=== PATIENT | female | born 1960 | race Caucasian/White ===

== ENCOUNTER 2019-05-03 11:46 | Emergency (ER) | payer OTHER ==
--- OUTSIDE RECORDS SUMMARY | 2019-05-03 11:48 | XMS REPORT ---
:1960 [facility] Address [address] [place] [address] Dr. Maguire [address] [place] [id number] Care Team Providers Name Role Phone Unavailable Unavailable Unavailable Problems This patient has no known problems. Allergies, Adverse Reactions, Alerts This patient has no known allergies or adverse reactions. Medications This patient has no known medications.
--- NOTE | 2019-05-03 12:07 | ER ---
Nurse's Notes [facility] Name: Ruth Drake Age: 58 yrs Sex: Female : 1960 Arrival Date: 05/03/2019 Time: 11:51 Bed 12 Private MD: Diagnosis: Encounter for issue of repeat prescription Presentation: 05/03 11:50 Presenting complaint: Patient states: im getting low on my ProAir and i have an hj appointment with my doctor on Wednesday, since yesterday, i used it but its past zero already;. Transition of care: patient was not received from another setting of care. Onset of symptoms was May 03, 2019. Risk Assessment: Do you want to hurt yourself or someone else? Patient reports no desire to harm self or others. Initial Sepsis Screen: Does the patient meet any 2 criteria? No. Patient's initial sepsis screen is negative. Does the patient have a suspected source of infection? No. Patient's initial sepsis screen is negative. Care prior to arrival: None. 11:50 Method Of Arrival: Ambulatory 11:50 Acuity: PADMINI 5 hj Triage Assessment: 12:00 General: Appears in no apparent distress. comfortable, Behavior is calm, cooperative, hj appropriate for age. Pain: Denies pain. Historical: - Allergies: 11:52 Codeine; hj 11:52 Bactrim; hj - PMHx: 11:52 COPD; Hypertension; Diabetes - NIDDM; hj - PSHx: 11:52 None; hj - Immunization history:: Adult Immunizations not up to date. - Social history:: Smoking status: Patient uses tobacco products, Patient/guardian denies using alcohol. - Ebola Screening: : Patient negative for fever greater than or equal to 101.5 degrees Fahrenheit, and additional compatible Ebola Virus Disease symptoms Patient denies exposure to infectious person Patient denies travel to an Ebola-affected area in the 21 days before illness onset. Screenin:00 Abuse screen: Denies threats or abuse. Denies injuries from another. Nutritional hj screening: No deficits noted. Tuberculosis screening: No symptoms or risk factors identified. Fall Risk None identified. Assessment: 12:11 General: Appears in no apparent distress. comfortable, Behavior is calm, cooperative. ss Pain: Denies pain. Neuro: Oriented to person, place, time, situation. Cardiovascular: Capillary refill < 3 seconds is brisk in bilateral fingers. Respiratory: Airway is patent Respiratory effort is even, unlabored, Respiratory pattern is regular, symmetrical. EENT: Nares are clear Oral mucosa is moist. Derm: Skin is intact, is healthy with good turgor, Skin is dry. Musculoskeletal: Circulation, motion, and sensation intact. Range of motion: intact in all extremities. Vital Signs: 11:53 BP 138 / 75; Pulse 115; Resp 20; Temp 98.1(TE); Pulse Ox 94% on R/A; Weight 74.84 kg; hj Height 5 ft. 1 in. (154.94 cm); Pain 0/10; 11:53 Body Mass Index 31.18 (74.84 kg, 154.94 cm) ED Course: 11:51 Patient arrived in ED. mr 11:52 Triage completed. hj 11:52 Arm band placed on right wrist. 11:58 Galile[facility] Carlson [facility]-C [facility]. kb 11:58 Oz Lopez MD is Attending Physician. kb 12:00 Jarvis Ge, RN is Primary Nurse. hj 12:00 Patient has correct armband on for positive identification. Bed in low position. Call light in reach. Side rails up X 1. 12:13 No provider procedures requiring assistance completed. Patient did not have IV access ss during this emergency room visit. Administered Medications: No medications were administered Outcome: 12:06 Discharge ordered by MD. kb 12:13 Discharged to home ambulatory. ss 12:13 Condition: good 12:13 Discharge instructions given to patient, Instructed on discharge instructions, follow up and referral plans. medication usage, Demonstrated understanding of instructions, follow-up care, medications, Prescriptions given X 1. 12:14 Patient left the ED. ss Signatures: Galilea Carlson FNP-C FNP-Ckb Stephany Molina Lela Bird, RN RN Jarvis Ge, DARIUS MCCOY
--- NOTE | 2019-05-03 12:08 | EDPHYS ---
Physician Documentation [facility] Name: Ruth Drake Age: 58 yrs Sex: Female : 1960 Arrival Date: 05/03/2019 Time: 11:51 Bed 12 Private MD: ED Physician Oz Lopez HPI: 05/03 12:04 This 58 yrs old Female presents to ER via Ambulatory with complaints of kb Medication Refill. 12:04 The patient presents to the emergency department requesting refill(s) for: albuterol. kb The patient chronically suffers from COPD. The patient has not experienced similar symptoms in the past. The patient has not recently seen a physician. Pt reports she ran out of her albuterol inhaler and can't get in to see her Dr until Wednesday. Has an appt with Dr Rodriguez on Wednesday. Pt smokes cigarettes and just smoked before entering. . Historical: - Allergies: 11:52 Codeine; hj 11:52 Bactrim; hj - PMHx: 11:52 COPD; Hypertension; Diabetes - NIDDM; hj - PSHx: 11:52 None; hj - Immunization history:: Adult Immunizations not up to date. - Social history:: Smoking status: Patient uses tobacco products, Patient/guardian denies using alcohol. - Ebola Screening: : Patient negative for fever greater than or equal to 101.5 degrees Fahrenheit, and additional compatible Ebola Virus Disease symptoms Patient denies exposure to infectious person Patient denies travel to an Ebola-affected area in the 21 days before illness onset. ROS: 12:04 Constitutional: Negative for fever, chills, and weight loss, Cardiovascular: Negative kb for chest pain, palpitations, and edema, Respiratory: Negative for shortness of breath, cough, wheezing, and pleuritic chest pain, Abdomen/GI: Negative for abdominal pain, nausea, vomiting, diarrhea, and constipation, Back: Negative for injury and pain, MS/Extremity: Negative for injury and deformity, Skin: Negative for injury, rash, and discoloration, Neuro: Negative for headache, weakness, numbness, tingling, and seizure. Exam: 12:04 Constitutional: This is a well developed, well nourished patient who is awake, alert, kb and in no acute distress. Head/Face: Normocephalic, atraumatic. ENT: Nares patent. No nasal discharge, no septal abnormalities noted. Tympanic membranes are normal and external auditory canals are clear. Oropharynx with no redness, swelling, or masses, exudates, or evidence of obstruction, uvula midline. Mucous membranes moist. Neck: Trachea midline, no thyromegaly or masses palpated, and no cervical lymphadenopathy. Supple, full range of motion without nuchal rigidity, or vertebral point tenderness. No Meningismus. Chest/axilla: Normal chest wall appearance and motion. Nontender with no deformity. No lesions are appreciated. Cardiovascular: Regular rate and rhythm with a normal S1 and S2. No gallops, murmurs, or rubs. Normal PMI, no JVD. No pulse deficits. Respiratory: Lungs have equal breath sounds bilaterally, clear to auscultation and percussion. No rales, rhonchi or wheezes noted. No increased work of breathing, no retractions or nasal flaring. Abdomen/GI: Soft, non-tender, with normal bowel sounds. No distension or tympany. No guarding or rebound. No evidence of tenderness throughout. Skin: Warm, dry with normal turgor. Normal color with no rashes, no lesions, and no evidence of cellulitis. MS/ Extremity: Pulses equal, no cyanosis. Neurovascular intact. Full, normal range of motion. Neuro: Awake and alert, GCS 15, oriented to person, place, time, and situation. Cranial nerves II-XII grossly intact. Motor strength 5/5 in all extremities. Sensory grossly intact. Cerebellar exam normal. Normal gait. Vital Signs: 11:53 BP 138 / 75; Pulse 115; Resp 20; Temp 98.1(TE); Pulse Ox 94% on R/A; Weight 74.84 kg; hj Height 5 ft. 1 in. (154.94 cm); Pain 0/10; 11:53 Body Mass Index 31.18 (74.84 kg, 154.94 cm) MDM: 11:59 Patient medically screened. kb 12:03 Data reviewed: vital signs, nurses notes. Data interpreted: Pulse oximetry: on room air kb is 94 %. Interpretation: normal. Counseling: I had a detailed discussion with the patient and/or guardian regarding: the historical points, exam findings, and any diagnostic results supporting the discharge/admit diagnosis, the need for outpatient follow up, a family practitioner, to return to the emergency department if symptoms worsen or persist or if there are any questions or concerns that arise at home. 12:07 Counseling: I had a detailed discussion with the patient and/or guardian regarding: kb smoking cessation. Administered Medications: No medications were administered Disposition: 18:54 Co-signature as Attending Physician, Oz Lopez MD Available for consultation at ps1 all times. . Disposition: 05/03/19 12:06 Discharged to Home. Impression: Encounter for issue of repeat prescription. - Condition is Stable. - Discharge Instructions: Medicine Refill at the Emergency Department. - Prescriptions for Albuterol Sulfate 90 mcg/actuation - inhale 1-2 puff by INHALATION route every 4-6 hours; 1 Inhaler. - Medication Reconciliation Form, Thank You Letter, Antibiotic Education, Prescription Opioid Use form. - Follow up: Emergency Department; When: As needed; Reason: Worsening of condition. Follow up: Private Physician; When: 2 - 3 days; Reason: Recheck today's complaints, Continuance of care, Re-evaluation by your physician. Signatures: Galilea Carlson, BONDERIZER OPERATOR-C BONDERIZER OPERATOR-Lela Ford RN RN Jarvis Eng RN RN Oz Lopez MD MD ps1 Corrections: (The following items were deleted from the chart) 12:14 12:06 05/03/2019 12:06 Discharged to Home. Impression: Encounter for issue of repeat ss prescription. Condition is Stable. Forms are Medication Reconciliation Form, Thank You Letter, Antibiotic Education, Prescription Opioid Use. Follow up: Emergency Department; When: As needed; Reason: Worsening of condition. Follow up: Private Physician; When: 2 - 3 days; Reason: Recheck today's complaints, Continuance of care, Re-evaluation by your physician. kb
== END 2019-05-03 12:14 | disposition home or self-care (01) ==
LOC: ER 11:46
DX: Z76.0 Encounter for issue of repeat prescription (principal); I10 Essential (primary) hypertension; Z72.0 Tobacco use; Z88.1 Allergy status to other antibiotic agents; Z88.5 Allergy status to narcotic agent
CPT/HCPCS: 99282

== ENCOUNTER 2019-09-19 09:09 | Emergency (ER) | payer OTHER ==
--- NOTE | 2019-09-19 09:40 | ER ---
Nurse's Notes [facility] Name: Ruth Drake Age: 59 yrs Sex: Female : 1960 Arrival Date: 09/19/2019 Time: 09:12 Bed 16 Private MD: Diagnosis: Encounter for issue of repeat prescription Presentation: 09/19 09:21 Presenting complaint: Patient states: Needs a refill for her ProAir inhaler. Patient ss reports she ran out yesterday. Transition of care: patient was not received from another setting of care. Onset of symptoms is unknown. Risk Assessment: Do you want to hurt yourself or someone else? Patient reports no desire to harm self or others. Initial Sepsis Screen: Does the patient meet any 2 criteria? HR > 90 bpm. Does the patient have a suspected source of infection? No. Patient's initial sepsis screen is negative. Care prior to arrival: None. 09:21 Method Of Arrival: Ambulatory ss 09:21 Acuity: PADMINI 3 ss Historical: - Allergies: 09:20 Bactrim; ss 09:20 Codeine; ss - Home Meds: 09:20 ProAir [Active]; symbicort [Active]; Glipizide Oral [Active]; Lisinopril Oral [Active]; ss - PMHx: 09:20 COPD; Diabetes - NIDDM; Hypertension; ss - PSHx: 09:20 None; ss - Immunization history:: Adult Immunizations up to date. - Social history:: Smoking status: Patient uses tobacco products, smokes one-half pack cigarettes per day. - Ebola Screening: : Patient denies exposure to infectious person Patient denies travel to an Ebola-affected area in the 21 days before illness onset. Screenin:23 Abuse screen: Denies threats or abuse. Denies injuries from another. Nutritional sv screening: No deficits noted. Tuberculosis screening: No symptoms or risk factors identified. Fall Risk None identified. Assessment: 09:22 Reassessment: When told that her pulse was elevated, patient states that she believes ss it is from smoking a cigarette prior to coming in to ED and walking. 09:30 General: Appears in no apparent distress. comfortable, Behavior is calm, cooperative, sv appropriate for age. Pain: Denies pain. Neuro: Level of Consciousness is awake, alert, obeys commands, Oriented to person, place, time, situation, Gait is steady. Respiratory: Airway is patent Respiratory effort is even, unlabored, Respiratory pattern is regular, symmetrical. Derm: Skin is normal. Vital Signs: 09:20 BP 142 / 83; Pulse 118; Resp 19; Temp 99.0(TE); Pulse Ox 88% on R/A; Weight 74.84 kg; ss Height 5 ft. 1 in. (154.94 cm); Pain 0/10; 09:20 Body Mass Index 31.18 (74.84 kg, 154.94 cm) ss 09:20 Patient reports that her baseline O2 on RA is 88% ss ED Course: 09:12 Patient arrived in ED. as 09:19 Valdez Donahue NP is PHCP. pm1 09:19 Moshe Alex MD is Attending Physician. pm1 09:20 Arm band placed on right wrist. ss 09:22 Triage completed. ss 09:23 Yessica Merida RN is Primary Nurse. sv 09:23 Patient has correct armband on for positive identification. Bed in low position. Door sv closed. Head of bed elevated. 09:24 Awaiting ED provider evaluation. sv 09:36 Nurse Practitioner and/or Physician Pipeline Maintenance Supervisor to see patient. sv 09:44 No provider procedures requiring assistance completed. Patient did not have IV access sv during this emergency room visit. Administered Medications: No medications were administered Outcome: 09:40 Discharge ordered by . pm1 09:45 Discharged to home ambulatory. sv 09:45 Condition: stable 09:45 Discharge instructions given to patient, Instructed on discharge instructions, follow up and referral plans. medication usage, Demonstrated understanding of instructions, follow-up care, medications, Prescriptions given X 1. 09:45 Patient left the ED. sv Signatures: Yessica Merida, RN RN Alaina Wan Shelby, RN RN Valdez Donahue NP SHIFT LEADER pm1
--- NOTE | 2019-09-19 09:41 | EDPHYS ---
Physician Documentation [facility] Name: Ruth Drake Age: 59 yrs Sex: Female : 1960 Arrival Date: 09/19/2019 Time: 09:12 Bed 16 Private MD: ED Physician Moshe Alex HPI: 09/19 09:38 This 59 yrs old Female presents to ER via Ambulatory with complaints of pm1 Medication Refill. 09:38 The patient presents to the emergency department requesting refill(s) for: Albuterol. pm1 The patient chronically suffers from COPD. The patient has not recently seen a physician. Patient requesting prescription for albuterol. She currently smokes 1/2 pack per day. Just smoked prior to arrival and took a breathing treatment at home. Historical: - Allergies: 09:20 Bactrim; ss 09:20 Codeine; ss - Home Meds: 09:20 ProAir [Active]; symbicort [Active]; Glipizide Oral [Active]; Lisinopril Oral [Active]; ss - PMHx: 09:20 COPD; Diabetes - NIDDM; Hypertension; ss - PSHx: 09:20 None; ss - Immunization history:: Adult Immunizations up to date. - Social history:: Smoking status: Patient uses tobacco products, smokes one-half pack cigarettes per day. - Ebola Screening: : Patient denies exposure to infectious person Patient denies travel to an Ebola-affected area in the 21 days before illness onset. ROS: 09:38 Constitutional: Negative for fever, chills, and weight loss, Eyes: Negative for injury, pm1 pain, redness, and discharge, ENT: Negative for injury, pain, and discharge, Neck: Negative for injury, pain, and swelling, Cardiovascular: Negative for chest pain, palpitations, and edema, Respiratory: Negative for shortness of breath, cough, wheezing, and pleuritic chest pain, Abdomen/GI: Negative for abdominal pain, nausea, vomiting, diarrhea, and constipation, Back: Negative for injury and pain, : Negative for injury, bleeding, discharge, and swelling, MS/Extremity: Negative for injury and deformity, Skin: Negative for injury, rash, and discoloration, Neuro: Negative for headache, weakness, numbness, tingling, and seizure. Exam: 09:38 Constitutional: This is a well developed, well nourished patient who is awake, alert, pm1 and in no acute distress. Head/Face: Normocephalic, atraumatic. Eyes: Pupils equal round and reactive to light, extra-ocular motions intact. Lids and lashes normal. Conjunctiva and sclera are non-icteric and not injected. Cornea within normal limits. Periorbital areas with no swelling, redness, or edema. ENT: Nares patent. No nasal discharge, no septal abnormalities noted. Tympanic membranes are normal and external auditory canals are clear. Oropharynx with no redness, swelling, or masses, exudates, or evidence of obstruction, uvula midline. Mucous membranes moist. Neck: Trachea midline, no thyromegaly or masses palpated, and no cervical lymphadenopathy. Supple, full range of motion without nuchal rigidity, or vertebral point tenderness. No Meningismus. Chest/axilla: Normal chest wall appearance and motion. Nontender with no deformity. No lesions are appreciated. Cardiovascular: Regular rate and rhythm with a normal S1 and S2. No gallops, murmurs, or rubs. Normal PMI, no JVD. No pulse deficits. Respiratory: Lungs have equal breath sounds bilaterally, clear to auscultation and percussion. No rales, rhonchi or wheezes noted. No increased work of breathing, no retractions or nasal flaring. Back: No spinal tenderness. No costovertebral tenderness. Full range of motion. Skin: Warm, dry with normal turgor. Normal color with no rashes, no lesions, and no evidence of cellulitis. MS/ Extremity: Pulses equal, no cyanosis. Neurovascular intact. Full, normal range of motion. 09:38 Neuro: Orientation: is normal, Motor: is normal, moves all fours, Gait: is steady, at a normal pace, without difficulty. Vital Signs: 09:20 BP 142 / 83; Pulse 118; Resp 19; Temp 99.0(TE); Pulse Ox 88% on R/A; Weight 74.84 kg; ss Height 5 ft. 1 in. (154.94 cm); Pain 0/10; 09:20 Body Mass Index 31.18 (74.84 kg, 154.94 cm) 09:20 Patient reports that her baseline O2 on RA is 88% ss MDM: 09:30 Patient medically screened. pm1 09:30 Data reviewed: vital signs. pm1 09:38 Counseling: I had a detailed discussion with the patient and/or guardian regarding: the pm1 historical points, exam findings, and any diagnostic results supporting the discharge/admit diagnosis, the need for outpatient follow up, a instrument tech, to return to the emergency department if symptoms worsen or persist or if there are any questions or concerns that arise at home. 09:38 Refusal of service: The patient/guardian displays adequate decision making capability pm1 and despite a detailed discussion of alternatives, benefits, risks, and consequences refuses: Breathing treatment and labs, ekg, chest xray for evaluation of abnormal vital signs. Patient reports that her oxygen saturation is at her baseline for her COPD and she does not feel short of breath. She smoked a cigarette prior to walking into the ER. Offered the patient a breathing treatment but she refused because she took one before leaving the house. She just wants the medication refill. Administered Medications: No medications were administered Disposition: 15:48 Co-signature as Attending Physician, Moshe Alex MD I agree with the assessment and wendy plan of care. Disposition: 09/19/19 09:40 Discharged to Home. Impression: Encounter for issue of repeat prescription. - Condition is Stable. - Discharge Instructions: Medicine Refill at the Emergency Department. - Prescriptions for Albuterol Sulfate 90 mcg/actuation - inhale 1-2 puff by INHALATION route every 4-6 hours; 1 Inhaler. - Medication Reconciliation Form, Thank You Letter, Antibiotic Education, Prescription Opioid Use form. - Follow up: Emergency Department; When: As needed; Reason: Worsening of condition. Follow up: Private Physician; When: 2 - 3 days; Reason: Recheck today's complaints, Continuance of care, Re-evaluation by your physician. - Problem is new. - Symptoms have improved. Signatures: Yessica Merida RN RN sv Anderson, Corey, MD MD cha Smirch, Shelby, RN RN ss Marinas, Patrick, [employer]ITO MOLASS[employer] FEED MIXER pm1 Corrections: (The following items were deleted from the chart) 09:45 09:40 09/19/2019 09:40 Discharged to Home. Impression: Encounter for issue of repeat sv prescription. Condition is Stable. Forms are Medication Reconciliation Form, Thank You Letter, Antibiotic Education, Prescription Opioid Use. Follow up: Emergency Department; When: As needed; Reason: Worsening of condition. Follow up: Private Physician; When: 2 - 3 days; Reason: Recheck today's complaints, Continuance of care, Re-evaluation by your physician. Problem is new. Symptoms have improved. pm1
[2019-09-19 09:56] VITALS: BP 142/83; TEMP 99; O2SAT 88
== END 2019-09-19 09:45 | disposition home or self-care (01) ==
LOC: ER 09:09
DX: Z76.0 Encounter for issue of repeat prescription (principal); Z88.6 Allergy status to analgesic agent; Z88.1 Allergy status to other antibiotic agents; J44.9 Chronic obstructive pulmonary disease, unspecified; I10 Essential (primary) hypertension; E11.9 Type 2 diabetes mellitus without complications; F17.210 Nicotine dependence, cigarettes, uncomplicated
CPT/HCPCS: 99282

== ENCOUNTER 2020-08-09 08:53 | Emergency (ER) | payer OTHER ==
--- NOTE | 2020-08-09 11:41 | EDPHYS ---
Physician Documentation [facility] Name: Ruth Drake Age: 60 yrs Sex: Female : 1960 Arrival Date: 08/09/2020 Time: 08:55 Bed External Waiting Private MD: ED Physician Asif Saucedo HPI: 08/09 19:22 This 60 yrs old Female presents to ER via Wheelchair with complaints of low kdr o2. 19:22 The patient was evaluated at her PCP office on a routine office and noted to have a low kdr oxygenation. She was sent to the ED. On arrival here, she did not have any evidence of acute illness and her saturations were normal. Onset: The symptoms/episode began/occurred suddenly, just prior to arrival. Severity of symptoms: At their worst the symptoms were She never had any s/s of acute illness. The patient has not experienced similar symptoms in the past. The patient has been recently seen by a physician: the patient's primary care provider. Historical: - Allergies: 09:02 Bactrim; sv 09:02 Codeine; sv - PMHx: 09:02 COPD; Diabetes - NIDDM; Hypertension; sv - PSHx: 09:02 None; sv - Immunization history:: Adult Immunizations up to date. - Social history:: Smoking status: Patient reports the use of cigarette tobacco products, smokes one pack cigarettes per day. ROS: 19:22 Constitutional: Negative for fever, chills, and weight loss, Eyes: Negative for injury, kdr pain, redness, and discharge, ENT: Negative for injury, pain, and discharge, Neck: Negative for injury, pain, and swelling, Cardiovascular: Negative for chest pain, palpitations, and edema, Respiratory: Negative for shortness of breath, cough, wheezing, and pleuritic chest pain, Abdomen/GI: Negative for abdominal pain, nausea, vomiting, diarrhea, and constipation, Back: Negative for injury and pain, : Negative for injury, bleeding, discharge, and swelling, MS/Extremity: Negative for injury and deformity, Skin: Negative for injury, rash, and discoloration, Neuro: Negative for headache, weakness, numbness, tingling, and seizure activity. Psych: Negative for depression, anxiety, suicide ideation, homicidal ideation, and hallucinations, Allergy/Immunology: Negative for hives, rash, and allergies, Endocrine: Negative for neck swelling, polydipsia, polyuria, polyphagia, and marked weight changes, Hematologic/Lymphatic: Negative for swollen nodes, abnormal bleeding, and unusual bruising. Exam: 19:22 Constitutional: This is a well developed, well nourished patient who is awake, alert, kdr and in no acute distress. Head/Face: Normocephalic, atraumatic. Eyes: Pupils equal round and reactive to light, extra-ocular motions intact. Lids and lashes normal. Conjunctiva and sclera are non-icteric and not injected. Cornea within normal limits. Periorbital areas with no swelling, redness, or edema. Neck: Trachea midline, no thyromegaly or masses palpated, and no cervical lymphadenopathy. Supple, full range of motion without nuchal rigidity, or vertebral point tenderness. No Meningismus. Chest/axilla: Normal chest wall appearance and motion. Nontender with no deformity. No lesions are appreciated. Cardiovascular: Regular rate and rhythm with a normal S1 and S2. No gallops, murmurs, or rubs. Normal PMI, no JVD. No pulse deficits. Respiratory: Lungs have equal breath sounds bilaterally, clear to auscultation and percussion. No rales, rhonchi or wheezes noted. No increased work of breathing, no retractions or nasal flaring. Abdomen/GI: Soft, non-tender, with normal bowel sounds. No distension or tympany. No guarding or rebound. No evidence of tenderness throughout. Back: No spinal tenderness. No costovertebral tenderness. Full range of motion. Skin: Warm, dry with normal turgor. Normal color with no rashes, no lesions, and no evidence of cellulitis. MS/ Extremity: Pulses equal, no cyanosis. Neurovascular intact. Full, normal range of motion. Neuro: Awake and alert, GCS 15, oriented to person, place, time, and situation. Cranial nerves II-XII grossly intact. Motor strength 5/5 in all extremities. Sensory grossly intact. Cerebellar exam normal. Normal gait. Psych: Awake, alert, with orientation to person, place and time. Behavior, mood, and affect are within normal limits. Vital Signs: 09:00 BP 117 / 75; Resp 20; Temp 98.7; Pulse Ox 92% on R/A; Weight 75.75 kg; Height 5 ft. 1 sv in. (154.94 cm); 09:44 Resp 20; Pulse Ox 87% on R/A; ca1 10:00 BP 105 / 73; Pulse 100; Resp 19 S; Pulse Ox 95% on 2 lpm NC; ca1 09:00 Body Mass Index 31.55 (75.75 kg, 154.94 cm) sv MDM: 11:41 Patient medically screened. kdr 19:22 Data reviewed: vital signs, nurses notes, EMS record, lab test result(s), radiologic kdr studies. Counseling: I had a detailed discussion with the patient and/or guardian regarding: the historical points, exam findings, and any diagnostic results supporting the discharge/admit diagnosis, the need for outpatient follow up. Administered Medications: No medications were administered Disposition: 08/09/20 11:41 Discharged to Home. Impression: Hypoxia - resolved. - Condition is Stable. - Blank Diagnosis Outline, Medication Reconciliation Form, Thank You Letter form. - Follow up: Private Physician; When: As needed; Reason: If symptoms return, Further diagnostic work-up, Recheck today's complaints, Continuance of care, Re-evaluation by your physician. - Problem is new. - Symptoms are resolved. Signatures: Dispatcher [employer] EDVT Yessica Merida RN RN Asif Saucedo MD MD [facility] Lupe Moran, DARIUS MCCOY iw Audra, Lalita RN RN ca1 Corrections: (The following items were deleted from the chart) 10:18 10:11 EKG - Nurse/Tech ordered. ca1 ca1 10:44 10:11 Cardiac monitoring ordered. kdr ca1 10:44 10:11 IV Saline Lock ordered. kdr ca1 10:44 10:11 Labs collected and sent ordered. kdr ca1 10:44 10:11 Oxygen Per Protocol ordered. kdr ca1 10:44 10:11 O2 Sat Monitoring ordered. kdr ca1 11:06 10:12 Chest Single View+RAD.RAD.BRZ ordered. [facility] 12:29 11:41 08/09/2020 11:41 Discharged to Home. Impression: Hypoxia - resolved. Condition is iw Stable. Forms are Medication Reconciliation Form, Thank You Letter, Antibiotic Education, Prescription Opioid Use. Follow up: Private Physician; When: As needed; Reason: If symptoms return, Further diagnostic work-up, Recheck today's complaints, Continuance of care, Re-evaluation by your physician. Problem is new. Symptoms are resolved. kdr
--- NOTE | 2020-08-09 11:41 | ER ---
Nurse's Notes [facility] Name: Ruth Drake Age: 60 yrs Sex: Female : 1960 Arrival Date: 08/09/2020 Time: 08:55 Bed External Waiting Private MD: Diagnosis: Hypoxia - resolved Presentation: 08/09 09:00 Chief complaint: Patient states: went to have a checkup at her PCP and they sent her sv here because her O2 sat was 78-80% on RA. Pt is trying to get her home O2 set up at home but is having trouble with the company. Hx COPD. Coronavirus screen: Client denies travel out of the [place] in the last 14 days. At this time, the client does not indicate any symptoms associated with coronavirus-19. Ebola Screen: No symptoms or risks identified at this time. Risk Assessment: Do you want to hurt yourself or someone else? Patient reports no desire to harm self or others. Onset of symptoms was August 09, 2020. 09:00 Method Of Arrival: Wheelchair sv 09:00 Acuity: PADMINI 3 sv 09:45 Initial Sepsis Screen: Does the patient meet any 2 criteria? No. Patient's initial ca1 sepsis screen is negative. Does the patient have a suspected source of infection? No. Patient's initial sepsis screen is negative. Historical: - Allergies: 09:02 Bactrim; sv 09:02 Codeine; sv - PMHx: 09:02 COPD; Diabetes - NIDDM; Hypertension; sv - PSHx: 09:02 None; sv - Immunization history:: Adult Immunizations up to date. - Social history:: Smoking status: Patient reports the use of cigarette tobacco products, smokes one pack cigarettes per day. Screenin:44 Abuse screen: Denies threats or abuse. Denies injuries from another. Nutritional ca1 screening: No deficits noted. Tuberculosis screening: No symptoms or risk factors identified. Fall Risk IV access (20 points). Ambulatory Aid- Crutches/Cane/Walker (15 pts). Total Merino Fall Scale indicates Low Risk Score (25-44 pts). Fall prevention measures have been instituted. Side Rails Up X 2 As available Patient and Family Educated on Fall Prevention Program and strategies. Assessment: :44 General: Appears in no apparent distress. comfortable, Behavior is calm, cooperative, ca1 appropriate for age. Pain: Denies pain. Neuro: Level of Consciousness is awake, alert, obeys commands, Oriented to person, place, time, situation. Cardiovascular: Heart tones S1 S2 present Capillary refill < 3 seconds Patient's skin is warm and dry. Rhythm is sinus tachycardia. Respiratory: Reports shortness of breath on exertion since 3 days cough that is since 3 days Airway is patent Trachea midline Respiratory effort is even, unlabored, Respiratory pattern is regular, symmetrical, Breath sounds are clear bilaterally. GI: Abdomen is round non-distended, Bowel sounds present X 4 quads. Abd is soft and non tender X 4 quads. : No signs and/or symptoms were reported regarding the genitourinary system. EENT: Reports nasal congestion since 3 days. Derm: Skin is intact, is healthy with good turgor, Skin is pink, warm \\T\\ dry. Musculoskeletal: Circulation, motion, and sensation intact. Capillary refill < 3 seconds. 10:25 Reassessment: VO by Dr. Saucedo to cancel all labs, EKG, X-ray. States, "pt has says ca1 her HR normally at 105-108, has COPD and has just had 02 delivered at home". 10:30 Reassessment: RN instructed by Wu Saucedo to walk pt around nurse's station and see ca1 pt's O2 saturation. Pt was out of bed and room when checked by RN. Pt eloped. 10:58 Reassessment: Talked Janessa, sister. States. "she walked out of the ER cause she has ca1 another doctor's appointment for her eye. She wasn't short of breath and is fine. I am with her right now in her other doctor". Vital Signs: 09:00 BP 117 / 75; Resp 20; Temp 98.7; Pulse Ox 92% on R/A; Weight 75.75 kg; Height 5 ft. 1 sv in. (154.94 cm); 09:44 Resp 20; Pulse Ox 87% on R/A; ca1 10:00 BP 105 / 73; Pulse 100; Resp 19 S; Pulse Ox 95% on 2 lpm NC; ca1 09:00 Body Mass Index 31.55 (75.75 kg, 154.94 cm) sv ED Course: 08:55 Patient arrived in ED. as 09:02 Triage completed. sv 09:02 Arm band placed on. sv 09:13 Asif Saucedo MD is Attending Physician. kdr 09:44 Patient has correct armband on for positive identification. Placed in gown. Bed in low ca1 position. Call light in reach. Side rails up X2. cardiac monitor on. Pulse ox on. NIBP on. Warm blanket given. 09:46 Oxygen administration via nasal cannula \\T\\ 2L/min Response to oxygen therapy: symptoms ca1 improved. 09:52 Lalita Zhu, RN is Primary Nurse. ca1 12:28 No provider procedures requiring assistance completed. Patient did not have IV access iw during this emergency room visit. Administered Medications: No medications were administered Outcome: 11:41 Discharge ordered by . kdr 11:45 Discharged to home iw 11:45 Condition: good 11:45 Discharge instructions given to patient, Instructed on discharge instructions, follow up and referral plans. Demonstrated understanding of instructions, follow-up care. 12:29 Patient left the ED. iw Signatures: Yessica Merida RN RN Asif Saucedo MD MD kdr Alaina Merritt as Lupe Moran RN RN iw Lalita Zhu RN RN ca1 Corrections: (The following items were deleted from the chart) 09:19 09:00 Acuity: PADMINI 4 sv sv
[2020-08-09 18:04] VITALS: TEMP 98.7
[2020-08-09 18:06] VITALS: BP 105/73; O2SAT 95
== END 2020-08-09 12:29 | disposition home or self-care (01) ==
LOC: ER 08:53
DX: R09.02 Hypoxemia (principal); I10 Essential (primary) hypertension; F17.210 Nicotine dependence, cigarettes, uncomplicated; Z88.1 Allergy status to other antibiotic agents; Z88.5 Allergy status to narcotic agent
CPT/HCPCS: 99284

== ENCOUNTER 2021-08-25 11:12 | Inpatient (IN) | payer OTHER ==
[2021-08-25 12:09] LABS: Urine Blood 2+ (Negative); Urine Glucose Negative (Negative); Urine Protein 2+ (Negative); Urine Specific Gravity 1.025 (1.005-1.030); Urine pH 5.5 (5.0-7.0)
[2021-08-25 12:24] LABS: Absolute Lymphocytes (CBC) 1.2 K/uL (0.7-4.9); Basophils % 0.7 % (0-1.3); Hematocrit 50.5 % (36.0-45.0); MPV 8.5 fL (7.6-11.3); RBC Red Blood Cell Count 5.68 M/uL (3.86-4.86)
[2021-08-25 12:28] LABS: Protime INR 1.32
[2021-08-25 12:39] LABS: UR PROTEIN 86.9 mg/dL (<11.9)
[2021-08-25 12:57] LABS: Albumin 3.6 g/dL (3.4-5.0); Bilirubin Direct 0.4 mg/dL (0-0.2); Bilirubin Total 0.8 mg/dL (0.2-1.0); Magnesium 2.4 mg/dL (1.8-2.4); Potassium 3.9 mmol/L (3.5-5.1); Troponin (Emerg Dept Use Only) 0.02 ng/mL (0.0-0.045)
--- NOTE | 2021-08-25 12:58 | RAD REPORT ---
EXAM DESCRIPTION: RAD - Chest Single View - 08/25/2021 12:47 pm CLINICAL HISTORY: DYSPNEA COMPARISON: No comparisons FINDINGS: Lines: None. Lungs: Diffuse prominence of the pulmonary interstitium. Pleural: Left pleural effusion Cardiac: Cardiomegaly. Atherosclerosis Bones: No acute fractures. Other: IMPRESSION: Vascular congestion versus mild edema. Small left pleural effusion.
--- NOTE | 2021-08-25 13:38 | RAD REPORT ---
EXAM DESCRIPTION: CTStone Protocol - 08/25/2021 1:29 pm CLINICAL HISTORY: . ABD PAIN COMPARISON: <Comparisons> TECHNIQUE: Biphasic CT imaging of the abdomen and pelvis was performed with 100 ml non-ionic IV cont rast. All CT scans are performed using dose optimization technique as appropriate and may include automated exposure control or mA/KV adjustment according to patient size. FINDINGS: Lower chest: Small moderate left pleural effusion. Small right effusion. Presumably underl neptali atelectasis. Liver: Cirrhotic liver morphology. No focal masses identified. Biliary: Cholelithiasis. Stomach: No significant focal abnormality. Duodenum: No significant focal abnormality. Pancreas: No significant abnormality. Spleen: No significant abnormality. Adrenal: No suspicious lesions. Kidney/ureter: No hydronephrosis. No renal calculi. Retroperitoneum: No retroperitoneal adenopathy. Vascular: No aneurysm. Bowel: No significant focal abnormality. Normal appendix. Peritoneum: Small volume ascites. Body wall edema. Bladder: Grossly unremarkable. Reproductive: No adnexal masses. Bones: No acute fracture. Disc height loss at L4-5 and L5-S1 Other: n/a IMPRESSION: No acute intra-abdominal or pelvic finding. Anasarca including bilateral pleural effusio ns, small volume of ascites, and body wall edema. Cholelithiasis without CT evidence acute cholecysti tis. Normal appendix.
[2021-08-25] MEDS ORDERED: FUROSEMIDE 100 MG/10 ML VIAL IV ONE (13:39)
--- NOTE | 2021-08-25 13:42 | ER ---
Nurse's Notes [facility] Name: Ruth Drake Age: 61 yrs Sex: Female : 1960 Arrival Date: 08/25/2021 Time: 11:16 Bed 12 Private MD: Diagnosis: Anasarca;Acute on chronic combined systolic (congestive) and diastolic (congestive) heart failure Presentation: 08/25 11:26 Chief complaint: Intermittent right sided back pain that radiates to right flank and hb RLQ x 1 month. Also c/o bilateral lower leg swelling and congestion x 2 weeks. Coronavirus screen: Client presents with at least one sign or symptom that may indicate coronavirus-19. Standard/surgical mask placed on the client. Provider contacted for isolation considerations. Ebola Screen: No symptoms or risks identified at this time. Risk Assessment: Do you want to hurt yourself or someone else? Patient reports no desire to harm self or others. Onset of symptoms was July 2021. 11:26 Method Of Arrival: Wheelchair hb 11:26 Acuity: PADMINI 2 hb 13:19 Initial Sepsis Screen: Does the patient meet any 2 criteria? HR > 90 bpm. Does the es2 patient have a suspected source of infection? No. Patient's initial sepsis screen is negative. Triage Assessment: 13:22 Respiratory: Breath sounds with wheezes. es2 Historical: - Allergies: 11:29 Bactrim; hb 11:29 Codeine; hb - Home Meds: 13:20 Glipizide Oral [Active]; lisinopril Oral [Active]; proair [Active]; symbicort [Active]; es2 glimepiride 2 mg Oral tab 1 tab once daily [Active]; lisinopril-hydrochlorothiazide 20-12.5 mg oral tab 1 tab once daily [Active]; - PMHx: 11:29 COPD; Diabetes - NIDDM; Hypertension; hb - Immunization history:: Client reports having NOT received the Covid vaccine. - Social history:: Smoking status: Patient reports the use of cigarette tobacco products, smokes one-half pack cigarettes per day. Screenin:38 Abuse screen: Denies threats or abuse. Denies injuries from another. Nutritional es2 screening: No deficits noted. Tuberculosis screening: No symptoms or risk factors identified. Fall Risk Mental Status- Oriented to own ability (0 pts). Assessment: 11:39 Reassessment: Patient and/or family updated on plan of care and expected duration. Pain es2 level reassessed. Patient is alert, oriented x 3, equal unlabored respirations, skin warm/dry/pink. Pt states that when urinating, it is not a full, steady stream. Denies painful urination. Reports she also has a productive cough. Smokes 1 pack of cigarettes over 3 days. General: Appears ill, Behavior is cooperative, appropriate for age. Pain: Denies pain. Neuro: Level of Consciousness is awake, alert, obeys commands, Oriented to person, place, time, situation, Appropriate for age Speech is normal. Cardiovascular: Capillary refill < 3 seconds Patient's skin is warm and dry. Respiratory: Airway is patent Respiratory effort is even, unlabored, Respiratory pattern is regular, symmetrical. GI: No signs and/or symptoms were reported involving the gastrointestinal system. : Reports not urinating at a full stream. EENT: No signs and/or symptoms were reported regarding the EENT system. Derm: No signs and/or symptoms reported regarding the dermatologic system. Musculoskeletal: No signs and/or symptoms reported regarding the musculoskeletal system. Vital Signs: 11:26 BP 107 / 79; Pulse 109; Resp 24; Temp 98; Pulse Ox 78% on R/A; Pain 5/10; hb 12:00 BP 108 / 79; Pulse 124; Pulse Ox 93% on 2 lpm NC; es2 12:30 BP 125 / 81; Pulse 117; Pulse Ox 92% on 2 lpm NC; es2 13:00 BP 117 / 83; Pulse 110; Resp 26; Pulse Ox 90% on 2 lpm NC; es2 13:30 BP 123 / 85; Pulse 110; Pulse Ox 93% on 2 lpm NC; es2 14:10 BP 124 / 75; Pulse 109; Resp 24; Pulse Ox 92% on 2 lpm NC; es2 14:30 BP 111 / 82; Pulse 110; Resp 24; Pulse Ox 90% on 2 lpm NC; es2 15:00 BP 116 / 76; Pulse 112; Pulse Ox 91% on 2 lpm NC; es2 15:30 BP 111 / 82; Pulse 110; Resp 26; Pulse Ox 90% on 2 lpm NC; es2 16:00 BP 117 / 79; Pulse 111; Resp 26; Pulse Ox 90% on 2 lpm NC; es2 16:30 BP 116 / 87; Pulse 120; Resp 24; Pulse Ox 90% on 2 lpm NC; es2 ED Course: 11:16 Patient arrived in ED. mr 11:28 Triage completed. hb 11:29 Arm band placed on. hb 11:30 Carmen Mas, RN is Primary Nurse. es2 11:36 Norman Olea PA is PHCP. jr8 11:36 German Santiago MD is Attending Physician. jr8 11:38 No provider procedures requiring assistance completed. es2 11:41 Patient has correct armband on for positive identification. Bed in low position. Call es2 light in reach. 12:17 Basic Metabolic Panel Sent. es2 12:17 Urine Sodium Random Sent. es2 12:17 Urine Creatinine Sent. es2 12:17 Urine For Protein, Random Sent. es2 12:17 Basic Metabolic Panel Sent. es2 12:17 CBC with Diff Sent. es2 12:17 LFT's Sent. es2 12:17 NT PRO-BNP Sent. es2 12:17 Troponin (emerg Dept Use Only) Sent. es2 12:17 PT-INR Sent. es2 12:17 Magnesium Sent. es2 12:46 XRAY Chest (1 view) In Process Unspecified. EDMS 12:56 Basic Metabolic Panel Sent. es2 12:56 LFT's Sent. es2 12:56 Magnesium Sent. es2 12:56 NT PRO-BNP Sent. es2 12:56 Troponin (emerg Dept Use Only) Sent. es2 13:19 Inserted saline lock: 20 gauge in right forearm, using aseptic technique. es2 13:[address] In Process Unspecified. EDMS 13:41 Brandan Chowdhury MD is Hospitalizing Provider. jr8 18:01 COVID-19 : Document "Date of Symptom Onset" if Symptomatic. Sent. es2 Administered Medications: 13:19 Drug: Lasix (furosemide) 60 mg Route: IVP; Site: right forearm; es2 13:44 Follow up: Response: No adverse reaction es2 Outcome: 13:41 Decision to Hospitalize by Provider. jr8 20:13 Patient left the ED. wr Signatures: Dispatcher [employer] EDNE JesseStephany Josh, PA PA jr8 Amalia Haile, RN RN Sharon Mcdaniel Elizabeth RN RN es2
--- NOTE | 2021-08-25 13:43 | EDPHYS ---
Physician Documentation [facility] Name: Ruth Drake Age: 61 yrs Sex: Female : 1960 Arrival Date: 08/25/2021 Time: 11:16 Bed 12 Private MD: ED Physician German Santiago HPI: 08/25 13:03 This 61 yrs old Female presents to ER via Wheelchair with complaints of jr8 Urinary Problem, Congestion. 13:04 Is a 61-year-old female patient who presented to the emergency room for increased jr8 dyspnea at rest and with exertion. Patient stated that she had been treated for a urinary tract infection about a month ago. Stated that she still gets some frequency and dribbling. Now having increased swelling to the lower extremities and abdominal region with increased shortness of breath.. Historical: - Allergies: 11:29 Bactrim; hb 11:29 Codeine; hb - Home Meds: 13:20 Glipizide Oral [Active]; lisinopril Oral [Active]; proair [Active]; symbicort [Active]; es2 glimepiride 2 mg Oral tab 1 tab once daily [Active]; lisinopril-hydrochlorothiazide 20-12.5 mg oral tab 1 tab once daily [Active]; - PMHx: 11:29 COPD; Diabetes - NIDDM; Hypertension; hb - Immunization history:: Client reports having NOT received the Covid vaccine. - Social history:: Smoking status: Patient reports the use of cigarette tobacco products, smokes one-half pack cigarettes per day. ROS: 13:04 Eyes: Negative for injury, pain, redness, and discharge, ENT: Negative for injury, jr8 pain, and discharge, Neck: Negative for injury, pain, and swelling, Cardiovascular: Negative for chest pain, palpitations, and edema, Back: Negative for injury and pain, MS/Extremity: Negative for injury and deformity, Skin: Negative for injury, rash, and discoloration, Neuro: Negative for headache, weakness, numbness, tingling, and seizure. 13:04 Respiratory: Positive for dyspnea on exertion, shortness of breath. 13:04 Abdomen/GI: Positive for abdominal distension. 13:04 : Positive for urinary frequency, small amounts. Exam: 13:04 Eyes: Pupils equal round and reactive to light, extra-ocular motions intact. Lids and jr8 lashes normal. Conjunctiva and sclera are non-icteric and not injected. Cornea within normal limits. Periorbital areas with no swelling, redness, or edema. ENT: Nares patent. No nasal discharge, no septal abnormalities noted. Tympanic membranes are normal and external auditory canals are clear. Oropharynx with no redness, swelling, or masses, exudates, or evidence of obstruction, uvula midline. Mucous membranes moist. Neck: Trachea midline, no thyromegaly or masses palpated, and no cervical lymphadenopathy. Supple, full range of motion without nuchal rigidity, or vertebral point tenderness. No Meningismus. Skin: Warm, dry with normal turgor. Normal color with no rashes, no lesions, and no evidence of cellulitis. MS/ Extremity: Pulses equal, no cyanosis. Neurovascular intact. Full, normal range of motion. Neuro: Awake and alert, GCS 15, oriented to person, place, time, and situation. Cranial nerves II-XII grossly intact. Motor strength 5/5 in all extremities. Sensory grossly intact. Cerebellar exam normal. Normal gait. 13:04 Cardiovascular: Rate: tachycardic, Rhythm: regular, Pulses: Pulses are 2+ in right radial artery and left radial artery. Heart sounds: normal, normal S1and S2, no S3 or S4, no murmur, no rub, no gallop, Edema: 3+ edema to level of waist, pubic area, left upper thigh, left lower thigh, left knee, left midcalf, left ankle, left foot, left toes, right upper thigh, right lower thigh, right knee, right midcalf, right ankle, right foot and right toes. 13:04 Respiratory: the patient does not display signs of respiratory distress, Respirations: tachypnea, that is mild, Breath sounds: wheezing: expiratory that is mild, is heard diffusely. Vital Signs: 11:26 BP 107 / 79; Pulse 109; Resp 24; Temp 98; Pulse Ox 78% on R/A; Pain 5/10; hb 12:00 BP 108 / 79; Pulse 124; Pulse Ox 93% on 2 lpm NC; es2 12:30 BP 125 / 81; Pulse 117; Pulse Ox 92% on 2 lpm NC; es2 13:00 BP 117 / 83; Pulse 110; Resp 26; Pulse Ox 90% on 2 lpm NC; es2 13:30 BP 123 / 85; Pulse 110; Pulse Ox 93% on 2 lpm NC; es2 14:10 BP 124 / 75; Pulse 109; Resp 24; Pulse Ox 92% on 2 lpm NC; es2 14:30 BP 111 / 82; Pulse 110; Resp 24; Pulse Ox 90% on 2 lpm NC; es2 15:00 BP 116 / 76; Pulse 112; Pulse Ox 91% on 2 lpm NC; es2 15:30 BP 111 / 82; Pulse 110; Resp 26; Pulse Ox 90% on 2 lpm NC; es2 16:00 BP 117 / 79; Pulse 111; Resp 26; Pulse Ox 90% on 2 lpm NC; es2 16:30 BP 116 / 87; Pulse 120; Resp 24; Pulse Ox 90% on 2 lpm NC; es2 MDM: 11:37 Patient medically screened. [facility] 13:04 Data reviewed: vital signs, nurses notes, lab test result(s), EKG, radiologic studies, [facility] CT scan, plain films. Data interpreted: Pulse oximetry: on room air is 78 %. Interpretation: hypoxia. Counseling: I had a detailed discussion with the patient and/or guardian regarding: the historical points, exam findings, and any diagnostic results supporting the discharge/admit diagnosis, lab results, radiology results, the need for further work-up and treatment in the hospital. 08/25 11:52 Order name: Basic Metabolic Panel [facility] 08/25 11:52 Order name: CBC with Diff; Complete Time: 12:48 [facility] 08/25 11:52 Order name: LFT's; Complete Time: 13:08/25 11:52 Order name: Magnesium; Complete Time: 13: 8 08/25 11:52 Order name: NT PRO-BNP; Complete Time: 13: 8 08/25 11:52 Order name: PT-INR; Complete Time: 12:48 8 08/25 11:52 Order name: Troponin (emerg Dept Use Only); Complete Time: 13: [facility] 08/25 11:52 Order name: Urine For Protein, Random; Complete Time: 12:48 8 08/25 11:52 Order name: Urine Creatinine; Complete Time: 12:48 [facility] 08/25 11:52 Order name: Urine Sodium Random; Complete Time: 12:48 [facility] 08/25 11:53 Order name: Basic Metabolic Panel; Complete Time: 13:01 [facility] 08/25 12:09 Order name: Urine Dipstick-Ancillary; Complete Time: 12:48 [facility] 08/25 17:43 Order name: COVID-19 : Document "Date of Symptom Onset" if Symptomatic. 08/25 18:08 Order name: CORONAVIRUS [facility] 08/25 11:52 Order name: XRAY Chest (1 view); Complete Time: 13:01 [facility] 08/25 11:52 Order name: EKG; Complete Time: 11:53 [facility] 08/25 11:52 Order name: EKG - Nurse/Tech; Complete Time: 13:58 [facility] 08/25 11:52 Order name: IV Saline Lock; Complete Time: 12:17 [facility] 08/25 11:52 Order name: Labs collected and sent; Complete Time: 12:17 [facility] 08/25 11:52 Order name: O2 Per Protocol; Complete Time: 12:17 [facility] 08/25 11:52 Order name: O2 Sat Monitoring; Complete Time: 12:17 [facility] 08/25 11:52 Order name: Urine Dipstick-Ancillary (obtain specimen); Complete Time: 12:17 [facility] 08/25 13:03 Order name: Stone Protocol CT; Complete Time: 13:40 [facility] 08/25 18:24 Order name: Troponin I; Complete Time: 18:38 [facility] 08/25 18:32 Order name: T4 Free; Complete Time: 18:38 [facility] 08/25 18:32 Order name: Thyroid Stimulating Hormone; Complete Time: 18:38 [facility] 08/25 19:08 Order name: SARS-COV-2 RT PCR; Complete Time: 19:24 EDMS Administered Medications: 13:19 Drug: Lasix (furosemide) 60 mg Route: IVP; Site: right forearm; es2 13:44 Follow up: Response: No adverse reaction es2 Disposition: 08/26 07:00 Co-signature as Attending Physician, German Santiago MD I agree with the assessment and rn plan of care. Attestation: The patient's history, exam findings, diagnostics, and a summary of any interventions or procedures was reviewed in detail with Norman HOSKINS. 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
[2021-08-25] MEDS ORDERED: LABETALOL 20 MG/4ML SYRINGE IV PRN (16:27)
[2021-08-25] MEDS ORDERED: HYDROCODONE/APAP 5/325 MG TAB PO PRN ×2 (16:39→18:17)
[2021-08-25] MEDS ORDERED: ACETAMINOPHEN 500 MG TAB PO PRN (16:42)
[2021-08-25] MEDS ORDERED: ONDANSETRON 4 MG/2 ML VIAL IV PRN (16:42)
--- NOTE | 2021-08-25 16:55 | P.HP ---
Certification for Inpatient Patient admitted to: Inpatient With expected LOS: >2 Midnights Patient will require the following post-hospital care: None Practitioner: I am a practitioner with admitting privileges, knowledge of patient current condition, hospital course, and medical plan of care. Services: Services provided to patient in accordance with Admission requirements found in Title 42 Section 412.3 of the Code of Federal Regulations <ClemkeanuGuerodale Lyles - Last Filed: 08/25/21 19:47> Patient History Date of Service: 08/25/21 Reason for admission: SOB History of Present Illness: Patient is a 61-year-old female with a past medical history significant for DM 2, hypertension, obesity who presents with complaint of shortness of breath that has been ongoing for the past 1 week. Patient also reports bilateral lower extremity edema. Patient reports associated signs and symptoms of abdominal distention and urinary frequency. Patient reported that she was treated with antibiotics 1 month ago for UTI. Patient denies any other signs or symptoms. Symptoms are aggravated by exertion and relieved by nothing. Patient decided to present to the hospital due to worsening symptoms. - Past Medical/Surgical History -: HTN -: Obesity -: DM 2 Past Surgical History: Reviewed- Non-Contributory - Family History Family History: Reviewed- Non-Contributory - Social History Smoking Status: Current every day smoker Counseled patient to stop smoking for: less than 10 minutes Smoking therapy provided: Yes Patient receptive to therapy: Yes Alcohol use: Yes CD- Drugs: No Caffeine use: Yes Place of Residence: Home <Yessenia Duckworth - Last Filed: 08/25/21 19:47> Date of Service: 08/25/21 <Brandan Chowdhury - Last Filed: 09/08/21 03:50> Allergies codeine Adverse Reaction (Verified 08/25/21 17:17) Nausea/Vomiting sulfamethoxazole [From Bactrim] Adverse Reaction (Verified 08/25/21 17:17) Shortness of breath trimethoprim [From Bactrim] Adverse Reaction (Verified 08/25/21 17:17) Shortness of breath Review of Systems General: As per HPI Eyes: Unremarkable ENT: Unremarkable Respiratory: Shortness of Breath, SOB with Excertion Cardiovascular: Unremarkable Gastrointestinal: Distention Genitourinary: Frequency, Incontinence Musculoskeletal: Unremarkable Integumentary: Unremarkable Neurological: Unremarkable <Yessenia Duckworth - Last Filed: 08/25/21 19:47> Physical Examination - Physical Exam General: Alert, In no apparent distress, Oriented x3 HEENT: Atraumatic, PERRLA, Mucous membr. moist/pink, EOMI, Sclerae nonicteric Neck: Supple, 2+ carotid pulse no bruit, No LAD, Without JVD or thyroid abnormality Respiratory: Diminished Cardiovascular: Regular rate/rhythm, Normal S1 S2, Edema Gastrointestinal: Normal bowel sounds, No tenderness, Distended Musculoskeletal: No tenderness Integumentary: No rashes, No breakdown Neurological: Normal gait, Normal speech, Normal tone, Normal affect Lymphatics: No axilla or inguinal lymphadenopathy External genitalia: Deferred Rectal: Deferred - Studies Laboratory Data (last 24 hrs) 08/25/21 12:15: PT 15.2 H, INR 1.32 08/25/21 12:15: WBC 10.20, Hgb 16.0 H, Hct 50.5 H, Plt Count 212 08/25/21 12:15: Sodium 139, Potassium 3.9, BUN 26 H, Creatinine 1.31 H, Glucose 115 H, Magnesium 2.4, Total Bilirubin 0.8, AST 23, ALT 38, Alkaline Phosphatase 117 <Yessenia Duckworth - Last Filed: 08/25/21 19:47> Assessment and Plan - Plan --Suspected systolic or diastolic CHF. BNP markedly elevated. CT abdomen indicates anasarca, bilateral pleural effusion and small volume ascites. Echocardiogram pending to assess LV\valvular functions and wall motion. Patient placed on diuresis with Lasix. Daily weight and strict I/O. --Pleural effusion. Barrel Tester And Drainer consulted. Continue diuresis with Lasix. We will further recommendation from security patrol officer. --DM2. BS monitoring with sliding scale insulin. --Hypertension. Stable. Continue home medications. --Obesity. Likely secondary to excess calories intake. Patient counseled on diet and exercise therapy. --UTI POA. Patient placed on antibiotics. --Nicotine dependence. Patient placed on nicotine patch and counseled on tobacco cessation. --DVT prophylaxis with Lovenox subQ. I have had discussion about advanced directives with the patient during this hospital admission. Addressed code status and goals of care. Spent more than 30 minutes. Case discussed withpatient and nurse. The following document was completed using voice recognition software. This can produce awning maker and installer errors that can at times significantly distort words and phrases. Please interpret any aspect of the note that is nonsensical in light of this fact. Discharge Plan: Home Plan to discharge in: 48 Hours - Advance Directives Does patient have a Living Will: No Does patient have a Durable POA for Healthcare: No - Code Status/Comfort Care Code Status Assessed: Yes Code Status: Full Code Physician Review: Patient Assessed, Agree with Above Assessment and Plan Critical Care: No <Yessenia Duckworth - Last Filed: 08/25/21 19:47> - Problems (Diagnosis) (1) CHF (congestive heart failure) Status: Acute (2) HTN (hypertension) Status: Acute (3) DM2 (diabetes mellitus, type 2) Status: Acute <Brandan Chowdhury - Last Filed: 09/08/21 03:50> Date of Service: 08/25/21 Subjective Agree with HPI as above Review of Systems 10-point ROS is otherwise unremarkable Physical Examination - Vital Signs Reviewed - Physical Exam General: Alert, In no apparent distress, Oriented x3; obesity Respiratory: Basilar crackles Cardiovascular: Regular rate/rhythm, Normal S1 S2, No murmurs Gastrointestinal: Normal bowel sounds, Soft and benign, Non-distended, No tenderness Musculoskeletal: No clubbing, Positive edema , No tenderness Neurological: Sensation intact, Cranial nerves 3-12 intact Assessment & Plan - Problems (Diagnosis) (1) CHF (congestive heart failure) Status: Acute (2) HTN (hypertension) Status: Acute (3) DM2 (diabetes mellitus, type 2) Status: Acute - Plan Plan: - Echocardiogram - We will start patient on an NAIMA inhibitor or an ARB - We will start patient on a Beta hermann - Cardiology consultation - Aggressive diuresis - Strict I's and O's - Repeat CXR - Daily weights - Education regarding diet and treatment of congestive heart failure <Brandan Chowdhury - Last Filed: 09/08/21 03:50>
[2021-08-25] MEDS: FUROSEMIDE 40 MG/4 ML VIAL IV SCH (17:00)
[2021-08-25] MEDS ORDERED: FUROSEMIDE 40 MG/4 ML VIAL ONE (17:33)
[2021-08-25] MEDS: ENOXAPARIN 40 MG/0.4 ML SQ SCH (17:38)
[2021-08-25] MEDS ORDERED: ENOXAPARIN 40 MG/0.4 ML SQ ONE (18:02)
[2021-08-25] MEDS ORDERED: D50W 25 GM/50 ML SYRINGE IV PRN (18:21)
[2021-08-25] MEDS ORDERED: GLUCAGON 1 MG/VIAL IM PRN (18:21)
[2021-08-25 18:31] LABS: Thyroid Stimulating Hormone 2.53 uIU/mL (0.360-3.740)
[2021-08-25] MEDS: ALBUTEROL 2.5 MG/3 ML NEB SOL NEB SCH (19:20)
[2021-08-25] MEDS: IPRATROPIUM BROM 0.5MG/2.5ML NEB SCH (19:20)
[2021-08-25] MEDS ORDERED: ALBUTEROL 2.5 MG/3 ML NEB SOL ONE (19:58)
[2021-08-25] MEDS ORDERED: IPRATROPIUM BROM 0.5MG/2.5ML ONE (19:58)
[2021-08-26 01:07] LABS: Urine Appearance CLEAR (Clear); Urine Bilirubin NEGATIVE (Negative); Urine Blood NEGATIVE (Negative); Urine Color YELLOW (Yellow); Urine Glucose NEGATIVE (Negative); Urine Microscopic Reflex NO UMIC; Urine Protein NEGATIVE (Negative); Urine Specific Gravity <=1.005 (1.005-1.030); Urine Urobilinogen 0.2 mg/dL (0.2-1.0)
[2021-08-26] MEDS: ALBUTEROL 2.5 MG/3 ML NEB SOL NEB SCH ×4 (01:10→20:55)
[2021-08-26] MEDS: IPRATROPIUM BROM 0.5MG/2.5ML NEB SCH ×4 (01:10→20:55)
[2021-08-26 04:37] LABS: Absolute Lymphocytes (CBC) 1.6 K/uL (0.7-4.9); Basophils % 0.8 % (0-1.3); Hematocrit 46.9 % (36.0-45.0); Lymphocytes % 16.3 % (15.3-44.8); MPV 8.3 fL (7.6-11.3)
[2021-08-26 05:00] LABS: Potassium 3.4 mmol/L (3.5-5.1); Troponin I 0.04 ng/mL (0.0-0.045)
[2021-08-26] MEDS ORDERED: POTASSIUM CL SA 10 MEQ TAB PO ONE ×2 (05:04→19:22)
[2021-08-26] MEDS ORDERED: INFLUENZA VACCINE (for 6+ mo) 0.5 ML DOSE IMVAC ONE (08:00)
[2021-08-26] MEDS ORDERED: CEFTRIAXONE 1 GM/NS 50 ML 1 GM/50 ML BAG IV SCH (09:00)
[2021-08-26] MEDS: NICOTINE 21 MG/PAT TD SCH (09:00)
[2021-08-26] MEDS: FUROSEMIDE 40 MG/4 ML VIAL IV SCH (09:05)
[2021-08-26] MEDS: ENOXAPARIN 40 MG/0.4 ML SQ SCH (09:05)
[2021-08-26] MEDS: ASPIRIN 81 MG CHEWABLE TABLET PO SCH (09:05)
--- NOTE | 2021-08-26 13:00 | P.CNS ---
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 Complainteith inhalers a t home Allergies codeine Adverse Reaction (Verified 08/25/21 17:17) Nausea/Vomiting sulfamethoxazole [From Bactrim] Adverse Reaction (Verified 08/25/21 17:17) Shortness of breath trimethoprim [From Bactrim] Adverse Reaction (Verified 08/25/21 17:17) Shortness of breath Home Medications: Albuterol Sulfate [Proair Hfa] 2 puff IH PRN PRN 08/25/21 Budesonide/Formoterol Fumarate [Symbicort 160-4.5 Mcg Inhaler] 2 puff IH Q12HR 08/25/21 Glimepiride 2 mg PO DAILY 08/25/21 Lisinopril/Hydrochlorothiazide [Lisinopril-Hctz 20-25 mg Tab] 20 mg PO DAILY 08/25/21 - Past Medical/Surgical History -: HTN -: Obesity -: DM 2 - Social History Smoking Status: Current every day smoker Alcohol use: Yes CD- Drugs: No Caffeine use: Yes Place of Residence: Home Review of Systems 10-point ROS is otherwise unremarkable General: Weakness Respiratory: Shortness of Breath Cardiovascular: Edema Physical Examination Temp Pulse Resp BP Pulse Ox 97 F 102 H 20 104/57 L 93 08/26/21 11:40 08/26/21 11:40 08/26/21 11:40 08/26/21 11:40 08/26/21 11:40 General: Alert, In no apparent distress, Oriented x3 Respiratory: Normal air movement, Expiratory wheezes Cardiovascular: No edema, Regular rate/rhythm, Normal S1 S2 Gastrointestinal: Normal bowel sounds, Soft and benign Laboratory Data (last 24 hrs) 08/25/21 12:15: Sodium 139, Potassium 3.9, BUN 26 H, Creatinine 1.31 H, Glucose 115 H, Magnesium 2.4, Total Bilirubin 0.8, AST 23, ALT 38, Alkaline Phosphatase 117 - Problems (1) COPD exacerbation Current Visit: Yes Status: Acute Plan: age 61 AW COPD exacerbation active smoker abnormal Renal function/CXRy cardi omeg/O2 satisfactory/ Add pred reduce dose of lasix/ BNP elevated/ Echo pending
[2021-08-26] MEDS: predniSONE 20 MG TAB PO SCH ×2 (14:12→20:04)
[2021-08-26 14:20] LABS: Arterial Blood Carboxyhemoglob 1.8 % (0-1.5); Blood Gas Oxyhemoglobin 91.5 % (94-97)
--- NOTE | 2021-08-26 16:27 | RAD REPORT ---
EXAM DESCRIPTION: RAD - Chest Pa And Lat (2 Views) - 08/26/2021 4:03 pm CLINICAL HISTORY: CHF? COMPARISON: August 25 TECHNIQUE: Frontal and lateral views of the chest were obtained. FINDINGS: The lungs are fibrotic as a baseline. Interstitial markings overall are prominent which co uld be fibrosis, edema or a combination. Left pleural effusion is again identified. Central vasculatu re is prominent. Heart size upper normal. No pneumothorax. No acute bony finding noted. No aortic abnormality. IMPRESSION: Mild CHF/volume overload findings are present with small left pleural effusion. Findings are similar to the August 25 study.
[2021-08-26 17:51] VITALS: BMI 33.7
--- NOTE | 2021-08-26 18:11 | EKG ---
Test Date: 2021-08-25 Test Time: 12:25:53 Radio Officer: Marcela STEPHEN MEASUREMENT RESULTS: Intervals: Rate: 117 NV: 152 QRSD: 64 QT: 442 QTc: 616 [place]: P: 69 NV: 152 QRS: 92 T: 47 INTERPRETIVE STATEMENTS: Sinus tachycardia with premature supraventricular complexes Rightward axis Borderline ECG No previous ECG available for comparison Electronically Signed On 08-26-21 18:06:08 CDT by Deshaun Dill
[2021-08-26] MEDS: INSULIN -REGULAR HUMAN 50 UNIT/0.5 ML ML SQ SCH (20:05)
[2021-08-27] MEDS: ALBUTEROL 2.5 MG/3 ML NEB SOL NEB SCH ×2 (01:29→08:00)
[2021-08-27] MEDS: IPRATROPIUM BROM 0.5MG/2.5ML NEB SCH ×2 (01:29→08:00)
[2021-08-27 04:09] LABS: Potassium 4.3 mmol/L (3.5-5.1)
[2021-08-27 05:34] VITALS: O2SAT 92
[2021-08-27] MEDS: NICOTINE 21 MG/PAT TD SCH (08:00)
[2021-08-27] MEDS: ASPIRIN 81 MG CHEWABLE TABLET PO SCH (08:01)
[2021-08-27] MEDS: predniSONE 20 MG TAB PO SCH (08:01)
[2021-08-27] MEDS: ENOXAPARIN 40 MG/0.4 ML SQ SCH (08:01)
[2021-08-27 08:08] VITALS: BP 110/69
[2021-08-27] MEDS: INSULIN -REGULAR HUMAN 50 UNIT/0.5 ML ML SQ SCH (08:16)
--- NOTE | 2021-08-27 08:18 | ECHO ---
HEIGHT: 5 ft 1 in WEIGHT: 177 lb 6.4 oz DATE OF STUDY: 08/26/[address]: Yessenia Duckworth 2-DIMENSIONAL: YES M.MODE: YES DOPPLER: YES COLOR FLOW: YES TDS: YES PORTABLE: NO DEFINITY: NO BUBBLE STUDY: NO DIAGNOSIS: SHORTNESS OF BREATH, RULE OUT CONGESTIVE HEART FAILURE CARDIAC HISTORY: CATHERIZATION: SURGERY: PROSTHETIC VALVE: PACEMAKER: MEASUREMENTS (cm) DIASTOLIC (NORMALS) SYSTOLIC (NORMALS) IVSd 0.7 (0.6-1.2) LA Diam (1.9-4.0) LVEF 68% LVIDd 2.9 (3.5-5.7) LVIDs 1.8 (2.0-3.5) %FS 37% LVPWd 0.8 (0.6-1.2) Ao Diam 2.3 (2.0-3.7) 2 DIMENSIONAL ASSESSMENT: RIGHT ATRIUM: NORMAL LEFT ATRIUM: NORMAL RIGHT VENTRICLE: NORMAL LEFT VENTRICLE: NORMAL TRICUSPID VALVE: NORMAL MITRAL VALVE: NORMAL PULMONIC VALVE: NORMAL AORTIC VALVE: NORMAL PERICARDIAL EFFUSION: NONE AORTIC ROOT: NORMAL LEFT VENTRICULAR WALL MOTION: NORMAL LEFT VENTRICULAR SIZE AND FUNCTION. DOPPLER/COLOR FLOW: MILD TRICUSPID REGURGITATION. RIGHT VENTRICUALR SYSTOLIC PRESSURE 67 mmHg. COMMENTS: TECHNICALLY DIFFUCULT STUDY. GROSSLY NORMAL LEFT VENTRICULAR SIZE AND FUNCTION. SEVERE PULMONARY HYPERTENSION. RIGHT VENTRICUALR SYSTOLIC PRESSURE 67 mmHg. TECHNOLOGIST: Ajay FRANCIS
[2021-08-27 08:30] VITALS: TEMP 98.3
[2021-08-27] MEDS ORDERED: FUROSEMIDE 40 MG/4 ML VIAL IV SCH (09:00)
--- NOTE | 2021-09-08 03:48 | P.PN ---
Subjective Date of Service: 08/26/21 Respiratory status is improving. Patient's shortness of breath is much better. Review of Systems 10-point ROS is otherwise unremarkable Physical Examination - Vital Signs Temperature: 98.3 F Blood Pressure: 110/69 Pulse: 109 Respirations: 20 Pulse Ox (%): 97 - Physical Exam General: Alert, In no apparent distress, Oriented x3 Respiratory: Clear to auscultation bilaterally, Normal air movement Cardiovascular: Regular rate/rhythm, Normal S1 S2, No murmurs Gastrointestinal: Normal bowel sounds, Soft and benign, Non-distended, No tenderness Musculoskeletal: No clubbing, No swelling, No tenderness Neurological: Sensation intact, Cranial nerves 3-12 intact - Studies Medications List Reviewed: Yes Assessment & Plan - Problems (Diagnosis) (1) CHF (congestive heart failure) Status: Acute (2) HTN (hypertension) Status: Acute (3) DM2 (diabetes mellitus, type 2) Status: Acute - Plan Plan: - Echocardiogram - We will start patient on an NAIMA inhibitor or an ARB - We will start patient on a Beta hermann - Cardiology consultation - Aggressive diuresis - Strict I's and O's - Repeat CXR - Daily weights - Education regarding diet and treatment of congestive heart failure Discharge Plan: Home Plan to discharge in: Greater than 2 days - Advance Directives Does patient have a Living Will: No Does patient have a Durable POA for Healthcare: No - Code Status/Comfort Care Code Status: Full Code Physician Review: Patient Assessed, Agree with Above Assessment and Plan Critical Care: No Time Spent Managing PTS Care (In Minutes): 35
--- NOTE | 2021-09-08 03:53 | P.DS ---
Discharge Date: 08/27/21 Disposition: ROUTINE DISCHARGE Reason for Admission: SOB - Problems (1) CHF (congestive heart failure) Status: Acute (2) HTN (hypertension) Status: Acute (3) DM2 (diabetes mellitus, type 2) Status: Acute Brief History of Present Illness: Patient is a 61-year-old female who came into the hospital with shortness of breath. Patient was found to have congestive heart failure. Chest x-ray showed pulmonary edema. Patient will be admitted for further evaluation. Hospital Course: Patient was diuresed with IV Lasix. Patient's chest x-ray showed improvement of the pulmonary edema. Patient has severe pulmonary hypertension on Echocardiogram. Otherwise, LV function was normal. Patient was seen by pulmonary and will follow up as an outpatient with cardiology and pulmonary. At this time, patient is stable for discharge home. Vital Signs/Physical Exam: Temp Pulse Resp BP Pulse Ox 98.3 F 109 H 20 110/69 97 09/08/21 03:48 09/08/21 03:48 09/08/21 03:48 09/08/21 03:48 09/08/21 03:48 General: Alert, In no apparent distress, Oriented x3 Laboratory Data at Discharge: WBC 9.90 K/uL (4.3-10.9) 08/26/21 04:15 Hgb 15.1 g/dL (12.0-15.0) H 08/26/21 04:15 Hct 46.9 % (36.0-45.0) H 08/26/21 04:15 Plt Count 172 K/uL (152-406) 08/26/21 04:15 PT 15.2 SECONDS (9.5-12.5) H 08/25/21 12:15 INR 1.32 08/25/21 12:15 Sodium 139 mmol/L (136-145) 08/27/21 03:02 Potassium 4.3 mmol/L (3.5-5.1) 08/27/21 03:02 BUN 29 mg/dL (7-18) H 08/27/21 03:02 Creatinine 1.30 mg/dL (0.55-1.3) 08/27/21 03:02 Glucose 173 mg/dL (74-106) H 08/27/21 03:02 Magnesium 2.4 mg/dL (1.8-2.4) 08/25/21 12:15 Total Bilirubin 0.8 mg/dL (0.2-1.0) 08/25/21 12:15 AST 23 U/L (15-37) 08/25/21 12:15 ALT 38 U/L (12-78) 08/25/21 12:15 Alkaline Phosphatase 117 U/L (45-117) 08/25/21 12:15 Troponin I 0.04 ng/mL (0.0-0.045) 08/26/21 04:15 Home Medications: Albuterol Sulfate [Proair Hfa] 2 puff IH PRN PRN 08/25/21 Budesonide/Formoterol Fumarate [Symbicort 160-4.5 Mcg Inhaler] 2 puff IH Q12HR 08/25/21 Glimepiride 2 mg PO DAILY 08/25/21 Lisinopril/Hydrochlorothiazide [Lisinopril-Hctz 20-25 mg Tab] 20 mg PO DAILY 08/25/21 Albuterol Neb [Proventil 0.083% Neb Soln] 2.5 mg NEB [id number] #60 amp 08/27/21 New Medications: Albuterol Neb [Proventil 0.083% Neb Soln] 2.5 mg NEB [id number] #60 amp Physician Discharge Instructions: -OK TO DC IV AND DC HOME -FOLLOW-UP WITH PCP IN 1-2 WEEKS -FOLLOW-UP WITH CARDIOLOGY IN 1-2 WEEKS -PLEASE MAKE SURE ALL DIAGNOSTIC STUDIES ARE AVAILABLE AND HAVE BEEN REVIEWED WITH PATIENT PRIOR TO DISCHARGE -RETURN TO THE ER IF symptoms worsen -CALL DR. GERARD AT [phone] IF ANY QUESTIONS REGARDING HOSPITAL STAY -PLEASE CALL THE FLOOR AT [phone] IF ANY MEDICATION OR NURSING QUESTIONS Followup: Sterling Joseph MD [ACTIVE - CAN ADMIT] - (Call to schedule appointment) Isac Grullon MD [Primary Care Provider] - (call to schedule follow up appointment) Time spent managing pt's care (in minutes): 35
== END 2021-08-27 11:50 | disposition home or self-care (01) | DRG 291 ==
LOC: ER 11:12 → ERHOLD 16:37 → 4TH 19:57
PROVIDERS: ADMIT Hospitalist; ATTEND Hospitalist
DX: I11.0 Hypertensive heart disease with heart failure (principal); I50.31 Acute diastolic (congestive) heart failure; J44.1 Chronic obstructive pulmonary disease with (acute) exacerbation; N39.0 Urinary tract infection, site not specified; I27.20 Pulmonary hypertension, unspecified; E11.9 Type 2 diabetes mellitus without complications; E66.9 Obesity, unspecified; Z68.33 Body mass index [BMI] 33.0-33.9, adult; F17.210 Nicotine dependence, cigarettes, uncomplicated; Z88.2 Allergy status to sulfonamides; Z20.822 Contact with and (suspected) exposure to COVID-19
CPT/HCPCS: 36415; 71045; 71046; 74176; 76377; 80048; 80076; 81003; 82570; 82805; 82947; 83735; 83880; 84132; 84156; 84300; 84439; 84443; 84484; 85025; 85610; 93005; 93306; 94640; 96374; 99284; J0696; J1650; J1940; J7512; U0003

== ENCOUNTER 2021-10-03 11:08 | Inpatient (IN) | payer OTHER ==
[2021-10-03] MEDS ORDERED: LEVALBUTEROL 1.25 MG/3 ML NEB ONE (11:27)
[2021-10-03] MEDS ORDERED: FUROSEMIDE 20 MG/ 2ML VIAL ONE (11:27)
[2021-10-03] MEDS ORDERED: FUROSEMIDE 40 MG/4 ML VIAL ONE (11:27)
[2021-10-03 12:01] LABS: Absolute Lymphocytes (CBC) 0.7 K/uL (0.7-4.9); Basophils % 0.4 % (0-1.3); Hematocrit 48.8 % (36.0-45.0); Lymphocytes % 6.3 % (15.3-44.8); MPV 8.5 fL (7.6-11.3); Protime INR 1.4
[2021-10-03 12:03] LABS: Bilirubin Direct 0.8 mg/dL (0-0.2); Bilirubin Total 1.2 mg/dL (0.2-1.0); Magnesium 2.5 mg/dL (1.8-2.4); Potassium 3.8 mmol/L (3.5-5.1); Troponin (Emerg Dept Use Only) 0.03 ng/mL (0.0-0.045)
--- NOTE | 2021-10-03 12:29 | ER ---
Nurse's Notes [facility] Name: Ruth Drake Age: 61 yrs Sex: Female : 1960 Arrival Date: 10/03/2021 Time: 11:10 Bed 4 Private MD: Isac Grullon E Diagnosis: COPD exacerbation, peripheral edema, CHF Presentation: 10/03 11:12 Chief complaint: EMS states: pt from home. starting having trouble breathing last tw2 night. when we arrived she was on home o2 at 4L and 83% with HR 120's-130's. she also has 3 + pitting edema to b/l LE. she reports that they put her on furosemide 2 weeks ago but the swelling has still increased. abdomen distended. Coronavirus screen: At this time, the client does not indicate any symptoms associated with coronavirus-19. Ebola Screen: Patient denies travel to an Ebola-affected area in the 21 days before illness onset. Initial Sepsis Screen: Does the patient meet any 2 criteria? RR > 20 per min. HR > 90 bpm. Does the patient have a suspected source of infection? No. Patient's initial sepsis screen is negative. Risk Assessment: Do you want to hurt yourself or someone else? Patient reports no desire to harm self or others. Note RT at bedside with Bipap at this time. Onset of symptoms was October 03, 2021. 11:12 Method Of Arrival: EMS: [facility] tw2 11:12 Acuity: PADMINI 2 tw2 Triage Assessment: 11:17 General: Appears uncomfortable, Behavior is cooperative, appropriate for age, anxious. tw2 Pain: Denies pain. Respiratory: Reports shortness of breath at rest on exertion Onset: The symptoms/episode began/occurred yesterday, the patient has moderate shortness of breath. Historical: - Allergies: 11:16 Bactrim; tw2 11:16 Codeine; tw2 11:16 sulfamethoxazole; tw2 - Home Meds: 11:16 symbicort [Active]; lisinopril-hydrochlorothiazide 20-12.5 mg Oral tab 1 tab once daily tw2 [Active]; proair [Active]; lisinopril Oral [Active]; Glipizide Oral [Active]; glimepiride 2 mg Oral tab 1 tab once daily [Active]; Furosemide Oral [Active]; - PMHx: 11:16 COPD; Diabetes - NIDDM; Hypertension; tw2 - Immunization history:: Adult Immunizations. - Social history:: Smoking status: Patient reports the use of cigarette tobacco products, "3 cigarettes a day". Screenin:17 Abuse screen: Denies threats or abuse. Nutritional screening: No deficits noted. tw2 Tuberculosis screening: No symptoms or risk factors identified. Fall Risk None identified. Assessment: 11:15 Reassessment: RT at bedside, placed pt on BiPap at rate of 14 and 60% oxygen. jl7 11:17 General: Appears in no apparent distress. uncomfortable, Behavior is cooperative, tw2 appropriate for age, anxious. Neuro: Level of Consciousness is awake, alert, obeys commands, Oriented to person, place, time, situation. Cardiovascular: Rhythm is atrial fibrillation. Cardiovascular: Edema 3+ pitting edema noted from abdomen to b/l LE. Respiratory: Airway is patent Respiratory effort is even, labored, Respiratory pattern is tachypnea Breath sounds with rhonchi bilaterally. GI: Abdomen is round distended, Bowel sounds present X 4 quads. Musculoskeletal: Range of motion: intact in all extremities. Vital Signs: 11:12 BP 117 / 95; Pulse 120; Resp 30; Temp 99.0(TE); Pulse Ox 84% on R/A; tw2 11:31 Resp 32; Pulse Ox 95% on 60% BiPAP; jl7 12:05 BP 122 / 84; Pulse 126; Resp 32; Pulse Ox 94% on 40% BiPAP; tw2 14:34 BP 124 / 77; Pulse 122; Resp 30; Pulse Ox 95% ; jl7 15:35 BP 120 / 66; Pulse 115; Resp 17; Pulse Ox 95% on BiPAP; tw2 16:31 BP 119 / 84; Pulse 102; Resp 17; Pulse Ox 95% on BiPAP; tw2 11:12 pt placed on NRB at 15L at this time while RT is setting up bipap. tw2 12:05 per Brittany, RT 12/6 rate 14 \\T\\ 40% FIO2 tw2 ED Course: 11:10 Patient arrived in ED. am2 11:10 Isac Grullon MD is Private Physician. am2 11:11 Castellanos cath inserted, using sterile technique, 16 Fr., by grinding machine operator, balloon inflated, to tw2 gravity drainage, urine specimen collected. returned cloudy urine. Patient tolerated well. 11:16 Triage completed. tw2 11:17 Arm band placed on. tw2 11:18 Bed in low position. Call light in reach. Side rails up X2. patient monitor on. Pulse tw2 ox on. NIBP on. 11:20 Asif Saucedo MD is Attending Physician. kdr 11:22 EKG done, by ED staff, reviewed by Asif Saucedo MD. jl7 11:25 Initial lab(s) drawn, by ED staff, sent to lab. Maintain EMS IV. Dressing intact. Good jl7 blood return noted. Site clean \\T\\ dry. Gauge \\T\\ site: 20 Right AC. 11:47 Tran Wolfe RN is Primary Nurse. tw2 11:54 Lab(s) recollected, by me, sent to lab. jl7 12:[address] DO is Hospitalizing Provider. kdr 12:31 XRAY Chest (1 view) In Process Unspecified. EDMS 16:23 No provider procedures requiring assistance completed. Patient admitted, IV remains in tw2 place. Administered Medications: 11:30 Drug: Xopenex (levalbuterol) (3) 1.25 mg {Note: by RT. Brittany} Route: Inhalation; tw2 12:11 Drug: Lasix (furosemide) 60 mg Route: IVP; Site: left antecubital; tw2 16:35 Follow up: Response: No adverse reaction tw2 13:02 Drug: SOLU-Medrol (methylPrednisoLONE) 125 mg Route: IVP; Site: left antecubital; tw2 16:35 Follow up: Response: No adverse reaction tw2 Output: 14:09 Urine: 900ml (Castellanos); Total: 900ml. tw2 16:31 Urine: 600ml (Castellanos); Total: 1500ml. tw2 Outcome: 12:29 Decision to Hospitalize by Provider. kdr 16:23 Admitted to Med/surg accompanied by tech, via stretcher, room 204, with oxygen, with tw2 chart, Report called to DARIUS Ruffin 16:23 Condition: stable 16:23 Instructed on the need for admit. 16:35 Patient left the ED. tw2 Signatures: Dispatcher [employer] EDMS Asif Saucedo, MD MD kdr Tran Wolfe RN RN tw2 Kyle Cedeno RN RN jl7 Sarah Tovar am2 Corrections: (The following items were deleted from the chart) 12:20 11:45 Castellanos cath inserted, using sterile technique, 16 Fr., by grinding machine operator, balloon tw2 inflated, to gravity drainage, urine specimen collected. returned cloudy urine. Patient tolerated well. jl7
--- NOTE | 2021-10-03 12:29 | EDPHYS ---
Physician Documentation [facility] Name: Ruth Drake Age: 61 yrs Sex: Female : 1960 Arrival Date: 10/03/2021 Time: 11:10 Bed 4 Private MD: Isac Grullon E ED Physician Asif Saucedo HPI: 10/03 16:15 This 61 yrs old Female presents to ER via EMS with complaints of Breathing kdr Difficulty. 16:18 Patient presents to the emergency department via EMS. EMS was called because the kdr patient was short of breath. She began to get short of breath last evening and it has persisted into today. When EMS arrived the patient was on 4 L of oxygen and her saturation was 83%. Her heart rate was in the 120s to 130s. She was noted to have 3+ pitting edema to both lower extremities. Patient was started on Lasix 2 weeks ago but has continued to have increased swelling in her lower extremities and now it is swollen up into her abdomen as well.. Historical: - Allergies: 11:16 Bactrim; tw2 11:16 Codeine; tw2 11:16 sulfamethoxazole; tw2 - Home Meds: 11:16 symbicort [Active]; lisinopril-hydrochlorothiazide 20-12.5 mg Oral tab 1 tab once daily tw2 [Active]; proair [Active]; lisinopril Oral [Active]; Glipizide Oral [Active]; glimepiride 2 mg Oral tab 1 tab once daily [Active]; Furosemide Oral [Active]; - PMHx: 11:16 COPD; Diabetes - NIDDM; Hypertension; tw2 - Immunization history:: Adult Immunizations. - Social history:: Smoking status: Patient reports the use of cigarette tobacco products, "3 cigarettes a day". ROS: 16:18 Constitutional: Negative for fever, chills, and weight loss, Eyes: Negative for injury, kdr pain, redness, and discharge, Neck: Negative for injury, pain, and swelling, Cardiovascular: Negative for chest pain, palpitations, and edema, Respiratory: Negative for shortness of breath, cough, wheezing, and pleuritic chest pain, Back: Negative for injury and pain, : Negative for injury, bleeding, discharge, and swelling, MS/Extremity: Negative for injury and deformity, Skin: Negative for injury, rash, and discoloration, Neuro: Negative for headache, weakness, numbness, tingling, and seizure activity. Psych: Negative for depression, anxiety, suicide ideation, homicidal ideation, and hallucinations, Allergy/Immunology: Negative for hives, rash, and allergies, Endocrine: Negative for neck swelling, polydipsia, polyuria, polyphagia, and marked weight changes, Hematologic/Lymphatic: Negative for swollen nodes, abnormal bleeding, and unusual bruising. 16:18 Cardiovascular: Positive for edema. Exam: 14:28 ECG was reviewed by the Attending Physician. kdr 16:18 Constitutional: This is a well developed, well nourished obese patient who is awake, kdr alert, and in moderate distress. Head/Face: Normocephalic, atraumatic. Eyes: Pupils equal round and reactive to light, extra-ocular motions intact. Lids and lashes normal. Conjunctiva and sclera are non-icteric and not injected. Cornea within normal limits. Periorbital areas with no swelling, redness, or edema. Neck: Trachea midline, no thyromegaly or masses palpated, and no cervical lymphadenopathy. Supple, full range of motion without nuchal rigidity, or vertebral point tenderness. No Meningismus. Chest/axilla: Normal chest wall appearance and motion. Nontender with no deformity. No lesions are appreciated. Back: No spinal tenderness. No costovertebral tenderness. Full range of motion. Skin: Warm, dry with normal turgor. Normal color with no rashes, no lesions, and no evidence of cellulitis. MS/ Extremity: Pulses equal, no cyanosis. Neurovascular intact. Full, normal range of motion. Neuro: Awake and alert, GCS 15, oriented to person, place, time, and situation. Cranial nerves II-XII grossly intact. Motor strength 5/5 in all extremities. Sensory grossly intact. Cerebellar exam normal. Normal gait. Psych: Awake, alert, with orientation to person, place and time. Behavior, mood, and affect are within normal limits. 16:18 Cardiovascular: Rate: tachycardic, Rhythm: regular, Edema: 3+ edema to level of waist, left upper thigh, left lower thigh, left knee, left midcalf, left ankle, left foot, right upper thigh, right lower thigh, right midcalf, right foot and right toes. Vital Signs: 11:12 BP 117 / 95; Pulse 120; Resp 30; Temp 99.0(TE); Pulse Ox 84% on R/A; tw2 11:31 Resp 32; Pulse Ox 95% on 60% BiPAP; jl7 12:05 BP 122 / 84; Pulse 126; Resp 32; Pulse Ox 94% on 40% BiPAP; tw2 14:34 BP 124 / 77; Pulse 122; Resp 30; Pulse Ox 95% ; jl7 15:35 BP 120 / 66; Pulse 115; Resp 17; Pulse Ox 95% on BiPAP; tw2 16:31 BP 119 / 84; Pulse 102; Resp 17; Pulse Ox 95% on BiPAP; tw2 11:12 pt placed on NRB at 15L at this time while RT is setting up bipap. tw2 12:05 per Brittany, RT 12/6 rate 14 \\T\\ 40% FIO2 tw2 MDM: 12:29 Patient medically screened. kdr 16:18 Data reviewed: vital signs, nurses notes, lab test result(s), radiologic studies. kdr Counseling: I had a detailed discussion with the patient and/or guardian regarding: the historical points, exam findings, and any diagnostic results supporting the discharge/admit diagnosis, lab results, radiology results, the need for further work-up and treatment in the hospital. 10/03 11:20 Order name: Basic Metabolic Panel; Complete Time: 12:22 kdr 10/03 11:20 Order name: CBC with Diff kdr 10/03 11:20 Order name: LFT's; Complete Time: 12:22 kdr 10/03 11:20 Order name: Magnesium; Complete Time: 12:22 kdr 10/03 11:20 Order name: NT PRO-BNP; Complete Time: 12:22 kdr 10/03 11:20 Order name: PT-INR; Complete Time: 12:22 kdr 10/03 11:20 Order name: Troponin (emerg Dept Use Only); Complete Time: 12:22 kdr 10/03 11:20 Order name: XRAY Chest (1 view) kdr 10/03 11:23 Order name: ABG kdr 10/03 12:53 Order name: CBC Smear Scan EDMS 10/03 13:01 Order name: COVID-19 SARS RT PCR (Document "Date of Onset" if Symptomatic) eb 10/03 11:20 Order name: EKG; Complete Time: 11: kdr 10/03 11:20 Order name: Cardiac monitoring; Complete Time: : kdr 10/03 11:20 Order name: EKG - Nurse/Tech; Complete Time: : kdr 10/03 11:20 Order name: IV Saline Lock; Complete Time: 11: kdr 10/03 11:20 Order name: Labs collected and sent; Complete Time: : kdr 10/03 11:20 Order name: O2 Per Protocol; Complete Time: : kdr 10/03 11:20 Order name: O2 Sat Monitoring; Complete Time: : kdr 10/03 11:46 Order name: Labs - recollect needed: recollect lavender and blue tops hemolyzed; eb Complete Time: 10/03 11:48 Order name: Castellanos; Complete Time: :52 tw2 EC:28 Rate is 131 beats/min. Rhythm is regular, Sinus tachycardia with PACs. QRS [place] is kdr Normal. RI interval is normal. QRS interval is normal. Clinical impression: Sinus arrythmia and Sinus tachycardia. Administered Medications: 11:30 Drug: Xopenex (levalbuterol) (3) 1.25 mg {Note: by RT. Brittany} Route: Inhalation; tw2 12:11 Drug: Lasix (furosemide) 60 mg Route: IVP; Site: left antecubital; tw2 16:35 Follow up: Response: No adverse reaction tw2 13:02 Drug: SOLU-Medrol (methylPrednisoLONE) 125 mg Route: IVP; Site: left antecubital; tw2 16:35 Follow up: Response: No adverse reaction tw2 Disposition Summary: 10/03/21 12:29 Hospitalization Ordered Hospitalization Status: Inpatient Admission kdr Provider: Werner Street Location: Telemetry/MedSurg (Inpatient) kdr Condition: Fair kdr Problem: an acute exacerbation kdr Symptoms: have improved kdr Bed/Room Type: Standard kdr Room Assignment: 204(10/03/21 14:54) eb Diagnosis - COPD exacerbation, peripheral edema, CHF kdr Forms: - Medication Reconciliation Form kdr - SBAR form kdr Signatures: Dispatcher [employer] EDMS Asif Saucedo MD MD kdr Tran Wolfe RN RN tw2 Carmen Forbes Corrections: (The following items were deleted from the chart) 14:54 12:29 [facility] eb
--- NOTE | 2021-10-03 12:40 | RAD REPORT ---
EXAM DESCRIPTION: RAD - Chest Single View - 10/03/2021 12:31 pm CLINICAL HISTORY: SOB COMPARISON: <Comparisons> FINDINGS: Lines: None. Lungs: Diffuse prominence of the pulmonary interstitium. Pleural: Small bilateral effusions appear Cardiac: Cardiomegaly. Bones: No acute fractures. Other: IMPRESSION: Increased interstitial edema with small bilateral effusions.
[2021-10-03 12:53] LABS: Blood Morphology Comment NOT SEEN (NOT SEEN); Platelet Estimate ADEQ; White Blood Cell Scan OK (OK)
[2021-10-03] MEDS ORDERED: METHYLPREDNISOLONE 125 MG INJ ONE (12:55)
--- NOTE | 2021-10-03 13:41 | P.HP ---
Certification for Inpatient Patient admitted to: Inpatient With expected LOS: >2 Midnights Patient will require the following post-hospital care: Other (Home health with physical therapy) Practitioner: I am a practitioner with admitting privileges, knowledge of patient current condition, hospital course, and medical plan of care. Services: Services provided to patient in accordance with Admission requirements found in Title 42 Section 412.3 of the Code of Federal Regulations Patient History Date of Service: 10/03/21 Primary Care Provider: Dr. Grullon; Pulmonary-Dr. Joseph; Cardiology-Dr. Cheung([facility]) Reason for admission: Shortness of breath History of Present Illness: 61-year-old female with history of COPD, diastolic CHF, diabetes mellitus type 2, hypertension, and tobacco abuse. Patient uses home oxygen. Patient presented with increasing shortness of breath and edema to the lower extremities. This has worsened over the past several days. She denies any fever, chills. No significant chest pain. Denies any nausea, vomiting. Shortness of breath worsened to the point where she came to the ER for further evaluation. In the ER patient was evaluated. Patient required BiPAP upon evaluation. BNP elevated at greater than 34,000. Troponin 0 0.03. White count 10.8, hemoglobin 15. Sodium 136, potassium 3.8. BUN of 10, creatinine 1.06 with GFR 52. Glucose 123. Chest x-ray showed bilateral pleural effusions with pulmonary edema. Patient given IV Lasix and Solu-Medrol in the emergency room. Patient was admitted for further evaluation and treatment. Allergies codeine Adverse Reaction (Verified 08/25/21 17:17) Nausea/Vomiting sulfamethoxazole [From Bactrim] Adverse Reaction (Verified 08/25/21 17:17) Shortness of breath trimethoprim [From Bactrim] Adverse Reaction (Verified 08/25/21 17:17) Shortness of breath Home medications list reviewed: Yes Home Medications: Albuterol Sulfate [Proair Hfa] 2 puff IH PRN PRN 08/25/21 Budesonide/Formoterol Fumarate [Symbicort 160-4.5 Mcg Inhaler] 2 puff IH Q12HR 08/25/21 Glimepiride 2 mg PO DAILY 08/25/21 Lisinopril/Hydrochlorothiazide [Lisinopril-Hctz 20-25 mg Tab] 20 mg PO DAILY 08/25/21 Albuterol Neb [Proventil 0.083% Neb Soln] 2.5 mg NEB [id number] #60 amp 08/27/21 - Past Medical/Surgical History Diabetic: Yes -: Diabetes mellitus type 2 [id number] -: Hypertension -: Chronic diastolic CHF -: Tobacco abuse -: Obesity Past Surgical History: Reviewed- Non-Contributory Psychosocial/ Personal History: Patient lives with son - Family History Family History: Reviewed- Non-Contributory - Social History Smoking Status: Light Tobacco smoker (1-9 cigarettes/day) Counseled patient to stop smoking for: less than 10 minutes Smoking therapy provided: Yes Patient receptive to therapy: Yes Alcohol use: Yes CD- Drugs: No Caffeine use: Yes Place of Residence: Home Review of Systems General: Weakness, Malaise, As per HPI Eyes: Unremarkable ENT: Unremarkable Respiratory: Shortness of Breath, SOB with Excertion, Wheezing, As per HPI Cardiovascular: Edema, As per HPI Gastrointestinal: Unremarkable Genitourinary: Unremarkable Musculoskeletal: Pedal edema, As per HPI Integumentary: Unremarkable Neurological: Unremarkable Lymphatics: Unremarkable Physical Examination - Studies Laboratory Data (last 24 hrs) 10/03/21 11:49: PT 16.2 H, INR 1.40 10/03/21 11:49: WBC 10.80 D, Hgb 15.4 H, Hct 48.8 H, Plt Count 188 D 10/03/21 11:30: Sodium 136, Potassium 3.8, BUN 20 H, Creatinine 1.06, Glucose 123 H, Magnesium 2.5 H, Total Bilirubin 1.2 H, AST 19, ALT 29, Alkaline Phosphatase 138 H Assessment and Plan - Plan COVID: Pending Chest x-ray: COMPARISON: <Comparisons> FINDINGS: Lines: None. Lungs: Diffuse prominence of the pulmonary interstitium. Pleural: Small bilateral effusions appear Cardiac: Cardiomegaly. Bones: No acute fractures. IMPRESSION: Increased interstitial edema with small bilateral effusions. ECHO 08/2021: MEASUREMENTS (cm) DIASTOLIC (NORMALS) SYSTOLIC (NORMALS) IVSd 0.7 (0.6-1.2) LA Diam (1.9-4.0) LVEF 68% LVIDd 2.9 (3.5-5.7) LVIDs 1.8 (2.0-3.5) %FS 37% LVPWd 0.8 (0.6-1.2) Ao Diam 2.3 (2.0-3.7) 2 DIMENSIONAL ASSESSMENT: RIGHT ATRIUM: NORMAL LEFT ATRIUM: NORMAL RIGHT VENTRICLE: NORMAL LEFT VENTRICLE: NORMAL TRICUSPID VALVE: NORMAL MITRAL VALVE: NORMAL PULMONIC VALVE: NORMAL AORTIC VALVE: NORMAL PERICARDIAL EFFUSION: NONE AORTIC ROOT: NORMAL LEFT VENTRICULAR WALL MOTION: NORMAL LEFT VENTRICULAR SIZE AND FUNCTION. DOPPLER/COLOR FLOW: MILD TRICUSPID REGURGITATION. RIGHT VENTRICUALR SYSTOLIC PRESSURE 67 mmHg. COMMENTS: TECHNICALLY DIFFUCULT STUDY. GROSSLY NORMAL LEFT VENTRICULAR SIZE AND FUNCTION. SEVERE PULMONARY HYPERTENSION. RIGHT VENTRICUALR SYSTOLIC PRESSURE 67 mmHg. Physical Exam: GENERAL: Patient does not appear in distress. Patient currently on BiPAP. Pat ient alert and oriented VITAL SIGNS: Reviewed HEENT: Head is normocephalic and atraumatic. Extraocular muscles are intact. Pupils are equal, round, and reactive to light and accommodation. Nares appeared normal. Mouth is well hydrated and without lesions. Mucous membranes are moist. NECK: Supple. No carotid bruits. No lymphadenopathy or thyromegaly. LUNGS: Crackles noted to the bases. Wheezing noted throughout. Currently on BiPAP HEART: Regular rate and rhythm, no appreciable gallops, rubs, murmurs or extra heart sounds ABDOMEN: Soft, nontender, and nondistended. Positive bowel sounds. No he patosplenomegaly was noted. EXTREMITIES: 2+ pitting edema to the lower extremities bilateral NEUROLOGIC: The patient is oriented to person, place and time. Strength and sensation are grossly intact. Face is symmetric. SKIN: Significant edema to the lower extremities. Impression: Dyspnea secondary to acute respiratory failure with hypoxia related to acute on chronic diastolic CHF complicated with COPD exacerbation on chronic oxygen Diabetes mellitus type 2 Hypertension Tobacco abuse Plan: Dyspnea secondary to acute respiratory failure with hypoxia related to acute on chronic diastolic CHF complicated with COPD exacerbation on chronic oxygen: Patient will be admitted for further evaluation and treatment. Monitor cardiac enzymes and telemetry. Will continue with IV Lasix 40 mg IV 3 times a day. Will teach on 1500 cc/day fluid restriction and low-salt diet. Monitor strict input and output and daily weight. Lisinopril hydrochlorothiazide has been discontinued and replaced by Lasix. Will continue with COPD medication including Solu-Medrol, Brovana, Xopenex. Will wean off oxygen to maintain sats above 90%. Respiratory consulted to help with this. Pulmonology consulted to further evaluate and address. Patient is seen by pulmonology as an outpatient. Anticipate continued improvement over the next 72 hours. Diabetes mellitus type 2: Will check A1c. Continue Accu-Cheks and sliding scale. Hypertension: Discontinue lisinopril hydrochlorothiazide. This will be replaced with metoprolol. Will monitor and adjust appropriately. Tobacco abuse: We will provide nicotine patch. Cessation education provided. Code Status: This was discussed in detail with the patient. Patient is DO NOT RESUSCITATE. DVT prophylaxis: Lovenox Advanced Care Planning-30 minutes: Anticipate home health and physical therapy at discharge with continued home oxygen. Discharge Plan: Home Plan to discharge in: 72 Hours - Advance Directives Does patient have a Living Will: No Does patient have a Durable POA for Healthcare: No - Code Status/Comfort Care Code Status Assessed: Yes (Patient is DNR) Time Spent Managing Pts Care (In Minutes): 55
[2021-10-03 15:44] LABS: Arterial Blood Carboxyhemoglob 3.1 % (0-1.5); Blood Gas Oxyhemoglobin 93.8 % (94-97); Blood O2 Saturation 97.8 % (92-98.5)
[2021-10-03] MEDS ORDERED: ONDANSETRON 4 MG/2 ML VIAL IV PRN (17:22)
[2021-10-03] MEDS: INSULIN -REGULAR HUMAN 50 UNIT/0.5 ML ML SQ SCH ×2 (17:22→20:35)
[2021-10-03] MEDS ORDERED: PNEUMOCOCCAL VACCINE 0.5 ML IMVAC ONE (18:00)
[2021-10-03] MEDS ORDERED: INFLUENZA VACCINE (for 6+ mo) 0.5 ML DOSE IMVAC ONE (18:00)
[2021-10-03 18:08] LABS: CKMB Creatine Kinase MB 1.5 ng/mL (1.0-3.6); Troponin I 0.02 ng/mL (0.0-0.045)
[2021-10-03] MEDS: METHYLPREDNISOLONE 40 MG INJ IV SCH (18:26)
[2021-10-03] MEDS: FUROSEMIDE 40 MG/4 ML VIAL IV SCH (18:26)
[2021-10-03] MEDS: METOPROLOL TAR 25 MG TAB PO SCH (18:27)
[2021-10-03] MEDS: ENOXAPARIN 40 MG/0.4 ML SQ SCH (18:27)
[2021-10-03] MEDS: NICOTINE 21 MG/PAT TD SCH (18:35)
--- NOTE | 2021-10-03 20:35 | EKG ---
Test Date: 2021-10-03 Test Time: 11:13:08 Beer Cooler: SAMY MEASUREMENT RESULTS: Intervals: Rate: 131 UT: 120 QRSD: 60 QT: 312 QTc: 460 Alexander: P: 72 UT: 120 QRS: 93 T: 58 INTERPRETIVE STATEMENTS: Sinus tachycardia Rightward axis Borderline ECG Compared to ECG 08/25/2021 12:25:53 Atrial premature complex(es) no longer present Electronically Signed On 10-03-21 20:34:56 ASSISTANT PROFESSOR OF THEATER by Deshaun Dill
[2021-10-03] MEDS: ARFORMOTEROL TARTRATE 15 MCG/2 ML VIAL.NEB NEB SCH (21:26)
[2021-10-03] MEDS: IPRATROPIUM BROM 0.5MG/2.5ML NEB PRN (21:26)
[2021-10-03 23:53] LABS: CKMB Creatine Kinase MB 1.8 ng/mL (1.0-3.6)
[2021-10-04] MEDS: METHYLPREDNISOLONE 40 MG INJ IV SCH ×3 (00:30→17:35)
[2021-10-04] MEDS: FUROSEMIDE 40 MG/4 ML VIAL IV SCH ×3 (00:41→16:52)
--- NOTE | 2021-10-04 05:47 | P.PN ---
Subjective Date of Service: 10/04/21 Primary Care Provider: Dr. Grullon; Pulmonary-Dr. Joseph; Cardiology-Dr. Cheung([facility]) Chief Complaint: Shortness of breath Subjective: Other (Overall stable. Currently on BiPAP.) Physical Examination - Vital Signs Temperature: 97.8 F Blood Pressure: 106/71 Pulse: 82 Respirations: 19 Pulse Ox (%): 95 - Studies Laboratory Data (last 24 hrs) 10/03/21 11:49: PT 16.2 H, INR 1.40 10/03/21 11:49: WBC 10.80 D, Hgb 15.4 H, Hct 48.8 H, Plt Count 188 D 10/03/21 11:30: Sodium 136, Potassium 3.8, BUN 20 H, Creatinine 1.06, Glucose 123 H, Magnesium 2.5 H, Total Bilirubin 1.2 H, AST 19, ALT 29, Alkaline Phosphatase 138 H Assessment & Plan Discharge Plan: Home Plan to discharge in: 48 Hours Physician Review Additional Text: COVID: negative Chest x-ray: COMPARISON: <Comparisons> FINDINGS: Lines: None. Lungs: Diffuse prominence of the pulmonary interstitium. Pleural: Small bilateral effusions appear Cardiac: Cardiomegaly. Bones: No acute fractures. IMPRESSION: Increased interstitial edema with small bilateral effusions. ECHO 08/2021: MEASUREMENTS (cm) DIASTOLIC (NORMALS) SYSTOLIC (NORMALS) IVSd 0.7 (0.6-1.2) LA Diam (1.9-4.0) LVEF 68% LVIDd 2.9 (3.5-5.7) LVIDs 1.8 (2.0-3.5) %FS 37% LVPWd 0.8 (0.6-1.2) Ao Diam 2.3 (2.0-3.7) 2 DIMENSIONAL ASSESSMENT: RIGHT ATRIUM: NORMAL LEFT ATRIUM: NORMAL RIGHT VENTRICLE: NORMAL LEFT VENTRICLE: NORMAL TRICUSPID VALVE: NORMAL MITRAL VALVE: NORMAL PULMONIC VALVE: NORMAL AORTIC VALVE: NORMAL PERICARDIAL EFFUSION: NONE AORTIC ROOT: NORMAL LEFT VENTRICULAR WALL MOTION: NORMAL LEFT VENTRICULAR SIZE AND FUNCTION. DOPPLER/COLOR FLOW: MILD TRICUSPID REGURGITATION. RIGHT VENTRICUALR SYSTOLIC PRESSURE 67 mmHg. COMMENTS: TECHNICALLY DIFFUCULT STUDY. GROSSLY NORMAL LEFT VENTRICULAR SIZE AND FUNCTION. SEVERE PULMONARY HYPERTENSION. RIGHT VENTRICUALR SYSTOLIC PRESSURE 67 mmHg. Physical Exam: GENERAL: No distress noted. Patient on BiPAP. Patient reports improvement VITAL SIGNS: Reviewed HEENT: Head is normocephalic and atraumatic. Extraocular muscles are intact. Pupils are equal, round, and reactive to light and accommodation. Nares appeared normal. Mouth is well hydrated and without lesions. Mucous membranes are moist. NECK: Supple. No carotid bruits. No lymphadenopathy or thyromegaly. LUNGS: Crackles noted to the bases. Wheezing noted throughout. Currently on BiPAP HEART: Regular rate and rhythm, no appreciable gallops, rubs, murmurs or extra heart sounds ABDOMEN: Soft, nontender, and nondistended. Positive bowel sounds. No hepatosplenomegaly was noted. EXTREMITIES: Pain and edema to the lower extremities improved l NEUROLOGIC: The patient is oriented to person, place and time. Strength and sensation are grossly intact. Face is symmetric. SKIN: Significant edema to the lower extremities. Impression: Dyspnea secondary to acute respiratory failure with hypoxia related to acute on chronic diastolic CHF complicated with COPD exacerbation on chronic oxygen Diabetes mellitus type 2 Chronic renal disease stage III Hypertension Tobacco abuse Plan: Dyspnea secondary to acute respiratory failure with hypoxia related to acute on chronic diastolic CHF complicated with COPD exacerbation on chronic oxygen: Patient remains on BiPAP. Will have respiratory wean off oxygen to maintain sats above 90%. Anticipate patient will be able to wean down to nasal cannula today. Continue treatment for CHF including fluid restriction, Lasix. Will decrease Lasix today due to renal function. Cardiology consulted. Await recommendations. Continue COPD treatment. Pulmonology consulted. Await recommendations. Patient remains on IV Solu-Medrol, Brovana and Xopenex. Will monitor closely. Anticipate improvement over the next 48 hours. Chronic renal disease stage III: Suspect underlying chronic renal disease. Patient on Lasix. Will decrease Lasix today. We will monitor this closely. Diabetes mellitus type 2: Will check A1c. Continue Accu-Cheks and sliding scale. Hypertension: Lisinopril hydrochlorothiazide has been discontinued and replaced of metoprolol. Will decrease metoprolol. Will monitor and adjust appropriately. Tobacco abuse: Will provide nicotine patch. Cessation education provided. Code Status: This was discussed in detail with the patient. Patient is DO NOT RESUSCITATE. DVT prophylaxis: Lovenox Advanced Care Planning-30 minutes: Anticipate home health and physical therapy at discharge with continued home oxygen. Time Spent Managing Pts Care (In Minutes): 55
[2021-10-04] MEDS: METOPROLOL TAR 25 MG TAB PO SCH ×2 (06:00→17:35)
[2021-10-04 06:06] LABS: Absolute Lymphocytes (CBC) 0.3 K/uL (0.7-4.9); Basophils % 0.4 % (0-1.3); Hematocrit 47.4 % (36.0-45.0); Lymphocytes % 5.5 % (15.3-44.8); MPV 8.7 fL (7.6-11.3); RBC Red Blood Cell Count 5.21 M/uL (3.86-4.86)
[2021-10-04 06:32] LABS: Magnesium 2.6 mg/dL (1.8-2.4); Thyroid Stimulating Hormone 1.18 uIU/mL (0.360-3.740)
[2021-10-04] MEDS: INSULIN -REGULAR HUMAN 50 UNIT/0.5 ML ML SQ SCH ×4 (07:30→20:02)
[2021-10-04] MEDS: IPRATROPIUM BROM 0.5MG/2.5ML NEB PRN (07:56)
[2021-10-04] MEDS: ARFORMOTEROL TARTRATE 15 MCG/2 ML VIAL.NEB NEB SCH ×2 (07:56→19:40)
[2021-10-04] MEDS: FOLIC ACID 1 MG TABLET PO SCH (08:40)
[2021-10-04] MEDS: ASPIRIN EC 81 MG TAB PO SCH (08:40)
[2021-10-04] MEDS: THIAMINE HCL 100 MG TABLET PO SCH (08:40)
[2021-10-04] MEDS: ENOXAPARIN 40 MG/0.4 ML SQ SCH (08:41)
[2021-10-04] MEDS: NICOTINE 21 MG/PAT TD SCH (08:41)
--- NOTE | 2021-10-04 08:46 | RAD REPORT ---
EXAM DESCRIPTION: RAD - Chest Single View - 10/04/2021 6:19 am CLINICAL HISTORY: Follow up CHF/COPD COMPARISON: October 03 TECHNIQUE: AP portable chest image was obtained 10/04/2021 6:19 am . FINDINGS: Interstitial and alveolar opacities match the prior examination. Findings are slightly wor se in the left base. No new mass or consolidation. Heart and vasculature are normal. No measurable pl eural effusion and no pneumothorax. No acute bony abnormality seen. No acute aortic findings suspecte d. IMPRESSION: Interstitial and alveolar opacification stable from October 03 imaging. Small bilateral pleural effusions stable from prior imaging.
--- OUTSIDE RECORDS SUMMARY | 2021-10-04 22:36 | XMS REPORT | Continuity of Care Document ---
:1960 Author Organization [facility] t Address [address] [place] [address] [address] [place] [address] Care Team Providers Name Role Phone Rafal Grullon Primary Care Physician Karrie KHAN, K.H. Attending Clinician KARRIE K.H. Attending Clinician Unavailable Payers Payer Name Policy Type Policy Number Effective Date Expiration Date S ource Problems Condition Condition Condition Status Onset Resolution Last Treating Co mments Source Name Details Category Date Date Treatment Clinician Date No known No known Disease Unive rs active active ity of problems problems [facility] Allergies, Adverse Reactions, Alerts Allergy Allergy Status Severity Reaction(s) Onset Inactive Treating Comm ents Source Name Type Date Date Clinician CODEINE DRUG Active N/V 2018-0 [facility] INGREDI 2-26 ity of 00:00: [place] 00 Medical Branch Codeine Propensi Active Nausea 2018-0 Univers ty to and/or 2-26 ity of adverse Vomiting 00:00: [place] reaction 00 Medical s Branch Social History Social Habit Start Date Stop Date Quantity Comments Source Exposure to Not sure [facility] SARS-CoV-2 Medical Branch (event) Tobacco use and 2019-01-17 2019-01-17 Current user [facility] [place] exposure 00:00:00 00:00:00 Medical Branch Sex [birth year] [facility] [place] 00:00:00 00:00:00 Medical Branch Smoking Status Start Date Stop Date Source Current every day smoker 2019-01-17 00:00:00 Uni versity of [facility] Medications Ordered Filled Start Stop Current Ordering Indication Dosage Frequency Signature Comments Components Source Medication Medication Date Date Medication? Clinician (SIG) Name Name predniSONE 2020-11 Yes 10mg Take 10 mg U nivers 10 mg 1-08 by mouth ity of tablet 15:53: daily. [address] predniSONE 2020-11 Yes 10mg Take 10 mg U nivers 10 mg 1-08 by mouth ity of tablet 15:53: daily. [address] Branch KCL 10 mEq 2020-11 Yes 10meq Take 10 Uni vers tablet 1-08 mEq by ity of 15:53: mouth [place] 37 daily. Medical Branch furosemide 2020-11 Yes 20mg Take 20 mg U nivers 20 mg 1-08 by mouth ity of tablet 15:53: daily. [address] Branch KCL 10 mEq 2020-11 Yes 10meq Take 10 Uni vers tablet 1-08 mEq by ity of 15:53: mouth [place] 37 daily. Medical Branch furosemide 2020-11 Yes 20mg Take 20 mg U nivers 20 mg 1-08 by mouth ity of tablet 15:53: daily. [address] Branch glimepiride 2020-11 Yes 2mg Take 2 mg U nivers 2 mg tablet 1-08 by mouth ity of 15:38: daily with [place] 16 breakfast. Medical Branch albuterol 2020-11 Yes 2.5mg Inhale 2.5 U nivers 2.5 mg /3 1-08 mg every 4 ity of mL (0.083 15:38: (four) [place] %) 16 hours as Medical nebulizer needed for Bran ch solution Wheezing or Shortness of Breath. albuterol 2020-11 Yes 2{puff} Inhale 2 U nivers (PROAIR 1-08 Puffs ity of HFA) 90 15:38: every 6 [place] mcg/actuati 16 (six) Medical on inhaler hours as Branc h needed for Wheezing or Shortness of Breath. budesonide- 2020-11 Yes 2{puff} Inhale 2 Univers formoterol 1-08 Puffs 2 ity of (SYMBICORT) 15:38: (two) [place] 160-4.5 16 times Medical mcg/actuati daily. Branch on inhaler glimepiride 2020-11 Yes 2mg Take 2 mg U nivers 2 mg tablet 1-08 by mouth ity of 15:38: daily with [place] 16 breakfast. Medical Branch albuterol 2020-11 Yes 2.5mg Inhale 2.5 U nivers 2.5 mg /3 1-08 mg every 4 ity of mL (0.083 15:38: (four) [place] %) 16 hours as Medical nebulizer needed for Bran ch solution Wheezing or Shortness of Breath. albuterol 2020-11 Yes 2{puff} Inhale 2 U nivers (PROAIR 1-08 Puffs ity of HFA) 90 15:38: every 6 [place] mcg/actuati 16 (six) Medical on inhaler hours as Branc h needed for Wheezing or Shortness of Breath. budesonide- 2020-11 Yes 2{puff} Inhale 2 Univers formoterol 1-08 Puffs 2 ity of (SYMBICORT) 15:38: (two) [place] 160-4.5 16 times Medical mcg/actuati daily. Branch on inhaler lisinopriL- 2020-11- No 1{tbl} Take 1 U nivers hydrochloro 1-08 09-29 tablet by it y of thiazide 00:00: 00:00 mouth [place] 20-12.5 mg 00 :00 daily. Medical per tablet Branch diltiazem 2020- No [id number] 120mg Take 1 Univers (CARDIZEM 14 09-29 capsule by ity of CD) 120 mg 00:00: 00:00 mouth [place] 24 hr 00 :00 daily. Medical capsule Branch atorvastati 2018-11- No [id number] 40mg Take 1 Univers n 40 mg 01-02 tablet by ity of tablet 00:00: 00:00 mouth [place] 00 :00 daily. Medical Branch aspirin 81 2020- No [id number] 81mg Take 1 Univers mg EC 24 09-29 tablet by ity of tablet 00:00: 00:00 mouth [place] 00 :00 daily. Medical Branch lisinopril- 2020- No .5{tbl} Take 0.5 Univers hydrochloro -09-29 tablets by i ty of thiazide 00:00: 00:00 mouth [place] 20-12.5 mg 00 :00 daily. Medical per tablet Branch Vital Signs Vital Name Observation Time Observation Value Comments Source Systolic blood 2021-09-29 126 mm[Hg] University of pressure 21:50:00 [facility] Diastolic blood 2021-09-29 80 mm[Hg] University o f pressure 21:50:00 [facility] Heart rate 2021-09-29 108 /min University 21:50:00 [facility] Respiratory rate 2021-09-29 23 /min University 21:50:00 [facility] Body height 2021-09-29 154.9 cm University 21:50:00 [facility] Body weight 2021-09-29 77.565 kg University of 21:50:00 [facility] BMI 2021-09-29 32.31 kg/m2 University 21:50:00 [facility] Oxygen saturation 2021-09-29 86 /min 3-4L [place] 90% [facility] Arterial blood 21:50:00 after 5-10min [place] Med ical by Pulse oximetry Branch Procedures This patient has no known procedures. Encounters Start End Encounter Admission Attending Care Care Encounter Source Date/Time Date/Time Type Type Clinicians Facility Department ID 2021-10-03 2021-10-03 [id number] Univers 00:00:00 00:00:00 [id number] Merlene christiansen PROFESSIO [id number] [place] dicny NAL 059 [facility] 2021-09-29 2021-09-29 Outpatient R KARRIE [facility] [id number] Univers 15:30:00 16:11:54 SENDIL itbk [facility] 2021-09-29 2021-09-29 [facility] [id number] Univers 15:21:22 16:11:54 [facility] [place] [id number] [id number] Merlene s PROFESSIO [id number] [place] dicny NAL 059 Branch [facility] Results This patient has no known results.
[2021-10-05] MEDS: FUROSEMIDE 40 MG/4 ML VIAL IV SCH ×2 (00:41→09:00)
[2021-10-05] MEDS: METHYLPREDNISOLONE 40 MG INJ IV SCH ×2 (00:42→10:19)
[2021-10-05 04:42] LABS: Absolute Lymphocytes (CBC) 0.4 K/uL (0.7-4.9); Basophils % 0.2 % (0-1.3); Hematocrit 46.4 % (36.0-45.0); Lymphocytes % 5.4 % (15.3-44.8); MPV 8.5 fL (7.6-11.3); RBC Red Blood Cell Count 5.12 M/uL (3.86-4.86)
[2021-10-05] MEDS: METOPROLOL TAR 25 MG TAB PO SCH ×2 (05:08→17:23)
[2021-10-05 05:30] LABS: Magnesium 2.4 mg/dL (1.8-2.4); Potassium 3.2 mmol/L (3.5-5.1)
--- NOTE | 2021-10-05 05:47 | P.PN ---
Subjective Date of Service: 10/05/21 Primary Care Provider: Dr. Grullon; Pulmonary-Dr. Joseph; Cardiology-Dr. Cheung([facility]) Chief Complaint: Shortness of breath Subjective: Improving, Other (Currently on 5 L per nasal cannula. 1200 cc urine output noted over the last 24 hours) Physical Examination - Vital Signs Temperature: 98.0 F Blood Pressure: 104/51 Pulse: 78 Respirations: 18 Pulse Ox (%): 92 Assessment & Plan Discharge Plan: Home Plan to discharge in: 48 Hours Physician Review Additional Text: COVID: negative Chest x-ray: COMPARISON: <Comparisons> FINDINGS: Lines: None. Lungs: Diffuse prominence of the pulmonary interstitium. Pleural: Small bilateral effusions appear Cardiac: Cardiomegaly. Bones: No acute fractures. IMPRESSION: Increased interstitial edema with small bilateral effusions. ECHO 08/2021: MEASUREMENTS (cm) DIASTOLIC (NORMALS) SYSTOLIC (NORMALS) IVSd 0.7 (0.6-1.2) LA Diam (1.9-4.0) LVEF 68% LVIDd 2.9 (3.5-5.7) LVIDs 1.8 (2.0-3.5) %FS 37% LVPWd 0.8 (0.6-1.2) Ao Diam 2.3 (2.0-3.7) 2 DIMENSIONAL ASSESSMENT: RIGHT ATRIUM: NORMAL LEFT ATRIUM: NORMAL RIGHT VENTRICLE: NORMAL LEFT VENTRICLE: NORMAL TRICUSPID VALVE: NORMAL MITRAL VALVE: NORMAL PULMONIC VALVE: NORMAL AORTIC VALVE: NORMAL PERICARDIAL EFFUSION: NONE AORTIC ROOT: NORMAL LEFT VENTRICULAR WALL MOTION: NORMAL LEFT VENTRICULAR SIZE AND FUNCTION. DOPPLER/COLOR FLOW: MILD TRICUSPID REGURGITATION. RIGHT VENTRICUALR SYSTOLIC PRESSURE 67 mmHg. COMMENTS: TECHNICALLY DIFFUCULT STUDY. GROSSLY NORMAL LEFT VENTRICULAR SIZE AND FUNCTION. SEVERE PULMONARY HYPERTENSION. RIGHT VENTRICUALR SYSTOLIC PRESSURE 67 mmHg. Follow up CXR 10/04/2021: COMPARISON: October 03 TECHNIQUE: AP portable chest image was obtained 10/04/2021 6:19 am . FINDINGS: Interstitial and alveolar opacities match the prior examination. Findings are slightly worse in the left base. No new mass or consolidation. Heart and vasculature are normal. No measurable pleural effusion and no pneumothorax. No acute bony abnormality seen. No acute aortic findings suspected. IMPRESSION: Interstitial and alveolar opacification stable from October 03 imaging. Small bilateral pleural effusions stable from prior imaging. Physical Exam: GENERAL: No distress noted. Breathing improved. Currently on 5 L per nasal cannula VITAL SIGNS: Reviewed HEENT: Neck supple LUNGS: Better air movement bilateral. Still decreased to the bases. Currently on 5 L HEART: Regular rate and rhythm, no appreciable gallops, rubs, murmurs or extra heart sounds ABDOMEN: Soft, nontender, and nondistended. Positive bowel sounds. No hepatosplenomegaly was noted. EXTREMITIES: Edema to the lower extremities improved. Still about 1-2+. SKIN: Edema improved. Good range of motion to the upper and lower extremities. Impression: Dyspnea secondary to acute respiratory failure with hypoxia related to acute on chronic diastolic CHF complicated with COPD exacerbation on chronic oxygen with bilateral pleural effusion Diabetes mellitus type 2 Chronic renal disease stage III Hypertension Tobacco abuse Plan: Dyspnea secondary to acute respiratory failure with hypoxia related to acute on chronic diastolic CHF complicated with COPD exacerbation on chronic oxygenwith bilateral pleural effusion: Continued improvement noted. Patient remains on 5 L per nasal cannula. Continue to wean off oxygen to maintain sats above 90%. Will decrease Lasix 40 mg to IV twice daily. Continue to monitor input and output and daily weight. Continue with CHF education. Continue COPD medicationBrovana/albuterol/Atrovent and education. Patient can likely be transitioned to oral steroid tomorrow. Physical therapy to assess ambulation. Anticipate continued improvement. Likely discharge in the next 24 to 48 hours. Patient desires to have home health and physical therapy at discharge. Will consult marriage and family social worker to help with this. Patient will require home oxygen at discharge. Recheck chest x-ray tomorrow. I will turn the service over to the hospitalist team tomorrow. I will go over the plan of care with him. Chronic renal disease stage III: Will decrease IV Lasix as above. Continue to monitor renal function. Diabetes mellitus type 2: Will check A1c. Continue Accu-Cheks and sliding scale. Hypertension: Lisinopril hydrochlorothiazide has been discontinued and replaced with metoprolol. Metoprolol has been decreased. Parameters in place. Continue to adjust medication. Tobacco abuse: Will provide nicotine patch. Cessation education provided. Code Status: This was discussed in detail with the patient. Patient is DO NOT RESUSCITATE. DVT prophylaxis: Lovenox Advanced Care Planning-30 minutes: Patient will require home health and physical therapy at discharge. Patient will continue with home oxygen. Time Spent Managing Pts Care (In Minutes): 55
[2021-10-05] MEDS: INSULIN -REGULAR HUMAN 50 UNIT/0.5 ML ML SQ SCH ×4 (07:30→21:05)
[2021-10-05] MEDS: ARFORMOTEROL TARTRATE 15 MCG/2 ML VIAL.NEB NEB SCH ×2 (07:45→20:00)
[2021-10-05] MEDS: IPRATROPIUM BROM 0.5MG/2.5ML NEB PRN ×2 (07:45→14:28)
[2021-10-05] MEDS ORDERED: KCL 20 MEQ/100 mL IVPB 20 MEQ/100 ML BAG IV SCH (09:00)
[2021-10-05] MEDS: NICOTINE 21 MG/PAT TD SCH (09:00)
[2021-10-05] MEDS: GLUCERNA SHAKE 237 ML CAN PO SCH ×2 (09:00→21:00)
[2021-10-05] MEDS ORDERED: POTASSIUM CL SA 10 MEQ TAB PO ONE ×2 (09:37→15:49)
[2021-10-05] MEDS: FOLIC ACID 1 MG TABLET PO SCH (10:18)
[2021-10-05] MEDS: ENOXAPARIN 40 MG/0.4 ML SQ SCH (10:18)
[2021-10-05] MEDS: ASPIRIN EC 81 MG TAB PO SCH (10:18)
[2021-10-05] MEDS: THIAMINE HCL 100 MG TABLET PO SCH (10:19)
--- NOTE | 2021-10-05 11:00 | P.CNS ---
Date of Consult: 10/05/21 Primary Care Provider: Dr. Grullon; Pulmonary-Dr. Joseph; Cardiology-Dr. Cheung([facility]) Chief Complaint: Shortness of breath History of Present Illness: Patient is 61 years of age metabolic syndrome COPD home oxygen admitted with worsening lower extremity edema animal shortness of breath this edema and progressed is feeling better on IV Lasix compliant with therapy at home Denies any fever or chills Allergies codeine Adverse Reaction (Verified 08/25/21 17:17) Nausea/Vomiting sulfamethoxazole [From Bactrim] Adverse Reaction (Verified 08/25/21 17:17) Shortness of breath trimethoprim [From Bactrim] Adverse Reaction (Verified 08/25/21 17:17) Shortness of breath Home Medications: Albuterol Sulfate [Proair Hfa] 2 puff IH PRN PRN 08/25/21 Budesonide/Formoterol Fumarate [Symbicort 160-4.5 Mcg Inhaler] 2 puff IH Q12HR 08/25/21 Glimepiride 2 mg PO DAILY 08/25/21 Lisinopril/Hydrochlorothiazide [Lisinopril-Hctz 20-25 mg Tab] 20 mg PO DAILY 08/25/21 - Past Medical/Surgical History Diabetic: Yes -: Diabetes mellitus type 2 [id number] -: Hypertension -: Chronic diastolic CHF -: Tobacco abuse -: Obesity Psychosocial/ Personal History: Patient lives with son - Social History Smoking Status: Current every day smoker Alcohol use: No CD- Drugs: No Caffeine use: No Place of Residence: Home Review of Systems General: Weakness Respiratory: Shortness of Breath Cardiovascular: Edema Physical Examination Temp Pulse Resp BP Pulse Ox 98.0 F 78 18 104/51 L 92 10/05/21 09:11 10/05/21 09:11 10/05/21 09:11 10/05/21 09:11 10/05/21 09:11 General: Alert, In no apparent distress, Oriented x3 Respiratory: Friction rub, Expiratory wheezes Cardiovascular: Regular rate/rhythm, Normal S1 S2 Gastrointestinal: Normal bowel sounds, Soft and benign - Problems (1) CHF (congestive heart failure) Current Visit: No Status: Acute Plan: Patient is 61 years of age admitted with lower extremity edema patient has metabolic syndrome most likely she has a combination of diastolic dysfunction and COPD his hypoxemia hypercarbia on home oxygen compliant with the therapy chest x-ray abnormal he does have a left lower lobe infiltrate although white count is normal BNP over 34,000 exchange floor manager to p.o. prednisone labs reviewed exchange floor manager to p.o. Lasix 40 mg daily evaluate for discharge repeat PA lateral chest x-ray Qualifiers: Heart failure chronicity: unspecified
[2021-10-05] MEDS: LEVALBUTEROL 0.63 MG/3 ML NEB NEB PRN (14:28)
--- NOTE | 2021-10-05 14:29 | RAD REPORT ---
EXAM DESCRIPTION: RAD - Chest Single View - 10/05/2021 2:06 pm CLINICAL HISTORY: Rule out pneumonia heart failure COMPARISON: Chest Single View dated 10/04/2021; Chest Single View dated 10/03/2021; Chest Pa And Lat (2 Views) dated 08/26/2021; Chest Single View dated 08/25/2021 FINDINGS: Lines: None. Lungs: Hazy bilateral airspace disease . Pleural: Bilateral pleural effusions which are mild to moderate in size and layering. Cardiac: Cardiomegaly. Bones: No acute fractures. Other: IMPRESSION: Findings most consistent with pulmonary edema/ heart failure.
[2021-10-05] MEDS: LACTULOSE 20 GM/30 ML UCUP PO PRN (14:48)
[2021-10-05] MEDS ORDERED: FUROSEMIDE 40 MG/4 ML VIAL IV SCH (21:00)
[2021-10-05] MEDS: predniSONE 20 MG TAB PO SCH (21:06)
[2021-10-06 05:31] LABS: Absolute Lymphocytes (CBC) 0.3 K/uL (0.7-4.9); Basophils % 0.4 % (0-1.3); Hematocrit 42.9 % (36.0-45.0); Lymphocytes % 3.5 % (15.3-44.8); MPV 8.2 fL (7.6-11.3); RBC Red Blood Cell Count 4.76 M/uL (3.86-4.86)
[2021-10-06] MEDS: METOPROLOL TAR 25 MG TAB PO SCH ×2 (05:48→17:24)
[2021-10-06 05:51] LABS: Magnesium 2.5 mg/dL (1.8-2.4); Potassium 4.1 mmol/L (3.5-5.1)
[2021-10-06 07:00] LABS: White Blood Cell Scan OK (OK)
[2021-10-06 07:01] LABS: Blood Morphology Comment NOT SEEN (NOT SEEN); Platelet Estimate ADEQ
[2021-10-06] MEDS: INSULIN -REGULAR HUMAN 50 UNIT/0.5 ML ML SQ SCH ×4 (07:30→20:37)
[2021-10-06] MEDS: ARFORMOTEROL TARTRATE 15 MCG/2 ML VIAL.NEB NEB SCH ×2 (07:47→20:00)
[2021-10-06] MEDS: IPRATROPIUM BROM 0.5MG/2.5ML NEB PRN (07:47)
[2021-10-06] MEDS: DOCUSATE NA 100 MG CAP PO SCH (08:03)
[2021-10-06] MEDS: ASPIRIN EC 81 MG TAB PO SCH (08:03)
[2021-10-06] MEDS: FOLIC ACID 1 MG TABLET PO SCH (08:03)
[2021-10-06] MEDS: THIAMINE HCL 100 MG TABLET PO SCH (08:03)
[2021-10-06] MEDS: FUROSEMIDE 40 MG TABLET PO SCH (08:03)
[2021-10-06] MEDS: predniSONE 20 MG TAB PO SCH ×2 (08:03→20:37)
[2021-10-06] MEDS: ENOXAPARIN 40 MG/0.4 ML SQ SCH (08:04)
[2021-10-06] MEDS: NICOTINE 21 MG/PAT TD SCH (08:04)
[2021-10-06] MEDS: GLUCERNA SHAKE 237 ML CAN PO SCH ×2 (08:06→20:37)
[2021-10-06] MEDS ORDERED: FLUCONAZOLE 200mg IVPB 200 MG/100 ML BAG IV SCH (16:00)
[2021-10-06] MEDS: NYSTATIN 500,000 UNIT/5 ML UDC PO SCH ×2 (16:15→20:37)
[2021-10-07] MEDS: METOPROLOL TAR 25 MG TAB PO SCH ×2 (05:35→18:00)
[2021-10-07] MEDS: INSULIN -REGULAR HUMAN 50 UNIT/0.5 ML ML SQ SCH ×4 (07:30→20:12)
[2021-10-07] MEDS: LEVALBUTEROL 0.63 MG/3 ML NEB NEB PRN (07:52)
[2021-10-07] MEDS: ARFORMOTEROL TARTRATE 15 MCG/2 ML VIAL.NEB NEB SCH ×2 (07:52→20:00)
[2021-10-07] MEDS: IPRATROPIUM BROM 0.5MG/2.5ML NEB PRN (07:52)
[2021-10-07] MEDS: DOCUSATE NA 100 MG CAP PO SCH (08:05)
[2021-10-07] MEDS: ASPIRIN EC 81 MG TAB PO SCH (08:05)
[2021-10-07] MEDS: predniSONE 20 MG TAB PO SCH ×2 (08:05→20:12)
[2021-10-07] MEDS: ENOXAPARIN 40 MG/0.4 ML SQ SCH (08:06)
[2021-10-07] MEDS: FOLIC ACID 1 MG TABLET PO SCH (08:06)
[2021-10-07] MEDS: THIAMINE HCL 100 MG TABLET PO SCH (08:07)
[2021-10-07] MEDS: NICOTINE 21 MG/PAT TD SCH (08:07)
[2021-10-07] MEDS: NYSTATIN 500,000 UNIT/5 ML UDC PO SCH ×4 (08:13→20:13)
[2021-10-07] MEDS: GLUCERNA SHAKE 237 ML CAN PO SCH ×2 (08:14→20:12)
[2021-10-07] MEDS: FUROSEMIDE 40 MG TABLET PO SCH (08:29)
--- NOTE | 2021-10-07 12:25 | P.PN ---
Subjective Date of Service: 10/07/21 Primary Care Provider: Dr. Grullon; Pulmonary-Dr. Joseph; Cardiology-Dr. Cheung([facility]) Chief Complaint: Respiratory failure Patient is not improving still require 7 to 8 L of nasal cannula oxygen although subjectively feeling better Review of Systems General: Weakness Respiratory: Cough, Shortness of Breath Physical Examination - Vital Signs Temperature: 97.8 F Blood Pressure: 137/78 Pulse: 100 Respirations: 20 Pulse Ox (%): 91 - Physical Exam General: Alert, Oriented x3 Respiratory: Expiratory wheezes Cardiovascular: No edema, Normal S1 S2 Assessment & Plan - Problems (Diagnosis) (1) CHF (congestive heart failure) Current Visit: No Status: Acute Plan: No change in patient's condition still continues to remain very hypoxic chest x- ray on 1113 consistent with congestive heart failure she appears to have severe pulmonary hypertension normal left ventricular function by an echo done on August [address] pulmonary angiogram add spironolactone Qualifiers: Heart failure chronicity: unspecified
[2021-10-07] MEDS: SPIRONOLACTONE 25 MG TABLET PO SCH (13:04)
--- NOTE | 2021-10-07 14:14 | RAD REPORT ---
EXAM DESCRIPTION: CT - Chest For Pe Angio - 10/07/2021 1:45 pm CLINICAL HISTORY: Rule out pulmonary embolism COMPARISON: No comparisons FINDINGS: Chest Wall: No suspicious thyroid nodules or pathologic lymphadenopathy. Lungs: There is underlying atelectasis. This is as a result of the pleural effusions. Pleura: Small to moderate right and small left pleural effusions. Mediastinum/rowena: No pathologic lymphadenopathy. Pulmonary arteries/Aorta: No filling defect identified. No aortic aneurysm. Heart: No significant pericardial effusion. Mild cardiomegaly. Coronary artery calcifications. Reflux of contrast into the hepatic veins. Upper abdomen: Ascites. Cholelithiasis. Bones: No acute abnormality. Anasarca. All CT scans are performed using dose optimization technique as appropriate and may include automated exposure control or mA/KV adjustment according to patient size. IMPRESSION: Negative for pulmonary embolism. Pulmonary edema with small to moderate right and small left pleural effusions with underlying atelectasis.
[2021-10-08] MEDS: METOPROLOL TAR 25 MG TAB PO SCH ×3 (05:21→17:37)
--- NOTE | 2021-10-08 07:04 | RAD REPORT ---
EXAM DESCRIPTION: RAD - Chest Single View - 10/08/2021 4:24 am CLINICAL HISTORY: Congestive heart failure COMPARISON: Chest Single View dated 10/05/2021; Chest Single View dated 10/04/2021; Chest Single Vie w dated 10/03/2021; Chest Pa And Lat (2 Views) dated 08/26/2021 FINDINGS: Lines: None. Lungs: Mild diffuse hazy opacities. Pleural: Bilateral pleural effusions. Cardiac: Cardiomegaly. Bones: No acute fractures. Other: IMPRESSION: Edema/congestive heart failure with bilateral effusions without significant change topher red with 10/05/2021.
[2021-10-08] MEDS: INSULIN -REGULAR HUMAN 50 UNIT/0.5 ML ML SQ SCH ×4 (07:30→20:55)
[2021-10-08] MEDS: IPRATROPIUM BROM 0.5MG/2.5ML NEB PRN (08:00)
[2021-10-08] MEDS: ARFORMOTEROL TARTRATE 15 MCG/2 ML VIAL.NEB NEB SCH ×2 (08:00→20:00)
[2021-10-08] MEDS: LEVALBUTEROL 0.63 MG/3 ML NEB NEB PRN (08:00)
[2021-10-08] MEDS: NICOTINE 21 MG/PAT TD SCH (09:00)
[2021-10-08] MEDS: GLUCERNA SHAKE 237 ML CAN PO SCH ×2 (09:00→20:55)
[2021-10-08] MEDS: ASPIRIN EC 81 MG TAB PO SCH (09:09)
[2021-10-08] MEDS: FUROSEMIDE 40 MG TABLET PO SCH (09:09)
[2021-10-08] MEDS: SPIRONOLACTONE 25 MG TABLET PO SCH (09:12)
[2021-10-08] MEDS: DOCUSATE NA 100 MG CAP PO SCH (09:12)
[2021-10-08] MEDS: predniSONE 20 MG TAB PO SCH ×2 (09:12→20:56)
[2021-10-08] MEDS: FOLIC ACID 1 MG TABLET PO SCH (09:12)
[2021-10-08] MEDS: THIAMINE HCL 100 MG TABLET PO SCH (09:12)
[2021-10-08] MEDS: LACTULOSE 20 GM/30 ML UCUP PO PRN (09:17)
[2021-10-08] MEDS: ENOXAPARIN 40 MG/0.4 ML SQ SCH (09:27)
[2021-10-08] MEDS: NYSTATIN 500,000 UNIT/5 ML UDC PO SCH ×4 (09:27→20:55)
--- NOTE | 2021-10-08 10:14 | P.PN ---
Subjective Date of Service: 10/06/21 Patient clinically doing poorly. Tachypneic and on 6 L of oxygen keeping her sats at 89-90%. Pulmonary Consulted. Review of Systems 10-point ROS is otherwise unremarkable Physical Examination - Vital Signs Temperature: 98.9 F Blood Pressure: 117/69 Pulse: 89 Respirations: 20 Pulse Ox (%): 98 - Physical Exam General: Alert, In no apparent distress, Oriented x3 Respiratory: Diminished, Expiratory wheezes Cardiovascular: Regular rate/rhythm, Normal S1 S2, No murmurs Gastrointestinal: Normal bowel sounds, Soft and benign, Non-distended, No tenderness Musculoskeletal: No clubbing, No swelling, No tenderness Neurological: Sensation intact, Cranial nerves 3-12 intact - Studies Medications List Reviewed: Yes Assessment & Plan - Problems (Diagnosis) (1) Congestive heart failure, diastolic, left, w/preserved LV function, NYHA class 4 Current Visit: Yes Status: Acute (2) COPD exacerbation Current Visit: No Status: Acute (3) DM2 (diabetes mellitus, type 2) Current Visit: No Status: Acute (4) HTN (hypertension) Current Visit: No Status: Acute (5) Severe pulmonary hypertension Current Visit: Yes Status: Acute - Plan Plan: 1. Continue with albuterol and Atrovent nebs 2. Continue with IV steroids 3. Gentle diuresing 4. Pulmonary consultation 5. Wean down FiO2 6. Repeat chest x-ray in the morning 7. Monitor caloric intake 8. GI and DVT prophylaxis Discharge Plan: Home Plan to discharge in: Greater than 2 days - Advance Directives Does patient have a Living Will: No Does patient have a Durable POA for Healthcare: No - Code Status/Comfort Care Code Status Assessed: Yes Code Status: Full Code Critical Care: No Time Spent Managing PTS Care (In Minutes): 35
--- NOTE | 2021-10-08 10:17 | P.PN ---
Date of Service: 10/07/21 Subjective Patient states she feels somewhat better. She still is very tachypneic to some laying in bed. Not really eating much. Oxygen requirements have decreased Review of Systems 10-point ROS is otherwise unremarkable Physical Examination - Vital Signs Reviewed - Physical Exam General: Alert, In no apparent distress, Oriented x3; still very tachypneic Respiratory: Diminished, Expiratory wheezes Cardiovascular: Regular rate/rhythm, Normal S1 S2, No murmurs Gastrointestinal: Normal bowel sounds, Soft and benign, Non-distended, No tenderness Musculoskeletal: No clubbing, No swelling, No tenderness Neurological: Sensation intact, Cranial nerves 3-12 intact - Studies Medications List Reviewed: Yes Assessment & Plan - Problems (Diagnosis) (1) Congestive heart failure, diastolic, left, w/preserved LV function, NYHA class 4 Current Visit: Yes Status: Acute (2) COPD exacerbation Current Visit: No Status: Acute (3) DM2 (diabetes mellitus, type 2) Current Visit: No Status: Acute (4) HTN (hypertension) Current Visit: No Status: Acute (5) Severe pulmonary hypertension Current Visit: Yes Status: Acute - Plan Continue plan of care as mentioned below: 1. Continue with albuterol and Atrovent nebs 2. Continue with IV steroids 3. Gentle diuresing 4. Pulmonary consultation 5. Wean down FiO2 6. Repeat chest x-ray in the morning 7. Monitor caloric intake 8. GI and DVT prophylaxis Discharge Plan: Home Plan to discharge in: Greater than 2 days - Advance Directives Does patient have a Living Will: No Does patient have a Durable POA for Healthcare: No - Code Status/Comfort Care Code Status Assessed: Yes Code Status: Full Code Critical Care: No Time Spent Managing PTS Care (In Minutes): 35
--- NOTE | 2021-10-08 10:17 | P.PN ---
Date of Service: 10/08/21 Subjective Patient is clinically doing well. Respiratory status is improving today. Continue with current plan of care. Possible discharge over the next 24-48 hr Review of Systems 10-point ROS is otherwise unremarkable Physical Examination - Vital Signs Reviewed - Physical Exam General: Alert, In no apparent distress, Oriented x3; still very tachypneic Respiratory: Diminished, Expiratory wheezes Cardiovascular: Regular rate/rhythm, Normal S1 S2, No murmurs Gastrointestinal: Normal bowel sounds, Soft and benign, Non-distended, No tenderness Musculoskeletal: No clubbing, No swelling, No tenderness Neurological: Sensation intact, Cranial nerves 3-12 intact - Studies Medications List Reviewed: Yes Assessment & Plan - Problems (Diagnosis) (1) Congestive heart failure, diastolic, left, w/preserved LV function, NYHA class 4 Current Visit: Yes Status: Acute (2) COPD exacerbation Current Visit: No Status: Acute (3) DM2 (diabetes mellitus, type 2) Current Visit: No Status: Acute (4) HTN (hypertension) Current Visit: No Status: Acute (5) Severe pulmonary hypertension Current Visit: Yes Status: Acute - Plan Continue plan of care as mentioned below: 1. Continue with albuterol and Atrovent nebs; added long-acting beta agonist 2. Continue with IV steroids; may start titrating tomorrow 3. Patient with pulmonary edema and pleural effusion and so will do IV diuretics 4. Pulmonary consultation appreciated 5. Wean down FiO2 6. Repeat chest x-ray in the morning 7. Monitor caloric intake 8. GI and DVT prophylaxis
[2021-10-08 11:12] LABS: Absolute Lymphocytes (CBC) 0.5 K/uL (0.7-4.9); Basophils % 0.1 % (0-1.3); Hematocrit 46.1 % (36.0-45.0); Lymphocytes % 4.4 % (15.3-44.8); RBC Red Blood Cell Count 5.14 M/uL (3.86-4.86)
[2021-10-08 11:34] LABS: Magnesium 2.7 mg/dL (1.8-2.4); Potassium 3.6 mmol/L (3.5-5.1)
[2021-10-08] MEDS: FUROSEMIDE 20 MG/ 2ML VIAL IV SCH (17:32)
[2021-10-09] MEDS: FUROSEMIDE 20 MG/ 2ML VIAL IV SCH ×3 (00:31→17:21)
[2021-10-09] MEDS: METOPROLOL TAR 25 MG TAB PO SCH ×2 (05:08→17:22)
[2021-10-09] MEDS: INSULIN -REGULAR HUMAN 50 UNIT/0.5 ML ML SQ SCH ×4 (07:30→19:54)
[2021-10-09] MEDS: IPRATROPIUM BROM 0.5MG/2.5ML NEB PRN ×2 (08:00→14:16)
[2021-10-09] MEDS: LEVALBUTEROL 0.63 MG/3 ML NEB NEB PRN ×2 (08:00→14:16)
[2021-10-09] MEDS: ARFORMOTEROL TARTRATE 15 MCG/2 ML VIAL.NEB NEB SCH ×2 (08:00→19:55)
[2021-10-09] MEDS: NICOTINE 21 MG/PAT TD SCH (09:00)
[2021-10-09] MEDS: ENOXAPARIN 40 MG/0.4 ML SQ SCH (09:11)
[2021-10-09] MEDS: FOLIC ACID 1 MG TABLET PO SCH (09:11)
[2021-10-09] MEDS: DOCUSATE NA 100 MG CAP PO SCH (09:11)
[2021-10-09] MEDS: SPIRONOLACTONE 25 MG TABLET PO SCH (09:11)
[2021-10-09] MEDS: predniSONE 20 MG TAB PO SCH ×2 (09:11→19:54)
[2021-10-09] MEDS: ASPIRIN EC 81 MG TAB PO SCH (09:11)
[2021-10-09] MEDS: THIAMINE HCL 100 MG TABLET PO SCH (09:11)
[2021-10-09] MEDS: NYSTATIN 500,000 UNIT/5 ML UDC PO SCH ×4 (09:13→19:54)
[2021-10-09] MEDS: GLUCERNA SHAKE 237 ML CAN PO SCH ×2 (09:13→19:55)
[2021-10-09] MEDS: GLIMEPIRIDE 2 MG TABLET PO SCH (09:14)
--- NOTE | 2021-10-09 09:41 | P.PN ---
Date of Service: 10/09/21 Subjective Patient respiratory status is not really improved much. Continue with steroids. Patient was severe pulmonary hypertension. Review of Systems 10-point ROS is otherwise unremarkable Physical Examination - Vital Signs Reviewed - Physical Exam General: Alert, In no apparent distress, Oriented x3; still very tachypneic Respiratory: Diminished, Expiratory wheezes Cardiovascular: Regular rate/rhythm, Normal S1 S2, No murmurs Gastrointestinal: Normal bowel sounds, Soft and benign, Non-distended, No tende rness Musculoskeletal: No clubbing, No swelling, No tenderness Neurological: Sensation intact, Cranial nerves 3-12 intact - Studies Medications List Reviewed: Yes Assessment & Plan - Problems (Diagnosis) (1) Congestive heart failure, diastolic, left, w/preserved LV function, NYHA class 4 Current Visit: Yes Status: Acute (2) COPD exacerbation Current Visit: No Status: Acute (3) DM2 (diabetes mellitus, type 2) Current Visit: No Status: Acute (4) HTN (hypertension) Current Visit: No Status: Acute (5) Severe pulmonary hypertension Current Visit: Yes Status: Acute - Plan Continue plan of care as mentioned below: 1. Continue with albuterol and Atrovent nebs; added long-acting beta agonist 2. Continue with IV steroids; may start titrating tomorrow 3. Patient with pulmonary edema and pleural effusion and so will do IV diuretics 4. Pulmonary consultation appreciated 5. Wean down FiO2 6. Repeat chest x-ray in the morning 7. Monitor caloric intake 8. GI and DVT prophylaxis
[2021-10-10] MEDS: FUROSEMIDE 20 MG/ 2ML VIAL IV SCH ×2 (00:07→08:42)
[2021-10-10] MEDS: METOPROLOL TAR 25 MG TAB PO SCH ×2 (05:08→16:57)
[2021-10-10] MEDS: IPRATROPIUM BROM 0.5MG/2.5ML NEB PRN ×2 (08:08→13:52)
[2021-10-10] MEDS: ARFORMOTEROL TARTRATE 15 MCG/2 ML VIAL.NEB NEB SCH ×2 (08:08→19:35)
[2021-10-10] MEDS: INSULIN -REGULAR HUMAN 50 UNIT/0.5 ML ML SQ SCH ×4 (08:41→20:47)
[2021-10-10] MEDS: NYSTATIN 500,000 UNIT/5 ML UDC PO SCH ×4 (08:41→20:34)
[2021-10-10] MEDS: FOLIC ACID 1 MG TABLET PO SCH (08:42)
[2021-10-10] MEDS: GLIMEPIRIDE 2 MG TABLET PO SCH (08:42)
[2021-10-10] MEDS: DOCUSATE NA 100 MG CAP PO SCH (08:42)
[2021-10-10] MEDS: predniSONE 20 MG TAB PO SCH ×2 (08:42→20:34)
[2021-10-10] MEDS: ASPIRIN EC 81 MG TAB PO SCH (08:42)
[2021-10-10] MEDS: SPIRONOLACTONE 25 MG TABLET PO SCH (08:42)
[2021-10-10] MEDS: NICOTINE 21 MG/PAT TD SCH (08:44)
[2021-10-10] MEDS: GLUCERNA SHAKE 237 ML CAN PO SCH ×2 (08:45→20:34)
[2021-10-10] MEDS: ENOXAPARIN 40 MG/0.4 ML SQ SCH (08:48)
[2021-10-10] MEDS: THIAMINE HCL 100 MG TABLET PO SCH (08:48)
[2021-10-10] MEDS ORDERED: METOPROLOL TARTRATE 5 MG/5 ML INJ IV STA (10:04)
[2021-10-10] MEDS ORDERED: DIGOXIN 0.25 MG/ML AMP IV ONE (11:00)
--- NOTE | 2021-10-10 11:43 | P.PN ---
Subjective Date of Service: 10/10/21 Primary Care Provider: Dr. Grullon; Pulmonary-Dr. Joseph; Cardiology-Dr. Cheung([facility]) Chief Complaint: Respiratory failure Patient is improving feeling better oxygen requirements declining currently 95% on 8 L Review of Systems General: Weakness Respiratory: Shortness of Breath Physical Examination - Vital Signs Temperature: 97.7 F Blood Pressure: 133/76 Pulse: 97 Respirations: 20 Pulse Ox (%): 94 - Physical Exam General: Alert, In no apparent distress, Oriented x3 Respiratory: Diminished Cardiovascular: No edema, Regular rate/rhythm - Studies Medications List Reviewed: Yes Assessment & Plan - Problems (Diagnosis) (1) CHF (congestive heart failure) Current Visit: No Status: Acute Plan: Patient is doing much better titrate sat to 90% repeat ABGs no evidence of pulmonary embolism patient's bicarbonate is patient's bicarbonate is steadily increasing repeat labs add Diamox hopefully discharge tomorrow Qualifiers: Heart failure chronicity: unspecified Physician Review Additional Text: COVID: negative Chest x-ray: COMPARISON: <Comparisons> FINDINGS: Lines: None. Lungs: Diffuse prominence of the pulmonary interstitium. Pleural: Small bilateral effusions appear Cardiac: Cardiomegaly. Bones: No acute fractures. IMPRESSION: Increased interstitial edema with small bilateral effusions. ECHO 08/2021: MEASUREMENTS (cm) DIASTOLIC (NORMALS) SYSTOLIC (NORMALS) IVSd 0.7 (0.6-1.2) LA Diam (1.9-4.0) LVEF 68% LVIDd 2.9 (3.5-5.7) LVIDs 1.8 (2.0-3.5) %FS 37% LVPWd 0.8 (0.6-1.2) Ao Diam 2.3 (2.0-3.7) 2 DIMENSIONAL ASSESSMENT: RIGHT ATRIUM: NORMAL LEFT ATRIUM: NORMAL RIGHT VENTRICLE: NORMAL LEFT VENTRICLE: NORMAL TRICUSPID VALVE: NORMAL MITRAL VALVE: NORMAL PULMONIC VALVE: NORMAL AORTIC VALVE: NORMAL PERICARDIAL EFFUSION: NONE AORTIC ROOT: NORMAL LEFT VENTRICULAR WALL MOTION: NORMAL LEFT VENTRICULAR SIZE AND FUNCTION. DOPPLER/COLOR FLOW: MILD TRICUSPID REGURGITATION. RIGHT VENTRICUALR SYSTOLIC PRESSURE 67 mmHg. COMMENTS: TECHNICALLY DIFFUCULT STUDY. GROSSLY NORMAL LEFT VENTRICULAR SIZE AND FUNCTION. SEVERE PULMONARY HYPERTENSION. RIGHT VENTRICUALR SYSTOLIC PRESSURE 67 mmHg. Follow up CXR 10/04/2021: COMPARISON: October 03 TECHNIQUE: AP portable chest image was obtained 10/04/2021 6:19 am . FINDINGS: Interstitial and alveolar opacities match the prior examination. Findings are slightly worse in the left base. No new mass or consolidation. Heart and vasculature are normal. No measurable pleural effusion and no pneumothorax. No acute bony abnormality seen. No acute aortic findings suspected. IMPRESSION: Interstitial and alveolar opacification stable from October 03 imaging. Small bilateral pleural effusions stable from prior imaging. Physical Exam: GENERAL: No distress noted. Breathing improved. Currently on 5 L per nasal cannula VITAL SIGNS: Reviewed HEENT: Neck supple LUNGS: Better air movement bilateral. Still decreased to the bases. Currently on 5 L HEART: Regular rate and rhythm, no appreciable gallops, rubs, murmurs or extra heart sounds ABDOMEN: Soft, nontender, and nondistended. Positive bowel sounds. No hepatosplenomegaly was noted. EXTREMITIES: Edema to the lower extremities improved. Still about 1-2+. SKIN: Edema improved. Good range of motion to the upper and lower extremities. Impression: Dyspnea secondary to acute respiratory failure with hypoxia related to acute on chronic diastolic CHF complicated with COPD exacerbation on chronic oxygen with bilateral pleural effusion Diabetes mellitus type 2 Chronic renal disease stage III Hypertension Tobacco abuse Plan: Dyspnea secondary to acute respiratory failure with hypoxia related to acute on chronic diastolic CHF complicated with COPD exacerbation on chronic oxygenwith bilateral pleural effusion: Continued improvement noted. Patient remains on 5 L per nasal cannula. Continue to wean off oxygen to maintain sats above 90%. Will decrease Lasix 40 mg to IV twice daily. Continue to monitor input and output and daily weight. Continue with CHF education. Continue COPD medicationBrovana/albuterol/Atrovent and education. Patient can likely be transitioned to oral steroid tomorrow. Physical therapy to assess ambulation. Anticipate continued improvement. Likely discharge in the next 24 to 48 hours. Patient desires to have home health and physical therapy at discharge. Will consult social services designee to help with this. Patient will require home oxygen at discharge. Recheck chest x-ray tomorrow. I will turn the service over to the hospitalist team tomorrow. I will go over the plan of care with him. Chronic renal disease stage III: Will decrease IV Lasix as above. Continue to monitor renal function. Diabetes mellitus type 2: Will check A1c. Continue Accu-Cheks and sliding scale. Hypertension: Lisinopril hydrochlorothiazide has been discontinued and replaced with metoprolol. Metoprolol has been decreased. Parameters in place. Continue to adjust medication. Tobacco abuse: Will provide nicotine patch. Cessation education provided. Code Status: This was discussed in detail with the patient. Patient is DO NOT RESUSCITATE. DVT prophylaxis: Lovenox Advanced Care Planning-30 minutes: Patient will require home health and physical therapy at discharge. Patient will continue with home oxygen.
[2021-10-10] MEDS: acetaZOLAMIDE 250 MG TAB PO SCH ×2 (12:19→20:34)
[2021-10-10 12:48] LABS: BUN Blood Urea Nitrogen 27 mg/dL (7-18); Glucose Level 280 mg/dL (74-106); Potassium 3.1 mmol/L (3.5-5.1); Sodium Level 137 mmol/L (136-145)
[2021-10-10 12:56] LABS: Bicarbonate > 45 mmol/L (21-32)
[2021-10-10 13:48] LABS: Blood O2 Saturation 90.8 % (92-98.5)
[2021-10-10 13:49] LABS: Arterial Blood Carboxyhemoglob 1.9 % (0-1.5); Blood Gas Oxyhemoglobin 90.2 % (94-97)
[2021-10-10] MEDS: LEVALBUTEROL 0.63 MG/3 ML NEB NEB PRN (13:52)
[2021-10-10] MEDS: BENZONATATE 100 MG CAP PO PRN (20:34)
[2021-10-11] MEDS: PROMETHAZINE-DM 5 ML OSYR PO PRN ×2 (04:32→20:21)
[2021-10-11] MEDS: METOPROLOL TAR 25 MG TAB PO SCH ×2 (04:32→18:00)
[2021-10-11 04:37] VITALS: BMI 35.3
[2021-10-11 07:14] LABS: Absolute Lymphocytes (CBC) 0.5 K/uL (0.7-4.9); Basophils % 0.2 % (0-1.3); Hematocrit 45.5 % (36.0-45.0); Lymphocytes % 4.1 % (15.3-44.8); MPV 8.4 fL (7.6-11.3); RBC Red Blood Cell Count 5.01 M/uL (3.86-4.86)
[2021-10-11 07:29] LABS: Magnesium 2.9 mg/dL (1.8-2.4); Potassium 3.4 mmol/L (3.5-5.1)
[2021-10-11] MEDS: INSULIN -REGULAR HUMAN 50 UNIT/0.5 ML ML SQ SCH ×4 (07:30→21:00)
[2021-10-11] MEDS: ARFORMOTEROL TARTRATE 15 MCG/2 ML VIAL.NEB NEB SCH ×2 (08:04→20:00)
[2021-10-11] MEDS: IPRATROPIUM BROM 0.5MG/2.5ML NEB PRN (08:04)
[2021-10-11 08:32] LABS: Platelet Estimate DECR; White Blood Cell Scan OK (OK)
[2021-10-11 08:33] LABS: Blood Morphology Comment NOT SEEN (NOT SEEN)
[2021-10-11] MEDS: NICOTINE 21 MG/PAT TD SCH (09:00)
[2021-10-11] MEDS: DOCUSATE NA 100 MG CAP PO SCH (09:21)
[2021-10-11] MEDS: THIAMINE HCL 100 MG TABLET PO SCH (09:21)
[2021-10-11] MEDS: ASPIRIN EC 81 MG TAB PO SCH (09:21)
[2021-10-11] MEDS: NYSTATIN 500,000 UNIT/5 ML UDC PO SCH ×4 (09:21→20:21)
[2021-10-11] MEDS: acetaZOLAMIDE 250 MG TAB PO SCH ×2 (09:22→20:21)
[2021-10-11] MEDS: SPIRONOLACTONE 25 MG TABLET PO SCH (09:22)
[2021-10-11] MEDS: FOLIC ACID 1 MG TABLET PO SCH (09:22)
[2021-10-11] MEDS: predniSONE 20 MG TAB PO SCH ×2 (09:22→20:21)
[2021-10-11] MEDS: FUROSEMIDE 20 MG TABLET PO SCH (09:22)
[2021-10-11] MEDS: ENOXAPARIN 40 MG/0.4 ML SQ SCH (09:23)
[2021-10-11] MEDS: GLIMEPIRIDE 2 MG TABLET PO SCH (09:25)
[2021-10-11] MEDS: GLUCERNA SHAKE 237 ML CAN PO SCH ×2 (09:26→20:29)
[2021-10-11] MEDS ORDERED: POTASSIUM CL SA 10 MEQ TAB PO ONE (10:00)
[2021-10-11] MEDS: ACETAMINOPHEN 500 MG TAB PO PRN ×2 (12:13→20:22)
[2021-10-11] MEDS: LEVALBUTEROL 0.63 MG/3 ML NEB NEB PRN (14:12)
--- NOTE | 2021-10-11 20:30 | P.PN ---
Date of Service: 10/10/21 Subjective Trying to wean down patient's oxygen level. Patient clinically improving. However still remains tachypneic. Review of Systems 10-point ROS is otherwise unremarkable Physical Examination - Vital Signs Reviewed - Physical Exam General: Alert, In no apparent distress, Oriented x3; tachypnea is improved Respiratory: Diminished, Expiratory wheezes Cardiovascular: Regular rate/rhythm, Normal S1 S2, No murmurs Gastrointestinal: Normal bowel sounds, Soft and benign, Non-distended, No tenderness Musculoskeletal: No clubbing, No swelling, No tenderness Neurological: Sensation intact, Cranial nerves 3-12 intact - Studies Medications List Reviewed: Yes Assessment & Plan - Problems (Diagnosis) (1) Congestive heart failure, diastolic, left, w/preserved LV function, NYHA class 4 Current Visit: Yes Status: Acute (2) COPD exacerbation Current Visit: No Status: Acute (3) DM2 (diabetes mellitus, type 2) Current Visit: No Status: Acute (4) HTN (hypertension) Current Visit: No Status: Acute (5) Severe pulmonary hypertension Current Visit: Yes Status: Acute - Plan Continue plan of care as mentioned below: 1. Continue with albuterol and Atrovent nebs; added long-acting beta agonist 2. Change to oral steroids 3. Change to oral diuretics 4. Pulmonary consultation appreciated 5. Wean down FiO2 6. Repeat chest x-ray in the morning 7. Monitor caloric intake 8. Long-term prognosis poor 9. GI and DVT prophylaxis
--- NOTE | 2021-10-11 20:36 | P.PN ---
Date of Service: 10/11/21 Subjective Spoke with Pulmonary this morning. Plan for discharge today. Discontinue Castellanos catheter. Try to get patient to ambulate. She appears to have very little strength in her legs. She tried to get out of bed and to the bedside commode and almost fell down. We had to assist her back into the bed. Hold discharge for today. Review of Systems 10-point ROS is otherwise unremarkable Physical Examination - Vital Signs Reviewed - Physical Exam General: Alert, In no apparent distress, Oriented x3; tachypnea on ambulation Respiratory: End-expiratory wheezing Cardiovascular: Regular rate/rhythm, Normal S1 S2, No murmurs Gastrointestinal: Normal bowel sounds, Soft and benign, Non-distended, No tenderness Musculoskeletal: No clubbing, No swelling, No tenderness Neurological: Sensation intact, Cranial nerves 3-12 intact - Studies Medications List Reviewed: Yes Assessment & Plan - Problems (Diagnosis) (1) Congestive heart failure, diastolic, left, w/preserved LV function, NYHA class 4 Current Visit: Yes Status: Acute (2) COPD exacerbation Current Visit: No Status: Acute (3) DM2 (diabetes mellitus, type 2) Current Visit: No Status: Acute (4) HTN (hypertension) Current Visit: No Status: Acute (5) Severe pulmonary hypertension Current Visit: Yes Status: Acute - Plan Continue plan of care as mentioned below: 1. Continue with neb treatments as well as long-acting beta agonist 2. Continue steroids and diuretics 3. Physical therapy consultation 4. Plan of discharge per Pulmonary recommendation 1 strength is improved 5. Continue on 4 L oxygen 6. Increase diet as tolerated 7. Long-term prognosis poor 8. GI and DVT prophylaxis
[2021-10-12] MEDS: METOPROLOL TAR 25 MG TAB PO SCH ×2 (05:20→17:17)
[2021-10-12 07:11] LABS: Albumin 2.6 g/dL (3.4-5.0); Bilirubin Total 1.3 mg/dL (0.2-1.0); Magnesium 2.6 mg/dL (1.8-2.4); Protein, Total 7.3 g/dL (6.4-8.2)
[2021-10-12] MEDS: INSULIN -REGULAR HUMAN 50 UNIT/0.5 ML ML SQ SCH ×4 (07:30→21:00)
[2021-10-12] MEDS: GLIMEPIRIDE 2 MG TABLET PO SCH (08:00)
[2021-10-12] MEDS: IPRATROPIUM BROM 0.5MG/2.5ML NEB PRN (08:18)
[2021-10-12] MEDS: ARFORMOTEROL TARTRATE 15 MCG/2 ML VIAL.NEB NEB SCH ×2 (08:18→19:35)
[2021-10-12] MEDS: GLUCERNA SHAKE 237 ML CAN PO SCH ×2 (09:00→21:00)
[2021-10-12] MEDS: NICOTINE 21 MG/PAT TD SCH (09:00)
[2021-10-12] MEDS: FOLIC ACID 1 MG TABLET PO SCH (09:49)
[2021-10-12] MEDS: SPIRONOLACTONE 25 MG TABLET PO SCH (09:50)
[2021-10-12] MEDS: BENZONATATE 100 MG CAP PO PRN (09:50)
[2021-10-12] MEDS: acetaZOLAMIDE 250 MG TAB PO SCH ×2 (09:50→21:37)
[2021-10-12] MEDS: FUROSEMIDE 20 MG TABLET PO SCH (09:51)
[2021-10-12] MEDS: ASPIRIN EC 81 MG TAB PO SCH (09:51)
[2021-10-12] MEDS: THIAMINE HCL 100 MG TABLET PO SCH (09:51)
[2021-10-12] MEDS: ENOXAPARIN 40 MG/0.4 ML SQ SCH (09:52)
[2021-10-12] MEDS: DOCUSATE NA 100 MG CAP PO SCH (09:52)
[2021-10-12] MEDS: NYSTATIN 500,000 UNIT/5 ML UDC PO SCH ×4 (10:04→21:37)
[2021-10-12 10:25] LABS: Absolute Lymphocytes (CBC) 0.6 K/uL (0.7-4.9); Basophils % 0.3 % (0-1.3); Hematocrit 48.1 % (36.0-45.0); Lymphocytes % 5.1 % (15.3-44.8); MPV 8.8 fL (7.6-11.3); RBC Red Blood Cell Count 5.26 M/uL (3.86-4.86)
[2021-10-12 13:06] LABS: Blood Morphology Comment NOT SEEN (NOT SEEN); Platelet Estimate ADEQ; White Blood Cell Scan OK (OK)
[2021-10-12] MEDS: LEVALBUTEROL 0.63 MG/3 ML NEB NEB PRN (14:05)
--- NOTE | 2021-10-12 20:57 | P.PN ---
Date of Service: 10/12/21 Subjective Patient is still really weak. May benefit [facility]. Will get physical therapy evaluation as well. 10/11 Spoke with Pulmonary this morning. Plan for discharge today. Discontinue Castellanos catheter. Try to get patient to ambulate. She appears to have very little str ength in her legs. She tried to get out of bed and to the bedside commode and almost fell down. We had to assist her back into the bed. Hold discharge for today. Review of Systems 10-point ROS is otherwise unremarkable Physical Examination - Vital Signs Reviewed - Physical Exam General: Alert, In no apparent distress, Oriented x3; tachypnea on ambulation Respiratory: End-expiratory wheezing Cardiovascular: Regular rate/rhythm, Normal S1 S2, No murmurs Gastrointestinal: Normal bowel sounds, Soft and benign, Non-distended, No tenderness Musculoskeletal: No clubbing, No swelling, No tenderness Neurological: Sensation intact, Cranial nerves 3-12 intact - Studies Medications List Reviewed: Yes Assessment & Plan - Problems (Diagnosis) (1) Congestive heart failure, diastolic, left, w/preserved LV function, NYHA class 4 Current Visit: Yes Status: Acute (2) COPD exacerbation Current Visit: No Status: Acute (3) DM2 (diabetes mellitus, type 2) Current Visit: No Status: Acute (4) HTN (hypertension) Current Visit: No Status: Acute (5) Severe pulmonary hypertension Current Visit: Yes Status: Acute - Plan Continue plan of care as mentioned below: 1. Continue with neb treatments as well as long-acting beta agonist 2. Continue steroids and diuretics 3. Physical therapy consultation 4. Plan of discharge per Pulmonary recommendation when strength is improved 5. Continue on 4 L oxygen 6. Increase diet as tolerated 7. Long-term prognosis poor 8. GI and DVT prophylaxis
[2021-10-13] MEDS: LEVALBUTEROL 0.63 MG/3 ML NEB NEB PRN ×4 (03:50→19:57)
[2021-10-13] MEDS: IPRATROPIUM BROM 0.5MG/2.5ML NEB PRN ×4 (03:50→19:57)
[2021-10-13] MEDS: METOPROLOL TAR 25 MG TAB PO SCH ×2 (05:40→17:48)
--- NOTE | 2021-10-13 05:56 | P.PN ---
Subjective Date of Service: 10/13/21 Primary Care Provider: Dr. Grullon; Pulmonary-Dr. Joseph; Cardiology-Dr. Cheung([facility]) Chief Complaint: Respiratory failure Subjective: Other (Still on 5 L per nasal cannula. Still with some fatigue.) Physical Examination - Vital Signs Temperature: 97.6 F Blood Pressure: 105/56 Pulse: 106 Respirations: 18 Pulse Ox (%): 93 - Studies Medications List Reviewed: Yes Assessment & Plan Discharge Plan: Other (Home with Home health vs SNF) Plan to discharge in: 48 Hours Physician Review Additional Text: COVID: negative Chest x-ray: COMPARISON: <Comparisons> FINDINGS: Lines: None. Lungs: Diffuse prominence of the pulmonary interstitium. Pleural: Small bilateral effusions appear Cardiac: Cardiomegaly. Bones: No acute fractures. IMPRESSION: Increased interstitial edema with small bilateral effusions. ECHO 08/2021: MEASUREMENTS (cm) DIASTOLIC (NORMALS) SYSTOLIC (NORMALS) IVSd 0.7 (0.6-1.2) LA Diam (1.9-4.0) LVEF 68% LVIDd 2.9 (3.5-5.7) LVIDs 1.8 (2.0-3.5) %FS 37% LVPWd 0.8 (0.6-1.2) Ao Diam 2.3 (2.0-3.7) 2 DIMENSIONAL ASSESSMENT: RIGHT ATRIUM: NORMAL LEFT ATRIUM: NORMAL RIGHT VENTRICLE: NORMAL LEFT VENTRICLE: NORMAL TRICUSPID VALVE: NORMAL MITRAL VALVE: NORMAL PULMONIC VALVE: NORMAL AORTIC VALVE: NORMAL PERICARDIAL EFFUSION: NONE AORTIC ROOT: NORMAL LEFT VENTRICULAR WALL MOTION: NORMAL LEFT VENTRICULAR SIZE AND FUNCTION. DOPPLER/COLOR FLOW: MILD TRICUSPID REGURGITATION. RIGHT VENTRICUALR SYSTOLIC PRESSURE 67 mmHg. COMMENTS: TECHNICALLY DIFFUCULT STUDY. GROSSLY NORMAL LEFT VENTRICULAR SIZE AND FUNCTION. SEVERE PULMONARY HYPERTENSION. RIGHT VENTRICUALR SYSTOLIC PRESSURE [address] Scan: COMPARISON: No comparisons FINDINGS: Chest Wall: No suspicious thyroid nodules or pathologic lymphadenopathy. Lungs: There is underlying atelectasis. This is as a result of the pleural effusions. Pleura: Small to moderate right and small left pleural effusions. Mediastinum/rowena: No pathologic lymphadenopathy. Pulmonary arteries/Aorta: No filling defect identified. No aortic aneurysm. Heart: No significant pericardial effusion. Mild cardiomegaly. Coronary artery calcifications. Reflux of contrast into the hepatic veins. Upper abdomen: Ascites. Cholelithiasis. Bones: No acute abnormality. Anasarca. All CT scans are performed using dose optimization technique as appropriate and may include automated exposure control or mA/KV adjustment according to patient size. IMPRESSION: Negative for pulmonary embolism. Pulmonary edema with small to moderate right and small left pleural effusions with underlying atelectasis. Follow up CXR today: pending Physical Exam: GENERAL: No distress noted. Breathing improved. Currently on 5 L per nasal cannula VITAL SIGNS: Reviewed HEENT: Neck supple LUNGS: Increased crackles to the bases. Currently on 5 L HEART: Regular rate and rhythm, no appreciable gallops, rubs, murmurs or extra heart sounds ABDOMEN: Soft, nontender, and nondistended. Positive bowel sounds. No hepatosplenomegaly was noted. EXTREMITIES: Edema to the lower extremities improved. Still about 1-2+. SKIN: Edema improved. Good range of motion to the upper and lower extremities. Impression: Dyspnea secondary to acute respiratory failure with hypoxia related to acute on chronic diastolic CHF complicated with COPD exacerbation on chronic oxygen with bilateral pleural effusion Diabetes mellitus type 2 Chronic renal disease stage III Hypertension Tobacco abuse Plan: Dyspnea secondary to acute respiratory failure with hypoxia related to acute on chronic diastolic CHF complicated with COPD exacerbation on chronic oxygen with bilateral pleural effusion: Currently on oral Lasix, Aldactone and Diamox. Will change oral Lasix to IV Lasix 40 mg today. Recheck chest x-ray. Continue to decrease oxygen to maintain sats above 90%. Will discuss with pulmonology. Physical therapy to further evaluate and assess. Continue COPD medicationBrov jania, albuterol and Atrovent. Encourage incentive spirometer. Patient desires to go home with home health but patient may require skilled placement. Will have social work addressed with patient about the possible need for skilled placement. Chronic renal disease stage III: Changed oral Lasix to IV. Patient remains on Diamox and Aldactone. Continue to monitor renal function. Diabetes mellitus type 2: A1c 7.0. Encourage oral intake. Continue Accu-Cheks and sliding scale. Glimepiride discontinued due to poor oral intake. Hypertension: Lisinopril hydrochlorothiazide has been discontinued and replaced with metoprolol. Continue with metoprolol arameters in place. Continue to adjust medication. Tobacco abuse: Will provide nicotine patch. Cessation education provided. Code Status: This was discussed in detail with the patient. Patient is DO NOT RESUSCITATE. DVT prophylaxis: Lovenox Advanced Care Planning-30 minutes: Social work to readdress the possibility of home health and physical therapy if improvement noted otherwise will recommend skilled placement. Time Spent Managing Pts Care (In Minutes): 55
[2021-10-13 06:11] LABS: Absolute Lymphocytes (CBC) 0.7 K/uL (0.7-4.9); Basophils % 0.4 % (0-1.3); Hematocrit 48.3 % (36.0-45.0); Lymphocytes % 5.5 % (15.3-44.8); MPV 8.6 fL (7.6-11.3)
[2021-10-13 06:28] LABS: Magnesium 2.8 mg/dL (1.8-2.4); Phosphorus 3.3 mg/dL (2.5-4.9); Potassium 3.3 mmol/L (3.5-5.1)
[2021-10-13] MEDS: INSULIN -REGULAR HUMAN 50 UNIT/0.5 ML ML SQ SCH ×4 (07:30→20:41)
[2021-10-13] MEDS: GLIMEPIRIDE 2 MG TABLET PO SCH (08:00)
[2021-10-13] MEDS: ASPIRIN EC 81 MG TAB PO SCH (08:40)
[2021-10-13] MEDS: FOLIC ACID 1 MG TABLET PO SCH (08:40)
[2021-10-13] MEDS: THIAMINE HCL 100 MG TABLET PO SCH (08:40)
[2021-10-13] MEDS: SPIRONOLACTONE 25 MG TABLET PO SCH (08:40)
[2021-10-13] MEDS: DOCUSATE NA 100 MG CAP PO SCH (08:40)
[2021-10-13] MEDS: NYSTATIN 500,000 UNIT/5 ML UDC PO SCH ×4 (08:41→20:41)
[2021-10-13] MEDS: ENOXAPARIN 40 MG/0.4 ML SQ SCH (08:41)
[2021-10-13] MEDS: acetaZOLAMIDE 250 MG TAB PO SCH ×2 (08:41→20:41)
[2021-10-13] MEDS: NICOTINE 21 MG/PAT TD SCH (08:42)
[2021-10-13] MEDS: GLUCERNA SHAKE 237 ML CAN PO SCH ×2 (08:47→20:41)
[2021-10-13] MEDS: ARFORMOTEROL TARTRATE 15 MCG/2 ML VIAL.NEB NEB SCH ×2 (08:55→19:57)
[2021-10-13] MEDS ORDERED: FUROSEMIDE 40 MG/4 ML VIAL IV SCH (09:00)
[2021-10-13] MEDS ORDERED: POTASSIUM CL SA 10 MEQ TAB PO ONE (09:00)
--- NOTE | 2021-10-13 14:54 | RAD REPORT ---
EXAM DESCRIPTION: Lynda Single View10/13/2021 2:28 pm CLINICAL HISTORY: Shortness of breath COMPARISON: October 08 FINDINGS: Mild bilateral pulmonary opacities. Small to moderate bilateral pleural effusions. The right pleural effusion appears mildly diminished i n size Heart remains enlarged No significant change in the appearance of the chest since prior exam IMPRESSION: These findings probably indicate CHF
--- NOTE | 2021-10-14 05:47 | P.PN ---
Subjective Date of Service: 10/14/21 Primary Care Provider: Dr. Grullon; Pulmonary-Dr. Joseph; Cardiology-Dr. Cheung([facility]) Chief Complaint: Respiratory failure Subjective: Improving (Patient doing well. Currently on 5 L per nasal cannula.) Physical Examination - Vital Signs Temperature: 97.2 F Blood Pressure: 110/55 Pulse: 90 Respirations: 16 Pulse Ox (%): 91 - Studies Medications List Reviewed: Yes Assessment & Plan Discharge Plan: Home Plan to discharge in: 24 Hours - Code Status/Comfort Care Code Status: Full Code Physician Review Additional Text: COVID: negative Chest x-ray: COMPARISON: <Comparisons> FINDINGS: Lines: None. Lungs: Diffuse prominence of the pulmonary interstitium. Pleural: Small bilateral effusions appear Cardiac: Cardiomegaly. Bones: No acute fractures. IMPRESSION: Increased interstitial edema with small bilateral effusions. ECHO 08/2021: MEASUREMENTS (cm) DIASTOLIC (NORMALS) SYSTOLIC (NORMALS) IVSd 0.7 (0.6-1.2) LA Diam (1.9-4.0) LVEF 68% LVIDd 2.9 (3.5-5.7) LVIDs 1.8 (2.0-3.5) %FS 37% LVPWd 0.8 (0.6-1.2) Ao Diam 2.3 (2.0-3.7) 2 DIMENSIONAL ASSESSMENT: RIGHT ATRIUM: NORMAL LEFT ATRIUM: NORMAL RIGHT VENTRICLE: NORMAL LEFT VENTRICLE: NORMAL TRICUSPID VALVE: NORMAL MITRAL VALVE: NORMAL PULMONIC VALVE: NORMAL AORTIC VALVE: NORMAL PERICARDIAL EFFUSION: NONE AORTIC ROOT: NORMAL LEFT VENTRICULAR WALL MOTION: NORMAL LEFT VENTRICULAR SIZE AND FUNCTION. DOPPLER/COLOR FLOW: MILD TRICUSPID REGURGITATION. RIGHT VENTRICUALR SYSTOLIC PRESSURE 67 mmHg. COMMENTS: TECHNICALLY DIFFUCULT STUDY. GROSSLY NORMAL LEFT VENTRICULAR SIZE AND FUNCTION. SEVERE PULMONARY HYPERTENSION. RIGHT VENTRICUALR SYSTOLIC PRESSURE [address] Scan: COMPARISON: No comparisons FINDINGS: Chest Wall: No suspicious thyroid nodules or pathologic lymphadenopathy. Lungs: There is underlying atelectasis. This is as a result of the pleural effusions. Pleura: Small to moderate right and small left pleural effusions. Mediastinum/rowena: No pathologic lymphadenopathy. Pulmonary arteries/Aorta: No filling defect identified. No aortic aneurysm. Heart: No significant pericardial effusion. Mild cardiomegaly. Coronary artery calcifications. Reflux of contrast into the hepatic veins. Upper abdomen: Ascites. Cholelithiasis. Bones: No acute abnormality. Anasarca. All CT scans are performed using dose optimization technique as appropriate and may include automated exposure control or mA/KV adjustment according to patient size. IMPRESSION: Negative for pulmonary embolism. Pulmonary edema with small to moderate right and small left pleural effusions with underlying atelectasis. Follow up CXR today 10/13/2021: COMPARISON: October 08 FINDINGS: Mild bilateral pulmonary opacities. Small to moderate bilateral pleural effusions. The right pleural effusion appea rs mildly diminished in size Heart remains enlarged No significant change in the appearance of the chest since prior exam IMPRESSION: These findings probably indicate CHF Physical Exam: GENERAL: No distress noted. Breathing improved. Currently on 5 L per nasal cannula VITAL SIGNS: Reviewed HEENT: Neck supple LUNGS: Increased crackles to the bases. Currently on 5 L HEART: Regular rate and rhythm, no appreciable gallops, rubs, murmurs or extra heart sounds ABDOMEN: Soft, nontender, and nondistended. Positive bowel sounds. No hepatosplenomegaly was noted. EXTREMITIES: Edema to the lower extremities improved. Less than 1+ noted SKIN: Edema improved. Good range of motion to the upper and lower extremities. Impression: Dyspnea secondary to acute respiratory failure with hypoxia related to acute on chronic diastolic CHF complicated with COPD exacerbation on chronic oxygen with bilateral pleural effusion Diabetes mellitus type 2 Chronic renal disease stage III Hypertension Tobacco abuse Plan: Dyspnea secondary to acute respiratory failure with hypoxia related to acute on chronic diastolic CHF complicated with COPD exacerbation on chronic oxygen with bilateral pleural effusion: Edema to the lower extremities improved. Will transition IV Lasix 40 mg to oral daily. Continue Aldactone and Diamox. Continue to wean off oxygen to maintain sats above 90%. Currently on 5 L per nasal cannula. Will discuss with respiratory to wean down oxygen. Patient desires to go home at discharge. If we can get her below 4 L we can consider discharge as early as today if not tomorrow. Case discussed in detail with pulmonology. Patient will need to continue with COPD medication at discharge. Likely home in the next 24 hours. Chronic renal disease stage III: Overall stable. Continue Diamox and Aldactone. Will change Lasix to oral 40 mg daily. Continue to monitor renal function. Diabetes mellitus type 2: A1c 7.0. Encourage oral intake. Continue Accu-Cheks and sliding scale. Glimepiride discontinued due to poor oral intake. Hypertension: Lisinopril hydrochlorothiazide has been discontinued and replaced with metoprolol. Continue with metoprolol, parameters in place. Continue to adjust medication. Tobacco abuse: Will provide nicotine patch. Cessation education provided. Code Status: This was readdressed. Patient is full code DVT prophylaxis: Lovenox Advanced Care Planning-30 minutes: Social work reports patient does not have any skilled days available. Patient desires to go home at discharge. Time Spent Managing Pts Care (In Minutes): 55
[2021-10-14] MEDS: METOPROLOL TAR 25 MG TAB PO SCH (05:56)
[2021-10-14 06:04] LABS: Hematocrit 47.3 % (36.0-45.0); RBC Red Blood Cell Count 5.22 M/uL (3.86-4.86)
[2021-10-14 06:05] LABS: Absolute Lymphocytes (CBC) 0.7 K/uL (0.7-4.9); Basophils % 0.3 % (0-1.3); Lymphocytes % 7.8 % (15.3-44.8)
[2021-10-14 06:12] LABS: Magnesium 2.5 mg/dL (1.8-2.4); Potassium 3.6 mmol/L (3.5-5.1)
[2021-10-14] MEDS: INSULIN -REGULAR HUMAN 50 UNIT/0.5 ML ML SQ SCH ×2 (07:30→11:44)
[2021-10-14] MEDS: ARFORMOTEROL TARTRATE 15 MCG/2 ML VIAL.NEB NEB SCH (07:55)
[2021-10-14] MEDS: IPRATROPIUM BROM 0.5MG/2.5ML NEB PRN (07:55)
[2021-10-14] MEDS: ASPIRIN EC 81 MG TAB PO SCH (08:24)
[2021-10-14] MEDS: ENOXAPARIN 40 MG/0.4 ML SQ SCH (08:25)
[2021-10-14] MEDS: THIAMINE HCL 100 MG TABLET PO SCH (08:25)
[2021-10-14] MEDS: FOLIC ACID 1 MG TABLET PO SCH (08:25)
[2021-10-14] MEDS: NICOTINE 21 MG/PAT TD SCH (08:25)
[2021-10-14] MEDS: SPIRONOLACTONE 25 MG TABLET PO SCH (08:26)
[2021-10-14] MEDS: DOCUSATE NA 100 MG CAP PO SCH (08:26)
[2021-10-14] MEDS: GLUCERNA SHAKE 237 ML CAN PO SCH (08:26)
[2021-10-14] MEDS: acetaZOLAMIDE 250 MG TAB PO SCH (08:26)
[2021-10-14] MEDS: NYSTATIN 500,000 UNIT/5 ML UDC PO SCH ×2 (08:27→12:01)
[2021-10-14] MEDS ORDERED: FUROSEMIDE 40 MG TABLET PO SCH (09:00)
[2021-10-14] MEDS ORDERED: POTASSIUM CL SA 10 MEQ TAB PO ONE (09:00)
--- NOTE | 2021-10-14 11:53 | P.DS ---
Admission Date: 10/03/21 Discharge Date: 10/14/21 Primary Care Provider: Dr. Grullon; Pulmonary-Dr. Joseph; Cardiology-Dr. Cheung([facility]) Disposition: DC HOME/HOME HEALTH CARE Discharge Condition: GOOD Reason for Admission: Respiratory failure Consultations: Pulmonary-Dr. Joseph Procedures: COVID: negative Chest x-ray: COMPARISON: <Comparisons> FINDINGS: Lines: None. Lungs: Diffuse prominence of the pulmonary interstitium. Pleural: Small bilateral effusions appear Cardiac: Cardiomegaly. Bones: No acute fractures. IMPRESSION: Increased interstitial edema with small bilateral effusions. ECHO 08/2021: MEASUREMENTS (cm) DIASTOLIC (NORMALS) SYSTOLIC (NORMALS) IVSd 0.7 (0.6-1.2) LA Diam (1.9-4.0) LVEF 68% LVIDd 2.9 (3.5-5.7) LVIDs 1.8 (2.0-3.5) %FS 37% LVPWd 0.8 (0.6-1.2) Ao Diam 2.3 (2.0-3.7) 2 DIMENSIONAL ASSESSMENT: RIGHT ATRIUM: NORMAL LEFT ATRIUM: NORMAL RIGHT VENTRICLE: NORMAL LEFT VENTRICLE: NORMAL TRICUSPID VALVE: NORMAL MITRAL VALVE: NORMAL PULMONIC VALVE: NORMAL AORTIC VALVE: NORMAL PERICARDIAL EFFUSION: NONE AORTIC ROOT: NORMAL LEFT VENTRICULAR WALL MOTION: NORMAL LEFT VENTRICULAR SIZE AND FUNCTION. DOPPLER/COLOR FLOW: MILD TRICUSPID REGURGITATION. RIGHT VENTRICUALR SYSTOLIC PRESSURE 67 mmHg. COMMENTS: TECHNICALLY DIFFUCULT STUDY. GROSSLY NORMAL LEFT VENTRICULAR SIZE AND FUNCTION. SEVERE PULMONARY HYPERTENSION. RIGHT VENTRICUALR SYSTOLIC PRESSURE [address] Scan: COMPARISON: No comparisons FINDINGS: Chest Wall: No suspicious thyroid nodules or pathologic lymphadenopathy. Lungs: There is underlying atelectasis. This is as a result of the pleural effusions. Pleura: Small to moderate right and small left pleural effusions. Mediastinum/rowena: No pathologic lymphadenopathy. Pulmonary arteries/Aorta: No filling defect identified. No aortic aneurysm. Heart: No significant pericardial effusion. Mild cardiomegaly. Coronary artery calcifications. Reflux of contrast into the hepatic veins. Upper abdomen: Ascites. Cholelithiasis. Bones: No acute abnormality. Anasarca. All CT scans are performed using dose optimization technique as appropriate and may include automated exposure control or mA/KV adjustment according to patient size. IMPRESSION: Negative for pulmonary embolism. Pulmonary edema with small to moderate right and small left pleural effusions with underlying atelectasis. Follow up CXR today 10/13/2021: COMPARISON: October 08 FINDINGS: Mild bilateral pulmonary opacities. Small to moderate bilateral pleural effusions. The right pleural effusion appears mildly diminished in size Heart remains enlarged No significant change in the appearance of the chest since prior exam IMPRESSION: These findings probably indicate CHF Medical Problem List: Dyspnea secondary to acute respiratory failure with hypoxia related to acute on chronic diastolic CHF/severe pulmonary hypertension complicated with COPD exacerbation on chronic oxygen with bilateral pleural effusion Diabetes mellitus type 2 Chronic renal disease stage III Hypertension Tobacco abuse Brief History of Present Illness: 61-year-old female with history of COPD, diastolic CHF, diabetes mellitus type 2, hypertension, and tobacco abuse. Patient uses home oxygen. Patient presented with increasing shortness of breath and edema to the lower extremities. This has worsened over the past several days. She denies any fever, chills. No significant chest pain. Denies any nausea, vomiting. Shortness of breath worsened to the point where she came to the ER for further evaluation. In the ER patient was evaluated. Patient required BiPAP upon evaluation. BNP elevated at greater than 34,000. Troponin 0 0.03. White count 10.8, hemoglobin 15. Sodium 136, potassium 3.8. BUN of 10, creatinine 1.06 with GFR 52. Glucose 123. Chest x-ray showed bilateral pleural effusions with pulmonary edema. Patient given IV Lasix and Solu-Medrol in the emergency room. Patient was admitted for further evaluation and treatment. Hospital Course: Patient presented with dyspnea secondary to acute respiratory failure with hypoxia related to acute on chronic diastolic CHF/severe pulmonary hypertension with normal ejection fraction complicated with COPD exacerbation on chronic oxygen. Patient also found to have bilateral pleural effusion. Patient was hospitalized and received IV diuretic therapy with COPD treatment. Medications had to be adjusted. At discharge patient doing well. Patient appears to be at her baseline. Patient maintaining sats above 90% on 4 L per nasal cannula. For CHF, patient will continue with the 1500 cc/day fluid restriction and low-salt diet. She is to monitor her weight daily. If her weight increases by more than 5 pounds, further adjustment in medication may be required. This can be done with the help of her PCP. At discharge the patient will continue with Lasix 40 mg daily, Aldactone 25 mg daily, and 250 mg 1 pill twice daily. Recommend to recheck labBMP in 1 week to monitor her progress. Further adjustment in her medication may be required. This can be done with the help of her PCP or pulmonology. Recommend follow-up with her PCP within 1 week to follow-up his hospitalization. For her COPD the patient will continue with oxygen to maintain sats above 90%. Patient remained stable on 4 L per nasal cannula. At discharge patient will continue with her medicationSymbicort 2 puffs twice daily and albuterol 2 puffs 3 times a day as needed for shortness of breath. Recommend follow-up with pulmonology to further monitor her progress and adjust medication. Patient with chronic renal disease stage III. Overall stable. Patient will continue with above diuretic therapy. Recommend to recheck labBMP within 1 week to monitor her progress. Patient with diabetes mellitus type 2. Hemoglobin A1c 7.0. Glimepiride was discontinued due to poor intake and low blood sugar. Blood sugar stable at this time with current diet. At discharge she will continue with a diabetic diet. Recommend to maintain blood sugar less than 140 fasting and less than 200 after meals. If blood sugars remain above 200 then glimepiride 2 mg daily may need to be restarted. Recommend to recheck hemoglobin A1c every 3 months to monitor progress. Recommend follow-up with PCP in 1 week to further monitor her care. Patient on diabetes and hypoglycemia will be provided. Patient with hypertension. Medications have been adjusted. Patient with no longer take lisinopril hydrochlorothiazide. Patient was switched to metoprolol. Blood pressure stable on current medication. At discharge patient will continue with metoprolol 25 mg 1 pill twice daily. Recommend to maintain blood pressure less than 130/80. If blood pressures remain above 140/90 adjustments in her medication may be required. She is to hold her blood pressure medication metoprolol if blood pressure systolic less than 110 or heart rate less than 50. This can be done with the help of her PCP. Education on hypertension provided. Patient with tobacco abuse. Tobacco cessation education provided. Patient will be provided nicotine patch to help with cessation. At discharge patient will also continue with aspirin 81 mg daily, folic acid 1 mg daily, and thiamine 100 mg daily. Vital Signs/Physical Exam: Temp Pulse Resp BP Pulse Ox 97.0 F 86 24 H 102/58 L 93 10/14/21 08:00 10/14/21 08:26 10/14/21 08:00 10/14/21 08:26 10/14/21 08:00 General: Alert, In no apparent distress, Oriented x3, Cooperative HEENT: Atraumatic Neck: Supple Respiratory: Clear to auscultation bilaterally, Normal air movement, Other (Currently on 4 L per nasal cannula) Cardiovascular: Normal pulses, Regular rate/rhythm Gastrointestinal: Normal bowel sounds, No tenderness, No masses, No rebound, No guarding Musculoskeletal: No erythema, No tenderness, No warmth Integumentary: No tenderness/swelling, No erythema, No warmth, No cyanosis Neurological: Normal speech, Normal strength at 5/5 x4 extr, Normal tone, Normal affect Laboratory Data at Discharge: WBC 9.00 K/uL (4.3-10.9) D 10/14/21 05:33 Hgb 14.6 g/dL (12.0-15.0) 10/14/21 05:33 Hct 47.3 % (36.0-45.0) H 10/14/21 05:33 Plt Count 165 K/uL (152-406) 10/14/21 05:33 PT 16.2 SECONDS (9.5-12.5) H 10/03/21 11:49 INR 1.40 10/03/21 11:49 Sodium 138 mmol/L (136-145) 10/14/21 05:33 Potassium 3.6 mmol/L (3.5-5.1) 10/14/21 05:33 BUN 24 mg/dL (7-18) H 10/14/21 05:33 Creatinine 0.81 mg/dL (0.55-1.3) 10/14/21 05:33 Glucose 76 mg/dL (74-106) 10/14/21 05:33 Phosphorus 3.3 mg/dL (2.5-4.9) 10/13/21 05:44 Magnesium 2.5 mg/dL (1.8-2.4) H 10/14/21 05:33 Total Bilirubin 1.3 mg/dL (0.2-1.0) H 10/12/21 06:08 AST 31 U/L (15-37) 10/12/21 06:08 ALT 58 U/L (12-78) 10/12/21 06:08 Alkaline Phosphatase 137 U/L (45-117) H 10/12/21 06:08 Troponin I 0.02 ng/mL (0.0-0.045) 10/03/21 17:41 Triglycerides 89 mg/dL (<150) 10/04/21 05:30 Cholesterol 121 mg/dL (<200) 10/04/21 05:30 HDL Cholesterol 46 mg/dL (40-60) 10/04/21 05:30 Cholesterol/HDL Ratio 2.63 10/04/21 05:30 Home Medications: Albuterol Sulfate [Proair Hfa] 2 puff IH TID PRN #1 10/14/21 Aspirin [Aspirin EC 81 MG] 81 mg PO DAILY #90 tablet. 10/14/21 Budesonide/Formoterol Fumarate [Symbicort 160-4.5 Mcg Inhaler] 2 puff IH BID #1 10/14/21 Folic Acid 1 mg PO DAILY #90 tablet 10/14/21 Furosemide [Lasix*] 40 mg PO DAILY #30 tab 10/14/21 Metoprolol Tartrate [Lopressor*] 25 mg PO BID 6AM 6PM #60 tab 10/14/21 Nicotine [Nicoderm*] 21 mg TD DAILY #30 patch.td24 10/14/21 Spironolactone [Aldactone*] 25 mg PO DAILY #30 tab 10/14/21 Thiamine HCl 100 mg PO DAILY #90 tablet 10/14/21 acetaZOLAMIDE [Diamox*] 250 mg PO BID #60 tab 10/14/21 New Medications: Spironolactone [Aldactone*] 25 mg PO DAILY #30 tab Aspirin [Aspirin EC 81 MG] 81 mg PO DAILY #90 tablet. acetaZOLAMIDE [Diamox*] 250 mg PO BID #60 tab Folic Acid 1 mg PO DAILY #90 tablet Furosemide [Lasix*] 40 mg PO DAILY #30 tab Metoprolol Tartrate [Lopressor*] 25 mg PO BID 6AM 6PM #60 tab Nicotine [Nicoderm*] 21 mg TD DAILY #30 patch.td24 Albuterol Sulfate [Proair Hfa] 2 puff IH TID PRN #1 PRN Reason: Shortness Of Breath Budesonide/Formoterol Fumarate [Symbicort 160-4.5 Mcg Inhaler] 2 puff IH BID #1 Thiamine HCl 100 mg PO DAILY #90 tablet Physician Discharge Instructions: Patient presented with dyspnea secondary to acute respiratory failure with hypoxia related to acute on chronic diastolic CHF/severe pulmonary hypertension with normal ejection fraction complicated with COPD exacerbation on chronic oxygen. Patient also found to have bilateral pleural effusion. Patient was hospitalized and received IV diuretic therapy with COPD treatment. Medications had to be adjusted. At discharge patient doing well. Patient appears to be at her baseline. Patient maintaining sats above 90% on 4 L per nasal cannula. For CHF, patient will continue with the 1500 cc/day fluid restriction and low-salt diet. She is to monitor her weight daily. If her weight increases by more than 5 pounds, further adjustment in medication may be required. This can be done with the help of her PCP. At discharge the patient will continue with Lasix 40 mg daily, Aldactone 25 mg daily, and 250 mg 1 pill twice daily. Recommend to recheck labBMP in 1 week to monitor her progress. Further adjustment in her medication may be required. This can be done with the help of her PCP or pulmonology. Recommend follow-up with her PCP within 1 week to follow-up his hospitalization. For her COPD the patient will continue with oxygen to maintain sats above 90%. Patient remained stable on 4 L per nasal cannula. At discharge patient will continue with her medicationSymbicort 2 puffs twice daily and albuterol 2 puffs 3 times a day as needed for shortness of breath. Recommend follow-up with pulmonology to further monitor her progress and adjust medication. Patient with chronic renal disease stage III. Overall stable. Patient will continue with above diuretic therapy. Recommend to recheck labBMP within 1 week to monitor her progress. Patient with diabetes mellitus type 2. Hemoglobin A1c 7.0. Glimepiride was discontinued due to poor intake and low blood sugar. Blood sugar stable at this time with current diet. At discharge she will continue with a diabetic diet. Recommend to maintain blood sugar less than 140 fasting and less than 200 after meals. If blood sugars remain above 200 then glimepiride 2 mg daily may need to be restarted. Recommend to recheck hemoglobin A1c every 3 months to monitor progress. Recommend follow-up with PCP in 1 week to further monitor her care. Patient on diabetes and hypoglycemia will be provided. Patient with hypertension. Medications have been adjusted. Patient with no longer take lisinopril hydrochlorothiazide. Patient was switched to metoprolol. Blood pressure stable on current medication. At discharge patient will continue with metoprolol 25 mg 1 pill twice daily. Recommend to maintain blood pressure less than 130/80. If blood pressures remain above 140/90 adjustments in her medication may be required. She is to hold her blood pressure medication metoprolol if blood pressure systolic less than 110 or heart rate less than 50. This can be done with the help of her PCP. Education on hypertension provided. Patient with tobacco abuse. Tobacco cessation education provided. Patient will be provided nicotine patch to help with cessation. At discharge patient will also continue with aspirin 81 mg daily, folic acid 1 mg daily, and thiamine 100 mg daily. Diet: ADA Activity: Fall precautions Followup: Isac Grullon MD [Primary Care Provider] - Time spent managing pt's care (in minutes): 55
[2021-10-14 12:18] VITALS: BP 114/55; TEMP 97.8
[2021-10-14 15:09] VITALS: O2SAT 93
--- NOTE | 2021-10-15 08:20 | EKG ---
Test Date: 2021-10-10 Test Time: 10:49:00 Group President: SVETLANA MEASUREMENT RESULTS: Intervals: Rate: 104 [place]: QRSD: 78 QT: 334 QTc: 439 Icard: P: 79 [place]: QRS: 88 T: 4 INTERPRETIVE STATEMENTS: Atrial flutter with variable AV block Nonspecific ST and T wave abnormality Abnormal ECG Compared to ECG 10/03/2021 11:13:08 ST (T wave) deviation now present Sinus tachycardia no longer present Right-axis deviation no longer present Electronically Signed On 10-15-21 08:05:13 CIRCULATION SUPERVISOR by Deshaun Dill
== END 2021-10-14 15:19 | disposition home health service (06) | DRG 291 ==
LOC: ER 11:08 → ERHOLD 12:57 → 2ND 15:34
PROVIDERS: ADMIT Family Medicine; ATTEND Family Medicine
PROC: 5A09357 Assistance with Respiratory Ventilation, Less than 24 Consecutive Hours, Continuous Positive Airway Pressure (ICD-10-PCS; principal; 2021-10-03)
DX: I13.0 Hypertensive heart and chronic kidney disease with heart failure and stage 1 through stage 4 chronic kidney disease, or unspecified chronic kidney disease (principal); I50.33 Acute on chronic diastolic (congestive) heart failure; J96.01 Acute respiratory failure with hypoxia; J44.1 Chronic obstructive pulmonary disease with (acute) exacerbation; J98.11 Atelectasis; I11.0 Hypertensive heart disease with heart failure; E11.9 Type 2 diabetes mellitus without complications; E11.22 Type 2 diabetes mellitus with diabetic chronic kidney disease; N18.30 Chronic kidney disease, stage 3 unspecified; I27.20 Pulmonary hypertension, unspecified; F17.210 Nicotine dependence, cigarettes, uncomplicated; Z99.81 Dependence on supplemental oxygen; Z20.822 Contact with and (suspected) exposure to COVID-19
CPT/HCPCS: 36415; 51702; 71045; 71275; 80048; 80053; 80061; 80076; 82550; 82553; 82805; 82947; 83605; 83735; 83880; 84100; 84132; 84439; 84443; 84484; 85025; 85610; 93005; 94010; 94640; 94660; 94760; 96374; 96375; 97110; 97161; 97165; 97530; 99285; J1160; J1450; J1650; J1940; J2920; J2930; J7512; J7605; Q9967; U0003

== ENCOUNTER 2021-10-20 07:34 | Emergency (ER) | payer OTHER ==
--- OUTSIDE RECORDS SUMMARY | 2021-10-20 07:37 | XMS REPORT | Continuity of Care Document ---
:1960 Author Organization [facility] t Address [address] [place] [address] [address] [place] [address] Care Team Providers Name Role Phone CALDERÓN Primary Care Physician Unavailable Jonatan KHAN, K.H. Attending Clinician Payers Payer Name Policy Type Policy Number Effective Date Expiration Date S ource Problems Condition Condition Condition Status Onset Resolution Last Treating Co mments Source Name Details Category Date Date Treatment Clinician Date No known No known Disease Unive rs active active ity of problems problems [facility] Allergies, Adverse Reactions, Alerts Allergy Allergy Status Severity Reaction(s) Onset Inactive Treating Comm ents Source Name Type Date Date Clinician CODEINE DRUG Active N/V 2018-0 [facility] INGREDI 2-26 ity of 00:00: [place] 00 [facility] Codeine Propensi Active Nausea 2018-0 [facility] ty to and/or 01-17 ity of adverse Vomiting 00:00: [place] reaction 00 Medical s Branch Social History Social Habit Start Date Stop Date Quantity Comments Source Exposure to Not sure [facility] SARS-CoV-2 [facility] (event) Tobacco use and 2019-01-17 2019-01-17 Current user [facility] [place] exposure 00:00:00 00:00:00 [facility] Branch [facility] At [birth year] [facility] [place] [facility] Smoking Status Start Date Stop Date Source Current every day smoker 2019-01-17 00:00:00 Uni versity [facility] Medications Ordered Filled Start Stop Current Ordering Indication Dosage Frequency Signature Comments Components Source Medication Medication Date Date Medication? Clinician (SIG) Name Name predniSONE 2020-11 Yes 10mg Take 10 mg U nivers 10 mg 1-08 by mouth ity of tablet 15:53: daily. [place] [id number] Medical Branch predniSONE 2020-11 Yes 10mg Take 10 mg U nivers 10 mg 1-08 by mouth ity of tablet 15:53: daily. [place] [id number] Medical Branch KCL 10 mEq 2020-11 Yes 10meq Take 10 Uni vers tablet 1-08 mEq by ity of 15:53: mouth [place] 37 daily. Medical Branch furosemide 2020-11 Yes 20mg Take 20 mg U nivers 20 mg 1-08 by mouth ity of tablet 15:53: daily. [place] [id number] Medical Branch KCL 10 mEq 2020-11 Yes 10meq Take 10 Uni vers tablet 1-08 mEq by ity of 15:53: mouth [place] 37 daily. Medical Branch furosemide 2020-11 Yes 20mg Take 20 mg U nivers 20 mg 1-08 by mouth ity of tablet 15:53: daily. [place] [address] Medical Branch glimepiride 2020-11 Yes 2mg Take 2 [...] times Medical mcg/actuati daily. Branch on inhaler Procedures This patient has no known procedures. Encounters Start End Encounter Admission Attending Care Care Encounter Source Date/Time Date/Time Type Type Clinicians Facility Department ID 2021-10-10 2021-10-10 Telephone [facility] [id number] [facility] 00:00:00 00:00:00 [place] [id number] [id number] [id number] Ri dical NAL 059 [facility] 2021-10-03 2021-10-[id number] [facility] 00:00:00 00:00:00 [place] [id number] [id number] [id number] Ri dical NAL 059 [facility] 2006-07-07 2006-07-07 Outpatient [facility] [id number] Univers 00:00:00 00:00:00 [id number] ity [facility] 2006-06-30 2006-06-30 Outpatient [facility] [id number] Univers 00:00:00 00:00:00 [id number] ity [facility] 2006-06-15 2006-06-15 Outpatient [facility] [id number] Univers 00:00:00 10:38:53 9 [facility] Results This patient has no known results.
[2021-10-20 07:57] LABS: Absolute Lymphocytes (CBC) 0.7 K/uL (0.7-4.9); Basophils % 0.6 % (0-1.3); Hematocrit 50.5 % (36.0-45.0); Lymphocytes % 5.1 % (15.3-44.8); MPV 8.8 fL (7.6-11.3); RBC Red Blood Cell Count 5.45 M/uL (3.86-4.86)
[2021-10-20 09:19] LABS: Urine Blood 3+ (Negative); Urine Glucose Negative (Negative); Urine Protein 2+ (Negative); Urine Specific Gravity >=1.030 (1.005-1.030)
[2021-10-20 09:22] LABS: Protime INR 1.72
[2021-10-20] MEDS ORDERED: PANTOPRAZOLE 40 MG INJ ONE (09:22)
[2021-10-20] MEDS ORDERED: IPRATROPIUM BROM 0.5MG/2.5ML ONE (09:22)
[2021-10-20] MEDS ORDERED: NA CHLORIDE 0.9% 1,000 ML ONE (09:22)
[2021-10-20] MEDS ORDERED: FUROSEMIDE 40 MG/4 ML VIAL ONE (09:22)
[2021-10-20] MEDS ORDERED: ALBUTEROL 2.5 MG/3 ML NEB SOL ONE (09:22)
[2021-10-20] MEDS ORDERED: PIPERACIL/TAZO 3.375 GM VIAL IV ONE (09:22)
[2021-10-20] MEDS ORDERED: NA CHLORIDE 0.9% 250 ML ONE (09:23)
[2021-10-20 09:27] LABS: Anisocytosis 1+; Blood Morphology Comment NOTED (NOT SEEN); Macrocytosis 1+; Platelet Estimate ADEQ
[2021-10-20] MEDS ORDERED: PANTOPRAZOLE INJ 80 MG in NA CHLORIDE 0.9% 250 ML IV ONE (09:30)
--- NOTE | 2021-10-20 09:35 | RAD REPORT ---
EXAM DESCRIPTION: CT - Head C Spine Cap Wo Con - 10/20/2021 8:51 am CLINICAL HISTORY: Pain;Swelling, found down, unresponsive COMPARISON: Chest For Pe Angio dated 10/07/2021 TECHNIQUE: Axial [address] head images were obtained. Axial [address] cervical spine images were obtain ed with sagittal and coronal reconstruction images reviewed. Axial 5 mm images of the chest, abdomen and pelvis were obtained. All CT scans are performed using dose optimization technique as appropriate and may include automated exposure control or mA/KV adjustment according to patient size. FINDINGS: No intracranial hemorrhage present. There is no shift of midline structures. Ventricles ar e still within normal range. There is no significant degree of cortical edema or sulcal effacement se en. There is some loss of the machuca matter- white matter differentiation over what is typically seen. Basilar cisterns are still visible. Mastoid air cells and paranasal sinuses are clear. No skull fract ure. NG tube and ET tube are in place. Cervical bodies are normal in height and alignment. No fracture or acute bone finding.No disk space n arrowing.No prevertebral soft tissue thickening or paraspinal mass.Central canal detail is inherently limited on CT imaging.Uncovertebral joint hypertrophy and facet hypertrophy cause significant right foraminal stenosis at C3-4 Endotracheal tube is in place. Tip is at the mid aortic arch level approximately 3 cm above the braulio a. NG tube tip is in the antrum of the decompressed stomach. Small to moderate right pleural effusion is present layering along the posterior aspect of the chest. There is partial atelectasis of the rig ht lower lobe. No acute lung parenchymal process on the right. Moderate pleural effusion is present o n the left. There is fluid along the fissure. There is near complete atelectasis of the left lower lo be. Left lower lobe bronchus is occluded from mass or inflammatory debris. Bronchus into the lingula appears partially occluded as well. There is partial lingula atelectasis. No mediastinal hematoma and the aorta and pulmonary arteries are unremarkable. No chest wall mass. Contusion or edema changes ar e present along the mid and lower lateral left chest. No displaced rib fractures are present and no n ondisplaced rib fractures confirmed. Nodular liver capsule is present with no focal liver parenchymal lesion evident. No acute traumatic i njury to the normal sized spleen. No pancreatic abnormality. At least 1 gallstone is present. No acut e gallbladder process seen. No biliary tree dilatation. Left kidney is smaller than the right with no hydronephrosis of either kidney. No acute mass lesions seen. Urinary bladder is contracted around a Castellanos catheter. No acute bowel process identifiable. No free air, free fluid or abnormal stranding. No hernia, mass or bulky lymphadenopathy. Arterial tree calcifications are present. Disc and bone degenerative changes are present. No acute bone finding confirmed. IMPRESSION: No intracranial hemorrhage present. No significant edema or midline shift seen. There ar e subtle changes of minimal or early anoxic brain injury and correlation is needed with exam findings . Cervical spine degenerative changes are present as detailed. No acute finding. Bilateral pleural fluid present left greater than right. There is near complete atelectasis of the le ft lower lobe and partial atelectasis in the lingula of the left upper lobe with complete a partial o pacification of the corresponding bronchi. This could be from mass, aspiration or inflammatory debris . No acute traumatic finding in the abdomen or pelvis.
[2021-10-20 09:50] LABS: Barbiturates NEGATIVE (NEGATIVE); Benzodiazepines NEGATIVE (NEGATIVE); Cocaine NEGATIVE (NEGATIVE); METHAMPHETAM NEGATIVE (NEGATIVE); Methadone NEGATIVE (NEGATIVE); Opiates NEGATIVE (NEGATIVE); Phencyclidine NEGATIVE (NEGATIVE); THC Cannibis NEGATIVE (NEGATIVE)
--- NOTE | 2021-10-20 10:28 | RAD REPORT ---
EXAM DESCRIPTION: RAD - Chest Single View - 10/20/2021 8:18 am CLINICAL HISTORY: intuation COMPARISON: October 13 TECHNIQUE: AP portable chest image was obtained 10/20/2021 8:18 am in supine positioning. FINDINGS: Bilateral pleural effusions are present layering along the right-side chest and more focal or loculated in the left base. No dense consolidation or mass in the right lung field or upper left lung field. Left lower lung field mass lesion cannot be evaluated due to the superimposed heart and l eft base pleural fluid. Endotracheal tube tip is mid aortic arch level 3 cm above the vinicius. NG tube tip extends below the d iaphragm, off the field of view. Heart size and vasculature within range of normal for portable supine examination. No pneumothorax. No acute bony abnormality seen. No acute aortic findings suspected. IMPRESSION: Bilateral pleural effusions are present possibly loculated in the left base. Mass or inf iltrate of the left base cannot be accurately assessed in this setting. Endotracheal tube and NG tube in good position.
[2021-10-20] MEDS ORDERED: FOLIC ACID 5 MG/ML VIAL ONE (10:41)
--- NOTE | 2021-10-20 10:43 | ER ---
Nurse's Notes [facility] Name: Ruth Drake Age: 61 yrs Sex: Female : 1960 Arrival Date: 10/20/2021 Time: 07:35 Bed 4 Private MD: Diagnosis: Slowness and poor responsiveness;Pneumonia in diseases classified elsewhere;Unspecified bacterial pneumonia-ASPIRATION;Pleural effusion, not elsewhere classified-BILATERAL;Atelectasis;Anoxic brain damage, not elsewhere classified;COPD/ Chronic obstructive pulmonary disease with (acute) exacerbation;Other obesity;UTI/ Urinary tract infection, site not specified;Acute respiratory failure with hypercapnia-INTUBATED;Type 2 diabetes mellitus with hypoglycemia without coma Presentation: 10/20 07:36 Chief complaint: EMS states: Last known well was last night. Pt was found in bed by family member, unresponsive. Upon EMS arrival patient was cyanotic with agonal respirations. BGL 105, 107/63 HR 102, Respirations assisted VIA BVM. Ebola Screen: Patient denies exposure to infectious person. Patient denies travel to an Ebola-affected area in the 21 days before illness onset. 07:36 Method Of Arrival: EMS: [facility] 07:36 Acuity: PADMINI 1 07:36 Initial Sepsis Screen: Does the patient have a suspected source of infection? No. ss Patient's initial sepsis screen is negative. Onset of symptoms is unknown. 10:01 Coronavirus screen: At this time, the client does not indicate any symptoms associated ap3 with coronavirus-19. Initial Sepsis Screen: Does the patient meet any 2 criteria? Mean Arterial Pressure (MAP) < 65. Altered Mental Status. Yes Does the patient have a suspected source of infection? No. Patient's initial sepsis screen is negative. Risk Assessment: Do you want to hurt yourself or someone else? Patient reports no desire to harm self or others. Historical: - Allergies: 07:36 Bactrim; 07:36 Codeine; 07:36 sulfamethoxazole; - Home Meds: 12:58 Furosemide Oral [Active]; glimepiride 2 mg Oral tab 1 tab once daily [Active]; ap3 Glipizide Oral [Active]; lisinopril Oral [Active]; lisinopril-hydrochlorothiazide 20-12.5 mg Oral tab 1 tab once daily [Active]; proair [Active]; symbicort [Active]; - PMHx: 07:36 COPD; Diabetes - NIDDM; Hypertension; ss - Immunization history:: Adult Immunizations unknown. - Social history:: Smoking status: unknown. Screenin:00 Abuse screen: Denies threats or abuse. Nutritional screening: No deficits noted. ap3 Tuberculosis screening: No symptoms or risk factors identified. Fall Risk No fall in past 12 months (0 pts). Secondary diagnosis (15 points) impaired mobility, IV access (20 points). Ambulatory Aid- None/Bed Rest/Nurse Assist (0 pts). Total Merino Fall Scale indicates Low Risk Score (25-44 pts). Fall prevention measures have been instituted. Side Rails Up X 2 Placed close to Nursing Station Frequent Obs/Assesments occuring. Assessment: 07:48 General: Appears distressed, Behavior is unresponsive. Pain: Unable to use pain scale. ap3 Patient is unresponsive. Neuro: Level of Consciousness is unresponsive, Oriented to unable to assess due to patient being unresponsive at this time. Cardiovascular: Rhythm is sinus rhythm with unifocal PVCs. Respiratory: Respiratory effort is shallow, patient being bagged by RT preparing for intubation Respiratory pattern is agonal Breath sounds are diminished bilaterally. the patient has severe shortness of breath. GI: Abdomen is round. Derm: Bruising that is dark purple, green, yellow, on generalized bruising on extremities and abdomen. 08:45 Respiratory: Airway is patent via oral intubation. ap3 10:00 Reassessment: family at the bedside, and provided with an update on patient status. ap3 10:50 Reassessment: patient becoming more alert, eyes open, and patient is grabbing at ET ap3 tube. Provider notified, new orders received. 13:00 Reassessment: Patient and/or family updated on plan of care and expected duration. Pain ap3 level reassessed. 13:35 Reassessment: Patient becoming restless, and attempting to grab ET tube. provider ap3 notified, new orders received. 14:11 Reassessment: EMS at the bedside. ap3 Vital Signs: 07:36 Pulse 102; Resp 20 A; Pulse Ox 94% on 15% BVM; ss 07:48 BP 75 / 56; Pulse 102; Resp 20; Pulse Ox 98% on 15 lpm ETT ambu; ss 08:00 BP 85 / 55; Pulse 102; Resp 18; Temp 98.8(TE); Pulse Ox 95% on ETT vent; ap3 08:30 BP 92 / 55; Pulse 97; Resp 18; Pulse Ox 91% on ETT vent; ap3 09:00 BP 99 / 76; Pulse 96; Resp 18; Pulse Ox 94% on ETT vent; ap3 10:00 BP 101 / 72; Pulse 100; Resp 18; Pulse Ox 96% on ETT vent; ap3 10:30 BP 101 / 65; Pulse 90; Resp 18; Pulse Ox 97% on ETT vent; ap3 11:57 BP 104 / 58; Pulse 98; Resp 18; Pulse Ox 96% on ETT vent; ap3 12:30 BP 102 / 65; Pulse 106; Resp 18; Pulse Ox 94% on ETT vent; ap3 12:55 BP 104 / 61; Pulse 97; Resp 18; Pulse Ox 95% on ETT vent; ap3 13:49 BP 92 / 59; Pulse 97; Resp 18; Pulse Ox 94% on ETT vent; ap3 ED Course: 07:35 Patient arrived in ED. ss 07:42 Inserted saline lock: 22 gauge in left antecubital area, using aseptic technique. Blood ss collected. 07:45 Assisted provider with intubation using 7.0 mm ETT ET tube secured at 22cm at the gums. ss Intubated by North Christiansen MD Placement verified by CO2 detector w/ + color change, auscultating bilateral breath sounds, Patient tolerated Sedated. 07:47 North Christiansen MD is Attending Physician. [facility] 07:47 Inserted saline lock: 22 gauge in right wrist, using aseptic technique. ,using aseptic ss technique. Insertion by DARIUS Smith Blood collected. 07:48 Triage completed. ss 07:48 Arm band placed on left wrist. ss 07:50 NGT: inserted 16 Fr. via left nare. verified placement of air over stomach, verified ap3 return of gastric contents, to intermittent suction. Returned gastric contents. Amount of gastric contents removed by suction 250ml. Patient tolerated well. 08:16 Attending Physician role handed off by North Christiansen MD [facility] 08:16 Moshe Alex MD is Attending Physician. [facility] 08:18 XRAY Chest (1 view) In Process Unspecified. EDMS 08:23 Prokisch, Sarah, RN is Primary Nurse. ap3 08:30 Castellanos cath inserted, using sterile technique, 18 Fr., by me, balloon inflated, to ap3 gravity drainage, urine specimen collected. returned bloody urine. Patient tolerated well. 08:51 CT Traumagram (Head C Spine CAP wo con) In Process Unspecified. EDMS 10:02 Patient has correct armband on for positive identification. air sampling and monitoring on. Pulse ap3 ox on. NIBP on. Door closed. Noise minimized. Warm blanket given. 10:28 Assisted provider with central line placement. Set up central line tray. Triple lumen ap3 line placed in right femoral. Line placed by Moshe Alex MD Placement verified by blood return, Dressed with Tape, Tegaderm, Blood was collected. Patient tolerated well. Before procedure, did Practitioner(s) obtain informed consent? Yes. Patient \\T\\ family education about procedure, CLABSI prevention and S/S of infection? Yes. Time-out/Briefing performed prior to start of procedure? Yes. Was handwashing/sanitizing done immediately prior to procedure? Yes. Was patient positioned to in a way to prevent air embolism? Yes. Was procedure site sterilized? Yes, with chlorhexidine. Was the site allowed to dry? Yes. Was local anesthetic and/or sedation utilized? No. During the procedure, did the Practitioner(s) maintain a sterile field? Yes. Were unused ports clamped during insertion? Yes. Was blood aspirated from each lumen? Yes. After the procedure, did the Practitioner(s) clean the site and apply a sterile dressing? Yes. 11:46 SARS-COV-2 RT PCR (Document "Date of Onset" if Symptomatic) Sent. ap3 12:54 Report given to DARIUS Holland at [facility]. ap3 14:19 Patient transferred, IV remains in place. ap3 Administered Medications: 07:43 Drug: Etomidate 20 mg Route: IVP; Site: left antecubital; ss 12:33 Follow up: Response: No adverse reaction ap3 07:44 Drug: Rocuronium 50 mg Route: IVP; Site: left antecubital; ss 12:33 Follow up: Response: No adverse reaction ap3 09:48 Drug: Lasix (furosemide) 40 mg Route: IVP; Site: right wrist; ap3 10:44 Follow up: Response: No adverse reaction ap3 09:48 Drug: ProTONIX (pantoprazole) 80 mg Route: IVP; Site: right wrist; ap3 10:44 Follow up: Response: No adverse reaction ap3 09:48 Drug: ProTONIX (pantoprazole) 8 mg/hr Route: IV; Rate: 25 ml/hr; Site: right wrist; ap3 14:12 Follow up: IV Status: Infusion continued upon transfer ap3 09:48 Drug: Zosyn (piperacillin-tazobactam) 3.375 grams Route: IVPB; Infused Over: 60 mins; ap3 Site: right wrist; 14:13 Follow up: IV Status: Completed infusion ap3 10:26 Drug: NS 0.9% 1000 ml Route: IV; Rate: 1 bolus; Site: left antecubital; ap3 11:46 Follow up: IV Status: Completed infusion; IV Intake: 1000ml ap3 10:44 Drug: Albuterol - atroVENT (ipratropium) (3:1) (2.5 mg - 0.5 mg) 3 ml Route: Nebulizer; ap3 12:33 Follow up: Response: No adverse reaction ap3 10:44 Drug: foLIC Acid 1 mg Route: IVPB; Site: right femoral; vg1 12:32 Follow up: IV Status: Completed infusion ap3 11:02 Drug: Versed (midazolam) 2 mg Route: IVP; Site: right femoral; ap3 11:46 Follow up: Response: No adverse reaction ap3 11:03 Drug: fentaNYL (PF) 50 mcg {Note: RASS: 1.} Route: IVP; Site: right femoral; ap3 11:47 Follow up: Response: No adverse reaction ap3 11:45 Drug: D50W 50 ml Route: IVP; Site: right wrist; ap3 14:12 Follow up: Response: No adverse reaction ap3 11:46 Drug: D5W 1000 ml Route: IV; Rate: 100 ml/hr; Site: right wrist; ap3 14:12 Follow up: IV Status: Infusion continued upon transfer ap3 13:43 Drug: fentaNYL (PF) 50 mcg {Note: RASS: 1.} Route: IVP; Site: right wrist; ap3 14:12 Follow up: Response: No adverse reaction ap3 13:43 Drug: Versed (midazolam) 2 mg Route: IVP; Site: right wrist; ap3 14:12 Follow up: Response: No adverse reaction ap3 Intake: 11:46 IV: 1000ml; Total: 1000ml. ap3 Outcome: 10:43 ER care complete, transfer ordered by MD. nguyen 14:18 Transferred by ground EMS to [facility]. ap3 14:18 Condition: stable 14:18 Discharge instructions given to family, EMS, Instructed on the need for transfer. 14:30 Patient left the ED. ap3 Signatures: Dispatcher [employer] EDMS Moshe Alex MD MD cha Smirch, Shelby RN RN Sarah Wilkinson RN RN ap3 Valencia Evans RN RN 1 North Christiansen MD MD [email or web address] Corrections: (The following items were deleted from the chart) 07:47 07:42 Assisted provider with intubation using 7.0 mm ETT ET tube secured at 22cm at the gums. Intubated by North Christiansen MD Placement verified by CO2 detector w/ + color change, auscultating bilateral breath sounds, Patient tolerated Sedated ss 12:01 11:50 Reassessment: patient becoming more alert, eyes open, and patient is grabbing at ap3 ET tube. Provider notified, new orders received. ap3
--- NOTE | 2021-10-20 10:44 | EDPHYS ---
Physician Documentation [facility] Name: Ruth Drake Age: 61 yrs Sex: Female : 1960 Arrival Date: 10/20/2021 Time: 07:35 Bed 4 Private MD: ED Physician Moshe Alex HPI: 10/20 08:00 This 61 yrs old Female presents to ER via EMS with complaints of Unresponsive. mh7 08:00 The patient presents with decreased responsiveness. Onset: The symptoms/episode mh7 began/occurred today, at an unknown time. Possible causes: unknown. Associated signs and symptoms: The patient has no apparent associated signs or symptoms. Current symptoms: In the emergency department the patient's symptoms are unchanged from the initial presentation, despite EMS interventions. Patient's baseline: Unknown. Historical: - Allergies: 07:36 Bactrim; ss 07:36 Codeine; ss 07:36 sulfamethoxazole; ss - Home Meds: 12:58 Furosemide Oral [Active]; glimepiride 2 mg Oral tab 1 tab once daily [Active]; ap3 Glipizide Oral [Active]; lisinopril Oral [Active]; lisinopril-hydrochlorothiazide 20-12.5 mg Oral tab 1 tab once daily [Active]; proair [Active]; symbicort [Active]; - PMHx: 07:36 COPD; Diabetes - NIDDM; Hypertension; ss - Immunization history:: Adult Immunizations unknown. - Social history:: Smoking status: unknown. ROS: 08:00 Unable to obtain ROS due to obtunded state. mh7 Exam: 08:00 Head/Face: Normocephalic, atraumatic. Neck: Trachea midline, no thyromegaly or masses mh7 palpated, and no cervical lymphadenopathy. Supple, full range of motion without nuchal rigidity, or vertebral point tenderness. No Meningismus. Chest/axilla: Normal chest wall appearance and motion. Nontender with no deformity. No lesions are appreciated. 08:00 Abdomen/GI: Soft, non-tender, with normal bowel sounds. No distension or tympany. No guarding or rebound. No evidence of tenderness throughout. Back: No spinal tenderness. No costovertebral tenderness. Full range of motion. 08:00 Constitutional: The patient appears in obvious distress, severely distressed, Unresponsive 08:00 Cardiovascular: Rate: tachycardic, Rhythm: regular, Pulses: no pulse deficits are appreciated, Heart sounds: normal, normal S1and S2, Edema: is not appreciated, JVD: is not appreciated. 08:00 Respiratory: severe repiratory distress is noted, Respirations: shallow respirations, that is severe, Breath sounds: rales, that are moderate, are heard diffusely, rhonchi, that are moderate, are heard diffusely, Respiratory rate: 8 08:00 Skin: Multiple areas of ecchymosis bilateral upper extremities. 08:00 Neuro: Orientation: unable to test, Unresponsive, Mentation: unable to test, Unresponsive, Memory: unable to test, Unresponsive, Cranial nerves: unable to test, Unresponsive, Cerebellar function: unable to test, Unresponsive, Motor: unable to test, Unresponsive, Sensation: unable to test, Unresponsive, Gait: not tested. seizure activity, is not displayed by the patient, Abnormal movements: there are no abnormal movements. 11:42 ECG was reviewed by the Attending Physician. wendy Vital Signs: 07:36 Pulse 102; Resp 20 A; Pulse Ox 94% on 15% BVM; ss 07:48 BP 75 / 56; Pulse 102; Resp 20; Pulse Ox 98% on 15 lpm ETT ambu; ss 08:00 BP 85 / 55; Pulse 102; Resp 18; Temp 98.8(TE); Pulse Ox 95% on ETT vent; ap3 08:30 BP 92 / 55; Pulse 97; Resp 18; Pulse Ox 91% on ETT vent; ap3 09:00 BP 99 / 76; Pulse 96; Resp 18; Pulse Ox 94% on ETT vent; ap3 10:00 BP 101 / 72; Pulse 100; Resp 18; Pulse Ox 96% on ETT vent; ap3 10:30 BP 101 / 65; Pulse 90; Resp 18; Pulse Ox 97% on ETT vent; ap3 11:57 BP 104 / 58; Pulse 98; Resp 18; Pulse Ox 96% on ETT vent; ap3 12:30 BP 102 / 65; Pulse 106; Resp 18; Pulse Ox 94% on ETT vent; ap3 12:55 BP 104 / 61; Pulse 97; Resp 18; Pulse Ox 95% on ETT vent; ap3 13:49 BP 92 / 59; Pulse 97; Resp 18; Pulse Ox 94% on ETT vent; ap3 Procedures: 08:08 Intubation: Ventilated with 100% NRB prior to procedure. O2 saturation prior to 7 procedure was 90 %. Intubated orally using # 3 [place] blade with 7.5 mm ETT. was successful on first attempt. Ventilated with Ambu bag. ventilator. Cricoid pressure applied during procedure. Tube secured with ETT ron at right side of mouth measured 23 cm at lip. measured 22 cm at gum. Placement verified by CO2 detector with (+) color change, auscultating bilateral breath sounds, O2 saturation after procedure was 100 %. Patient tolerated well. 10:47 Central Line: the site was prepped with Betadine, in sterile fashion, a triple lumen wendy catheter was inserted, in the right femoral vein, in 2 attempts. placement was verified, by blood return, the site was dressed with using sterile technique, the patient tolerated the procedure, well. MDM: 08:15 Transition of care: After a detail discussion of the patient's case, care is [facility] transferred to Moshe Alex MD. 08:16 Patient medically screened. wendy 10:45 Differential Diagnosis: CVA, hypoglycemia, intracranial bleed, overdose, pneumonia, wendy seizure, sepsis, TIA, UTI, volume depletion. Data reviewed: vital signs, nurses notes, EMS record, lab test result(s), EKG, radiologic studies, CT scan, plain films. Data interpreted: manager field service: rate is 90 beats/min, rhythm is regular, Pulse oximetry: on room air is 97 %. Test interpretation: by ED physician or midlevel provider: ECG, plain radiologic studies. Counseling: I had a detailed discussion with the patient and/or guardian regarding: the historical points, exam findings, and any diagnostic results supporting the discharge/admit diagnosis, lab results, radiology results, the need to transfer to another facility, for higher level of care, [facility] does not immediately have the required specialist. 10/20 07:43 Order name: Basic Metabolic Panel 10/20 07:43 Order name: CBC with Diff; Complete Time: 09:31 10/20 07:43 Order name: LFT's 10/20 07:43 Order name: Magnesium 10/20 07:43 Order name: NT PRO-BNP 10/20 07:43 Order name: PT-INR; Complete Time: 09:31 10/20 07:43 Order name: Troponin (emerg Dept Use Only) 10/20 07:48 Order name: Blood Culture Adult (2) [facility] 10/20 07:49 Order name: Arterial Blood Gas; Complete Time: 11:33 [facility] 10/20 07:49 Order name: UDS [facility] 10/20 07:49 Order name: ETOH Level [facility] 10/20 07:50 Order name: Urine Drug Screen; Complete Time: 10:22 [facility] 10/20 07:50 Order name: Alcohol Serum/Plasma; Complete Time: 10:22 [facility] 10/20 07:50 Order name: Acetaminophen; Complete Time: 11:23 [facility] 10/20 07:43 Order name: XRAY Chest (1 view); Complete Time: 10:43 10/20 07:50 Order name: Salicylate; Complete Time: 10:43 [facility] 10/20 07:50 Order name: AMMONIA; Complete Time: 10:22 [facility] 10/20 08:34 Order name: Lactate [facility] 10/20 08:34 Order name: Type And Screen [facility] 10/20 08:34 Order name: SARS-COV-2 RT PCR (Document "Date of Onset" if Symptomatic) [facility] 10/20 08:34 Order name: Lactate; Complete Time: 10:43 [facility] 10/20 08:34 Order name: Type and Screen; Complete Time: 11:23 [facility] 10/20 08:34 Order name: SARS-COV-2 RT PCR; Complete Time: 11:48 [facility] 10/20 09:19 Order name: Urine Dipstick-Ancillary; Complete Time: 09:31 [facility] 10/20 09:27 Order name: Manual Differential; Complete Time: 09:31 [facility] 10/20 09:59 Order name: CK ap3 10/20 09:59 Order name: Ckmb ap3 10/20 10:48 Order name: ABG [facility] 10/20 11:43 Order name: Glucose, Ancillary Testing; Complete Time: 11:48 [facility] 10/20 13:39 Order name: ABO/RH no charge [facility] 10/20 07:43 Order name: EKG; Complete Time: 07:44 10/20 07:43 Order name: Cardiac monitoring; Complete Time: 07:44 10/20 07:43 Order name: EKG - Nurse/Tech; Complete Time: 11:46 10/20 07:43 Order name: IV Saline Lock; Complete Time: 07:44 10/20 07:43 Order name: Labs collected and sent; Complete Time: 10:27 10/20 07:43 Order name: O2 Per Protocol; Complete Time: 07:44 10/20 07:43 Order name: O2 Sat Monitoring; Complete Time: 07:44 10/20 07:49 Order name: Urine Dipstick-Ancillary (obtain specimen); Complete Time: 09:49 mh7 10/20 08:34 Order name: CT Traumagram (Head C Spine CAP wo con); Complete Time: 10:22 [facility] 10/20 08:35 Order name: Central Line Kit; Complete Time: 10: [facility] 10/20 08:38 Order name: Labs - recollect needed: recollect green top; Complete Time: 10:26 10/20 10:16 Order name: Labs - recollect needed: recollect and reband, send on a large purple top.; bd Complete Time: 10:10/20 11:00 Order name: Blood Glucose Level; Complete Time: 11:46 [facility] EC:42 Rate is 99 beats/min. Rhythm is regular. QRS [place] is Normal. [place] interval is normal. QRS wendy interval is normal. QT interval is normal. No Q waves. T waves are Normal. No ST changes noted. Clinical impression: NSR w/ Non-specific ST/T Changes and No evidence of ischemia. Interpreted by me. Reviewed by me. Administered Medications: 07:43 Drug: Etomidate 20 mg Route: IVP; Site: left antecubital; ss 12:33 Follow up: Response: No adverse reaction ap3 07:44 Drug: Rocuronium 50 mg Route: IVP; Site: left antecubital; ss 12:33 Follow up: Response: No adverse reaction ap3 09:48 Drug: Lasix (furosemide) 40 mg Route: IVP; Site: right wrist; ap3 10:44 Follow up: Response: No adverse reaction ap3 09:48 Drug: ProTONIX (pantoprazole) 80 mg Route: IVP; Site: right wrist; ap3 10:44 Follow up: Response: No adverse reaction ap3 09:48 Drug: ProTONIX (pantoprazole) 8 mg/hr Route: IV; Rate: 25 ml/hr; Site: right wrist; ap3 14:12 Follow up: IV Status: Infusion continued upon transfer ap3 09:48 Drug: Zosyn (piperacillin-tazobactam) 3.375 grams Route: IVPB; Infused Over: 60 mins; ap3 Site: right wrist; 14:13 Follow up: IV Status: Completed infusion ap3 10:26 Drug: NS 0.9% 1000 ml Route: IV; Rate: 1 bolus; Site: left antecubital; ap3 11:46 Follow up: IV Status: Completed infusion; IV Intake: 1000ml ap3 10:44 Drug: Albuterol - atroVENT (ipratropium) (3:1) (2.5 mg - 0.5 mg) 3 ml Route: Nebulizer; ap3 12:33 Follow up: Response: No adverse reaction ap3 10:44 Drug: foLIC Acid 1 mg Route: IVPB; Site: right femoral; vg1 12:32 Follow up: IV Status: Completed infusion ap3 11:02 Drug: Versed (midazolam) 2 mg Route: IVP; Site: right femoral; ap3 11:46 Follow up: Response: No adverse reaction ap3 11:03 Drug: fentaNYL (PF) 50 mcg {Note: RASS: 1.} Route: IVP; Site: right femoral; ap3 11:47 Follow up: Response: No adverse reaction ap3 11:45 Drug: D50W 50 ml Route: IVP; Site: right wrist; ap3 14:12 Follow up: Response: No adverse reaction ap3 11:46 Drug: D5W 1000 ml Route: IV; Rate: 100 ml/hr; Site: right wrist; ap3 14:12 Follow up: IV Status: Infusion continued upon transfer ap3 13:43 Drug: fentaNYL (PF) 50 mcg {Note: RASS: 1.} Route: IVP; Site: right wrist; ap3 14:12 Follow up: Response: No adverse reaction ap3 13:43 Drug: Versed (midazolam) 2 mg Route: IVP; Site: right wrist; ap3 14:12 Follow up: Response: No adverse reaction ap3 Disposition Summary: 10/20/21 10:43 Transfer Ordered Transfer Location: [facility] wendy Reason: Higher level of care wendy Condition: Fair wendy Problem: new wendy Symptoms: have improved wendy Accepting Physician: to ICU(10/20/21 14:30) ap3 Diagnosis - Slowness and poor responsiveness wendy - Pneumonia in diseases classified elsewhere wendy - Unspecified bacterial pneumonia - ASPIRATION wendy - Pleural effusion, not elsewhere classified - BILATERAL wendy - Atelectasis wendy - Anoxic brain damage, not elsewhere classified wendy - COPD/ Chronic obstructive pulmonary disease with (acute) exacerbation wendy - Other obesity wendy - UTI/ Urinary tract infection, site not specified wendy - Acute respiratory failure with hypercapnia - INTUBATED wendy - Type 2 diabetes mellitus with hypoglycemia without coma wendy Forms: - Medication Reconciliation Form wendy - SBAR form wendy Signatures: Dispatcher [employer] EDMS Juany Hernandez Corey, MD MD cha Smirch, Shelby RN RN ss Sarah Ngo RN RN ap3 Valencia Evans RN RN vg1 [place] MD MD mh7 Corrections: (The following items were deleted from the chart) 08:42 07:51 Head Brain Wo [id number].RAD.BRZ ordered. EDMS EDMS 10:47 10:43 to ICU wendy wendy 10:47 10:47 to ICU wendy wendy 10:49 10:47 to ICU wendy wendy 11:35 10:47 Type 2 diabetes mellitus with hyperglycemia wendy wendy 11:35 10:49 to ICU wendy wendy 14:30 11:35 to ICU wendy ap3
[2021-10-20] MEDS ORDERED: MIDAZOLAM HCL 2 MG/2 ML INJ ONE ×2 (10:55→13:34)
[2021-10-20] MEDS ORDERED: FENTANYL CITR 100 MCG/2 ML ONE ×2 (10:56→13:35)
[2021-10-20 11:26] LABS: Arterial Blood Carboxyhemoglob 1.8 % (0-1.5); Blood Gas Oxyhemoglobin 92.3 % (94-97)
[2021-10-20] MEDS ORDERED: D5W 1,000 ML IV ONE (11:33)
[2021-10-20] MEDS ORDERED: D50W 25 GM/50 ML SYRINGE IV ONE (11:33)
[2021-10-20 11:57] LABS: Potassium 4.1 mmol/L (3.5-5.1)
[2021-10-20 12:01] LABS: Albumin 2.6 g/dL (3.4-5.0); Bilirubin Direct 1.8 mg/dL (0-0.2); Bilirubin Total 2.6 mg/dL (0.2-1.0); Protein, Total 7.5 g/dL (6.4-8.2)
[2021-10-20 12:18] LABS: Magnesium 2.7 mg/dL (1.8-2.4); Troponin (Emerg Dept Use Only) 0.08 ng/mL (0.0-0.045)
[2021-10-20 12:34] LABS: CKMB Creatine Kinase MB 1.6 ng/mL (1.0-3.6)
[2021-10-20 13:12] LABS: Arterial Blood Carboxyhemoglob 1.8 % (0-1.5); Blood Gas Oxyhemoglobin 86.9 % (94-97); Blood O2 Saturation 89.4 % (92-98.5)
[2021-10-20 14:48] VITALS: TEMP 98.8
[2021-10-20 14:59] VITALS: BP 92/59; O2SAT 94
--- NOTE | 2021-10-21 07:08 | EKG ---
Test Date: 2021-10-20 Test Time: 11:28:58 Police Crime Scene Technician: RELL MEASUREMENT RESULTS: Intervals: Rate: 99 ME: 118 QRSD: 76 QT: 360 QTc: 462 Perrin: P: 81 ME: 118 QRS: 94 T: 26 INTERPRETIVE STATEMENTS: Sinus rhythm and premature ventricular complexes or fusion complexes Rightward axis Borderline ECG Compared to ECG 10/10/2021 10:49:00 Fusion complex(es) now present Ventricular premature complex(es) now present Right-axis deviation now present Atrial flutter no longer present ST (T wave) deviation no longer present Electronically Signed On 10-21-21 07:04:48 BLANKET CUTTER HAND by Deshaun Dill
== END 2021-10-20 14:30 | disposition short-term general hospital (02) ==
LOC: ER 07:34
PROC: 0BH17EZ Insertion of Endotracheal Airway into Trachea, Via Natural or Artificial Opening (ICD-10-PCS; principal; 2021-10-20)
PROC: 5A1935Z Respiratory Ventilation, Less than 24 Consecutive Hours (ICD-10-PCS; 2021-10-20)
DX: J96.02 Acute respiratory failure with hypercapnia (principal); G93.1 Anoxic brain damage, not elsewhere classified; J15.9 Unspecified bacterial pneumonia; J90 Pleural effusion, not elsewhere classified; J98.11 Atelectasis; J44.1 Chronic obstructive pulmonary disease with (acute) exacerbation; E66.9 Obesity, unspecified; N39.0 Urinary tract infection, site not specified; E11.649 Type 2 diabetes mellitus with hypoglycemia without coma; Z88.1 Allergy status to other antibiotic agents; Z88.6 Allergy status to analgesic agent; Z88.2 Allergy status to sulfonamides; I10 Essential (primary) hypertension; E11.9 Type 2 diabetes mellitus without complications; J44.9 Chronic obstructive pulmonary disease, unspecified; Z20.822 Contact with and (suspected) exposure to COVID-19
CPT/HCPCS: 93005; 87040 ×2; 85025; 80048; 36415; 80320; 82140; 86900; 83735; 86850; 82550; 87205 ×2; 80329 ×2; 85610; 86901; 82947; 80076; 83605; 87077 ×2; 87186 ×2; 81003; 84484; 82553; 83880; 80307; 70450; 71250; 72125; 71045; 94640; 82805 ×2; 31500; 51702; 99291; 99292; 94002; U0003; J1940; J2543; C9113 ×2; J2250 ×2; J3010 ×2; J7050 ×2; J7030

== ENCOUNTER 2022-07-29 14:19 | Emergency (ER) | payer OTHER ==
--- OUTSIDE RECORDS SUMMARY | 2022-07-29 14:26 | XMS REPORT | Continuity of Care Document ---
:1960 Author Organization [facility] t Address [address] [place] [address] [address]. Magu[address] [place] [address] Care Team Providers Name Role Phone GrullonIsac Rafal Primary Care Physician VILLA YOON.HJose Juan Attending Clinician Unavailable Karrie KHAN, Villa K.HJose Juan Attending Clinician Maral Oswald MA Attending Clinician Unavailable Doctor Unassigned, [place] Attending Clinician Unavailable 2, [facility] Attending Clinician Unavailable GISELLE MAY Attending Clinician Unavailable Elías Aleman MD Attending Clinician Patti Pruitt MD, Clotilde Rutherford Attending Clinician [phone] Aaron KHAN, Jory Duffy Attending Clinician [phone] Shyam Brownlee MD Attending Clinician Giselle May MD Attending Clinician [phone] Siddharth Biswas MD Attending Clinician ELÍAS ALEMAN Attending Clinician Unavailable Gemma Hanks Attending Clinician Unavailable VILLA YOON K.HJose Juan Admitting Clinician Unavailable ELÍAS ALEMAN Admitting Clinician Unavailable Payers Payer Name Policy Type Policy Number Effective Date Expiration Date Elysia kyle [facility] [id number] 2018 00:00:00 PLUS [employer] STAR [id number] 2017 00:00:00 PLAN Problems Condition Condition Condition Status Onset Resolution Last Treating Co mments Source Name Details Category Date Date Treatment Clinician Date Respirator Respirator Disease Active 2020-[address] y failure y failure -29 [facility] 00:00: Medical 00 Center No known No known Disease Unive rs active active ity of problems problems [facility] Allergies, Adverse Reactions, Alerts Allergy Allergy Status Severity Reaction(s) Onset Inactive Treating Comm ents Source Name Type Date Date Clinician SULFAMET Allergy Active 2020-[address] [facility] HOXAZOLE 1-29 [facility] -TRIMETH 00:00: Medical OPRIM 00 Center CODEINE Allergy Active 2020-[address] -29 [facility] 00:[facility]: Medical 00 Center SULFAMET Allergy Active 2020-[address] [facility] HOXAZOLE -29 [facility] 00:00: Medical 00 [place] Sulfamet Propensi Active 2020-[address] hoxazole ty to - [facility] adverse 00:00: Medical reaction 00 Center s Sulfamet Propensi Active 2020-[address] hoxazole ty to - [facility] -Trimeth adverse 00:00: Medical oprim reaction 00 Center s Codeine Propensi Active 2020-[address] ty to - [facility] adverse 00:00: Medical reaction 00 Center s Codeine Propensi Active Nausea 2019-0 Univers ty to and/or 2-26 ity of adverse Vomiting 00:00: [place] reaction 00 [facility] s Branch CODEINE DRUG Active N/V 2019-0 Univers INGREDI 2-26 ity of 00:00: [place] 00 Medical Branch Family History Family Member Diagnosis Comments Start Date Stop Date Source Natural mother Heart disease [facility] Social History Social Habit Start Date Stop Date Quantity Comments Source History of Smokes tobacco University of tobacco use daily [facility] Exposure to 2022-07-05 2022-07-15 Not sure University of SARS-CoV-2 00:00:00 08:06:00 [facility] (event) Branch Tobacco use and 2021-10-24 2021-10-[address] [facility] exposure 00:00:00 00:00:00 [facility] Sex Assigned At [address] [facility] 00:00:00 00:00:00 Medical Center Smoking Status Start Date Stop Date Source Current every day smoker 2021-10-24 00:00:00 [facility] Medications Ordered Filled Start Stop Current Ordering Indication Dosage Frequency Signature Comments Components Source Medication Medication Date Date Medication? Clinician (SIG) Name Name KATELIN Joe Yes TAKE 1 Univ ers 10 mEq CR 6-01 TABLET BY ity o f tablet 00:00: MOUTH [place] 00 EVERY DAY Medical WITH FOOD Branch FOR 30 DAYS KATELIN Joe Yes TAKE 1 Univ ers 10 mEq CR 6-01 TABLET BY ity o f tablet 00:00: MOUTH [place] 00 EVERY DAY Medical WITH FOOD Branch FOR 30 DAYS KATELIN Joe Yes TAKE 1 Univ ers 10 mEq CR 6-01 TABLET BY ity o f tablet 00:00: MOUTH [place] 00 EVERY DAY Medical WITH FOOD Branch FOR 30 DAYS KATELIN Joe Yes TAKE 1 Univ ers 10 mEq CR 6-01 TABLET BY ity o f tablet 00:00: MOUTH [place] 00 EVERY DAY Medical WITH FOOD Branch FOR 30 DAYS acetaZOLAMI 2021- No 250mg Take 250 Univers DE 250 mg 5-04 05-04 mg by ity of tablet 12:45: 00:00 mouth [place] 16 :00 daily. Medical Branch metoprolol 2021- No 25mg Take 25 mg Univers tartrate 5-04 05-04 by mouth 2 ity of (LOPRESSOR 12:45: 00:00 (two) [place] ORAL) 09 :00 times Medical daily. Branch acetaZOLAMI Yes [id number] 250mg Take 1 Univers DE 250 mg 5-04 tablet ity of tablet 00:00: through [place] 00 enteral Medical tube Branch daily. spironolact Yes [id number] 25mg Take 1 Univers one 25 mg 5-04 tablet by ity o f tablet 00:00: mouth [place] 00 daily. Medical Branch furosemide 2021- Yes [id number] 20mg Take 1 U nivers 20 mg 5-04 tablet by ity of tablet 00:00: mouth [place] 00 daily. Medical Branch metoprolol 2021- Yes [id number] 25mg Take 1 U nivers tartrate 25 5-04 tablet by ity of mg tablet 00:00: mouth 2 [place] 00 (two) Medical times Branch daily. acetaZOLAMI 2021-0 Yes [id number] 250mg Take 1 Univers DE 250 mg 5-04 tablet ity of tablet 00:00: through enteral Medical tube Branch daily. spironolact 2021-0 Yes [id number] 25mg Take 1 Univers one 25 mg 5-04 tablet by ity o f tablet 00:00: mouth 00 daily. Medical Branch furosemide 2021-0 Yes [id number] 20mg Take 1 U nivers 20 mg 5-04 tablet by ity of tablet 00:00: mouth 00 daily. Medical Branch metoprolol 2021-0 Yes [id number] 25mg Take 1 U nivers tartrate 25 5-04 tablet by ity of mg tablet 00:00: mouth (two) Medical times Branch daily. acetaZOLAMI 2021-0 Yes [id number] 250mg Take 1 Univers DE 250 mg 5-04 tablet ity of tablet 00:00: through enteral Medical tube Branch daily. spironolact 2021-0 Yes [id number] 25mg Take 1 Univers one 25 mg 5-04 tablet by ity o f tablet 00:00: mouth 00 daily. Medical Branch furosemide 2021-0 Yes [id number] 20mg Take 1 U nivers 20 mg 5-04 tablet by ity of tablet 00:00: mouth 00 daily. Medical Branch metoprolol 2021-0 Yes [id number] 25mg Take 1 U nivers tartrate 25 5-04 tablet by ity of mg tablet 00:00: mouth (two) Medical times Branch daily. acetaZOLAMI 2021-0 Yes [id number] 250mg Take 1 Univers DE 250 mg 5-04 tablet ity of tablet 00:00: through enteral Medical tube Branch daily. spironolact 2021-0 Yes [id number] 25mg Take 1 Univers one 25 mg 5-04 tablet by ity o f tablet 00:00: mouth 00 daily. Medical Branch furosemide 2021-0 Yes [id number] 20mg Take 1 U nivers 20 mg 5-04 tablet by ity of tablet 00:00: mouth 00 daily. Medical Branch metoprolol 2021-0 Yes [id number] 25mg Take 1 U nivers tartrate 25 5-04 tablet by ity of mg tablet 00:00: mouth (two) Medical times Branch daily. acetaZOLAMI 0 Yes [id number] 250mg Take 1 Univers DE 250 mg 5-04 tablet ity of tablet 00:00: through [place] 00 enteral Medical tube Branch daily. spironolact 0 Yes [id number] 25mg Take 1 Univers one 25 mg 5-04 tablet by ity o f tablet 00:00: mouth [place] 00 daily. Medical Branch furosemide 0 Yes [id number] 20mg Take 1 U nivers 20 mg 5-04 tablet by ity of tablet 00:00: mouth [place] 00 daily. Medical Branch metoprolol 0 Yes [id number] 25mg Take 1 U nivers tartrate 25 5-04 tablet by ity of mg tablet 00:00: mouth 2 00 (two) Medical times Branch daily. KCL 10 mEq 0 Yes 10meq Take 10 Uni vers tablet 5-02 mEq by ity of 13:23: mouth [place] 48 daily. Medical Branch KCL 10 mEq 0 Yes 10meq Take 10 Uni vers tablet 5-02 mEq by ity of 13:23: mouth [place] 48 daily. Medical Branch KCL 10 mEq 0 Yes 10meq Take 10 Uni vers tablet 5-02 mEq by ity of 13:23: mouth [place] 48 daily. Medical Branch KCL 10 mEq 0 Yes 10meq Take 10 Uni vers tablet 5-02 mEq by ity of 13:23: mouth [place] 48 daily. Medical Branch KCL 10 mEq 0 Yes 10meq Take 10 Uni vers tablet 5-02 mEq by ity of 13:23: mouth [place] 48 daily. Medical Branch KCL 10 mEq 0 Yes 10meq Take 10 Uni vers tablet 5-02 mEq by ity of 13:23: mouth [place] 48 daily. Medical Branch spironolact 2021- No [id number] 25mg Take 1 Univers one 25 mg 3-16 05-04 tablet by ity of tablet 00:00: 00:00 mouth [place] 00 :00 daily. Medical Branch thiamine 2021-0 Yes 100mg Take 1 Univer s 100 mg 3-03 tablet by ity of tablet 00:00: mouth [place] 00 daily. Medical Branch aspirin 81 2021-0 Yes 81mg Take 1 Unive rs mg EC 3-03 tablet by ity of tablet 00:00: mouth [place] 00 daily. Medical Branch foLIC acid 2022-0 Yes 1mg Take 1 Unive rs 1 mg tablet 3-03 tablet by ity of 00:00: mouth [place] 00 daily. Medical Branch thiamine 2022-0 Yes 100mg Take 1 Univer s 100 mg 3-03 tablet by ity of tablet 00:00: mouth [place] 00 daily. Medical Branch aspirin 81 2022-0 Yes 81mg Take 1 Unive rs mg EC 3-03 tablet by ity of tablet 00:00: mouth [place] 00 daily. Medical Branch foLIC acid 2022-0 Yes 1mg Take 1 Unive rs 1 mg tablet 3-03 tablet by ity of 00:00: mouth [place] 00 daily. Medical Branch thiamine 2022-0 Yes 100mg Take 1 Univer s 100 mg 3-03 tablet by ity of tablet 00:00: mouth [place] 00 daily. Medical Branch aspirin 81 2022-0 Yes 81mg Take 1 Unive rs mg EC 3-03 tablet by ity of tablet 00:00: mouth [place] 00 daily. Medical Branch foLIC acid 2022-0 Yes 1mg Take 1 Unive rs 1 mg tablet 3-03 tablet by ity of 00:00: mouth [place] 00 daily. Medical Branch thiamine 2022-0 Yes 100mg Take 1 Univer s 100 mg 3-03 tablet by ity of tablet 00:00: mouth [place] 00 daily. Medical Branch aspirin 81 2022-0 Yes 81mg Take 1 Unive rs mg EC 3-03 tablet by ity of tablet 00:00: mouth [place] 00 daily. Medical Branch foLIC acid 2022-0 Yes 1mg Take 1 Unive rs 1 mg tablet 3-03 tablet by ity of 00:00: mouth [place] 00 daily. Medical Branch thiamine 2022-0 Yes 100mg Take 1 Univer s 100 mg 3-03 tablet by ity of tablet 00:00: mouth [place] 00 daily. Medical Branch aspirin 81 2022-0 Yes 81mg Take 1 Unive rs mg EC 3-03 tablet by ity of tablet 00:00: mouth [place] 00 daily. Medical Branch foLIC acid 2022-0 Yes 1mg Take 1 Unive rs 1 mg tablet 3-03 tablet by ity of 00:00: mouth [place] 00 daily. Medical Branch thiamine 2022-0 Yes 100mg Take 1 Univer s 100 mg 3-03 tablet by ity of tablet 00:00: mouth [place] 00 daily. Medical Branch aspirin 81 2021-0 Yes 81mg Take 1 Unive rs mg EC 3-03 tablet by ity of tablet 00:00: mouth [place] 00 daily. Medical Branch foLIC acid 0 Yes 1mg Take 1 Unive rs 1 mg tablet 3-03 tablet by ity of 00:00: mouth [place] 00 daily. [facility] Branch furosemide 0 2- No [id number] 20mg Take 1 Univers 20 mg 1-18 05-04 tablet by ity of tablet 00:00: 00:00 mouth [place] 00 :00 daily. [facility] Branch predniSONE 0 Yes 10mg Take 10 mg U nivers 10 mg 1-10 by mouth ity of tablet 13:16: daily. [address] predniSONE 0 Yes 10mg Take 10 mg U nivers 10 mg 1-10 by mouth ity of tablet 13:16: daily. [address] predniSONE 0 Yes 10mg Take 10 mg U nivers 10 mg 1-10 by mouth ity of tablet 13:16: daily. [address] predniSONE 2021-0 Yes 10mg Take 10 mg U nivers 10 mg 1-10 by mouth ity of tablet 13:16: daily. [address] predniSONE 2021-0 Yes 10mg Take 10 mg U nivers 10 mg 1-10 by mouth ity of tablet 13:16: daily. [address] predniSONE 2021-0 Yes 10mg Take 10 mg U nivers 10 mg 1-10 by mouth ity of tablet 13:16: daily. [address] albuterol 2020-11 Yes 2{puff} Inhale [address] HFA 2-08 puffs by [facility] (VENTOLIN 17:32: mouth via Med ical HFA) 90 36 inhaler. Center mcg/actuati on inhaler budesonide- 2020-11 Yes 2{puff} Inhale [address] formoteroL 2-08 puffs by [facility] (SYMBICORT) 17:32: mouth via M edical 160-4.5 36 inhaler. Center mcg/actuati on inhaler furosemide 2020-11 Yes 20mg Take [address] (LASIX) 20 2-08 by mouth. Luke s MG tablet 17:32: Medical 36 Center glimepiride 2020-11 Yes 2mg Take [address] (AMARYL) 2 2-08 by mouth. Luke s MG tablet 17:32: Medical 36 [place] potassium 2020-11 Yes 10meq Take [address] chloride SA 2-08 mEq by [facility] (K-DUR,KLOR 17:32: mouth. Medi neal -CON-M) 10 36 [place] MEQ tablet predniSONE 2020-11 Yes 10mg Take [address] (DELTASONE) 2-08 by mouth. Staci es 10 MG 17:32: Medical tablet 36 [place] metoprolol 2020-11- No 12.5mg Q.5D Take 0.[address] tartrate 2-08 12-08 tablets [facility] (LOPRESSOR) 00:00: 23:59 (12.5 mg M edical 25 MG 00 :00 total) by Center tablet mouth 2 (two) times daily. thiamine 2020-[address] 100 MG 1-24 [facility] tablet 00:00: Medical 00 [place] acetaZOLAMI 2020-[address] DE (DIAMOX) 1-23 [facility] 250 MG 00:00: Medical tablet 00 [place] aspirin 81 2020-[address] MG EC 1-23 [facility] tablet 00:00: Medical 00 [place] folic acid 2020-[address] (FOLVITE) 1 1-23 [facility] MG tablet 00:00: Medical 00 [place] spironolact 2020-[address] one 1-23 [facility] (ALDACTONE) 00:00: Medica l 25 MG 00 [place] tablet metoprolol 2020-[address] tartrate 1-23 12-08 [facility] (LOPRESSOR) 00:00: 00:00 Medic al 25 MG 00 :00 Center tablet glimepiride 2020-11 Yes 2mg Take 2 mg [...] times Medical mcg/actuati daily. Branch on inhaler ipratropium 2020-[address] -albuteroL 0-16 [facility] (DUO-NEB) 00:00: Medical 0.5 mg-3 00 Center mg(2.5 mg base)/3 mL nebulizer solution lisinopril- Yes [facility] hydroCHLORO 9-16 [facility] thiazide 00:00: Medical (PRINZIDE,Z 00 Center ESTORETIC) 20-12.5 mg per tablet fosfomycin Yes [facility] (MONUROL) 3 8-24 [facility] gram Pack 00:00: Medical packet 00 Center Vital Signs Vital Name Observation Time Observation Value Comments Source WEIGHT 2021-10-29 07:00:00 64.51 kg WEIGHT 2021-10-28 05:00:00 65.54 kg HEIGHT 2021-10-25 17:59:00 167.6 cm WEIGHT 2021-10-25 17:59:00 66.1 kg WEIGHT 2021-10-25 05:00:00 66.1 kg WEIGHT 2021-10-24 06:00:00 66.2 kg WEIGHT 2021-10-23 05:45:00 66.4 kg WEIGHT 2021-10-22 05:15:00 68 kg WEIGHT 2021-10-21 04:00:00 69.9 kg HEIGHT 2021-10-20 16:00:00 167.6 cm WEIGHT 2021-10-20 16:00:00 71 kg WEIGHT 2021-10-29 07:00:00 64.51 kg WEIGHT 2021-10-28 05:00:00 65.54 kg HEIGHT 2021-10-25 17:59:00 167.6 cm WEIGHT 2021-10-25 17:59:00 66.1 kg WEIGHT 2021-10-25 05:00:00 66.1 kg WEIGHT 2021-10-24 06:00:00 66.2 kg WEIGHT 2021-10-23 05:45:00 66.4 kg WEIGHT 2021-10-22 05:15:00 68 kg WEIGHT 2021-10-21 04:00:00 69.9 kg HEIGHT 2021-10-20 16:00:00 167.6 cm WEIGHT 2021-10-20 16:00:00 71 kg WEIGHT 2021-10-29 07:00:00 64.51 kg WEIGHT 2021-10-28 05:00:00 65.54 kg HEIGHT 2021-10-25 17:59:00 167.6 cm WEIGHT 2021-10-25 17:59:00 66.1 kg WEIGHT 2021-10-25 05:00:00 66.1 kg WEIGHT 2021-10-24 06:00:00 66.2 kg WEIGHT 2021-10-23 05:45:00 66.4 kg WEIGHT 2021-10-22 05:15:00 68 kg WEIGHT 2021-10-21 04:00:00 69.9 kg HEIGHT 2021-10-20 16:00:00 167.6 cm WEIGHT 2021-10-20 16:00:00 71 kg Systolic blood 2021-10-29 15:50:00 105 mm[Hg] [facility] Diastolic blood 2021-10-29 15:50:00 63 mm[Hg] [facility] Heart rate 2021-10-29 15:50:00 87 /min [facility] Body temperature 2021-10-29 15:50:00 36.44 Francine [facility] Respiratory rate 2021-10-29 15:50:00 20 /min [facility] Oxygen saturation in 2021-10-29 15:50:00 93 /min [facility] Arterial blood by Medical Ce nter Pulse oximetry Body weight 2021-10-29 07:00:00 64.51 kg [facility] BMI 2021-10-29 07:00:00 22.97 kg/m2 [facility] Body height 2021-10-25 17:59:00 167.6 cm [facility] Procedures Procedure Date / Time Performing Clinician Source Performed INSURANCE CORRESPONDENCE 2022 05:01:00 Doctor Unassigned, No [facility] BASIC METABOLIC PANEL 2022-03-23 19:09:00 [place] Yoon [facility] (NA, K, CL, CO2, GLUCOSE, Medica l Branch BUN, CREATININE, CA) N-TERMINAL PRO-BNP 2022-03-23 19:09:00 [place] Yoon [facility] POCT-GLUCOSE METER 2021-10-29 11:19:00 [facility] PO[facility] 2021-10-29 07:39:00 [facility] HEPATIC FUNCTION PANEL 2021-10-29 05:41:00 [facility] W/PLT COUNT & AUTO 2021-10-29 05:41:00 White, Eri [facility] DIFFERENTIAL [place] CBC W/PLT COUNT & AUTO 2021-10-29 05:41:00 White Eri [facility] POCT-GLUCOSE METER 2021-10-28 22:38:00 [facility] POCT-GLUCOSE METER 2021-10-28 16:38:00 Yadira [facility] POCT-GLUCOSE METER 2021-10-28 13:13:00 [facility] POCT-GLUCOSE METER 2021-10-28 08:15:00 Whitneyamina [facility] HEPATIC FUNCTION PANEL 2021-10-28 05:16:00 Eri White [facility] CBC W/PLT COUNT & AUTO 2021-10-28 05:16:00 Christopher [facility] CALCIUM, IONIZED 2021-10-28 05:16:00 Hayat Edmond [facility] LIPID PANEL 2021-10-28 05:16:00 Kodak Pedroza [facility] CBC W/PLT COUNT & AUTO 2021-10-28 05:16:00 Eri White [facility] POCT-GLUCOSE METER 2021-10-27 22:54:00 Torrie [facility] POCT-GLUCOSE METER 2021-10-27 21:50:00 Torrie [facility] POCT-GLUCOSE METER 2021-10-27 18:42:00 Torrie [facility] R & L CATH / CORONARY 2021-10-27 16:55:00 Siddharth Biswas [facility] ANGIOS / PCI Center POCT-GLUCOSE METER 2021-10-27 12:56:00 Torrie [facility] POCT-GLUCOSE METER 2021-10-27 08:17:00 Torrie [facility] HEPATIC FUNCTION PANEL 2021-10-27 07:47:00 Eri White [facility] CBC W/PLT COUNT & AUTO 2021-10-27 07:47:00 Eri White [facility] CALCIUM, IONIZED 2021-10-27 07:47:00 Hayat Edmond, [facility] BASIC METABOLIC PANEL (7) 2021-10-27 07:47:00 Alejandro Knapp [facility] MAGNESIUM 2021-10-27 07:47:00 Alejandro Knapp [facility] CBC W/PLT COUNT & AUTO 2021-10-27 07:47:00 SerSky santos [facility] S [facility] DIFFERENTIAL [facility] POCT-GLUCOSE METER 2021-10-26 21:25:00 Torrie [facility] POCT-GLUCOSE METER 2021-10-26 17:57:00 [facility] POCT-GLUCOSE METER 2021-10-26 13:32:00 Torrie [facility] POCT-GLUCOSE METER 2021-10-26 08:28:00 Torrie [facility] POCT-GLUCOSE METER 2021-10-26 05:52:00 [facility] HEPATIC FUNCTION PANEL 2021-10-26 05:47:00 Eri White [facility] BASIC METABOLIC PANEL (7) 2021-10-26 05:47:00 David Zepeda [facility] MAGNESIUM 2021-10-26 05:47:00 David Zepeda [facility] PHOSPHORUS 2021-10-26 05:47:00 David Zepeda [facility] CBC W/PLT COUNT & AUTO 2021-10-26 04:50:00 Eri White [facility] DIFFERENTIAL Center CALCIUM, IONIZED 2021-10-26 04:50:00 Patti Pruitt [facility] CBC W/PLT COUNT & AUTO 2021-10-26 04:50:00 SerSky santos [facility] S t [facility] DIFFERENTIAL [facility] POCT-GLUCOSE METER 2021-10-26 00:54:00 Torrie [facility] POCT-GLUCOSE METER 2021-10-25 16:58:00 Shyam Brownlee [facility] POCT-GLUCOSE METER 2021-10-25 11:29:00 Torrie [facility] 2D ECHO W/ DOPPLER 2021-10-25 09:25:26 Eri Whitet [facility] (CW/PW/COLOR) [place] POCT-GLUCOSE METER 2021-10-25 06:54:00 Sunil [facility] POCT-GLUCOSE METER 2021-10-25 06:03:00 [facility] BLOOD GAS, VENOUS 2021-10-25 05:15:00 Butch Partida [facility] HEPATIC FUNCTION PANEL 2021-10-25 05:15:00 Eri White [facility] BASIC METABOLIC PANEL (7) 2021-10-25 05:15:00 [facility] I [facility] CALCIUM, IONIZED 2021-10-25 05:15:[address] [facility] CBC W/PLT COUNT & AUTO 2021-10-25 05:15:00 Eri White [facility] DIFFERENTIAL Center MAGNESIUM 2021-10-25 05:15:00 [facility] [place] PHOSPHORUS 2021-10-25 05:15:00 [facility] CBC W/PLT COUNT & AUTO 2021-10-25 05:15:00 SerSky santos [facility] S [facility] DIFFERENTIAL [facility] ECG 12-LEAD 2021-10-25 03:12:26 Unknown, Hl7 [facility] ECG 12-LEAD 2021-10-25 03:11:17 Unknown, Hl7 [facility] ECG 12-LEAD 2021-10-25 03:11:17 Unknown, Hl7 [facility] POCT-GLUCOSE METER 2021-10-24 23:37:00 Sunil [facility] ECG 12-LEAD 2021-10-24 22:09:38 Unknown, Hl7 Doctor [facility] ECG 12-LEAD 2021-10-24 22:09:05 Unknown, Hl7 [facility] ECG 12-LEAD 2021-10-24 22:09:05 Unknown, Hl7 [facility] ECG 12-LEAD 2021-10-24 21:45:37 Unknown, Hl7 Doctor [facility] ECG 12-LEAD 2021-10-24 21:44:59 Unknown, Hl7 [facility] ECG 12-LEAD 2021-10-24 21:44:14 Unknown, Hl7 [facility] ECG 12-LEAD 2021-10-24 21:43:43 [facility] 12[facility]AD 2021-10-24 21:43:43 Unknown, Hl7 [facility] BASIC METABOLIC PANEL (7) 2021-10-24 21:03:00 [facility] CALCIUM, IONIZED 2021-10-24 21:03:00 [facility] MAGNESIUM 2021-10-24 21:03:00 [facility]OS[facility] 2021-10-24 21:03:00 Bruno [facility] POCT-GLUCOSE METER 2021-10-24 17:57:00 Aaron francescajennifer [facility] VANCOMYCIN LEVEL, TROUGH 2021-10-24 11:31:00 Kriss Carrillo [facility] BASIC METABOLIC PANEL (7) 2021-10-24 11:31:00 [facility] CALCIUM, IONIZED 2021-10-24 11:31:00 [facility] 2021-10-24 11:31:00 Sertom [facility] PHOSPHORUS 2021-10-24 11:31:00 Sertom [facility] POCT-GLUCOSE METER 2021-10-24 11:28:00 Morralat Edmond [facility] POCT-GLUCOSE METER 2021-10-24 05:50:00 Hayat Edmond [facility] BASIC METABOLIC PANEL (7) 2021-10-24 04:15:00 Sertom [facility] MAGNESIUM 2021-10-24 04:15:00 Sertom [facility] PHOSPHORUS 2021-10-24 04:15:00 [facility] HEPATIC FUNCTION PANEL 2021-10-24 04:15:00 Eri White [facility] CALCIUM, IONIZED 2021-10-24 04:15:00 [facility]CI[facility], [facility]ON[facility]ED 2021-10-24 04:06:[address] [facility] BLOOD GAS, VENOUS 2021-10-24 04:06:00 Butch Partida [facility] B-TYPE NATRIURETIC FACTOR 2021-10-24 04:06:00 Bruno [facility] (BNP) [facility] CBC W/PLT COUNT & AUTO 2021-10-24 04:06:00 Eri White Faby [facility] DIFFERENTIAL [place] CBC W/PLT COUNT & AUTO 2021-10-24 04:06:00 Bruno [facility] XR CHEST 1 VIEW PORTABLE 2021-10-24 00:44:00 Ariana Ward [facility] / BEDSIDE Center POCT-GLUCOSE METER 2021-10-23 23:15:00 Hayat Edmond, [facility] POCT-GLUCOSE METER 2021-10-23 18:18:00 Hayat Edmond [facility] POCT-GLUCOSE METER 2021-10-23 11:57:00 Adhi, Elíasulises [facility] BASIC METABOLIC PANEL (7) 2021-10-23 11:48:00 [facility] CALCIUM, IONIZED 2021-10-23 11:48:[address] [facility] MAGNESIUM 2021-10-23 11:48:00 Sertom [facility] PHOSPHORUS 2021-10-23 11:48:00 [facility] 12-LEAD 2021-10-23 11:21:26 AthreyJory walsh [facility] ECG 12-LEAD 2021-10-23 11:21:26 Unknown, Hl7 [facility] ECG 12-LEAD 2021-10-23 11:20:58 Unknown, Hl7 Doctor [facility] POCT-GLUCOSE METER 2021-10-23 05:50:00 Adhi, Elíasulises [facility] [facility] BLOOD GAS, VENOUS 2021-10-23 03:41:00 Butch Partida [facility] HEPATIC FUNCTION PANEL 2021-10-23 03:41:00 Eri White [facility] B-TYPE NATRIURETIC FACTOR 2021-10-23 03:41:00 [facility] (BNP) [facility] BASIC METABOLIC PANEL (7) 2021-10-23 03:41:00 [facility] CALCIUM, IONIZED 2021-10-23 03:41:00 [facility] CBC W/PLT COUNT & AUTO 2021-10-23 03:41:00 Eri White [facility] DIFFERENTIAL Center MAGNESIUM 2021-10-23 03:41:00 Sertom [facility] PHOSPHORUS 2021-10-23 03:41:00 [facility] HEPATITIS PANEL, ACUTE 2021-10-23 03:41:00 Eri White [facility] CBC W/PLT COUNT & AUTO 2021-10-23 03:41:00 Sertom [facility] XR CHEST 1 VIEW PORTABLE 2021-10-23 02:50:00 Ariana Ward [facility] / BEDSIDE Center POCT-GLUCOSE METER 2021-10-22 23:32:00 Adhi, [facility] CALCIUM, IONIZED 2021-10-22 20:20:[address] [facility] MAGNESIUM 2021-10-22 20:20:00 [facility] 2021-10-22 20:20:00 [facility] BASIC METABOLIC PANEL (7) 2021-10-22 20:20:00 Bruno [facility] POCT-GLUCOSE METER 2021-10-22 17:49:00 Adhi, [facility] POCT-GLUCOSE METER 2021-10-22 13:18:00 Adhi, [facility] BASIC METABOLIC PANEL (7) 2021-10-22 12:50:00 Bruno [facility] CALCIUM, IONIZED 2021-10-22 12:50:[address] [facility] MAGNESIUM 2021-10-22 12:50:00 [facility] PHOS[facility]US 2021-10-22 12:50:00 [facility] 2D ECHO W/ DOPPLER 2021-10-22 11:22:23 Butch Partida [facility] (CW/PW/COLOR) [place] VANCOMYCIN LEVEL, TROUGH 2021-10-22 09:50:00 Kriss Carrillo [facility] POCT-GLUCOSE METER 2021-10-22 05:33:00 Adhi, Elías Erasmo [facility] XR CHEST 1 VIEW PORTABLE 2021-10-22 02:31:00 EdAriana [facility] / BEDSIDE Center CBC W/PLT COUNT & AUTO 2021-10-22 02:24:00 [facility] DIFFERENTIAL [facility] BLOOD GAS, VENOUS 2021-10-22 02:24:00 Butch Partida [facility] HEPATIC FUNCTION PANEL 2021-10-22 02:24:00 Eri White [facility] B-TYPE NATRIURETIC FACTOR 2021-10-22 02:24:00 [facility] (BNP) [facility] BASIC METABOLIC PANEL (7) 2021-10-22 02:24:00 [facility] CALCIUM, IONIZED 2021-10-22 02:24:00 [facility] W/PLT COUNT & AUTO 2021-10-22 02:24:00 Eri White [facility] DIFFERENTIAL Center MAGNESIUM 2021-10-22 02:24:00 [facility]OS[facility]US 2021-10-22 02:24:00 [facility] POCT-GLUCOSE METER 2021-10-22 00:02:00 Adhi, Elías [facility] BASIC METABOLIC PANEL (7) 2021-10-21 20:43[facility] 2021-10-21 20:43:00 [facility] MAGNESIUM 2021-10-21 20:43:00 [facility]US 2021-10-21 20:43:00 [facility] 12-LEAD 2021-10-21 20:08:27 Unknown, Hl7 Doctor [facility] ECG 12-LEAD 2021-10-21 20:08:27 Unknown, Hl7 Doctor [facility] POCT-GLUCOSE METER 2021-10-21 17:13:00 Adhharsh [facility] POCT-GLUCOSE METER 2021-10-21 13:34:00 Adhharsh, [facility] BASIC METABOLIC PANEL (7) 2021-10-21 12:27:00 Bruno [facility] CALCIUM, IONIZED 2021-10-21 12:27:[address] [facility] MAGNESIUM 2021-10-21 12:27:00 Bruno [facility] PHOSPHORUS 2021-10-21 12:27:00 Bruno [facility] POCT-GLUCOSE METER 2021-10-21 11:51:00 Ash [facility] XR ABDOMEN / KUB 1 VIEW 2021-10-21 10:30:00 [facility] SARS-COV2/RT-PCR ([facility] & 2021-10-21 09:01:00 [facility] REF LABS) [place] POCT-GLUCOSE METER 2021-10-21 05:13:00 Ash [facility] CBC W/PLT COUNT & AUTO 2021-10-21 04:24:00 Bruno [facility] DIFFERENTIAL [facility] BLOOD GAS, VENOUS 2021-10-21 04:24:00 Butch Partida [facility] CBC W/PLT COUNT & AUTO 2021-10-21 04:24:00 Bruno [facility] DIFFERENTIAL [facility] CALCIUM, IONIZED 2021-10-21 04:24:[address] [facility] HIGH SENSITIVITY TROPONIN 2021-10-21 04:24:00 Bruno [facility] I [facility] B-TYPE NATRIURETIC FACTOR 2021-10-21 04:24:00 Sky Carr [facility] (BNP) [facility] BASIC METABOLIC PANEL (7) 2021-10-21 04:23:00 Bruno [facility] HEPATIC FUNCTION PANEL 2021-10-21 04:23:00 Eri White [facility] MAGNESIUM 2021-10-21 04:23:00 Bruno Sky [facility] PHOSPHORUS 2021-10-21 04:23:00 Bruno [facility] XR CHEST 1 VIEW PORTABLE 2021-10-21 00:52:00 Ariana Ward [facility] / BEDSIDE Center POCT-GLUCOSE METER 2021-10-21 00:33:00 Adhi [facility] POCT-GLUCOSE METER 2021-10-20 23:48:00 Adhi [facility] HIGH SENSITIVITY TROPONIN 2021-10-20 23:23:00 Butch Partida [facility] ECG 12-LEAD 2021-10-20 20:40:33 Butch Partida [facility] ECG 12-LEAD 2021-10-20 20:40:33 Unknown, Hl7 Doctor [facility] CBC W/PLT COUNT & AUTO 2021-10-20 20:07:00 Sky Carr [facility] DIFFERENTIAL [facility] CBC W/PLT COUNT & AUTO 2021-10-20 20:07:00 Bruno [facility] DIFFERENTIAL [facility] BASIC METABOLIC PANEL (7) 2021-10-20 20:07:00 [facility] BLOOD GAS, VENOUS 2021-10-20 20:07:00 Bruno [facility] MAGNESIUM 2021-10-20 20:07:00 Bruno [facility] PHOSPHORUS 2021-10-20 20:07:00 [facility] US ABDOMEN LIMITED 2021-10-20 18:03:00 Gemma Hanks [facility] POCT-GLUCOSE METER 2021-10-20 17:19:00 VanesaiElías [facility] 2D ECHO MODE W/O DOPPLER 2021-10-20 17:08:30 Gemma Hanks [facility] MRSA SCREEN 2021-10-20 16:58:00 MagdalenaButch bourgeois [facility] SPUTUM CULTURE + GRAM 2021-10-20 16:42:00 Ed, [facility] BLOOD GAS, ARTERIAL 2021-10-20 16:40:00 Ed, [facility] BLOOD CULTURE 2021-10-20 16:38:00 Ed, [facility] URINE CULTURE 2021-10-20 16:37:00 Ed, [facility] PROTHROMBIN TIME/INR 2021-10-20 16:37:[address] [facility] BASIC METABOLIC PANEL (7) 2021-10-20 16:37:00 Ed, [facility] MAGNESIUM 2021-10-20 16:37:00 Ed, [facility] HEPATIC FUNCTION PANEL 2021-10-20 16:37:00 Ed [facility] B-TYPE NATRIURETIC FACTOR 2021-10-20 16:37:00 [facility] (BNP) [place] HIGH SENSITIVITY TROPONIN 2021-10-20 16:37:00 [facility] CREATINE KINASE (CK) 2021-10-20 16:37:[address] [facility] TSH/FREE T4 IF INDICATED 2021-10-20 16:37:00 Ed, [facility] VITAMIN B12 AND FOLATE 2021-10-20 16:37:00 Ed [facility] URINALYSIS W/ REFLEX 2021-10-20 16:37:00 dE [facility] URINE CULTURE Center HEMOGLOBIN A1C 2021-10-20 16:37:00 Ed, [facility] PHOSPHORUS 2021-10-20 16:37:00 SerenioSky [facility] XR CHEST 1 VIEW PORTABLE 2021-10-20 16:02:00 Ariana Ward [facility] Medical / BEDSIDE Center CARDIAC CATH REPORT - 2021-10-20 00:00:00 Provider, Kerry [facility] SCAN Scanning Center EKG-SCANNED 2021-10-20 00:00:00 Provider, Default [facility] Medical Scanning [place] VASCULAR DIAGRAM -SCAN 2021-10-20 00:00:00 Provider, Default [facility] Scanning [place] Plan of Care Planned Activity Planned Date Details Comments Source Future Scheduled 2024-10-28 Lipid panel (procedure) [facility] Test 00:00:00 [code = 62971941] Medical Ce nter Future Scheduled 2022-07-23 INFLUENZA VACCINE (#1) [facility]00 [code = INFLUENZA Medical Ce nter VACCINE (#1)] Future Scheduled 2021-11-[address] [facility] Test 00:00:00 (12+) [code = [facility] Center DEPRESSION SCREENING (12+)] Future Scheduled 2008 SHINGLES VACCINES ([address] [facility] 00:00:00 2) [code = SHINGLES [facility] Center VACCINES (1 of 2)] Future Scheduled 1979 Screening for malignant [facility] Test 00:00:00 neoplasm of cervix Medical C enter (procedure) [code = 437265122] Future Scheduled 1977 DTAP/TDAP/TD VACCINES [facility] 00:00:00 (1 - Tdap) [code = Medical C enter DTAP/TDAP/TD VACCINES (1 - Tdap)] Future Scheduled [address] [facility] Test 00:00:00 0-64 YRS (1 - PCV) Medical C enter [code = PNEUMOCOCCAL VACCINE 0-64 YRS (1 - PCV)] Future Scheduled 1958 COVID-19 VACCINE (#1) [facility] 00:00:00 [code = COVID-[address] VACCINE (#1)] Future Scheduled 1958 Screening for malignant [facility] Test 00:00:00 neoplasm of breast Medical C enter (procedure) [code = 113649321] Future Scheduled 1958 CT Colonography (combo) [facility] Test 00:00:00 [code = CT Colonography [facility] (combo)] Future Scheduled 1958 Screening for malignant [facility] 00:00:00 neoplasm of colon Medical Ce nter (procedure) [code = 595454437] Future Scheduled 1958 Screening for malignant [facility] Test 00:00:00 neoplasm of colon Medical Ce nter (procedure) [code = 036876556] Future Scheduled 1958 Screening for malignant [facility] Test 00:00:00 neoplasm of colon Medical Ce nter (procedure) [code = 199919303] Future Scheduled 1958 Screening for malignant [facility] Test 00:00:00 neoplasm of colon Medical Ce nter (procedure) [code = 643827435] Future Scheduled 1958 Sigmoidoscopy [code = [facility] S[facility]oscopy] Medical Cente r Encounters Start End Encounter Admission Attending Care Care Encounter Source Date/Time Date/Time Type Type Clinicians Facility Department ID 2022-08-24 2022-08-24 [id number] Univers 13:30:00 13:30:[id number] [facility] 2022-08-12 2022-08-12 [facility] [id number] Univers 10:30:00 10:30:[id number] [facility] 2022-08-12 2022-08-12 [facility] [id number] Univers 10:30:00 10:30:[address] [facility] 2022-07-22 2022-07-22 [facility] [id number] Univers 00:00:00 00:00:00 Sendil [id number] Merlene BURR [id number] [address] 2022-07-15 2022-07-15 [facility] [id number] Univers 08:00:00 23:59:00 SENDIL ity [facility] 2022-07-15 2022-07-15 Outpatient R KARRIE [facility] [id number] Univers 08:00:00 08:00:00 SENDIL [id number] ity [facility] 2022-07-09 2022-07-09 Outpatient R KARRIE [facility] [id number] Univers 14:00:00 14:00:00 SENDIL ity [facility] 2022-06-30 2022-06-30 LUC Law [id number] Univers 00:00:00 00:00:00 Management Maral CAPUTO [id number] [place] [phone] [facility] [address] 2022 2022 Orders Doctor YADI [id number] Univers 00:00:00 00:00:00 Only Unassigned, BRANDON [id number] ity of [place] [facility] 4.2.7.2.686 Thanh as [phone] [facility] [address] 2022-04-17 2022-04-17 Refill Karrie [facility] [id number] Univers 00:00:00 00:00:00 [place] DELAROSA [id number] [place] [phone] Wi dicny NAL 9 [facility] 2022-04-07 2022-04-07 Telephone Karrie NCMEY [id number] Univers 00:00:00 00:00:00 [place] DELAROSA [id number] [place] [phone] Wi dicny NAL [address] [place] [address] 2022-03-23 2022-03-23 Verifier 2, Adc Lab [facility] [id number] Univers 14:15:00 14:30:00 Visit [place] Yoon 350.1.13. 10 [facility] 4.2.7.2.686 Thanhnico christiansen AMINAH [phone] Wi dical [address] 2021-10-20 2021-10-29 Inpatient ER YADIRA [facility] Medical [facility] [id number] [facility] 15:17:00 17:15:00 GISELLE 2021-10-20 2021-10-29 Hospital VanesaElías house Erasmo [facility] [id number] 15:17:00 17:15:[address] [facility] 2021-10-27 2021-10-27 Surgery True [facility] [id number] 18:00:00 19:34:00 [facility] 2021-10-22 2021-10-22 Travel [facility] [id number] [facility] 00:[facility]00 00:00:00 [facility] 2021-10-20 2021-10-20 Outpatient [facility] [id number] [facility] 00:00:00 23:59:00 Sarah Medicin e 2021-10-20 2021-10-20 Orders [facility] [id number] 00:00:00 00:00:[address] [facility] 2021-10-20 2021-10-20 Telephone [facility] [id number] 00:00:00 00:00:00 [facility] 2021-10-20 2021-10-20 Telephone [place], [facility] [id number] 00:00:00 00:00:00 [facility] Results Test Description Test Time Test Comments Results Result Comments Source POC-Glucose meter 2021-10-29 11:36:18 Test Item Value Reference Range Interpretation Comme nts POC-Glucose Meter (test code = 173 mg/dL 70-110 H : TESTED AT [facility] [address] [address]) [facility], 770 30: Section Hand/Techni mariama ID = [id number] for Noor, Siddiqua Lab Interpretation (test code = Abnormal 16111-4) [facility] [id number] 11:36:18 Test Item Value Reference Range Interpretation Comments POC-GLUCOSE METER 173 mg/dL 70-110 H : TESTED A T [facility] [address] (BEAKER) (test code = WILFRIDO Braun [facility], 1538) [address]: Section Hand/Techni mariama ID = [id number] for No or, Siddiqua POCT-GLUCOSE [id number] 07:55:38 Test Item Value Reference Range Interpretation Comments POC-GLUCOSE METER 100 mg/dL 70-110 : TESTED A T [facility] 6720 (BEAKER) (test code = WILFRIDO Braun [facility], 1538) [address]: Section Hand/Techni mariama ID = [id number] for No or, Siddiqua Hepatic function [id number] 07:01:41 Test Item Value Reference Range Interpretation Comments Protein, Total (test 6.5 See_Comment Specime n slightly code = 2885-2) hemolyzed [Automated message] The system which generated this result transmit crissy reference range : 6.0 - 8.3 gm/dL . The reference range was not u sed to interpret th is result as normal/abnormal . Albumin (test code = 3.0 g/dL 3.5-5.0 L Specime n slightly 55564-7) hemolyzed Total Bilirubin (test 1.8 mg/dL 0.2-1.2 H Specim en slightly code = 1974-2) hemolyzed Bilirubin, Direct 1.1 mg/dL 0.1-0.5 H Specimen s lightly (test code = 1968-7) hemolyz ed Alkaline Phosphatase 115 U/L 40-150 (test code = 6768-6) AST (test code = 80 U/L 5-34 H Specimen sl ightly 1920-8) hemolyzed ALT (test code = 238 U/L 6-55 H Specimen sl ightly 1742-6) hemolyzed HERMAN (test code = HERMAN) Section Hand ID - LISA Paula Lab Interpretation Abnormal (test code = 67009-1) [facility] [id number] 07:01:41 Test Item Value Reference Range Interpretation Comments TOTAL PROTEIN (BEAKER) 6.5 gm/dL 6.0-8.3 Speci men slightly (test code = 770) hemolyzed ALBUMIN (BEAKER) (test 3.0 g/dL 3.5-5.0 L Speci men slightly code = 1145) hemolyzed BILIRUBIN TOTAL 1.8 mg/dL 0.2-1.2 H Specimen sli ghtly (BEAKER) (test code = hemoly zed 377) BILIRUBIN DIRECT 1.1 mg/dL 0.1-0.5 H Specimen sl ightly (BEAKER) (test code = hemoly zed 706) ALKALINE PHOSPHATASE 115 U/L 40-150 (BEAKER) (test code = 346) AST (SGOT) (BEAKER) 80 U/L 5-34 H Specimen slightly (test code = 353) hemolyzed ALT (SGPT) (BEAKER) 238 U/L 6-55 H Specimen slightly (test code = 347) hemolyzed Section Hand PRESTON GONZALEZ FCBC with platelet count + automated [id number] 06:59:20 Test Item Value Reference Range Interpretation Comments WBC (test code = 6690-2) 6.7 See_Comment [A utomated message] The system [employer] generated this result transmitted ref erence range: 3.5 - 10 .5 K/L. The refe rence range was not u sed to interpret this result as normal/abnor mal. RBC (test code = 789-8) 4.84 See_Comment [Au tomated message] The system [employer] generated this result transmitted ref erence range: 3.93 - 5 .22 M/L. The refe rence range was not u sed to interpret this result as normal/abnor mal. MCHC (test code = 786-4) 29.4 See_Comment L [A utomated message] The system [employer] generated this result transmitted ref erence range: 32.2 - 3 5.5 GM/DL. The refe rence range was not u sed to interpret this result as normal/abnor mal. Hematocrit (test code = 48.7 % 34.1-44.9 H 4544-3) MCV (test code = 787-2) 100.6 fL 79.4-94.8 H MCH (test code = 785-6) 29.5 pg 25.6-32.2 RDW (test code = 788-0) 20.4 % 11.7-14.4 H Platelets (test code = 214 See_Comment [Aut omated message] 777-3) The system [employer] generated this result transmitted ref erence range: 150 - 45 0 K/CU MM. The referen ce range was not u sed to interpret this result as normal/abnor mal. MPV (test code = 11.4 fL 9.4-12.3 19205-9) nRBC (test code = 413) 0 See_Comment [Aut omated message] The system [employer] generated this result transmitted ref erence range: 0 - 0 /1 00 WBC. The refere nce range was not u sed to interpret this result as normal/abnor mal. % Neutros (test code = 64 % 429) % Lymphs (test code = 19 % 430) % Monos (test code = 9 % 431) % Eos (test code = 432) 5 % % Baso (test code = 437) 2 % # Neutros (test code = 4.32 See_Comment [Aut omated message] 670) The system [employer] generated this result transmitted ref erence range: 1.56 - 6 .13 K/L. The refe rence range was not u sed to interpret this result as normal/abnor mal. # Lymphs (test code = 1.28 See_Comment [Auto mated message] 414) The system [employer] generated this result transmitted ref erence range: 1.18 - 3 .74 K/L. The refe rence range was not u sed to interpret this result as normal/abnor mal. # Monos (test code = 0.62 See_Comment H [Autom ated message] 415) The system [employer] generated this result transmitted ref erence range: 0.24 - 0 .36 K/L. The refe rence range was not u sed to interpret this result as normal/abnor mal. # Eos (test code = 416) 0.33 See_Comment [Au tomated message] The system [employer] generated this result transmitted ref erence range: 0.04 - 0 .36 K/L. The refe rence range was not u sed to interpret this result as normal/abnor mal. # Baso (test code = 417) 0.10 See_Comment H [A utomated message] The system [employer] generated this result transmitted ref erence range: 0.01 - 0 .08 K/L. The refe rence range was not u sed to interpret this result as normal/abnor mal. Immature 1 % 0-1 Granulocytes-Relative (test code = 2801) Lab Interpretation (test Abnormal code = 51035-4) [facility] W/PLT COUNT & AUTO [id number] 06:59:20 Test Item Value Reference Range Interpretation Comments WHITE BLOOD CELL COUNT (BEAKER) 6.7 K/ L 3.5-10.5 (test code = 775) RED BLOOD CELL COUNT (BEAKER) 4.84 M/ L 3.93-5.22 (test code = 761) HEMOGLOBIN (BEAKER) (test code = 14.3 GM/DL 11.2-15.7 410) HEMATOCRIT (BEAKER) (test code = 48.7 % 34.1-44.9 H 411) MEAN CORPUSCULAR VOLUME (BEAKER) 100.6 fL 79.4-94.8 H (test code = 753) MEAN CORPUSCULAR HEMOGLOBIN 29.5 pg 25.6-32.2 (BEAKER) (test code = 751) MEAN CORPUSCULAR HEMOGLOBIN CONC 29.4 GM/DL 32.2-35.5 L (BEAKER) (test code = 752) RED CELL DISTRIBUTION WIDTH 20.4 % 11.7-14.4 H (BEAKER) (test code = 412) PLATELET COUNT (BEAKER) (test 214 K/CU MM 150-450 code = 756) MEAN PLATELET VOLUME (BEAKER) 11.4 fL 9.4-12.3 (test code = 754) NUCLEATED RED BLOOD CELLS 0 /100 WBC 0-0 (BEAKER) (test code = 413) NEUTROPHILS RELATIVE PERCENT 64 % (BEAKER) (test code = 429) LYMPHOCYTES RELATIVE PERCENT 19 % (BEAKER) (test code = 430) MONOCYTES RELATIVE PERCENT 9 % (BEAKER) (test code = 431) EOSINOPHILS RELATIVE PERCENT 5 % (BEAKER) (test code = 432) BASOPHILS RELATIVE PERCENT 2 % (BEAKER) (test code = 437) NEUTROPHILS ABSOLUTE COUNT 4.32 K/ L 1.56-6.13 (BEAKER) (test code = 670) LYMPHOCYTES ABSOLUTE COUNT 1.28 K/ L 1.18-3.74 (BEAKER) (test code = 414) MONOCYTES ABSOLUTE COUNT (BEAKER) 0.62 K/ L 0.24-0.36 H (test code = 415) EOSINOPHILS ABSOLUTE COUNT 0.33 K/ L 0.04-0.36 (BEAKER) (test code = 416) BASOPHILS ABSOLUTE COUNT (BEAKER) 0.10 K/ L 0.01-0.08 H (test code = 417) IMMATURE GRANULOCYTES-RELATIVE 1 % 0-1 PERCENT ([facility]) (test code = 2801) POCT-GLUCOSE [id number] 22:49:55 Test Item Value Reference Range Interpretation Comments POC-GLUCOSE METER 119 mg/dL 70-110 H : TESTED A T [facility] 67[address] ([facility]) (test code = [facility]) [address]: Section Hand/Techni mariama ID = [id number] for SABINA RIDER POCT-GLUCOSE [id number] 16:50:39 Test Item Value Reference Range Interpretation Comments POC-GLUCOSE METER 171 mg/dL 70-110 H : Notified RN/MD: ([facility]) (test code = TESTED AT [facility] 67 1537) [facility], [address]: Section Hand/Techni mariama ID = [id number] for Sarah Lockwood POCT-GLUCOSE [id number] 13:25:12 Test Item Value Reference Range Interpretation Comments POC-GLUCOSE METER 177 mg/dL 70-110 H : TESTED A T [facility] 67[address] ([facility]) (test code = [facility], 153) [address]: Section Hand/Techni mariama ID = [id number] for Kim tan (pca2)Faiza POCT-GLUCOSE [id number] 08:36:19 Test Item Value Reference Range Interpretation Comments POC-GLUCOSE METER 88 mg/dL 70-110 : TESTED A T [facility] 67[address] ([facility]) (test code = [facility], 153) [address]: Section Hand/Techni mariama ID = [id number] for Sarah Blakely Lipid [id number] 06:46:47 Test Item Value Reference Range Interpretation Comments Triglycerides (test 140 mg/dL code = 2571-8) Cholesterol (test code 193 mg/dL = 2093-3) HDL (test code = 41 mg/dL 2085-9) LDL Calculated (test 124 mg/dL code = 75858-1) HERMAN (test code = HERMAN) Triglyceride Reference Range: Low Risk <150 Borderline 150-199 High Risk 200-499 Very High Risk >=500 Cholesterol Reference Range: Low Risk <200 Borderline 200-239 High Risk >240 HDL Cholesterol Reference Range: Low Risk >=60 High Risk <40 LDL Cholesterol Reference Range: Optimal <100 Near Optimal 100-129 Borderline 130-159 High 160-189 Very High >=190 Section Hand ID Gutierrez May slightly icteric [facility] [id number] 06:46:47 Test Item Value Reference Range Interpretation Comments TRIGLYCERIDES (BEAKER) (test code = 140 mg/dL 540) CHOLESTEROL (BEAKER) (test code = 193 mg/dL 631) HDL CHOLESTEROL (BEAKER) (test code 41 mg/dL = 976) LDL CHOLESTEROL CALCULATED (BEAKER) 124 mg/dL (test code = 633) Triglyceride Reference Range: Low Risk <150 Borderline 150-199 High Risk 200- 499 Very High Risk >=500Cholesterol Reference Range: Low Risk <200 Borderline 200-239 High Risk >240HDL Cholesterol Reference Range: Low Risk >=60 High Risk <40LDL Cholesterol Reference Range: Optimal <100 Near Optimal 100-129 Borderline 130-159 High 160-189 Very High >=190 Section Hand ID Gutierrez May slightly ictericHEPATIC FUNCTION [id number] 06:46:47 Test Item Value Reference Range Interpretation Comments TOTAL PROTEIN (BEAKER) (test code = 7.7 gm/dL 6.0-8.3 770) ALBUMIN (BEAKER) (test code = 1145) 3.6 g/dL 3.5-5.0 BILIRUBIN TOTAL (BEAKER) (test code 2.2 mg/dL 0.2-1.2 H = 377) BILIRUBIN DIRECT (BEAKER) (test 1.4 mg/dL 0.1-0.5 H code = 706) ALKALINE PHOSPHATASE (BEAKER) (test 137 U/L 40-150 code = 346) AST (SGOT) (BEAKER) (test code = 109 U/L 5-34 H 353) ALT (SGPT) (BEAKER) (test code = 323 U/L 6-55 H 347) Section Hand ID - LISA FSpecimen slightly ictericCBC W/PLT COUNT & AUTO [id number] 06:32:02 Test Item Value Reference Range Interpretation Comments WHITE BLOOD CELL COUNT (BEAKER) 8.2 K/ L 3.5-10.5 (test code = 775) RED BLOOD CELL COUNT (BEAKER) 5.48 M/ L 3.93-5.22 H (test code = 761) HEMOGLOBIN (BEAKER) (test code = 16.0 GM/DL 11.2-15.7 H 410) HEMATOCRIT (BEAKER) (test code = 52.4 % 34.1-44.9 H 411) MEAN CORPUSCULAR VOLUME (BEAKER) 95.6 fL 79.4-94.8 H (test code = 753) MEAN CORPUSCULAR HEMOGLOBIN 29.2 pg 25.6-32.2 (BEAKER) (test code = 751) MEAN CORPUSCULAR HEMOGLOBIN CONC 30.5 GM/DL 32.2-35.5 L (BEAKER) (test code = 752) RED CELL DISTRIBUTION WIDTH 20.0 % 11.7-14.4 H (BEAKER) (test code = 412) PLATELET COUNT (BEAKER) (test 224 K/CU MM 150-450 code = 756) MEAN PLATELET VOLUME (BEAKER) 11.0 fL 9.4-12.3 (test code = 754) NUCLEATED RED BLOOD CELLS 0 /100 WBC 0-0 (BEAKER) (test code = 413) NEUTROPHILS RELATIVE PERCENT 77 % (BEAKER) (test code = 429) LYMPHOCYTES RELATIVE PERCENT 11 % (BEAKER) (test code = 430) MONOCYTES RELATIVE PERCENT 8 % (BEAKER) (test code = 431) EOSINOPHILS RELATIVE PERCENT 3 % (BEAKER) (test code = 432) BASOPHILS RELATIVE PERCENT 1 % (BEAKER) (test code = 437) NEUTROPHILS ABSOLUTE COUNT 6.28 K/ L 1.56-6.13 H (BEAKER) (test code = 670) LYMPHOCYTES ABSOLUTE COUNT 0.92 K/ L 1.18-3.74 L (BEAKER) (test code = 414) MONOCYTES ABSOLUTE COUNT (BEAKER) 0.62 K/ L 0.24-0.36 H (test code = 415) EOSINOPHILS ABSOLUTE COUNT 0.22 K/ L 0.04-0.36 (BEAKER) (test code = 416) BASOPHILS ABSOLUTE COUNT (BEAKER) 0.04 K/ L 0.01-0.08 (test code = 417) IMMATURE GRANULOCYTES-RELATIVE 1 % 0-1 PERCENT (BEAKER) (test code = 2801) Calcium, [id number] 06:31:26 Test Item Value Reference Range Interpretation Comments Calcium, Ion (test code = 1994-3) 1.16 mmol/L 1.12-1.27 pH, Blood (test code = 93619-2) 7.33 [facility] [id number] 06:31:26 Test Item Value Reference Range Interpretation Comments CALCIUM IONIZED (BEAKER) (test 1.16 mmol/L 1.12-1.27 code = 698) PH, BLOOD (BEAKER) (test code = 7.33 1810) POCT-GLUCOSE [id number] 23:06:17 Test Item Value Reference Range Interpretation Comments POC-GLUCOSE METER 116 mg/dL 70-110 H : TESTED A T [facility] 6720 (BEAKER) (test code = [facility], 153) 119[address]: Section Hand/Techni mariama ID = [id number] for Wi lliams, Otelia POCT-GLUCOSE [id number] 22:48:11 Test Item Value Reference Range Interpretation Comments POC-GLUCOSE METER 132 mg/dL 70-110 H : TESTED A T [facility]20 (BEAKER) (test code = [facility], 153) 32850: Section Hand/Techni mariama ID = [id number] for Co nde, Kayla POCT-GLUCOSE [id number] 18:53:30 Test Item Value Reference Range Interpretation Comments POC-GLUCOSE METER 82 mg/dL 70-110 : TESTED A T [facility] 6720 (BEAKER) (test code = [facility], 153) 92758: Section Hand/Techni mariama ID = [id number] for RINA RSON, SKYE POCT-GLUCOSE [id number] 13:07:43 Test Item Value Reference Range Interpretation Comments POC-GLUCOSE METER 109 mg/dL 70-110 : TESTED A T [facility]20 (BEAKER) (test code = [facility], 1538) 58806: Section Hand/Techni mariama ID = [id number] for AN SKYE ROSALES POCT-GLUCOSE [id number] 08:29:45 Test Item Value Reference Range Interpretation Comments POC-GLUCOSE METER 105 mg/dL 70-110 : TESTED A T [facility] 6720 (BEAKER) (test code = [facility], 1538) 05293: Section Hand/Techni mariama ID = [id number] for AN SKYE ROSALES HEPATIC FUNCTION [id number] 08:15:14 Test Item Value Reference Range Interpretation Comments TOTAL PROTEIN (BEAKER) 7.4 gm/dL 6.0-8.3 Speci men slightly (test code = 770) hemolyzed ALBUMIN (BEAKER) (test 3.3 g/dL 3.5-5.0 L Speci men slightly code = 1145) hemolyzed BILIRUBIN TOTAL 2.2 mg/dL 0.2-1.2 H Specimen sli ghtly (BEAKER) (test code = hemoly zed 377) BILIRUBIN DIRECT 1.2 mg/dL 0.1-0.5 H Specimen sl ightly (BEAKER) (test code = hemoly zed 706) ALKALINE PHOSPHATASE 132 U/L 40-150 (BEAKER) (test code = 346) AST (SGOT) (BEAKER) 116 U/L 5-34 H Specimen slightly (test code = 353) hemolyzed ALT (SGPT) (BEAKER) 342 U/L 6-55 H Specimen slightly (test code = 347) hemolyzed Section Hand ID - JC MSpecimen slightly ictericBasic Metabolic [id number] 08:15:13 Test Item Value Reference Range Interpretation Comments Sodium (test code = 134 meq/L 136-145 L 2951-2) Potassium (test code 4.0 meq/L 3.5-5.1 Specime n slightly = 2823-3) hemolyzed Chloride (test code = 96 meq/L 98-107 L 2075-0) CO2 (test code = 29 meq/L 22-2027-9) BUN (test code = 28 mg/dL 7-21 H 3094-0) Creatinine (test code 0.70 mg/dL 0.57-1.25 Specim en slightly = 2160-0) hemolyzed Glucose (test code = 91 mg/dL 70-105 2345-7) Calcium (test code = 9.2 mg/dL 8.4-10.2 85402-3) EGFR (test code = 85 mL/min/1.73 [place] [address]-2) NOT ACCURATE CREATININE CLEARANCE IN PREDICTING GLOMERULAR FILTRATION RATE . ESTIMATED GFR I S NOT APPLICABLE FOR DIALYSIS PATIENTS. HERMAN (test code = HERMAN) Section Hand ID - JC MSpecimen slightly icteric Lab Interpretation Abnormal (test code = 69345-5) [facility]13 Test Item Value Reference Range Interpretation Comments Magnesium (test code = 2.5 mg/dL 1.6-2.6 Speci men 79213-5) slightly hemolyzed HERMAN (test code = HERMAN) Section Hand ID - JC M Lab Interpretation Normal (test code = 91114-7) [facility]2021-12-06 08:15:13 Test Item Value Reference Range Interpretation Comments MAGNESIUM (BEAKER) 2.5 mg/dL 1.6-2.6 Specimen slightly (test code = 627) hemolyzed Section Hand ID - JC MBASIC METABOLIC [id number] 08:15:13 Test Item Value Reference Range Interpretation Comments SODIUM (BEAKER) 134 meq/L 136-145 L (test code = 381) POTASSIUM (BEAKER) 4.0 meq/L 3.5-5.1 Specimen slightly (test code = 379) hemolyzed CHLORIDE (BEAKER) 96 meq/L 98-107 L (test code = 382) CO2 (BEAKER) (test 29 meq/L code = 355) BLOOD UREA NITROGEN 28 mg/dL 7-21 H (BEAKER) (test code = 354) CREATININE (BEAKER) 0.70 mg/dL 0.57-1.25 Specimen slightly (test code = 358) hemolyzed GLUCOSE RANDOM 91 mg/dL 70-105 (BEAKER) (test code = 652) CALCIUM (BEAKER) 9.2 mg/dL 8.4-10.2 (test code = 697) EGFR (BEAKER) (test 85 mL/min/1.73 ESTIMA CRISSY GFR IS code = 1092) sq m NOT ACCURATE CREATININE CLEARANCE IN PREDICTING GLOMERULAR FILTRATION RATE . ESTIMATED GFR I S NOT APPLICABLE FOR DIALYSIS PATIEN TS. Section Hand ID - JC MSpecimen slightly ictericCALCIUM, [id number] 08:00:49 Test Item Value Reference Range Interpretation Comments CALCIUM IONIZED (BEAKER) (test 1.14 mmol/L 1.12-1.27 code = 698) PH, BLOOD (BEAKER) (test code = 7.38 1810) CBC W/PLT COUNT & AUTO [id number] 07:59:40 Test Item Value Reference Range Interpretation Comments WHITE BLOOD CELL COUNT (BEAKER) 11.4 K/ L 3.5-10.5 H (test code = 775) RED BLOOD CELL COUNT (BEAKER) 5.17 M/ L 3.93-5.22 (test code = 761) HEMOGLOBIN (BEAKER) (test code = 14.9 GM/DL 11.2-15.7 410) HEMATOCRIT (BEAKER) (test code = 48.5 % 34.1-44.9 H 411) MEAN CORPUSCULAR VOLUME (BEAKER) 93.8 fL 79.4-94.8 (test code = 753) MEAN CORPUSCULAR HEMOGLOBIN 28.8 pg 25.6-32.2 (BEAKER) (test code = 751) MEAN CORPUSCULAR HEMOGLOBIN CONC 30.7 GM/DL 32.2-35.5 L (BEAKER) (test code = 752) RED CELL DISTRIBUTION WIDTH 19.6 % 11.7-14.4 H (BEAKER) (test code = 412) PLATELET COUNT (BEAKER) (test 203 K/CU MM 150-450 code = 756) MEAN PLATELET VOLUME (BEAKER) 10.5 fL 9.4-12.3 (test code = 754) NUCLEATED RED BLOOD CELLS 0 /100 WBC 0-0 (BEAKER) (test code = 413) NEUTROPHILS RELATIVE PERCENT 77 % (BEAKER) (test code = 429) LYMPHOCYTES RELATIVE PERCENT 11 % (BEAKER) (test code = 430) MONOCYTES RELATIVE PERCENT 8 % (BEAKER) (test code = 431) EOSINOPHILS RELATIVE PERCENT 3 % (BEAKER) (test code = 432) BASOPHILS RELATIVE PERCENT 0 % (BEAKER) (test code = 437) NEUTROPHILS ABSOLUTE COUNT 8.80 K/ L 1.56-6.13 H (BEAKER) (test code = 670) LYMPHOCYTES ABSOLUTE COUNT 1.24 K/ L 1.18-3.74 (BEAKER) (test code = 414) MONOCYTES ABSOLUTE COUNT (BEAKER) 0.88 K/ L 0.24-0.36 H (test code = 415) EOSINOPHILS ABSOLUTE COUNT 0.34 K/ L 0.04-0.36 (BEAKER) (test code = 416) BASOPHILS ABSOLUTE COUNT (BEAKER) 0.02 K/ L 0.01-0.08 (test code = 417) IMMATURE GRANULOCYTES-RELATIVE 1 % 0-1 PERCENT (BEAKER) (test code = 2801) POCT-GLUCOSE [id number] 21:36:56 Test Item Value Reference Range Interpretation Comments POC-GLUCOSE METER 147 mg/dL 70-110 H : TESTED A T [facility] 6720 (BEAKER) (test code = [facility], [facility]) 26250: Section Hand/Techni mariama ID = [id number] for Laney Irby POCT-GLUCOSE [id number] 18:17:55 Test Item Value Reference Range Interpretation Comments POC-GLUCOSE METER 212 mg/dL 70-110 H : TESTED A T [facility] 6720 (BEAKER) (test code = [facility], 153) 80255: Section Hand/Techni mariama ID = [id number] for RANJANA COLÓN, JAYDA POCT-GLUCOSE [id number] 13:44:16 Test Item Value Reference Range Interpretation Comments POC-GLUCOSE METER 148 mg/dL 70-110 H : TESTED A T [facility] 6720 (BEAKER) (test code = [facility], 1538) 27735: Section Hand/Techni mariama ID = [id number] for RANJANA COLÓN, JAYDA POCT-GLUCOSE [id number] 08:47:01 Test Item Value Reference Range Interpretation Comments POC-GLUCOSE METER 70 mg/dL 70-110 : TESTED A T [facility] 6720 (BEAKER) (test code = [facility], 1538) 58037: Section Hand/Techni mariama ID = [id number] for JAYDA SALVADOR [id number] 07:21:57 Test Item Value Reference Range Interpretation Comments Phosphorus (test code 3.0 mg/dL 2.3-4.7 Specim en = 2777-1) slightly hemolyzed HERMAN (test code = HERMAN) Section Hand ID - DB Lab Interpretation Normal (test code = 06608-6) [facility]57 Test Item Value Reference Range Interpretation Comments PHOSPHORUS (BEAKER) 3.0 mg/dL 2.3-4.7 Specimen slightly (test code = 604) hemolyzed Section Hand ID - DBHEPATIC FUNCTION [id number] 06:38:49 Test Item Value Reference Range Interpretation Comments TOTAL PROTEIN (BEAKER) 8.4 gm/dL 6.0-8.3 H Speci men slightly (test code = 770) hemolyzed ALBUMIN (BEAKER) (test 3.6 g/dL 3.5-5.0 Speci men slightly code = 1145) hemolyzed BILIRUBIN TOTAL 2.8 mg/dL 0.2-1.2 H Specimen sli ghtly (BEAKER) (test code = hemoly zed 377) BILIRUBIN DIRECT 1.7 mg/dL 0.1-0.5 H Specimen sl ightly (BEAKER) (test code = hemoly zed 706) ALKALINE PHOSPHATASE 146 U/L 40-150 (BEAKER) (test code = 346) AST (SGOT) (BEAKER) 104 U/L 5-34 H Specimen slightly (test code = 353) hemolyzed ALT (SGPT) (BEAKER) 420 U/L 6-55 H Specimen slightly (test code = 347) hemolyzed Section Hand ID - DBSpecimen slightly ictericBASIC METABOLIC [id number] 06:38:48 Test Item Value Reference Range Interpretation Comments SODIUM (BEAKER) 135 meq/L 136-145 L (test code = 381) POTASSIUM (BEAKER) 3.9 meq/L 3.5-5.1 Specimen slightly (test code = 379) hemolyzed CHLORIDE (BEAKER) 92 meq/L 98-107 L (test code = 382) CO2 (BEAKER) (test 33 meq/L 22-29 H code = 355) BLOOD UREA NITROGEN 39 mg/dL 7-21 H (BEAKER) (test code = 354) CREATININE (BEAKER) 0.84 mg/dL 0.57-1.25 Specimen slightly (test code = 358) hemolyzed GLUCOSE RANDOM 88 mg/dL 70-105 (BEAKER) (test code = 652) CALCIUM (BEAKER) 9.7 mg/dL 8.4-10.2 (test code = 697) EGFR (BEAKER) (test 68 mL/min/1.73 ESTIMA CRISSY GFR IS code = 1092) sq m NOT ACCURATE CREATININE CLEARANCE IN PREDICTING GLOMERULAR FILTRATION RATE . ESTIMATED GFR I S NOT APPLICABLE FOR DIALYSIS PATIEN TS. Section Hand ID - DBSpecimen slightly [id number] 06:38:47 Test Item Value Reference Range Interpretation Comments MAGNESIUM (BEAKER) 2.8 mg/dL 1.6-2.6 H Specimen slightly (test code = 627) hemolyzed Section Hand ID - DBPOCT-GLUCOSE [id number] 06:05:14 Test Item Value Reference Range Interpretation Comments POC-GLUCOSE METER 82 mg/dL 70-110 : TESTED A T [facility] (BEAKER) (test code = [place] [place], 1538) [address]: Section Hand/Techni mariama ID = [id number] for Laney Pro CBC W/PLT COUNT & AUTO [id number] 05:14:56 Test Item Value Reference Range Interpretation Comments WHITE BLOOD CELL COUNT (BEAKER) 12.7 K/ L 3.5-10.5 H (test code = 775) RED BLOOD CELL COUNT (BEAKER) 5.44 M/ L 3.93-5.22 H (test code = 761) HEMOGLOBIN (BEAKER) (test code = 15.8 GM/DL 11.2-15.7 H 410) HEMATOCRIT (BEAKER) (test code = 50.5 % 34.1-44.9 H 411) MEAN CORPUSCULAR VOLUME (BEAKER) 92.8 fL 79.4-94.8 (test code = 753) MEAN CORPUSCULAR HEMOGLOBIN 29.0 pg 25.6-32.2 (BEAKER) (test code = 751) MEAN CORPUSCULAR HEMOGLOBIN CONC 31.3 GM/DL 32.2-35.5 L (BEAKER) (test code = 752) RED CELL DISTRIBUTION WIDTH 19.9 % 11.7-14.4 H (BEAKER) (test code = 412) PLATELET COUNT (BEAKER) (test 214 K/CU MM 150-450 code = 756) MEAN PLATELET VOLUME (BEAKER) 10.9 fL 9.4-12.3 (test code = 754) NUCLEATED RED BLOOD CELLS 0 /100 WBC 0-0 (BEAKER) (test code = 413) NEUTROPHILS RELATIVE PERCENT 85 % (BEAKER) (test code = 429) LYMPHOCYTES RELATIVE PERCENT 8 % (BEAKER) (test code = 430) MONOCYTES RELATIVE PERCENT 7 % (BEAKER) (test code = 431) EOSINOPHILS RELATIVE PERCENT 0 % (BEAKER) (test code = 432) BASOPHILS RELATIVE PERCENT 0 % (BEAKER) (test code = 437) NEUTROPHILS ABSOLUTE COUNT 10.80 K/ L 1.56-6.13 H (BEAKER) (test code = 670) LYMPHOCYTES ABSOLUTE COUNT 0.99 K/ L 1.18-3.74 L (BEAKER) (test code = 414) MONOCYTES ABSOLUTE COUNT (BEAKER) 0.85 K/ L 0.24-0.36 H (test code = 415) EOSINOPHILS ABSOLUTE COUNT 0.02 K/ L 0.04-0.36 L (BEAKER) (test code = 416) BASOPHILS ABSOLUTE COUNT (BEAKER) 0.01 K/ L 0.01-0.08 (test code = 417) IMMATURE GRANULOCYTES-RELATIVE 1 % 0-1 PERCENT (BEAKER) (test code = 2801) CALCIUM, [id number] 05:00:57 Test Item Value Reference Range Interpretation Comments CALCIUM IONIZED (BEAKER) (test 1.19 mmol/L 1.12-1.27 code = 698) PH, BLOOD (BEAKER) (test code = 7.36 1810) POCT-GLUCOSE [id number] 01:05:59 Test Item Value Reference Range Interpretation Comments POC-GLUCOSE METER 134 mg/dL 70-110 H : TESTED A T [facility] (BEAKER) (test code = [facility] [place], 1538) [address]: Section Hand/Techni mariama ID = [id number] for Laney Irby BLOOD [id number] 18:00:55 Test Item Value Reference Range Interpretation Comments CULTURE (BEAKER) (test No growth in 5 days code = 1095) Blood Culture - Routine (Left Venipuncture)2021-10-25 18:00:54 Test Item Value Reference Range Interpretation Comments Result (test code = No growth in 5 days 6463-4) HERMAN (test code = HERMAN) The specimen volume collected for this blood culture was below the optimum (10 mL per bottle or 20 mL total). Use of lower volumes may adversely affect recovery and/or detection times of some organisms. [facility] [id number] 18:00:54 Test Item Value Reference Range Interpretation Comments CULTURE (BEAKER) (test No growth in 5 days code = 1095) The specimen volume collected for this blood culture was below the optimum (10 mL per bottle or 20 mL total). Use of lower volumes may adversely affect recovery and/or detection times of some organisms.POCT-GLUCOSE [id number] 17:10:36 Test Item Value Reference Range Interpretation Comments POC-GLUCOSE METER 224 mg/dL 70-110 H : TESTED A T [facility] 6720 (BEAKER) (test code = [facility], 1538) [address]: Section Hand/Techni mariama ID = [id number] for Rika garcia (contract), Ludy xis 2D Echo W/Doppler(CW/PW/Color)2021-10-25 15:43:26Ejection FractionSLE ECHO HEARTLAB MKCKESSON [facility] [id number] 11:41:24 Test Item Value Reference Range Interpretation Comments POC-GLUCOSE METER 79 mg/dL 70-110 : TESTED A T [facility] 6720 (BEAKER) (test code = [facility], 1538) [address]: Section Hand/Techni mariama ID = [id number] for [place] (contract), Ludy xis POCT-GLUCOSE [id number] 07:09:33 Test Item Value Reference Range Interpretation Comments POC-GLUCOSE METER 106 mg/dL 70-110 : TESTED A T [facility] 6720 (BEAKER) (test code [facility], = 1538) [address]72[address]: Section Hand/Techni mariama ID = [id number] for CRAIG LUCEROL POCT-GLUCOSE [id number] 06:17:59 Test Item Value Reference Range Interpretation Comments POC-GLUCOSE METER 70 mg/dL 70-110 : Notified RN/MD: TESTED (BEAKER) (test code = AT [facility] [address] [facility] 1537) [place], [address]: Section Hand/Techni mariama ID = [id number] for TERESE LUCERO HEPATIC FUNCTION [id number] 05:52:49 Test Item Value Reference Range Interpretation Comments TOTAL PROTEIN (BEAKER) 7.6 gm/dL 6.0-8.3 Speci men slightly (test code = 770) hemolyzed ALBUMIN (BEAKER) (test 3.3 g/dL 3.5-5.0 L Speci men slightly code = 1145) hemolyzed BILIRUBIN TOTAL 2.7 mg/dL 0.2-1.2 H Specimen sli ghtly (BEAKER) (test code = hemoly zed 377) BILIRUBIN DIRECT 1.7 mg/dL 0.1-0.5 H Specimen sl ightly (BEAKER) (test code = hemoly zed 706) ALKALINE PHOSPHATASE 128 U/L 40-150 (BEAKER) (test code = 346) AST (SGOT) (BEAKER) 91 U/L 5-34 H Specimen slightly (test code = 353) hemolyzed ALT (SGPT) (BEAKER) 545 U/L 6-55 H Specimen slightly (test code = 347) hemolyzed Section Hand ID - ADMINSpecimen slightly ictericBASIC METABOLIC [id number] 05:52:45 Test Item Value Reference Range Interpretation Comments SODIUM (BEAKER) 133 meq/L 136-145 L (test code = 381) POTASSIUM (BEAKER) 3.9 meq/L 3.5-5.1 Specimen slightly (test code = 379) hemolyzed CHLORIDE (BEAKER) 91 meq/L 98-107 L (test code = 382) CO2 (BEAKER) (test 33 meq/L 22-29 H code = 355) BLOOD UREA NITROGEN 43 mg/dL 7-21 H (BEAKER) (test code = 354) CREATININE (BEAKER) 0.85 mg/dL 0.57-1.25 Specimen slightly (test code = 358) hemolyzed GLUCOSE RANDOM 79 mg/dL 70-105 (BEAKER) (test code = 652) CALCIUM (BEAKER) 9.4 mg/dL 8.4-10.2 (test code = 697) EGFR (BEAKER) (test 68 mL/min/1.73 ESTIMA CRISSY GFR IS code = 1092) sq m NOT ACCURATE CREATININE CLEARANCE IN PREDICTING GLOMERULAR FILTRATION RATE . ESTIMATED GFR I S NOT APPLICABLE FOR DIALYSIS PATIEN TS. Section Hand ID - ADMINSpecimen slightly [id number] 05:52:44 Test Item Value Reference Range Interpretation Comments PHOSPHORUS (BEAKER) 3.3 mg/dL 2.3-4.7 Specimen slightly (test code = 604) hemolyzed Section Hand ID - [id number] 05:52:43 Test Item Value Reference Range Interpretation Comments MAGNESIUM (BEAKER) 2.4 mg/dL 1.6-2.6 Specimen slightly (test code = 627) hemolyzed Section Hand ID - ADMINCBC W/PLT COUNT & AUTO [id number] 05:39:37 Test Item Value Reference Range Interpretation Comments WHITE BLOOD CELL COUNT (BEAKER) 13.7 K/ L 3.5-10.5 H (test code = 775) RED BLOOD CELL COUNT (BEAKER) 5.12 M/ L 3.93-5.22 (test code = 761) HEMOGLOBIN (BEAKER) (test code = 14.7 GM/DL 11.2-15.7 410) HEMATOCRIT (BEAKER) (test code = 47.9 % 34.1-44.9 H 411) MEAN CORPUSCULAR VOLUME (BEAKER) 93.6 fL 79.4-94.8 (test code = 753) MEAN CORPUSCULAR HEMOGLOBIN 28.7 pg 25.6-32.2 (BEAKER) (test code = 751) MEAN CORPUSCULAR HEMOGLOBIN CONC 30.7 GM/DL 32.2-35.5 L (BEAKER) (test code = 752) RED CELL DISTRIBUTION WIDTH 19.5 % 11.7-14.4 H (BEAKER) (test code = 412) PLATELET COUNT (BEAKER) (test 151 K/CU MM 150-450 code = 756) MEAN PLATELET VOLUME (BEAKER) 11.4 fL 9.4-12.3 (test code = 754) NUCLEATED RED BLOOD CELLS 0 /100 WBC 0-0 (BEAKER) (test code = 413) NEUTROPHILS RELATIVE PERCENT 82 % (BEAKER) (test code = 429) LYMPHOCYTES RELATIVE PERCENT 10 % (BEAKER) (test code = 430) MONOCYTES RELATIVE PERCENT 7 % (BEAKER) (test code = 431) EOSINOPHILS RELATIVE PERCENT 0 % (BEAKER) (test code = 432) BASOPHILS RELATIVE PERCENT 0 % (BEAKER) (test code = 437) NEUTROPHILS ABSOLUTE COUNT 11.19 K/ L 1.56-6.13 H (BEAKER) (test code = 670) LYMPHOCYTES ABSOLUTE COUNT 1.42 K/ L 1.18-3.74 (BEAKER) (test code = 414) MONOCYTES ABSOLUTE COUNT (BEAKER) 0.98 K/ L 0.24-0.36 H (test code = 415) EOSINOPHILS ABSOLUTE COUNT 0.01 K/ L 0.04-0.36 L (BEAKER) (test code = 416) BASOPHILS ABSOLUTE COUNT (BEAKER) 0.01 K/ L 0.01-0.08 (test code = 417) IMMATURE GRANULOCYTES-RELATIVE 1 % 0-1 PERCENT (BEAKER) (test code = 2801) CALCIUM, [id number] 05:31:20 Test Item Value Reference Range Interpretation Comments CALCIUM IONIZED (BEAKER) (test 1.10 mmol/L 1.12-1.27 L code = 698) PH, BLOOD (BEAKER) (test code = 7.43 1810) Blood gas, [id number] 05:31:19 Test Item Value Reference Range Interpretation Comments pH, Matias (test code = 7.43 7.32-7.42 H 2746-6) pCO2, Matias (test code = 56 See_Comment H [Aut omated message] 595) The system [employer] generated this result transmit crissy reference range : 41 - 51 mm Hg. The reference range was not used to interpret this result as normal/abnormal . pO2, Matias (test code = 95 See_Comment H [Auto mated message] 5095-2) The system [employer] generated this result transmit crissy reference range : 25 - 40 mm Hg. The reference range was not used to interpret this result as normal/abnormal . O2 Sat, Matias (test code 97.3 % 40.0-70.0 H = 2711-0) HCO3, Matias (test code = 36 mmol/L 21-29 H 04529-3) Base Excess, Matias (test 9.6 mmol/L -2.0-3.0 H code = 1927-3) Patient Temperature 37.0 (test code = 8310-5) FIO2 (test code = 1819) 21 Lab Interpretation Abnormal (test code = 65584-5) [id number]:31:19 Test Item Value Reference Range Interpretation Comments PH VENOUS (BEAKER) (test code = 7.43 7.32-7.42 H 701) PCO2 VENOUS (BEAKER) (test code = 56 mm Hg 41-51 H 755) PO2 VENOUS (BEAKER) (test code = 95 mm Hg 25-40 H 702) O2 SATURATION VENOUS (BEAKER) 97.3 % 40.0-70.0 H (test code = 703) HCO3 VENOUS (BEAKER) (test code = 36 mmol/L 21-29 H 705) BASE EXCESS VENOUS (BEAKER) (test 9.6 mmol/L -2.0-3.0 H code = 704) PATIENT TEMPERATURE (BEAKER) (test 37.0 code = 1818) FIO2 (BEAKER) (test code = 1819) 21.0 POCT-GLUCOSE [id number] 23:48:54 Test Item Value Reference Range Interpretation Comments POC-GLUCOSE METER 181 mg/dL 70-110 H : [facility] (BEAKER) (test code [facility], = 1538) [address]: Section Hand/Techni mariama ID = [id number] for SUGU , SHEENAMOL [id number] 21:55:36 Test Item Value Reference Range Interpretation Comments PHOSPHORUS (BEAKER) (test code = 3.7 mg/dL 2.3-4.7 604) Section Hand ID - DBBASIC METABOLIC [id number] 21:55:36 Test Item Value Reference Range Interpretation Comments SODIUM (BEAKER) 132 meq/L 136-145 L (test code = 381) POTASSIUM (BEAKER) 3.8 meq/L 3.5-5.1 (test code = 379) CHLORIDE (BEAKER) 88 meq/L 98-107 L (test code = 382) CO2 (BEAKER) (test 30 meq/L 22-29 H code = 355) BLOOD UREA NITROGEN 42 mg/dL 7-21 H (BEAKER) (test code = 354) CREATININE (BEAKER) 0.99 mg/dL 0.57-1.25 (test code = 358) GLUCOSE RANDOM 177 mg/dL 70-105 H (BEAKER) (test code = 652) CALCIUM (BEAKER) 9.0 mg/dL 8.4-10.2 (test code = 697) EGFR (BEAKER) (test 57 mL/min/1.73 ESTIMA CRISSY GFR IS code = 1092) sq m NOT ACCURATE CREATININE CLEARANCE IN PREDICTING GLOMERULAR FILTRATION RATE . ESTIMATED GFR I S NOT APPLICABLE FOR DIALYSIS PATIEN TS. Section Hand ID - DBSpecimen slightly [id number] 21:55:35 Test Item Value Reference Range Interpretation Comments MAGNESIUM (BEAKER) (test code = 2.4 mg/dL 1.6-2.6 627) Section Hand ID - DBCALCIUM, [id number] 21:09:35 Test Item Value Reference Range Interpretation Comments CALCIUM IONIZED (BEAKER) (test 1.06 mmol/L 1.12-1.27 L code = 698) PH, BLOOD (BEAKER) (test code = 7.44 1810) POCT-GLUCOSE [id number] 18:08:52 Test Item Value Reference Range Interpretation Comments POC-GLUCOSE METER 182 mg/dL 70-110 H : TESTED A T [facility] 6720 (BEAKER) (test code = RALPHRIKA Braun [facility], 1538) [address]: Section Hand/Techni mariama ID = [id number] for Sheila Zafar BASIC METABOLIC [id number] 12:33:16 Test Item Value Reference Range Interpretation Comments SODIUM (BEAKER) 134 meq/L 136-145 L (test code = 381) POTASSIUM (BEAKER) 3.8 meq/L 3.5-5.1 (test code = 379) CHLORIDE (BEAKER) 90 meq/L 98-107 L (test code = 382) CO2 (BEAKER) (test 32 meq/L 22-29 H code = 355) BLOOD UREA NITROGEN 40 mg/dL 7-21 H (BEAKER) (test code = 354) CREATININE (BEAKER) 0.89 mg/dL 0.57-1.25 (test code = 358) GLUCOSE RANDOM 68 mg/dL 70-105 L (BEAKER) (test code = 652) CALCIUM (BEAKER) 9.3 mg/dL 8.4-10.2 (test code = 697) EGFR (BEAKER) (test 64 mL/min/1.73 ESTIMA CRISSY GFR IS code = 1092) sq m NOT ACCURATE CREATININE CLEARANCE IN PREDICTING GLOMERULAR FILTRATION RATE . ESTIMATED GFR I S NOT APPLICABLE FOR DIALYSIS PATIEN TS. Section Hand ID - DBSpecimen slightly [id number] 12:33:15 Test Item Value Reference Range Interpretation Comments PHOSPHORUS (BEAKER) (test code = 3.3 mg/dL 2.3-4.7 604) Section Hand ID - [id number] 12:33:14 Test Item Value Reference Range Interpretation Comments MAGNESIUM (BEAKER) (test code = 2.2 mg/dL 1.6-2.6 627) Section Hand ID - DBVancomycin level, [id number] 12:29:17 Test Item Value Reference Range Interpretation Comments Vancomycin Tr (test code = 14.6 ug/mL 10.0-20.0 4092-3) HERMAN (test code = HERMAN) Section Hand ID - DB Lab Interpretation (test Normal code = 87077-5) [facility] [id number] 12:29:17 Test Item Value Reference Range Interpretation Comments VANCOMYCIN TROUGH (BEAKER) (test 14.6 ug/mL 10.0-20.0 code = 522) Section Hand ID - DBCALCIUM, [id number] 11:47:26 Test Item Value Reference Range Interpretation Comments CALCIUM IONIZED (BEAKER) (test 1.10 mmol/L 1.12-1.27 L code = 698) PH, BLOOD (BEAKER) (test code = 7.45 1810) POCT-GLUCOSE [id number] 11:41:54 Test Item Value Reference Range Interpretation Comments POC-GLUCOSE METER 73 mg/dL 70-110 : TESTED A T [facility] 6720 (BEAKER) (test code = [place], 1538) [address]: Section Hand/Techni mariama ID = [id number] for Jc coateslaura Harrison SPUTUM CULTURE + GRAM [id number] 08:09:55 Test Item Value Reference Interpretation Comments Range CULTURE (BEAKER) PSEUDOMONAS A 1+ Pseudomo cory (test code = 1095) AERUGINOSA aeruginos amucoid colony type Amikacin (test code See_Comment S [Automa crissy = 1) message] The sy stem which generated this result transmitted reference range : Susceptible 0-1 6 , Resistant <0 or >16 . The reference range was not u sed to interpret th is result as normal/abnormal . Aztreonam (test code See_Comment S [Autom ated = 32) message] The sy stem which generated this result transmitted reference range : Susceptible 0-8 , Resistant <0 or >8 . The reference range was not u sed to interpret th is result as normal/abnormal . Cefepime (test code See_Comment S [Automa crissy = 51) message] The sy stem which generated this result transmitted reference range : Susceptible 0-8 , Resistant <0 or >8 . The reference range was not u sed to interpret th is result as normal/abnormal . Ceftazidime (test See_Comment S [Automate d code = 27) message] The sy stem which generated this result transmitted reference range : Susceptible 0-8 , Resistant <0 or >8 . The reference range was not u sed to interpret th is result as normal/abnormal . Ciprofloxacin (test See_Comment S [Automa crissy code = 7) message] The sy stem which generated this result transmitted reference range : Susceptible 0-0 .5 , Resistant <0 or >.5 . The reference range was not u sed to interpret th is result as normal/abnormal . Doripenem (test code See_Comment S [Autom ated = 100) message] The sy stem which generated this result transmitted reference range : Susceptible 0-2 , Resistant <0 or >2 . The reference range was not u sed to interpret th is result as normal/abnormal . Gentamicin (test See_Comment S [Automated code = 18) message] The sy stem which generated this result transmitted reference range : Susceptible 0-4 , Resistant <0 or >4 . The reference range was not u sed to interpret th is result as normal/abnormal . Imipenem (test code See_Comment S [Automa crissy = 19) message] The sy stem which generated this result transmitted reference range : Susceptible 0-2 , Resistant <0 or >2 . The reference range was not u sed to interpret th is result as normal/abnormal . Levofloxacin (test See_Comment S [Automat ed code = 22) message] The sy stem which generated this result transmitted reference range : Susceptible 0-1 , Resistant <0 or >1 . The reference range was not u sed to interpret th is result as normal/abnormal . Meropenem (test code See_Comment S [Autom ated = 34) message] The sy stem which generated this result transmitted reference range : Susceptible 0-2 , Resistant <0 or >2 . The reference range was not u sed to interpret th is result as normal/abnormal . Piperacillin (test See_Comment S [Automat ed code = 24) message] The sy stem which generated this result transmitted reference range : Susceptible 0-1 6 , Resistant <0 or >16 . The reference range was not u sed to interpret th is result as normal/abnormal . Piperacillin + See_Comment S [Automated Tazobactam (test message] Th e system code = 29) which generated this result transmitted reference range : Susceptible 0-1 6 , Resistant <0 or >16 . The reference range was not u sed to interpret th is result as normal/abnormal . Tobramycin (test See_Comment S [Automated code = 25) message] The sy stem which generated this result transmitted reference range : Susceptible 0-4 , Resistant <0 or >4 . The reference range was not u sed to interpret th is result as normal/abnormal . CULTURE (BEAKER) STAPHYLOCOCCUS A 2+ Staphy lococcus (test code = 1095) AUREUS aureus Clindamycin (test R code = 10) Erythromycin (test R code = 4) Linezolid (test code S = 40) Nitrofurantoin (test S code = 23) Oxacillin (test code S = 14) Rifampin (test code S = 43) Tetracycline (test S code = 2) Trimethoprim + S Sulfamethoxazole (test code = 47) Vancomycin (test S code = 13) CULTURE (BEAKER) STAPHYLOCOCCUS A 2+ Staphy lococcus (test code = 1095) AUREUS aureusof a second type Clindamycin (test S code = 10) Erythromycin (test S code = 4) Linezolid (test code S = 40) Nitrofurantoin (test S code = 23) Oxacillin (test code S = 14) Rifampin (test code S = 43) Tetracycline (test S code = 2) Trimethoprim + S Sulfamethoxazole (test code = 47) Vancomycin (test S code = 13) GRAM STAIN RESULT 1+ WBCs (BEAKER) (test code = 1123) GRAM STAIN RESULT 0-5 epithelial (BEAKER) (test code cells = 494157) GRAM STAIN RESULT 1+ gram negative (BEAKER) (test code rods = 433878) GRAM STAIN RESULT <1+ gram positive (BEAKER) (test code cocci in clusters = 508297) No Normal respiratory jaz presentC W/PLT COUNT & AUTO DIFFERENTIAL 2021-10-24 06:28:51 Test Item Value Reference Range Interpretation Comments WHITE BLOOD CELL COUNT (BEAKER) 14.6 K/ L 3.5-10.5 H (test code = 775) RED BLOOD CELL COUNT (BEAKER) 4.79 M/ L 3.93-5.22 (test code = 761) HEMOGLOBIN (BEAKER) (test code = 13.7 GM/DL 11.2-15.7 410) HEMATOCRIT (BEAKER) (test code = 44.8 % 34.1-44.9 411) MEAN CORPUSCULAR VOLUME (BEAKER) 93.5 fL 79.4-94.8 (test code = 753) MEAN CORPUSCULAR HEMOGLOBIN 28.6 pg 25.6-32.2 (BEAKER) (test code = 751) MEAN CORPUSCULAR HEMOGLOBIN CONC 30.6 GM/DL 32.2-35.5 L (BEAKER) (test code = 752) RED CELL DISTRIBUTION WIDTH 19.5 % 11.7-14.4 H (BEAKER) (test code = 412) PLATELET COUNT (BEAKER) (test 143 K/CU MM 150-450 L code = 756) MEAN PLATELET VOLUME (BEAKER) 11.5 fL 9.4-12.3 (test code = 754) NUCLEATED RED BLOOD CELLS 0 /100 WBC 0-0 (BEAKER) (test code = 413) NEUTROPHILS RELATIVE PERCENT 81 % (BEAKER) (test code = 429) LYMPHOCYTES RELATIVE PERCENT 12 % (BEAKER) (test code = 430) MONOCYTES RELATIVE PERCENT 7 % (BEAKER) (test code = 431) EOSINOPHILS RELATIVE PERCENT 0 % (BEAKER) (test code = 432) BASOPHILS RELATIVE PERCENT 0 % (BEAKER) (test code = 437) NEUTROPHILS ABSOLUTE COUNT 11.73 K/ L 1.56-6.13 H (BEAKER) (test code = 670) LYMPHOCYTES ABSOLUTE COUNT 1.76 K/ L 1.18-3.74 (BEAKER) (test code = 414) MONOCYTES ABSOLUTE COUNT (BEAKER) 0.96 K/ L 0.24-0.36 H (test code = 415) EOSINOPHILS ABSOLUTE COUNT 0.00 K/ L 0.04-0.36 L (BEAKER) (test code = 416) BASOPHILS ABSOLUTE COUNT (BEAKER) 0.02 K/ L 0.01-0.08 (test code = 417) IMMATURE GRANULOCYTES-RELATIVE 1 % 0-1 PERCENT (BEAKER) (test code = 2801) POCT-GLUCOSE [id number] 06:02:55 Test Item Value Reference Range Interpretation Comments POC-GLUCOSE METER 61 mg/dL 70-110 L : TESTED A T [facility] 6720 (BEAKER) (test code = [place], 1538) [address]: Section Hand/Techni mariama ID = [id number] for SUGU , HALLEENAMOL BASIC METABOLIC [id number] 05:02:32 Test Item Value Reference Range Interpretation Comments SODIUM (BEAKER) 135 meq/L 136-145 L (test code = 381) POTASSIUM (BEAKER) 3.5 meq/L 3.5-5.1 Specimen slightly (test code = 379) hemolyzed CHLORIDE (BEAKER) 90 meq/L 98-107 L (test code = 382) CO2 (BEAKER) (test 34 meq/L 22-29 H code = 355) BLOOD UREA NITROGEN 40 mg/dL 7-21 H (BEAKER) (test code = 354) CREATININE (BEAKER) 0.82 mg/dL 0.57-1.25 Specimen slightly (test code = 358) hemolyzed GLUCOSE RANDOM 44 mg/dL 70-105 L (BEAKER) (test code = 652) CALCIUM (BEAKER) 8.8 mg/dL 8.4-10.2 (test code = 697) EGFR (BEAKER) (test 70 mL/min/1.73 ESTIMA CRISSY GFR IS code = 1092) sq m NOT ACCURATE CREATININE CLEARANCE IN PREDICTING GLOMERULAR FILTRATION RATE . ESTIMATED GFR I S NOT APPLICABLE FOR DIALYSIS PATIEN TS. Section Hand ID - DBSpecimen slightly ictericHEPATIC FUNCTION [id number] 05:01:15 Test Item Value Reference Range Interpretation Comments TOTAL PROTEIN (BEAKER) 7.6 gm/dL 6.0-8.3 Speci men slightly (test code = 770) hemolyzed ALBUMIN (BEAKER) (test 3.2 g/dL 3.5-5.0 L Speci men slightly code = 1145) hemolyzed BILIRUBIN TOTAL 3.2 mg/dL 0.2-1.2 H Specimen sli ghtly (BEAKER) (test code = hemoly zed 377) BILIRUBIN DIRECT 1.9 mg/dL 0.1-0.5 H Specimen sl ightly (BEAKER) (test code = hemoly zed 706) ALKALINE PHOSPHATASE 125 U/L 40-150 (BEAKER) (test code = 346) AST (SGOT) (BEAKER) 168 U/L 5-34 H Specimen slightly (test code = 353) hemolyzed ALT (SGPT) (BEAKER) 768 U/L 6-55 H Specimen slightly (test code = 347) hemolyzed Section Hand ID - DBSpecimen slightly [id number] 05:01:14 Test Item Value Reference Range Interpretation Comments PHOSPHORUS (BEAKER) 3.9 mg/dL 2.3-4.7 Specimen slightly (test code = 604) hemolyzed Section Hand ID - [id number] 05:01:13 Test Item Value Reference Range Interpretation Comments MAGNESIUM (BEAKER) 2.3 mg/dL 1.6-2.6 Specimen slightly (test code = 627) hemolyzed Section Hand ID - DBB-type Natriuretic Factor (BNP)2021-10-24 04:59:13 Test Item Value Reference Range Interpretation Comments BNP (test code = 82622-7) 2021 pg/mL 0-100 H HERMAN (test code = HERMAN) Section Hand ID - FIDELINA G Lab Interpretation (test Abnormal code = 33354-9) [facility] (BNP)2021-10-24 04:59:13 Test Item Value Reference Range Interpretation Comments B-TYPE NATRIURETIC PEPTIDE 2021 pg/mL 0-100 H (BEAKER) (test code = 700) Section Hand ID - FIDELINA GCALCIUM, [id number] 04:42:04 Test Item Value Reference Range Interpretation Comments CALCIUM IONIZED (BEAKER) (test 1.01 mmol/L 1.12-1.27 L code = 698) PH, BLOOD (BEAKER) (test code = 7.45 1810) BLOOD GAS, [id number] 04:42:04 Test Item Value Reference Range Interpretation Comments PH VENOUS (BEAKER) (test code = 7.45 7.32-7.42 H 701) PCO2 VENOUS (BEAKER) (test code = 51 mm Hg 41-51 755) PO2 VENOUS (BEAKER) (test code = 181 mm Hg 25-40 H 702) O2 SATURATION VENOUS (BEAKER) 99.3 % 40.0-70.0 H (test code = 703) HCO3 VENOUS (BEAKER) (test code = 35 mmol/L 21-29 H 705) BASE EXCESS VENOUS (BEAKER) (test 9.3 mmol/L -2.0-3.0 H code = 704) PATIENT TEMPERATURE (BEAKER) (test 37.0 code = 1818) FIO2 (BEAKER) (test code = 1819) 21.0 CALCIUM, [id number] 04:42:03 Test Item Value Reference Range Interpretation Comments CALCIUM IONIZED (BEAKER) (test 1.03 mmol/L 1.12-1.27 L code = 698) PH, BLOOD (BEAKER) (test code = 7.45 1810) RAD, CHEST, 1 VIEW, NON [id number] 02:44:00Reason for exam:- >intubationShould this be performed at the bedside?->Yes [facility] 1960 Sex: FFINAL REPORT EXAM/TECHNIQUE: Single view frontal radiograph of the chest. INDICATION: Intubation COMPARISON: None. FINDINGS: Devices/Objects: None. Lungs: Similar bilateral pleural effusions. No visible pneumothorax. Heart/Mediastinum: Similar cardiomegaly. Osseous: No acute osseous process. No suspicious osseous lesion. Upper abdomen: Unremarkable. Impression: Similar pleural effusions.Signed: Arie Topete [facility] Verified Date/Time: 10/24/2021 02:44:45 POCT-GLUCOSE [id number] 23:45:16 Test Item Value Reference Range Interpretation Comments POC-GLUCOSE METER 164 mg/dL 70-110 H : TESTED A T [facility] 6720 (BEAKER) (test code [facility], = 1538) [address]: Section Hand/Techni mariama ID = [id number] for SUGU , HALLEENAMOL POCT-GLUCOSE [id number] 18:34:33 Test Item Value Reference Range Interpretation Comments POC-GLUCOSE METER 195 mg/dL 70-110 H : TESTED A T [facility] 6720 (BEAKER) (test code = WILFRIDO Braun [facility], 1538) [address]: Section Hand/Techni mariama ID = [id number] for Ava Nesbitt [id number] 13:33:06 Test Item Value Reference Range Interpretation Comments PHOSPHORUS (BEAKER) 3.8 mg/dL 2.3-4.7 Specimen moderately (test code = 604) hemolyzed Section Hand ID - JC MBASIC METABOLIC [id number] 13:33:06 Test Item Value Reference Range Interpretation Comments SODIUM (BEAKER) 145 meq/L 136-145 (test code = 381) POTASSIUM (BEAKER) 4.4 meq/L 3.5-5.1 Specimen moderately (test code = 379) hemolyzed CHLORIDE (BEAKER) 101 meq/L 98-107 (test code = 382) CO2 (BEAKER) (test 32 meq/L 22-29 H code = 355) BLOOD UREA NITROGEN 47 mg/dL 7-21 H (BEAKER) (test code = 354) CREATININE (BEAKER) 1.04 mg/dL 0.57-1.25 Specimen moderately (test code = 358) hemolyzed GLUCOSE RANDOM 126 mg/dL 70-105 H (BEAKER) (test code = 652) CALCIUM (BEAKER) 9.6 mg/dL 8.4-10.2 (test code = 697) EGFR (BEAKER) (test 54 mL/min/1.73 ESTIMA CRISSY GFR IS code = 1092) sq m NOT ACCURATE CREATININE CLEARANCE IN PREDICTING GLOMERULAR FILTRATION RATE . ESTIMATED GFR I S NOT APPLICABLE FOR DIALYSIS PATIEN TS. Section Hand ID - JC [id number] 13:33:05 Test Item Value Reference Range Interpretation Comments MAGNESIUM (BEAKER) 2.4 mg/dL 1.6-2.6 Specimen moderately (test code = 627) hemolyzed Section Hand ID - JC MPOCT-GLUCOSE [id number] 12:09:22 Test Item Value Reference Range Interpretation Comments POC-GLUCOSE METER 138 mg/dL 70-110 H : TESTED A T [facility] 6720 (BEAKER) (test code = [facility], 1538) [address]: Section Hand/Techni mariama ID = [id number] for Solomon sunshine Harrison CALCIUM, [id number] 12:09:04 Test Item Value Reference Range Interpretation Comments CALCIUM IONIZED (BEAKER) (test 1.10 mmol/L 1.12-1.27 L code = 698) PH, BLOOD (BEAKER) (test code = 7.44 1810) MRSA [id number] 09:04:37 Test Item Value Reference Range Interpretation Comments Result (test code = 6463-4) No MRSA isolated [facility] [id number] 09:04:37 Test Item Value Reference Range Interpretation Comments CULTURE (BEAKER) (test code No MRSA isolated = 1095) Urine [id number] 08:34:33 Test Item Value Reference Range Interpretation Comments Result (test code = 6463-4) No growth [facility] [id number] 06:09:18 Test Item Value Reference Range Interpretation Comments POC-GLUCOSE METER 179 mg/dL 70-110 H : TESTED A T [facility] 6720 (BEAKER) (test code = [facility], 1538) [address]: Section Hand/Techni mariama ID = [id number] for SA ANDREANA, BORA Hepatitis panel, [id number] 04:27:50 Test Item Value Reference Range Interpretation Comments Hep A IgM (test code = Nonreactive Nonreactive 81948-0) Hep B C IgM (test code = Nonreactive Nonreactive 31138-1) Hepatitis C Ab (test Nonreactive Nonreactive code = 58893-9) Hepatitis B surface Nonreactive Nonreactive antigen (test code = 5195-3) HERMAN (test code = HERMAN) Section Hand ID - JC M Lab Interpretation (test Normal code = 39112-7) [facility], [id number] 04:27:50 Test Item Value Reference Range Interpretation Comments HEPATITIS A IGM ANTIBODY (BEAKER) Nonreactive Nonreactive (test code = 498) HEPATITIS B CORE IGM ANTIBODY Nonreactive Nonreactive (BEAKER) (test code = 645) HEPATITIS C ANTIBODY (BEAKER) Nonreactive Nonreactive (test code = 367) HEPATITIS B SURFACE ANTIGEN (2) Nonreactive Nonreactive (BEAKER) (test code = 2585) Section Hand ID - JC MB-TYPE NATRIURETIC FACTOR (BNP)2021-10-23 04:14:46 Test Item Value Reference Range Interpretation Comments B-TYPE NATRIURETIC PEPTIDE 1780 pg/mL 0-100 H (BEAKER) (test code = 700) Section Hand ID - JC MBASIC METABOLIC [id number] 04:08:04 Test Item Value Reference Range Interpretation Comments SODIUM (BEAKER) 147 meq/L 136-145 H (test code = 381) POTASSIUM (BEAKER) 3.8 meq/L 3.5-5.1 Specimen slightly (test code = 379) hemolyzed CHLORIDE (BEAKER) 103 meq/L 98-107 (test code = 382) CO2 (BEAKER) (test 31 meq/L 22-29 H code = 355) BLOOD UREA NITROGEN 40 mg/dL 7-21 H (BEAKER) (test code = 354) CREATININE (BEAKER) 1.05 mg/dL 0.57-1.25 Specimen slightly (test code = 358) hemolyzed GLUCOSE RANDOM 171 mg/dL 70-105 H (BEAKER) (test code = 652) CALCIUM (BEAKER) 9.3 mg/dL 8.4-10.2 (test code = 697) EGFR (BEAKER) (test 53 mL/min/1.73 ESTIMA CRISSY GFR IS code = 1092) sq m NOT ACCURATE CREATININE CLEARANCE IN PREDICTING GLOMERULAR FILTRATION RATE . ESTIMATED GFR I S NOT APPLICABLE FOR DIALYSIS PATIEN TS. Section Hand ID - JC MHEPATIC FUNCTION [id number] 04:08:04 Test Item Value Reference Range Interpretation Comments TOTAL PROTEIN (BEAKER) 7.9 gm/dL 6.0-8.3 Speci men slightly (test code = 770) hemolyzed ALBUMIN (BEAKER) (test 3.3 g/dL 3.5-5.0 L Speci men slightly code = 1145) hemolyzed BILIRUBIN TOTAL 2.0 mg/dL 0.2-1.2 H Specimen sli ghtly (BEAKER) (test code = hemoly zed 377) BILIRUBIN DIRECT 1.0 mg/dL 0.1-0.5 H Specimen sl ightly (BEAKER) (test code = hemoly zed 706) ALKALINE PHOSPHATASE 137 U/L 40-150 (BEAKER) (test code = 346) AST (SGOT) (BEAKER) 474 U/L 5-34 H Specimen slightly (test code = 353) hemolyzed ALT (SGPT) (BEAKER) 1277 U/L 6-55 H Specimen slightly (test code = 347) hemolyzed Section Hand ID - JC [id number] 04:08:03 Test Item Value Reference Range Interpretation Comments PHOSPHORUS (BEAKER) 3.0 mg/dL 2.3-4.7 Specimen slightly (test code = 604) hemolyzed Section Hand ID - JC [id number] 04:08:02 Test Item Value Reference Range Interpretation Comments MAGNESIUM (BEAKER) 2.4 mg/dL 1.6-2.6 Specimen slightly (test code = 627) hemolyzed Section Hand ID - JC MCBC W/PLT COUNT & AUTO [id number] 03:56:20 Test Item Value Reference Range Interpretation Comments WHITE BLOOD CELL COUNT (BEAKER) 12.6 K/ L 3.5-10.5 H (test code = 775) RED BLOOD CELL COUNT (BEAKER) 5.11 M/ L 3.93-5.22 (test code = 761) HEMOGLOBIN (BEAKER) (test code = 14.6 GM/DL 11.2-15.7 410) HEMATOCRIT (BEAKER) (test code = 46.7 % 34.1-44.9 H 411) MEAN CORPUSCULAR VOLUME (BEAKER) 91.4 fL 79.4-94.8 (test code = 753) MEAN CORPUSCULAR HEMOGLOBIN 28.6 pg 25.6-32.2 (BEAKER) (test code = 751) MEAN CORPUSCULAR HEMOGLOBIN CONC 31.3 GM/DL 32.2-35.5 L (BEAKER) (test code = 752) RED CELL DISTRIBUTION WIDTH 20.1 % 11.7-14.4 H (BEAKER) (test code = 412) PLATELET COUNT (BEAKER) (test 164 K/CU MM 150-450 code = 756) MEAN PLATELET VOLUME (BEAKER) 10.4 fL 9.4-12.3 (test code = 754) NUCLEATED RED BLOOD CELLS 0 /100 WBC 0-0 (BEAKER) (test code = 413) NEUTROPHILS RELATIVE PERCENT 82 % (BEAKER) (test code = 429) LYMPHOCYTES RELATIVE PERCENT 11 % (BEAKER) (test code = 430) MONOCYTES RELATIVE PERCENT 6 % (BEAKER) (test code = 431) EOSINOPHILS RELATIVE PERCENT 0 % (BEAKER) (test code = 432) BASOPHILS RELATIVE PERCENT 0 % (BEAKER) (test code = 437) NEUTROPHILS ABSOLUTE COUNT 10.35 K/ L 1.56-6.13 H (BEAKER) (test code = 670) LYMPHOCYTES ABSOLUTE COUNT 1.44 K/ L 1.18-3.74 (BEAKER) (test code = 414) MONOCYTES ABSOLUTE COUNT (BEAKER) 0.72 K/ L 0.24-0.36 H (test code = 415) EOSINOPHILS ABSOLUTE COUNT 0.01 K/ L 0.04-0.36 L (BEAKER) (test code = 416) BASOPHILS ABSOLUTE COUNT (BEAKER) 0.02 K/ L 0.01-0.08 (test code = 417) IMMATURE GRANULOCYTES-RELATIVE 0 % 0-1 PERCENT (BEAKER) (test code = 2801) BLOOD GAS, [id number] 03:54:42 Test Item Value Reference Range Interpretation Comments PH VENOUS (BEAKER) (test code = 7.53 7.32-7.42 H 701) PCO2 VENOUS (BEAKER) (test code = 42 mm Hg 41-51 755) PO2 VENOUS (BEAKER) (test code = 74 mm Hg 25-40 H 702) O2 SATURATION VENOUS (BEAKER) 96.2 % 40.0-70.0 H (test code = 703) HCO3 VENOUS (BEAKER) (test code = 34 mmol/L 21-29 H 705) BASE EXCESS VENOUS (BEAKER) (test 10.4 mmol/L -2.0-3.0 H code = 704) PATIENT TEMPERATURE (BEAKER) 37.0 (test code = 1818) FIO2 (BEAKER) (test code = 1819) 21.0 CALCIUM, [id number] 03:54:42 Test Item Value Reference Range Interpretation Comments CALCIUM IONIZED (BEAKER) (test 1.11 mmol/L 1.12-1.27 L code = 698) PH, BLOOD (BEAKER) (test code = 7.53 1810) RAD, CHEST, 1 VIEW, NON [id number] 03:47:00Reason for exam:- >intubationShould this be performed at the bedside?->Yes [facility] : 1960 Sex: FFINAL REPORT EXAM/TECHNIQUE: Single view frontal radiograph of the chest. INDICATION: Intubation. COMPARISON: 10/22/2021 FINDINGS: Devices/Objects: Stable. Lungs: Similar left pleural effusion. Heart/Mediastinum: Similar cardiomegaly. Osseous: No acute osseous process. No suspicious osseous lesion. Upper abdomen: Unremarkable. Impression: Similar left pleural effusion. Signed: Arie Topete [facility] Verified Date/Time: 10/23/2021 03:47:07 Electronically signed by: ARIE TOPETE MD on10/23/2021 03:47 AMPOCT-GLUCOSE [id number] 23:45:35 Test Item Value Reference Range Interpretation Comments POC-GLUCOSE METER 255 mg/dL 70-110 H : TESTED A T [facility] 6720 (BEAKER) (test [facility] = [facility]) [address]: Section Hand/Techni mariama ID = [id number] for COURTNEY LUCEROMOL [id number] 20:48:21 Test Item Value Reference Range Interpretation Comments PHOSPHORUS (BEAKER) (test code = 2.6 mg/dL 2.3-4.7 604) Section Hand ID - [id number] 20:48:20 Test Item Value Reference Range Interpretation Comments MAGNESIUM (BEAKER) (test code = 2.3 mg/dL 1.6-2.6 627) Section Hand ID - BSBASIC METABOLIC [id number] 20:48:19 Test Item Value Reference Range Interpretation Comments SODIUM (BEAKER) 145 meq/L 136-145 (test code = 381) POTASSIUM (BEAKER) 3.9 meq/L 3.5-5.1 (test code = 379) CHLORIDE (BEAKER) 105 meq/L 98-107 (test code = 382) CO2 (BEAKER) (test 33 meq/L 22-29 H code = 355) BLOOD UREA NITROGEN 38 mg/dL 7-21 H (BEAKER) (test code = 354) CREATININE (BEAKER) 1.12 mg/dL 0.57-1.25 (test code = 358) GLUCOSE RANDOM 289 mg/dL 70-105 H (BEAKER) (test code = 652) CALCIUM (BEAKER) 8.6 mg/dL 8.4-10.2 (test code = 697) EGFR (BEAKER) (test 49 mL/min/1.73 ESTIMA CRISSY GFR IS code = 1092) sq m NOT ACCURATE CREATININE CLEARANCE IN PREDICTING GLOMERULAR FILTRATION RATE . ESTIMATED GFR I S NOT APPLICABLE FOR DIALYSIS PATIEN TS. Section Hand ID - BSCALCIUM, [id number] 20:27:03 Test Item Value Reference Range Interpretation Comments CALCIUM IONIZED (BEAKER) (test 1.05 mmol/L 1.12-1.27 L code = 698) PH, BLOOD (BEAKER) (test code = 7.51 1810) POCT-GLUCOSE [id number] 18:00:09 Test Item Value Reference Range Interpretation Comments POC-GLUCOSE METER 285 mg/dL 70-110 H : TESTED A T [facility] 6720 (BEAKER) (test code = WILFRIDO Braun [facility], 1538) [address]: Section Hand/Techni mariama ID = [id number] for Al i, Alma 2D Echo W/Doppler(CW/PW/Color)2021-10-22 17:11:02Ejection FractionSLEH ECHO HEARTLAB MKCKESSON [facility] [id number] 13:29:30 Test Item Value Reference Range Interpretation Comments POC-GLUCOSE METER 258 mg/dL 70-110 H : TESTED A T [facility] 6720 (BEAKER) (test code = WILFRIDO Braun [facility], 1538) [address]: Section Hand/Techni mariama ID = [id number] for Al i, Alma [id number] 13:23:40 Test Item Value Reference Range Interpretation Comments PHOSPHORUS (BEAKER) (test code = 2.5 mg/dL 2.3-4.7 604) Section Hand ID - JC MBASIC METABOLIC [id number] 13:23:39 Test Item Value Reference Range Interpretation Comments SODIUM (BEAKER) 145 meq/L 136-145 (test code = 381) POTASSIUM (BEAKER) 4.5 meq/L 3.5-5.1 (test code = 379) CHLORIDE (BEAKER) 108 meq/L 98-107 H (test code = 382) CO2 (BEAKER) (test 28 meq/L 22-29 code = 355) BLOOD UREA NITROGEN 36 mg/dL 7-21 H (BEAKER) (test code = 354) CREATININE (BEAKER) 1.01 mg/dL 0.57-1.25 (test code = 358) GLUCOSE RANDOM 289 mg/dL 70-105 H (BEAKER) (test code = 652) CALCIUM (BEAKER) 8.5 mg/dL 8.4-10.2 (test code = 697) EGFR (BEAKER) (test 55 mL/min/1.73 ESTIMA CRISSY GFR IS code = 1092) sq m NOT ACCURATE CREATININE CLEARANCE IN PREDICTING GLOMERULAR FILTRATION RATE . ESTIMATED GFR I S NOT APPLICABLE FOR DIALYSIS PATIEN TS. Section Hand ID - JC [id number] 13:23:39 Test Item Value Reference Range Interpretation Comments MAGNESIUM (BEAKER) (test code = 2.3 mg/dL 1.6-2.6 627) Section Hand ID - JC MCALCIUM, [id number] 12:58:29 Test Item Value Reference Range Interpretation Comments CALCIUM IONIZED (BEAKER) (test 1.14 mmol/L 1.12-1.27 code = 698) PH, BLOOD (BEAKER) (test code = 7.45 1810) VANCOMYCIN LEVEL, [id number] 10:25:18 Test Item Value Reference Range Interpretation Comments VANCOMYCIN TROUGH (BEAKER) (test 12.0 ug/mL 10.0-20.0 code = 522) Section Hand ID - JC MRAD, CHEST, 1 VIEW, NON [id number] 07:28:00Reason for exam:->intubationShould this be performed at the bedside?->Yes [facility] : 1960 Sex: FFINAL REPORT RAD, CHEST, 1 VIEW, NON DEPT INDICATION: intubation COMPARISON: Prior day's exam FINDINGS: Portable frontal view of the chest. IMPRESSION: Support Lines: Stable. Lungs and pleura: Unchanged interstitial edema. Small bilateral effusions. No pneumothorax.Heart and mediastinum: Stable contours. Additional findings: None. Signed: JR Herman Robert MDReport Verified Date/Time: 10/22/2021 07:28:35 Reading Location: [facility] Radiology Reading Room Electronically signedby: ELISE HERMAN on 10/22/2021 07:28 AMPOCT-GLUCOSE [id number] 05:47:22 Test Item Value Reference Range Interpretation Comments POC-GLUCOSE METER 165 mg/dL 70-110 H : [facility] ([facility] (test code = WILFRIDO CH[place], 1538) [address]: Section Hand/Techni mariama ID = [id number] for BORA LOZANO [id number] 03:16:54 Test Item Value Reference Range Interpretation Comments PHOSPHORUS (BEAKER) (test code = 2.6 mg/dL 2.3-4.7 604) Section Hand ID - JC MHEPATIC FUNCTION [id number] 03:16:54 Test Item Value Reference Range Interpretation Comments TOTAL PROTEIN (BEAKER) (test code = 6.5 gm/dL 6.0-8.3 770) ALBUMIN (BEAKER) (test code = 1145) 2.8 g/dL 3.5-5.0 L BILIRUBIN TOTAL (BEAKER) (test code 2.3 mg/dL 0.2-1.2 H = 377) BILIRUBIN DIRECT (BEAKER) (test 1.5 mg/dL 0.1-0.5 H code = 706) ALKALINE PHOSPHATASE (BEAKER) (test 130 U/L 40-150 code = 346) AST (SGOT) (BEAKER) (test code = 740 U/L 5-34 H 353) ALT (SGPT) (BEAKER) (test code = 1264 U/L 6-55 H 347) Section Hand ID - JC [id number] 03:16:53 Test Item Value Reference Range Interpretation Comments MAGNESIUM (BEAKER) (test code = 2.2 mg/dL 1.6-2.6 627) Section Hand ID - JC MBASIC METABOLIC [id number] 03:16:52 Test Item Value Reference Range Interpretation Comments SODIUM (BEAKER) 145 meq/L 136-145 (test code = 381) POTASSIUM (BEAKER) 3.4 meq/L 3.5-5.1 L (test code = 379) CHLORIDE (BEAKER) 105 meq/L 98-107 (test code = 382) CO2 (BEAKER) (test 29 meq/L 22-29 code = 355) BLOOD UREA NITROGEN 31 mg/dL 7-21 H (BEAKER) (test code = 354) CREATININE (BEAKER) 1.00 mg/dL 0.57-1.25 (test code = 358) GLUCOSE RANDOM 162 mg/dL 70-105 H (BEAKER) (test code = 652) CALCIUM (BEAKER) 9.1 mg/dL 8.4-10.2 (test code = 697) EGFR (BEAKER) (test 56 mL/min/1.73 ESTIMA CRISSY GFR IS code = 1092) sq m NOT ACCURATE CREATININE CLEARANCE IN PREDICTING GLOMERULAR FILTRATION RATE . ESTIMATED GFR I S NOT APPLICABLE FOR DIALYSIS PATIEN TS. Section Hand ID - JC MB-TYPE NATRIURETIC FACTOR (BNP)2021-10-22 02:55:50 Test Item Value Reference Range Interpretation Comments B-TYPE NATRIURETIC PEPTIDE (BEAKER) 701 pg/mL 0-100 H (test code = 700) Section Hand ID - JC MBLOOD GAS, [id number] 02:53:42 Test Item Value Reference Range Interpretation Comments PH VENOUS (BEAKER) (test code = 7.52 7.32-7.42 H 701) PCO2 VENOUS (BEAKER) (test code = 40 mm Hg 41-51 L 755) PO2 VENOUS (BEAKER) (test code = 78 mm Hg 25-40 H 702) O2 SATURATION VENOUS (BEAKER) 96.5 % 40.0-70.0 H (test code = 703) HCO3 VENOUS (BEAKER) (test code = 31 mmol/L 21-29 H 705) BASE EXCESS VENOUS (BEAKER) (test 7.8 mmol/L -2.0-3.0 H code = 704) PATIENT TEMPERATURE (BEAKER) (test 37.0 code = 1818) FIO2 (BEAKER) (test code = 1819) 100.0 CALCIUM, [id number] 02:50:28 Test Item Value Reference Range Interpretation Comments CALCIUM IONIZED (BEAKER) (test 1.12 mmol/L 1.12-1.27 code = 698) PH, BLOOD (BEAKER) (test code = 7.52 1810) CBC W/PLT COUNT & AUTO [id number] 02:43:44 Test Item Value Reference Range Interpretation Comments WHITE BLOOD CELL COUNT (BEAKER) 11.7 K/ L 3.5-10.5 H (test code = 775) RED BLOOD CELL COUNT (BEAKER) 4.69 M/ L 3.93-5.22 (test code = 761) HEMOGLOBIN (BEAKER) (test code = 13.6 GM/DL 11.2-15.7 410) HEMATOCRIT (BEAKER) (test code = 42.4 % 34.1-44.9 411) MEAN CORPUSCULAR VOLUME (BEAKER) 90.4 fL 79.4-94.8 (test code = 753) MEAN CORPUSCULAR HEMOGLOBIN 29.0 pg 25.6-32.2 (BEAKER) (test code = 751) MEAN CORPUSCULAR HEMOGLOBIN CONC 32.1 GM/DL 32.2-35.5 L (BEAKER) (test code = 752) RED CELL DISTRIBUTION WIDTH 19.8 % 11.7-14.4 H (BEAKER) (test code = 412) PLATELET COUNT (BEAKER) (test 150 K/CU MM 150-450 code = 756) MEAN PLATELET VOLUME (BEAKER) 10.4 fL 9.4-12.3 (test code = 754) NUCLEATED RED BLOOD CELLS 0 /100 WBC 0-0 (BEAKER) (test code = 413) NEUTROPHILS RELATIVE PERCENT 88 % (BEAKER) (test code = 429) LYMPHOCYTES RELATIVE PERCENT 8 % (BEAKER) (test code = 430) MONOCYTES RELATIVE PERCENT 4 % (BEAKER) (test code = 431) EOSINOPHILS RELATIVE PERCENT 0 % (BEAKER) (test code = 432) BASOPHILS RELATIVE PERCENT 0 % (BEAKER) (test code = 437) NEUTROPHILS ABSOLUTE COUNT 10.22 K/ L 1.56-6.13 H (BEAKER) (test code = 670) LYMPHOCYTES ABSOLUTE COUNT 0.93 K/ L 1.18-3.74 L (BEAKER) (test code = 414) MONOCYTES ABSOLUTE COUNT (BEAKER) 0.47 K/ L 0.24-0.36 H (test code = 415) EOSINOPHILS ABSOLUTE COUNT 0.00 K/ L 0.04-0.36 L (BEAKER) (test code = 416) BASOPHILS ABSOLUTE COUNT (BEAKER) 0.01 K/ L 0.01-0.08 (test code = 417) IMMATURE GRANULOCYTES-RELATIVE 0 % 0-1 PERCENT (BEAKER) (test code = 5171) POCT-GLUCOSE [id number] 00:15:31 Test Item Value Reference Range Interpretation Comments POC-GLUCOSE METER 149 mg/dL 70-110 H : TESTED A T [facility] 6720 (BEAKER) (test code = WILFRIDO CHOW [place], 1538) [address]: Section Hand/Techni mariama ID = [id number] for NINA SHORE BASIC METABOLIC [id number] 21:11:41 Test Item Value Reference Range Interpretation Comments SODIUM (BEAKER) 143 meq/L 136-145 (test code = 381) POTASSIUM (BEAKER) 5.1 meq/L 3.5-5.1 Specimen markedly (test code = 379) hemolyzed CHLORIDE (BEAKER) 103 meq/L 98-107 (test code = 382) CO2 (BEAKER) (test 29 meq/L 22-29 code = 355) BLOOD UREA NITROGEN 31 mg/dL 7-21 H (BEAKER) (test code = 354) CREATININE (BEAKER) 1.13 mg/dL 0.57-1.25 Specimen markedly (test code = 358) hemolyzed GLUCOSE RANDOM 166 mg/dL 70-105 H (BEAKER) (test code = 652) CALCIUM (BEAKER) 8.7 mg/dL 8.4-10.2 (test code = 697) EGFR (BEAKER) (test 49 mL/min/1.73 ESTIMA CRISSY GFR IS code = 1092) sq m NOT ACCURATE CREATININE CLEARANCE IN PREDICTING GLOMERULAR FILTRATION RATE . ESTIMATED GFR I S NOT APPLICABLE FOR DIALYSIS PATIEN TS. Section Hand ID - BSSpecimen slightly [id number] 21:11:40 Test Item Value Reference Range Interpretation Comments PHOSPHORUS (BEAKER) 3.1 mg/dL 2.3-4.7 Specimen markedly (test code = 604) hemolyzed Section Hand ID - [id number] 21:11:39 Test Item Value Reference Range Interpretation Comments MAGNESIUM (BEAKER) 2.3 mg/dL 1.6-2.6 Specimen markedly (test code = 627) hemolyzed Section Hand ID - BSCALCIUM, [id number] 21:03:29 Test Item Value Reference Range Interpretation Comments CALCIUM IONIZED (BEAKER) (test 1.06 mmol/L 1.12-1.27 L code = 698) PH, BLOOD (BEAKER) (test code = 7.50 1810) SARS-CoV2/RT-PCR (Asymptomatic ONLY)2021-10-21 20:05:48 Test Item Value Reference Range Interpretation Comments SARS-COV2/RT-PCR (test Negative Negative code = 35439-5) HERMAN (test code = HERMAN) Negative result for this test determines that SARS-CoV-2 RNA was not present in the specimen above the Limit of Detection (LOD). However, Negative results do not preclude SARS-CoV-2 infection and should not be used as the sole basis for treatment or patient management decisions. Negative results must be combined with clinical observations, patient history, and epidemiological information. A false negative result may occur if a specimen is improperly collected, transported, or handled. A false negative result should be considered if patient's recent exposures or clinical presentation indicate that COVID-19 (SARS-CoV-2) is likely and diagnostic tests for other causes of illness are negative. Re-testing should be considered in cases of suspected false negatives. The limit of detection for this assay is 100 copies/mL. This SARS-CoV-2 test is a real-time RT_PCR test intended for the qualitative detection of nucleic acid from SARS-CoV-2 in a nasopharyngeal swab specimen collected from individuals suspected of COVID-19 by their healthcare provider. This test has not been Food and Drug Administration (FDA) cleared or approved. This is a modified version of an approved Emergency Use Authorization (EUA) and is in the process of review by the FDA. Once authorized by the FDA, the issued EUA will be effective until the declaration that circumstances exist justifying the authorization of the emergency use of in vitro diagnostic tests for detection and/or diagnosis of COVID-19 is terminated under Section 564(b)(2) of the Act or the EUA is revoked under Section 564(g) of the Act. Testing was performed using the [employer] SARS-CoV-2 assay. Fact Sheet for Healthcare Providers:https://www.nia dupont/wilian/RT SARS-CoV-2 HCP Fact Sheet 51-694754.pdf Fact Sheet for Healthcare Patients:https://www.charline lang/wilian/RT SARS-CoV-2 Patient Fact Sheet EN 51-889781H1.pdf Lab Interpretation Normal (test code = 01874-8) [facility])2021-10-21 20:05:48 Test Item Value Reference Range Interpretation Comments SARS-COV2/RT-PCR (test code = Negative Negative 0124313) Negative result for this test determines that SARS-CoV-2 RNA was not present in the specimen above the Limit of Detection (LOD). However, Negative results do not preclude SARS-CoV-2 infection and should not be used as the sole basis for treatment or patient management decisions. Negative results must be combined with clinical observations, patient history, and epidemiological information. A false negative result may occur if a specimen is improperly collected, transported, or handled. A false negative result should be considered if patient's recent exposures or clinical presentation indicate that COVID-19 (SARS-CoV-2) is likely and diagnostic tests for other causes of illness are negative. Re-testing should be considered in cases of suspected false negatives.The limit of detection for this assay is 100 copies/mL.This SARS-CoV-2 test is a real-time RT_PCR test intended for the qualitative detection of nucleic acid from SARS-CoV-2 in a nasopharyngeal swab specimen collected from individuals suspected of COVID-19 by their healthcare provider.This test has not been Food and Drug Administration (FDA) cleared or approved. This is a modified version of an approved Emergency Use Authorization (EUA) and is in the process of review by the FDA. Once authorized by the FDA, the issued EUA will be effective until the declaration that circumstances exist justifying the authorization of the emergency use of in vitro diagnostic tests for detection and/or diagnosis of COVID-19 is terminated under Section 564(b)(2) of the Act or the EUA is revoked under Section 564(g) of the Act.Testing was performed using t geraldine [employer] SARS-CoV-2 assay.Fact Sheet for Healthcare Providers:https://www.Ventealapropriete.pierce/wilian/RT SARS-CoV-2 HCP Fact Sheet 51- 758201.pdfFact Sheet for Healthcare Patients:https://www.Ventealapropriete.pierce/wilian/RT SARS-CoV-2 Patient Fact Sheet EN 51-135065Y3.pdfPOCT-GLUCOSE [id number] 17:25:17 Test Item Value Reference Range Interpretation Comments POC-GLUCOSE METER 141 mg/dL 70-110 H : TESTED A T [facility] 6720 (BEAKER) (test code = WILFRIDO Braun [place], 1538) [address]: Section Hand/Techni mariama ID = [id number] for Amalia Carrasquillo POCT-GLUCOSE [id number] 13:45:52 Test Item Value Reference Range Interpretation Comments POC-GLUCOSE METER 158 mg/dL 70-110 H : TESTED A T [facility] 6720 (BEAKER) (test code = WILFRIDO Braun [place], 1538) [address]: Section Hand/Techni mariama ID = [id number] for Sonya Braun BASIC METABOLIC [id number] 13:08:16 Test Item Value Reference Range Interpretation Comments SODIUM (BEAKER) 145 meq/L 136-145 (test code = 381) POTASSIUM (BEAKER) 3.7 meq/L 3.5-5.1 (test code = 379) CHLORIDE (BEAKER) 102 meq/L 98-107 (test code = 382) CO2 (BEAKER) (test 30 meq/L 22-29 H code = 355) BLOOD UREA NITROGEN 30 mg/dL 7-21 H (BEAKER) (test code = 354) CREATININE (BEAKER) 0.99 mg/dL 0.57-1.25 (test code = 358) GLUCOSE RANDOM 67 mg/dL 70-105 L (BEAKER) (test code = 652) CALCIUM (BEAKER) 8.3 mg/dL 8.4-10.2 L (test code = 697) EGFR (BEAKER) (test 57 mL/min/1.73 ESTIMA CRISSY GFR IS code = 1092) sq m NOT ACCURATE CREATININE CLEARANCE IN PREDICTING GLOMERULAR FILTRATION RATE . ESTIMATED GFR I S NOT APPLICABLE FOR DIALYSIS PATIEN TS. Section Hand ID Gutierrez GONZLAEZ FSpecimen slightly [id number] 13:08:15 Test Item Value Reference Range Interpretation Comments PHOSPHORUS (BEAKER) (test code = 3.8 mg/dL 2.3-4.7 604) Section Hand ID Gutierrez GONZALEZ [id number] 13:08:14 Test Item Value Reference Range Interpretation Comments MAGNESIUM (BEAKER) (test code = 2.3 mg/dL 1.6-2.6 627) Section Hand ID Gutierrez GONZALEZ FCALCIUM, [id number] 12:36:08 Test Item Value Reference Range Interpretation Comments CALCIUM IONIZED (BEAKER) (test 1.03 mmol/L 1.12-1.27 L code = 698) PH, BLOOD (BEAKER) (test code = 7.48 1810) RAD, ABDOMEN/KUB, 1 VIEW [id number] 12:28:00Reason for exam:->ng positioningKA[facility]: MURPHYANNE Lyles : 1960 Sex: FFINAL REPORT RAD, ABDOMEN/KUB, 1 VIEW AP, RAD, ABDOMEN/KUB, 1 VIEW AP CLINICAL INDICATION: ng positioning COMPARISON: Less than an hour prior TECHNIQUE: Serial abdominal radiographs. IMPRESSION: A nasogastric tube side- port is well beyond the GE junction with distal tip projecting over the second duodenal segment. No bowel dilation is evident. Stable large colonic stool burden without evidence of pneumatosis. Signed: JR Herman Robert MDReport Verified Date/Time: 10/21/2021 12:28:29 Reading Location: [facility] Radiology Reading Room RAD, ABDOMEN/KUB, 1 VIEW [id number] 12:28:00Reason for exam:->ng positioning [facility] : 1960 Sex: FFINAL REPORT RAD, ABDOMEN/KUB, 1 VIEW AP, RAD, ABDOMEN/KUB, 1 VIEW AP CLINICAL INDICATION: ng positioning COMPARISON: Less than an hour prior TECHNIQUE: Serial abdominal radiographs. IMPRESSION: A nasogastric tube side- port is well beyond the GE junction with distal tip projecting over the second duodenal segment. No bowel dilation is evident. Stable large colonic stool burden without evidence of pneumatosis. Signed: JR Herman Robert MDReport Verified Date/Time: 10/21/2021 12:28:29 Reading Location: [facility] Radiology Reading Room POCT-GLUCOSE [id number] 12:02:59 Test Item Value Reference Range Interpretation Comments POC-GLUCOSE METER 70 mg/dL 70-110 : TESTED A T [facility] 6720 (BEAKER) (test code = W[place]FRIDO [place], 1538) [address]: Section Hand/Techni mariama ID = [id number] for Villa on (contract)Ludy RAD, ABDOMEN/KUB, 1 VIEW [id number] 11:33:00Reason for exam:->ng tube placementKA[facility]Name: AN[facility] ARRINGTON : 1960 Sex: FFINAL REPORT TECHNIQUE: One view of the abdomen. INDICATION: 61-year-old woman with nasogastric tube placement. COMPARISON: None. IMPRESSION:Nasogastric tube tip terminates over the expected region of the second duodenal segment. Nonobstructive bowel gas pattern. No acute osseous abnormality. Right femoral catheter in place. Signed: Estrellita Whaley Verified Date/Time: 111:33:21 2D Echo W/O Doppler(No Doppler)2021-10-21 07:16:53Ejection FractionSLEH ECHO HEARTLAB MKCKESSON [facility] HospitalRAD, CHEST, 1 VIEW, NON [id number] 07:05:00Reason for exam:->intubationShould this be performed at the bedside?->Yes [facility] : 1960 Sex: FFINAL REPORT RAD, CHEST, 1 VIEW, NON DEPT INDICATION: intubation COMPARISON: 8 hours prior FINDINGS: Portable frontal view of the chest. IMPRESSION: Limited by patient rotation.Support Lines: Stable. Lungs and pleura: Unchanged interstitial edema. Left retrocardiac opacity is stable. No p neumothorax.Heart and mediastinum: Stable contours. Additional findings: None. Signed: JR Herman Robert MDReport Verified Date/Time: 10/21/2021 07:05:33 Reading Location: [facility] Radiology Reading Room [id number] 05:25:23 Test Item Value Reference Range Interpretation Comments PHOSPHORUS (HUMPHREY) 1.5 mg/dL 2.3-4.7 LL Specimen slightly (test code = 604) hemolyzed Section Hand ID Gutierrez UBLL WPOCT-GLUCOSE [id number] 05:24:58 Test Item Value Reference Range Interpretation Comments POC-GLUCOSE METER 98 mg/dL 70-110 : TESTED A T [facility] 6720 (HUMPHREY) (test code = [place], 1538) [address]: Section Hand/Techni mariama ID = [id number] for Kevin Bashir High Sensitivity Troponin I ([facility]/Masha Only)2021-10-21 05:10:02 Test Item Value Reference Range Interpretation Comments Troponin I HS (test 44 pg/ml See_Comment H [Automa crissy code = 52154-2) message] The system which generated this result transmitted reference range : <=17. The reference range was not used to interpret this result as normal/abnormal . HERMAN (test code = Section Hand ID - JC HERMAN) Lysandae SHIRT HEMMER STAT High Sensitivity Troponin-I results should be used in conjunction with other diagnostic information such as ECG, clinical observations and information, and patient symptoms to aid in the diagnosis of DC. Lab Interpretation Abnormal (test code = 61072-4) [facility] TROPONIN [id number] 05:10:02 Test Item Value Reference Range Interpretation Comments HIGH SENSITIVITY 44 pg/ml See_Comment H [Automated message] TROPONIN I (test code = The system which [id number]) generated this result transmitted ref erence range: <=17. Th e reference range was not used to int erpret this result as normal/abnormal . Section Hand ID - JC Lysandae SHIRT HEMMER STAT High Sensitivity Troponin-I results should be used in conjunction with other diagnostic information such as ECG, clinical observations and information, and patient symptoms to aid in the diagnosis of DC.B-TYPE NATRIURETIC FACTOR (BNP)2021-10-21 05:09:45 Test Item Value Reference Range Interpretation Comments B-TYPE NATRIURETIC PEPTIDE 1457 pg/mL 0-100 H (HUMPHREY) (test code = 700) Section Hand ID - JC MHEPATIC FUNCTION [id number] 05:08:02 Test Item Value Reference Range Interpretation Comments TOTAL PROTEIN (BEAKER) 6.7 gm/dL 6.0-8.3 Speci men slightly (test code = 770) hemolyzed ALBUMIN (BEAKER) (test 2.9 g/dL 3.5-5.0 L Speci men slightly code = 1145) hemolyzed BILIRUBIN TOTAL 2.9 mg/dL 0.2-1.2 H Specimen sli ghtly (BEAKER) (test code = hemoly zed 377) BILIRUBIN DIRECT 1.6 mg/dL 0.1-0.5 H Specimen sl ightly (BEAKER) (test code = hemoly zed 706) ALKALINE PHOSPHATASE 147 U/L 40-150 (BEAKER) (test code = 346) AST (SGOT) (BEAKER) 1682 U/L 5-34 H Specimen slightly (test code = 353) hemolyzed ALT (SGPT) (BEAKER) 1565 U/L 6-55 H Specimen slightly (test code = 347) hemolyzed Section Hand [place]ON BULL WSpecimen slightly [id number] 05:08:01 Test Item Value Reference Range Interpretation Comments MAGNESIUM (BEAKER) 2.3 mg/dL 1.6-2.6 Specimen slightly (test code = 627) hemolyzed Section Hand [place] BULL WBASIC METABOLIC [id number] 05:08:01 Test Item Value Reference Range Interpretation Comments SODIUM (BEAKER) 143 meq/L 136-145 (test code = 381) POTASSIUM (BEAKER) 3.4 meq/L 3.5-5.1 L Specimen slightly (test code = 379) hemolyzed CHLORIDE (BEAKER) 102 meq/L 98-107 (test code = 382) CO2 (BEAKER) (test 29 meq/L 22-29 code = 355) BLOOD UREA NITROGEN 34 mg/dL 7-21 H (BEAKER) (test code = 354) CREATININE (BEAKER) 1.03 mg/dL 0.57-1.25 Specimen slightly (test code = 358) hemolyzed GLUCOSE RANDOM 93 mg/dL 70-105 (BEAKER) (test code = 652) CALCIUM (BEAKER) 8.5 mg/dL 8.4-10.2 (test code = 697) EGFR (BEAKER) (test 54 mL/min/1.73 ESTIMA CRISSY GFR IS code = 1092) sq m NOT ACCURATE CREATININE CLEARANCE IN PREDICTING GLOMERULAR FILTRATION RATE . ESTIMATED GFR I S NOT APPLICABLE FOR DIALYSIS PATIEN TS. Section Hand ID - ML WSpecimen slightly ictericCALCIUM, [id number] 04:53:23 Test Item Value Reference Range Interpretation Comments CALCIUM IONIZED (BEAKER) (test 1.03 mmol/L 1.12-1.27 L code = 698) PH, BLOOD (BEAKER) (test code = 7.42 1810) BLOOD GAS, [id number] 04:53:22 Test Item Value Reference Range Interpretation Comments PH VENOUS (BEAKER) (test code = 7.42 7.32-7.42 701) PCO2 VENOUS (BEAKER) (test code = 51 mm Hg 41-51 755) PO2 VENOUS (BEAKER) (test code = 49 mm Hg 25-40 H 702) O2 SATURATION VENOUS (BEAKER) 84.8 % 40.0-70.0 H (test code = 703) HCO3 VENOUS (BEAKER) (test code = 33 mmol/L 21-29 H 705) BASE EXCESS VENOUS (BEAKER) (test 6.7 mmol/L -2.0-3.0 H code = 704) PATIENT TEMPERATURE (BEAKER) (test 37.0 code = 1818) FIO2 (BEAKER) (test code = 1819) 21.0 CBC W/PLT COUNT & AUTO [id number] 04:50:30 Test Item Value Reference Range Interpretation Comments WHITE BLOOD CELL COUNT (BEAKER) 14.8 K/ L 3.5-10.5 H (test code = 775) RED BLOOD CELL COUNT (BEAKER) 5.03 M/ L 3.93-5.22 (test code = 761) HEMOGLOBIN (BEAKER) (test code = 14.2 GM/DL 11.2-15.7 410) HEMATOCRIT (BEAKER) (test code = 46.5 % 34.1-44.9 H 411) MEAN CORPUSCULAR VOLUME (BEAKER) 92.4 fL 79.4-94.8 (test code = 753) MEAN CORPUSCULAR HEMOGLOBIN 28.2 pg 25.6-32.2 (BEAKER) (test code = 751) MEAN CORPUSCULAR HEMOGLOBIN CONC 30.5 GM/DL 32.2-35.5 L (BEAKER) (test code = 752) RED CELL DISTRIBUTION WIDTH 19.7 % 11.7-14.4 H (BEAKER) (test code = 412) PLATELET COUNT (BEAKER) (test 173 K/CU MM 150-450 code = 756) MEAN PLATELET VOLUME (BEAKER) 9.8 fL 9.4-12.3 (test code = 754) NUCLEATED RED BLOOD CELLS 0 /100 WBC 0-0 (BEAKER) (test code = 413) NEUTROPHILS RELATIVE PERCENT 90 % (BEAKER) (test code = 429) LYMPHOCYTES RELATIVE PERCENT 6 % (BEAKER) (test code = 430) MONOCYTES RELATIVE PERCENT 3 % (BEAKER) (test code = 431) EOSINOPHILS RELATIVE PERCENT 0 % (BEAKER) (test code = 432) BASOPHILS RELATIVE PERCENT 0 % (BEAKER) (test code = 437) NEUTROPHILS ABSOLUTE COUNT 13.29 K/ L 1.56-6.13 H (BEAKER) (test code = 670) LYMPHOCYTES ABSOLUTE COUNT 0.87 K/ L 1.18-3.74 L (BEAKER) (test code = 414) MONOCYTES ABSOLUTE COUNT (BEAKER) 0.43 K/ L 0.24-0.36 H (test code = 415) EOSINOPHILS ABSOLUTE COUNT 0.05 K/ L 0.04-0.36 (BEAKER) (test code = 416) BASOPHILS ABSOLUTE COUNT (BEAKER) 0.04 K/ L 0.01-0.08 (test code = 417) IMMATURE GRANULOCYTES-RELATIVE 1 % 0-1 PERCENT (BEAKER) (test code = 2801) POCT-GLUCOSE [id number] 00:44:49 Test Item Value Reference Range Interpretation Comments POC-GLUCOSE METER 125 mg/dL 70-110 H : TESTED A T [facility] 6720 (BEAKER) (test code = WILFRIDO Braun [facility], 1538) [address]: Section Hand/Techni mariama ID = [id number] for Kevin Eisenberg POCT-GLUCOSE [id number] 00:00:31 Test Item Value Reference Range Interpretation Comments POC-GLUCOSE METER 70 mg/dL 70-110 : Notified RN/MD: TESTED (BEAKER) (test code = AT [facility] [address] 1538) [place], [address]: Section Hand/Techni mariama ID = [id number] for MOLLY DALEY HIGH SENSITIVITY TROPONIN [id number] 23:53:48 Test Item Value Reference Range Interpretation Comments HIGH SENSITIVITY 79 pg/ml See_Comment H [Automated message] TROPONIN I (test code = The system which [id number]) generated this result transmitted ref erence range: <=17. Th e reference range was not used to int erpret this result as normal/abnormal . Section Hand ID - DBThe SHIRT HEMMER STAT High Sensitivity Troponin-I results should be used in conjunctionwith other diagnostic information such as ECG, clinical observations and information, and patient symptoms to aid in the diagnosis of DC.[id number] 21:26:48 Test Item Value Reference Range Interpretation Comments MAGNESIUM (BEAKER) (test code = 2.1 mg/dL 1.6-2.6 627) Section Hand ID - [id number] 21:26:48 Test Item Value Reference Range Interpretation Comments PHOSPHORUS (BEAKER) (test code = 2.4 mg/dL 2.3-4.7 604) Section Hand ID - DBBASIC METABOLIC [id number] 20:38:43 Test Item Value Reference Range Interpretation Comments SODIUM (BEAKER) 141 meq/L 136-145 (test code = 381) POTASSIUM (BEAKER) 3.9 meq/L 3.5-5.1 (test code = 379) CHLORIDE (BEAKER) 103 meq/L 98-107 (test code = 382) CO2 (BEAKER) (test 28 meq/L 22-29 code = 355) BLOOD UREA NITROGEN 37 mg/dL 7-21 H (BEAKER) (test code = 354) CREATININE (BEAKER) 1.09 mg/dL 0.57-1.25 (test code = 358) GLUCOSE RANDOM 65 mg/dL 70-105 L (BEAKER) (test code = 652) CALCIUM (BEAKER) 8.1 mg/dL 8.4-10.2 L (test code = 697) EGFR (BEAKER) (test 51 mL/min/1.73 ESTIMA CRISSY GFR IS code = 1092) sq m NOT ACCURATE CREATININE CLEARANCE IN PREDICTING GLOMERULAR FILTRATION RATE . ESTIMATED GFR I S NOT APPLICABLE FOR DIALYSIS PATIEN TS. Section Hand ID - DBCBC W/PLT COUNT & AUTO [id number] 20:33:55 Test Item Value Reference Range Interpretation Comments WHITE BLOOD CELL COUNT (BEAKER) 14.3 K/ L 3.5-10.5 H (test code = 775) RED BLOOD CELL COUNT (BEAKER) 4.93 M/ L 3.93-5.22 (test code = 761) HEMOGLOBIN (BEAKER) (test code = 14.1 GM/DL 11.2-15.7 410) HEMATOCRIT (BEAKER) (test code = 45.9 % 34.1-44.9 H 411) MEAN CORPUSCULAR VOLUME (BEAKER) 93.1 fL 79.4-94.8 (test code = 753) MEAN CORPUSCULAR HEMOGLOBIN 28.6 pg 25.6-32.2 (BEAKER) (test code = 751) MEAN CORPUSCULAR HEMOGLOBIN CONC 30.7 GM/DL 32.2-35.5 L (BEAKER) (test code = 752) RED CELL DISTRIBUTION WIDTH 19.7 % 11.7-14.4 H (BEAKER) (test code = 412) PLATELET COUNT (BEAKER) (test 175 K/CU MM 150-450 code = 756) MEAN PLATELET VOLUME (BEAKER) 10.2 fL 9.4-12.3 (test code = 754) NUCLEATED RED BLOOD CELLS 0 /100 WBC 0-0 (BEAKER) (test code = 413) NEUTROPHILS RELATIVE PERCENT 89 % (BEAKER) (test code = 429) LYMPHOCYTES RELATIVE PERCENT 7 % (BEAKER) (test code = 430) MONOCYTES RELATIVE PERCENT 4 % (BEAKER) (test code = 431) EOSINOPHILS RELATIVE PERCENT 0 % (BEAKER) (test code = 432) BASOPHILS RELATIVE PERCENT 0 % (BEAKER) (test code = 437) NEUTROPHILS ABSOLUTE COUNT 12.68 K/ L 1.56-6.13 H (BEAKER) (test code = 670) LYMPHOCYTES ABSOLUTE COUNT 1.02 K/ L 1.18-3.74 L (BEAKER) (test code = 414) MONOCYTES ABSOLUTE COUNT (BEAKER) 0.50 K/ L 0.24-0.36 H (test code = 415) EOSINOPHILS ABSOLUTE COUNT 0.02 K/ L 0.04-0.36 L (BEAKER) (test code = 416) BASOPHILS ABSOLUTE COUNT (BEAKER) 0.04 K/ L 0.01-0.08 (test code = 417) IMMATURE GRANULOCYTES-RELATIVE 1 % 0-1 PERCENT (BEAKER) (test code = 2801) BLOOD GAS, [id number] 20:23:57 Test Item Value Reference Range Interpretation Comments PH VENOUS (BEAKER) (test code = 7.37 7.32-7.42 701) PCO2 VENOUS (BEAKER) (test code = 55 mm Hg 41-51 H 755) PO2 VENOUS (BEAKER) (test code = 47 mm Hg 25-40 H 702) O2 SATURATION VENOUS (BEAKER) 81.2 % 40.0-70.0 H (test code = 703) HCO3 VENOUS (BEAKER) (test code = 31 mmol/L 21-29 H 705) BASE EXCESS VENOUS (BEAKER) (test 4.3 mmol/L -2.0-3.0 H code = 704) PATIENT TEMPERATURE (BEAKER) (test 37.0 code = 1818) FIO2 (BEAKER) (test code = 1819) 21.0 [id number] 19:58:30 Test Item Value Reference Range Interpretation Comments PHOSPHORUS (BEAKER) (test code = 3.6 mg/dL 2.3-4.7 604) Section Hand ID - DBHemoglobin [id number] 19:04:22 Test Item Value Reference Range Interpretation Comments Hemoglobin A1C (test code = 4548-4) 7.4 % 4.3-6.1 H Lab Interpretation (test code = Abnormal 86622-2) [facility] [id number] 19:04:22 Test Item Value Reference Range Interpretation Comments HEMOGLOBIN A1C (BEAKER) (test code = 7.4 % 4.3-6.1 H 368) Vitamin B12 and [id number] 18:35:52 Test Item Value Reference Range Interpretation Comments Vitamin B12 (test 1872 pg/mL 213-816 H code = 2132-9) Folate (test code = 35.50 ng/mL See_Comment [Automa crissy 2284-8) message] The system which generated this result transmitted reference range : >=7.00. The reference range was not used to interpret this result as normal/abnormal . HERMAN (test code = HERMAN) Section Hand ID - DBOperator ID - DB Lab Interpretation Abnormal (test code = 93494-6) [facility] AND [id number] 18:35:52 Test Item Value Reference Range Interpretation Comments VITAMIN B12 1872 pg/mL 213-816 H (BEAKER) (test code = 774) FOLATE (BEAKER) 35.50 ng/mL See_Comment [Automated message] (test code = 362) The system which generated this result transmitted ref erence range: >=7.00. The reference range was not used to interpr et this result as normal/abnormal . Section Hand ID - DBOperator ID - DBTSH/Free T4 If [id number] 18:35:21 Test Item Value Reference Range Interpretation Comments TSH (test code = 1.887 See_Comment [Automated 17334-6) message] The system which generated this result transmit crissy reference range : 0.350 - 4.940 uIU/mL. The reference range was not used to interpret this result as normal/abnormal . HERMAN (test code = HERMAN) Section Hand ID - DB Lab Interpretation Normal (test code = 20528-1) [facility] T4 IF [id number] 18:35:21 Test Item Value Reference Range Interpretation Comments THYROID STIMULATING HORMONE 1.887 uIU/mL 0.350-4.940 (BEAKER) (test code = 772) Section Hand ID - DBU/S, ABDOMINAL, [id number] 18:16:00Abdomen limited area? Add comment if clarification is needed.->LiverReason for exam:->AST/ALT 1 000s, concern for hepatitis vs. ischemic hepatopathy vs. cirrhosisShould this be performed at the bedside?->Yes [facility] 1960 Sex: FFINAL REPORT EXAM: Right upper quadrant abdominal ultrasound INDICATION: AST/ALT 1000s,concern for hepatitis vs. ischemic hepatopathy vs. cirrhosisCOMPARISON: None. TECHNIQUE: Transverse and longitudinal images of the right upper quadrant abdomen were obtained FINDINGS: Liver:Size: 14.6 cm in the right midclavicular line.Appearance: Normal echogenicity, smooth contourMass: No focal masses Gallbladder: The gallbladder is mildly distended to 5.0 cm transverse diameter with intraluminal stones. No wall thickening, pericholecystic fluid, or sonographic Amado's sign. Bile Ducts:Intrahepatic Ducts: No dilatationExtrahepatic Ducts: The common bile duct measures 3 mm.Pancreas:Visualized portions of the pancreatic head, neck and proximal body are normal. Kidney: The right kidney measures 10.9 cm without evidence of hydronephrosis or stone. Vessels:Aorta: Visualized portions are normalInferior Vena Cava: Visualized portions are normalMain Portal Vein: 1.1 cm, normal size with hepatopetal flow. Free Fluid:No ascites or pleural effusion IMPRESSION:Mildly distended gallbladder and cholelithiasis without specific sonographic evidence of cholecystitis. No acute sonographic abnormality of the l iver. Signed: Nabil Virgen MDReport Verified Date/Time: 10/20/2021 18:16:16 Reading Location: [address] Transitional Reading Room POCT-GLUCOSE [id number] 17:31:01 Test Item Value Reference Range Interpretation Comments POC-GLUCOSE METER 115 mg/dL 70-110 H : TESTED A T [facility] 6720 ([employer]) (test code = WILFRIDO Braun [facility], 1538) [address]: Section Hand/Techni mariama ID = [id number] for Sheila Zafar B-TYPE NATRIURETIC FACTOR (BNP)2021-10-20 17:21:46 Test Item Value Reference Range Interpretation Comments B-TYPE NATRIURETIC PEPTIDE 2735 pg/mL 0-100 H ([employer]) (test code = 700) Section Hand ID - DBHIGH SENSITIVITY TROPONIN [id number] 17:21:08 Test Item Value Reference Range Interpretation Comments HIGH SENSITIVITY 79 pg/ml See_Comment H [Automated message] TROPONIN I (test code = The system which [id number]) generated this result transmitted ref erence range: <=17. Th e reference range was not used to int erpret this result as normal/abnormal . Section Hand ID - DBThe SHIRT HEMMER STAT High Sensitivity Troponin-I results should be used in conjunctionwith other diagnostic information such as ECG, clinical observations and information, and patient symptoms to aid in the diagnosis of DC.Creatine Kinase (CK)2021-10-20 17:18:53 Test Item Value Reference Range Interpretation Comments Total CK (test code = 39 U/L 29-200 2157-6) HERMAN (test code = HERMAN) Section Hand ID - DB Lab Interpretation (test Normal code = 41355-6) [facility]AT[facility] [id number] 17:18:53 Test Item Value Reference Range Interpretation Comments TOTAL PROTEIN (BEAKER) (test code = 7.0 gm/dL 6.0-8.3 770) ALBUMIN (BEAKER) (test code = 1145) 3.1 g/dL 3.5-5.0 L BILIRUBIN TOTAL (BEAKER) (test code 2.5 mg/dL 0.2-1.2 H = 377) BILIRUBIN DIRECT (BEAKER) (test 1.6 mg/dL 0.1-0.5 H code = 706) ALKALINE PHOSPHATASE (BEAKER) (test 155 U/L 40-150 H code = 346) AST (SGOT) (BEAKER) (test code = 2260 U/L 5-34 H 353) ALT (SGPT) (BEAKER) (test code = 1564 U/L 6-55 H 347) Section Hand ID - DBCREATINE KINASE (CK)2021-10-20 17:18:53 Test Item Value Reference Range Interpretation Comments CREATINE KINASE TOTAL (BEAKER) (test 39 U/L 29-200 code = 380) Section Hand ID - DBBASIC METABOLIC [id number] 17:18:52 Test Item Value Reference Range Interpretation Comments SODIUM (BEAKER) 139 meq/L 136-145 (test code = 381) POTASSIUM (BEAKER) 3.1 meq/L 3.5-5.1 L (test code = 379) CHLORIDE (BEAKER) 99 meq/L 98-107 (test code = 382) CO2 (BEAKER) (test 29 meq/L code = 355) BLOOD UREA NITROGEN 39 mg/dL 7-21 H (BEAKER) (test code = 354) CREATININE (BEAKER) 1.18 mg/dL 0.57-1.25 (test code = 358) GLUCOSE RANDOM 128 mg/dL 70-105 H (BEAKER) (test code = 652) CALCIUM (BEAKER) 8.2 mg/dL 8.4-10.2 L (test code = 697) EGFR (BEAKER) (test 46 mL/min/1.73 ESTIMA CRISSY GFR IS code = 1092) sq m NOT ACCURATE CREATININE CLEARANCE IN PREDICTING GLOMERULAR FILTRATION RATE . ESTIMATED GFR I S NOT APPLICABLE FOR DIALYSIS PATIEN TS. Section Hand ID - [id number] 17:18:52 Test Item Value Reference Range Interpretation Comments MAGNESIUM (BEAKER) (test code = 2.2 mg/dL 1.6-2.6 627) Section Hand ID - DBProthrombin time/[id number] 17:11:22 Test Item Value Reference Interpretation Comments Range Protime (test code = 19.2 See_Comment H [Autom ated 5902-2) message] The system which generated this result transmitted reference range : 11.9 - 14.2 seconds. The reference range was not used to interpret this result as normal/abnormal . INR (test code = 1.64 See_Comment [Automated 0801-6) message] The system which generated this result transmitted reference range : <=5.90. The reference range was not used to interpret this result as normal/abnormal . HERMAN (test code = RECOMMENDED HERMAN) COUMADIN/WARFARIN INR THERAPY RANGESSTANDARD DOSE: 2.0 - 3.0 Includes: PROPHYLAXIS for venous thrombosis, systemic embolization; TREATMENT for venous thrombosis and/or pulmonary embolus.HIGH RISK: Target INR is 2.5-3.5 for patients with mechanical heart valves. Lab Interpretation Abnormal (test code = 11659-2) [facility] HospitalPROTHROMBIN TIME/[id number] 17:11:22 Test Item Value Reference Range Interpretation Comments PROTIME (BEAKER) 19.2 seconds 11.9-14.2 H (test code = 759) INR (BEAKER) (test 1.64 See_Comment [Automat ed message] code = 370) The system ic h generated this result transmitted ref erence range: <=5.90. The reference range was not used to int erpret this result as normal/abnormal . RECOMMENDED COUMADIN/WARFARIN INR THERAPY RANGESSTANDARD DOSE: 2.0 - 3.0 Includes: PROPHYLAXIS for venous thrombosis, systemic embolization; TREATMENT for venous thrombosis and/or pulmonary embolus.HIGH RISK: Target INR is 2.5-3.5 for patients with mechanical heart valves.Urinalysis w/Microscopic + Reflex to [id number] 17:02:07 Test Item Value Reference Range Interpretation Comments Color, UA (test code Yellow = 5778-6) Clarity, UA (test Hazy code = 5767-9) Specific [place], UA 1.010 1.001-1.035 (test code = 5811-5) pH, UA (test code = 6.0 5.0-8.0 5803-2) Protein, UA (test Negative Negative code = 09455-4) Glucose, UA (test Negative Negative code = 365) Ketones, UA (test 20 mg/dL Negative A code = 2514-8) Bilirubin, UA (test Negative Negative code = 77293-6) Blood, UA (test code Moderate Negative A = 25960-7) Nitrite, UA (test Negative Negative code = 5802-4) Leukocytes, UA (test Large Negative A code = 5799-2) Urobilinogen, UA 0.2 mg/dL 0.2-1.0 (test code = 11401-1) RBC, UA (test code = 14 See_Comment [Autom ated 47164-7) message] The system which generated this result transmitted reference range : /HPF. The reference range was not used to interpret this result as normal/abnormal . WBC, UA (test code = 23 See_Comment [Autom ated 5821-4) message] The system which generated this result transmitted reference range : /HPF. The reference range was not used to interpret this result as normal/abnormal . Bacteria, UA (test Occasional code = 56638-4) Mucus (test code = Rare 8247-9) Squam Epithel, UA <1 See_Comment [Automate d (test code = 58245-0) messag e] The system which generated this result transmitted reference range : /HPF. The reference range was not used to interpret this result as normal/abnormal . Hyaline Casts, UA 7 See_Comment [Automate d (test code = 61743-4) messag e] The system which generated this result transmitted reference range : /LPF. The reference range was not used to interpret this result as normal/abnormal . Granular Casts, UA 3 See_Comment [Automat ed (test code = 5793-5) message ] The system which generated this result transmitted reference range : /LPF. The reference range was not used to interpret this result as normal/abnormal . Crystals, Urine (test None Seen code = 95100-7) Specimen Source (test code = 2795) HERMAN (test code = HERMAN) Section Hand ID - [auto]Section Hand ID - tech Lab Interpretation Abnormal (test code = 42018-6) [facility]/ REFLEX URINE [id number] 17:02:07 Test Item Value Reference Range Interpretation Comments COLOR (BEAKER) (test code = 470) Yellow CLARITY (BEAKER) (test code = 469) Hazy SPECIFIC GRAVITY UA (BEAKER) (test 1.010 1.001-1.035 code = 468) PH UA (BEAKER) (test code = 467) 6.0 5.0-8.0 PROTEIN UA (BEAKER) (test code = Negative Negative 464) GLUCOSE UA (BEAKER) (test code = Negative Negative 365) KETONES UA (BEAKER) (test code = 20 mg/dL Negative A 371) BILIRUBIN UA (BEAKER) (test code = Negative Negative 462) BLOOD UA (BEAKER) (test code = Moderate Negative A 461) NITRITE UA (BEAKER) (test code = Negative Negative 465) LEUKOCYTE ESTERASE UA (BEAKER) Large Negative A (test code = 466) UROBILINOGEN UA (BEAKER) (test 0.2 mg/dL 0.2-1.0 code = 463) RBC UA (BEAKER) (test code = 519) 14 /HPF WBC UA (BEAKER) (test code = 520) 23 /HPF BACTERIA (BEAKER) (test code = Occasional 517) MUCUS (BEAKER) (test code = 1574) Rare SQUAMOUS EPITHELIAL (BEAKER) (test < /HPF code = 516) HYALINE CASTS (BEAKER) (test code 7 /LPF = 514) GRANULAR CASTS (BEAKER) (test code 3 /LPF = 515) CRYSTALS, URINE (BEAKER) (test None Seen code = 1521) SOURCE(BEAKER) (test code = 2795) Section Hand ID - [auto]Section Hand ID - techBlood gas, [id number] 16:51:02 Test Item Value Reference Range Interpretation Comments pH, Arterial (test code 7.40 7.35-7.45 = 2744-1) pCO2, Arterial (test 47 See_Comment H [Autom ated message] code = 2019-8) The system [facility] generated this result transmit crissy reference range : 35 - 45 mm Hg. The reference range was not used to interpret this result as normal/abnormal . pO2, Arterial (test 93 See_Comment H [Automa crissy message] code = 2703-7) The system [facility] generated this result transmit crissy reference range : 80 - 90 mm Hg. The reference range was not used to interpret this result as normal/abnormal . O2 Sat, Arterial (test 97.0 % 96.0-97.0 code = 2708-6) HCO3, Arterial (test 28 mmol/L code = 1960-4) Base Excess, Arterial 2.4 mmol/L -2.0-3.0 (test code = 1925-7) Patient Temperature 37.1 (test code = 8310-5) FIO2 (test code = 1819) 70 Lab Interpretation Abnormal (test code = 37086-3) [facility] Hospital[facility] GAS, [id number] 16:51:02 Test Item Value Reference Range Interpretation Comments PH ARTERIAL (BEAKER) (test code = 7.40 7.35-7.45 383) PCO2 ARTERIAL (BEAKER) (test code 47 mm Hg 35-45 H = 384) PO2 ARTERIAL (BEAKER) (test code = 93 mm Hg 80-90 H 385) O2 SATURATION ARTERIAL (BEAKER) 97.0 % 96.0-97.0 (test code = 386) HCO3 ARTERIAL (BEAKER) (test code 28 mmol/L -29 = 388) BASE EXCESS ARTERIAL (BEAKER) 2.4 mmol/L -2.0-3.0 (test code = 387) PATIENT TEMPERATURE (BEAKER) (test 37.1 code = 1818) FIO2 (BEAKER) (test code = 1819) 70.0 RAD, CHEST, 1 VIEW, NON [id number] 16:32:00Reason for exam:- >intubationShould this be performed at the bedside?->Yes [facility] 1960 Sex: FFINAL REPORT Exam: RAD, CHEST, 1 VIEW, NON DEPTDate: 10/20/2021 4:30 PM Indication: Intubation Comparison: None FINDINGS: Lines/Tubes:Endotracheal tube terminates 3.9 cm above the vinicius.Enteric tube projects below the diaphragm and out of view. EKG leads overlie the chest. Lungs:The right lung is hyperinflated. Left lung volume is relatively low. There is perihilar fullness and indisti nctness of the pulmonary vasculature. There is left basilar opacity silhouetting the left aracely diaphragm. Pleura: Moderate left pleural effusion. No pneumothorax. Heart/Mediastinum:The cardiomediastinal silhouette is normal in size and contour. Bones/Soft Tissues: No acute osseous injury. Abdomen: No free air below the diaphragm. IMPRESSION:Lines and tubes as above. Pulmonary interstitial edema and moderate left pleural effusion. Left basilar airspace opacities may represent associated atelectasis versus superimposed aspiration or pneumonia. Signed: Nabil Virgeneport Verified Date/Time: 10/20/2021 16:32:37 Reading Location: [facility] B1 C013T Transitional Reading Room
--- NOTE | 2022-07-29 15:29 | RAD REPORT ---
EXAM DESCRIPTION: RAD - Chest Single View - 07/29/2022 3:19 pm CLINICAL HISTORY: FEVER Chest pain. COMPARISON: Chest Single View dated 10/20/2021; Chest Single View dated 10/13/2021; Chest Single Vie w dated 10/08/2021; Chest Single View dated 10/05/2021 FINDINGS: Portable technique limits examination quality. The lungs are emphysematous but grossly clear. The heart is upper limit normal in size. No displaced fractures. IMPRESSION: Mild diffuse COPD.
[2022-07-29 15:46] LABS: Absolute Lymphocytes (CBC) 0.8 K/uL (0.7-4.9); Hematocrit 47.1 % (36.0-45.0); Lymphocytes % 7.7 % (15.3-44.8); MCV 90.9 fL (80-100); MPV 8.3 fL (7.6-11.3); RBC Red Blood Cell Count 5.18 M/uL (3.86-4.86)
[2022-07-29 15:50] LABS: Protime INR 1.17
[2022-07-29 16:40] LABS: Albumin 3.6 g/dL (3.4-5.0); Bilirubin Total 0.2 mg/dL (0.2-1.0); Protein, Total 7.7 g/dL (6.4-8.2); Troponin High Sensitivity 25.9 pg/mL (<58.9)
--- NOTE | 2022-07-29 18:51 | ER ---
Nurse's Notes [facility] Name: Ruth Drake Age: 62 yrs Sex: Female : 1960 Arrival Date: 07/29/2022 Time: 14:22 Bed 12 Private MD: Diagnosis: Influenza Presentation: 07/29 14:58 Chief complaint: Patient states: Pt reports cough x3 days with thin clear secretion and kb3 fever that began yesterday. Temp max 100.9. Pt reports she is currently on antibiotics for a UTI x3 days. Coronavirus screen: Vaccine status: Patient reports being unvaccinated. Client denies travel out of the [place] in the last 14 days. Ebola Screen: Patient negative for fever greater than or equal to 101.5 degrees Fahrenheit, and additional compatible Ebola Virus Disease symptoms Patient denies exposure to infectious person. Patient denies travel to an Ebola-affected area in the 21 days before illness onset. Initial Sepsis Screen: Does the patient meet any 2 criteria? No. Patient's initial sepsis screen is negative. Does the patient have a suspected source of infection? No. Patient's initial sepsis screen is negative. Risk Assessment: Do you want to hurt yourself or someone else? Patient reports no desire to harm self or others. Onset of symptoms was July 26, 2022. 14:58 Method Of Arrival: Wheelchair kb3 14:58 Acuity: PADMINI 3 kb3 Triage Assessment: 15:01 General: Appears in no apparent distress. Behavior is calm, cooperative. Pain: Denies kb3 pain. Historical: - Allergies: 15:01 Codeine; kb3 15:01 Bactrim; kb3 15:01 sulfamethoxazole; kb3 - Home Meds: 15:01 Furosemide Oral [Active]; glimepiride 2 mg Oral tab 1 tab once daily [Active]; kb3 Glipizide Oral [Active]; lisinopril Oral [Active]; lisinopril-hydrochlorothiazide 20-12.5 mg Oral tab 1 tab once daily [Active]; proair [Active]; symbicort [Active]; - PMHx: 15:01 COPD; Diabetes - NIDDM; Hypertension; kb3 - PSHx: 15:01 None; kb3 - Immunization history:: Adult Immunizations unknown, Client reports having NOT received the Covid vaccine. Last tetanus immunization: unknown. - Social history:: Smoking status: Patient reports the use of cigarette tobacco products, smokes one pack cigarettes per day. Vital Signs: 14:58 BP 102 / 76; Pulse 73; Resp 20; Temp 99.8; Pulse Ox 96% ; Weight 64.41 kg; Height 5 ft. kb3 1 in. (154.94 cm); 14:58 Body Mass Index 26.83 (64.41 kg, 154.94 cm) kb3 ED Course: 14:22 Patient arrived in ED. mr 14:33 Jorge Smith PA is PHCP. [facility] 14:33 Samson Mclaughlin DO is Attending Physician. m 15:01 Triage completed. kb3 15:01 Arm band placed on right wrist. kb3 15:19 XRAY Chest (1 view) In Process Unspecified. EDMS 15:44 Initial lab(s) drawn, by al, sent to lab. Inserted saline lock: 22 gauge in right em1 forearm, using aseptic technique. Blood collected. 18:16 Lupe Moran, RN is Primary Nurse. iw 18:17 Lactate Sent. Administered Medications: 18:57 Drug: Tamiflu (oseltamivir) 75 mg Route: PO; iw Outcome: 18:50 Discharge ordered by MD. [facility] 19:16 Patient left the ED. vc1 Signatures: Dispatcher [employer] EDMS Jorge Smith PA PA jmm RiveraStephany mr Lupe Moran RN RN René, Dylan [facility] Kiesha Waddell RN RN vc1 Aparna Merritt Shonda Berumen RN RN kb3 Corrections: (The following items were deleted from the chart) 15:03 14:58 Chief complaint: Patient states: Pt reports cough x3 days with thin clear kb3 secretion and fever that began yesterday. Temp max 100.9 kb3
--- NOTE | 2022-07-29 18:51 | EDPHYS ---
Physician Documentation [facility] Name: Ruth Drake Age: 62 yrs Sex: Female : 1960 Arrival Date: 07/29/2022 Time: 14:22 Bed 12 Private MD: ED Physician Samson Mclaughlin HPI: 07/29 15:03 This 62 yrs old Female presents to ER via Wheelchair with complaints of Cough, Fever. [facility] 15:03 The patient or guardian reports cough. Onset: The symptoms/episode began/occurred jmm gradually, 3 day(s) ago. Modifying factors: The symptoms are alleviated by nothing, the symptoms are aggravated by nothing. Associated signs and symptoms: Pertinent positives: fever. Currently taking antibiotics for UTI. Denies shortness of breath, denies abdominal pain, denies vomiting.. Historical: - Allergies: 15:01 Codeine; kb3 15:01 Bactrim; kb3 15:01 sulfamethoxazole; kb3 - Home Meds: 15:01 Furosemide Oral [Active]; glimepiride 2 mg Oral tab 1 tab once daily [Active]; kb3 Glipizide Oral [Active]; lisinopril Oral [Active]; lisinopril-hydrochlorothiazide 20-12.5 mg Oral tab 1 tab once daily [Active]; proair [Active]; symbicort [Active]; - PMHx: 15:01 COPD; Diabetes - NIDDM; Hypertension; kb3 - PSHx: 15:01 None; kb3 - Immunization history:: Adult Immunizations unknown, Client reports having NOT received the Covid vaccine. Last tetanus immunization: unknown. - Social history:: Smoking status: Patient reports the use of cigarette tobacco products, smokes one pack cigarettes per day. ROS: 15:03 Eyes: Negative for injury, pain, redness, and discharge. jmm 15:03 Constitutional: Positive for body aches, chills. 15:03 Respiratory: Positive for cough. 15:03 All other systems are negative. Exam: 15:03 Constitutional: This is a well developed, well nourished patient who is awake, alert, jmm and in no acute distress. Head/Face: atraumatic. Eyes: EOMI, no conjunctival erythema appreciated ENT: Moist Mucus Membranes Neck: Trachea midline, Supple Chest/axilla: Normal chest wall appearance and motion. Cardiovascular: Regular rate and rhythm. No edema appreciated Respiratory: Normal respirations, no respiratory distress appreciated Abdomen/GI: Non distended Back: Normal ROM Skin: General appearance color normal MS/ Extremity: Moves all extremities, no obvious deformities appreciated, no edema noted to the lower extremities Neuro: Awake and alert Psych: Behavior is normal, Mood is normal, Patient is cooperative and pleasant Vital Signs: 14:58 BP 102 / 76; Pulse 73; Resp 20; Temp 99.8; Pulse Ox 96% ; Weight 64.41 kg; Height 5 ft. kb3 1 in. (154.94 cm); 14:58 Body Mass Index 26.83 (64.41 kg, 154.94 cm) kb3 MDM: 15:19 Patient medically screened. [facility] 18:49 Data reviewed: vital signs, nurses notes. Counseling: I had a detailed discussion with juliocesar the patient and/or guardian regarding: the historical points, exam findings, and any diagnostic results supporting the discharge/admit diagnosis, lab results, radiology results, the need for outpatient follow up, to return to the emergency department if symptoms worsen or persist or if there are any questions or concerns that arise at home. ED course: Patient is alert nontoxic in appearance NAD. No signs respiratory distress. Labs positive for the flu. Lactate was normal. Vital signs otherwise normal. Patient will be prescribed oral antibiotics and antivirals and otherwise given strict return precautions. Patient understood and agrees plan of care.. 07/29 15:03 Order name: Basic Metabolic Panel [facility] 07/29 15:03 Order name: CBC with Diff; Complete Time: 15:54 [facility] 07/29 15:03 Order name: Troponin HS; Complete Time: 16:44 [facility] 07/29 15:03 Order name: Lactate; Complete Time: 18:44 [facility] 07/29 15:03 Order name: XRAY Chest (1 view); Complete Time: 15:36 [facility] 07/29 15:04 Order name: CMP; Complete Time: 16:44 [facility] 07/29 15:04 Order name: Protime (+inr); Complete Time: 15:54 [facility] 07/29 15:04 Order name: Ptt, Activated; Complete Time: 15:54 [facility] 07/29 15:05 Order name: SARS-COV-2 RT PCR (Document "Date of Onset" if Symptomatic); Complete Time: [facility] 16:22 07/29 15:05 Order name: Influenza Screen (a \\T\\ B); Complete Time: 16:07 [facility] 07/29 15:03 Order name: Cardiac monitoring [facility] 07/29 15:03 Order name: EKG - Nurse/Tech [facility] 07/29 15:03 Order name: IV Saline Lock; Complete Time: 15:44 [facility] 07/29 15:03 Order name: Labs collected and sent; Complete Time: 15:44 [facility] 07/29 15:03 Order name: O2 Per Protocol [facility] 07/29 15:03 Order name: O2 Sat Monitoring [facility] 07/29 15:03 Order name: Urine Dipstick-Ancillary (obtain specimen) [facility] 07/29 15:04 Order name: Accucheck; Complete Time: 18:53 [facility] 07/29 15:04 Order name: IV Saline Lock - Large Bore; Complete Time: 15:44 [facility] Administered Medications: 18:57 Drug: Tamiflu (oseltamivir) 75 mg Route: PO; Disposition: 23:10 Co-signature as Attending Physician, Samson Mclaughlin DO I agree with the assessment and ms3 plan of care. Disposition Summary: 07/29/22 18:50 Discharge Ordered Location: Home [facility] Condition: Stable [facility] Diagnosis - Influenza [facility] Followup: [facility] - With: Private Physician - When: 2 - 3 days - Reason: Recheck today's complaints, Continuance of care, Re-evaluation by your physician Discharge Instructions: - Discharge Summary Sheet [facility] - Influenza, Adult [facility] Forms: - Medication Reconciliation Form [facility] - Thank You Letter [facility] - Antibiotic Education [facility] - Prescription Opioid Use [facility] Prescriptions: - Tamiflu 75 mg Oral Capsule - take 1 tablet by ORAL route every 12 hours for 5 days; 10 tablet; Refills: 0, [facility] Product Selection Permitted - cefdinir 300 mg Oral capsule - take 1 capsule by ORAL route every 12 hours for 10 days; 20 capsule; Refills: [facility] 0, Product Selection Permitted Signatures: Dispatcher [employer] Jorge Interiano PA PA jmm Williams, Irene, RN RN Samson Hassan DO DO ms3 Shonda Berumen, RN RN kb3
[2022-07-29] MEDS ORDERED: OSELTAMIVIR 75 MG CAP ONE (19:05)
[2022-07-29 20:19] VITALS: BP 102/76; TEMP 99.8; O2SAT 96
== END 2022-07-29 19:16 | disposition home or self-care (01) ==
LOC: ER 14:19
DX: J11.1 Influenza due to unidentified influenza virus with other respiratory manifestations (principal); I10 Essential (primary) hypertension; E11.9 Type 2 diabetes mellitus without complications; J44.9 Chronic obstructive pulmonary disease, unspecified; F17.210 Nicotine dependence, cigarettes, uncomplicated; Z20.822 Contact with and (suspected) exposure to COVID-19; Z88.1 Allergy status to other antibiotic agents; Z88.2 Allergy status to sulfonamides; Z88.5 Allergy status to narcotic agent
CPT/HCPCS: 85025; 36415; 85610; 83605; 85730; 84484; 80053; 87804 ×2; 71045; 99284; U0003

== ENCOUNTER 2022-11-18 14:00 | Emergency (ER) | payer OTHER ==
[2022-11-18] MEDS ORDERED: SUCCINYLCHOLINE 20 MG/ML (10 ML) IV ONE (14:01)
[2022-11-18] MEDS ORDERED: ETOMIDATE 20 MG/10 ML VIAL IV ONE (14:01)
--- OUTSIDE RECORDS SUMMARY | 2022-11-18 14:10 | XMS REPORT | Continuity of Care Document ---
:1960 Author Organization [facility] t Address [address] [place] [address] [address] [place] [address] Care Team Providers Name Role Phone Isac Grullon Rafal Primary Care Physician VILLA YOON K.HJose Juan Attending Clinician Unavailable Villa Yoon MD K.H. Attending Clinician 2, [facility] Attending Clinician Unavailable Doctor Unassigned, [place] Attending Clinician Unavailable Maral Oswald MA Attending Clinician Unavailable Pob, [facility] Main Attending Clinician Unavailable GISELLE MAY Attending Clinician Unavailable Elías Aleman MD Erasmo Attending Clinician Patti Pruitt MD, Clotilde Rutherford Attending Clinician [phone] Aaron KHAN, Jory Duffy Attending Clinician [phone] Shyam Brownlee MD Attending Clinician Giselle May MD Attending Clinician [phone] Siddharth Biswas MD Attending Clinician Gemma Hanks Attending Clinician Unavailable Mukesh Washington MD Attending Clinician KARRIE SENDDANIELLA K.H. 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 Allergies, Adverse Reactions, Alerts Allergy Allergy Status Severity Reaction(s) Onset Inactive Treating Comm ents Source Name Type Date Date Clinician SULFAMET Allergy Active 2020-[address] [facility] [address] [facility]OXAZOLE -[facility] O[facility]IM 00 Center CODEINE Allergy Active 2020-[address] [facility] SULFAMET Allergy Active 2020-[address] [facility] [address] HOXAZOLE -29 [facility] 00:[facility]: Medical 00 [place] Sulfamet Propensi Active 2020-[address] hoxazole ty to 12-20 [facility] -Trimeth adverse 00:00: Medical oprim reaction 00 Center s Codeine Propensi Active 2020-[address] ty to 12-20 [facility] adverse 00:00: Medical reaction 00 Center s Sulfamet Propensi Active 2020-[address] hoxazole ty to 12-20 [facility] adverse 00:00: Medical reaction 00 Center s Codeine Propensi Active Nausea 2019-0 Univers ty to and/or 2-26 ity of adverse Vomiting 00:00: [place] reaction 00 [facility] CODEINE DRUG Active N/V 2019-0 Univers INGREDI 2-26 ity of 00:00: [place] 00 [facility] Family History Family Member Diagnosis Comments Start Date Stop Date Source Natural mother Heart disease [facility] Social History Social Habit Start Date Stop Date Quantity Comments Source History of Smokes tobacco University of tobacco use daily [facility] Exposure to 2022-11-01 2022-11-11 Not sure University of SARS-CoV-2 00:00:00 12:51:00 [facility] (event) Branch Tobacco use and 2021-10-24 2021-10-[address] [facility] exposure 00:00:00 00:00:00 [facility] Sex Assigned At [address] [facility] 00:00:00 [facility]00 [facility] Smoking Status Start Date Stop Date Source Current every day smoker 2021-10-24 00:00:00 [facility] Medications Ordered Filled Start Stop Current Ordering Indication Dosage Frequency Signature Comments Components Source Medication Medication Date Date Medication? Clinician (SIG) Name Name KCL 10 mEq 2021-11 No 10meq Take 10 Un manuel tablet 2-22 12-22 mEq by ity of 11:46: 00:00 mouth [place] 23 :00 daily. Medical Branch potassium 2021-11 Yes 20meq Take 2 Unive rs chloride 2-22 tablets by ity o f (KLOR-CON [place] 10 mEq 00 the Medical CR tablet morning. Branch glimepiride 2021-11 2mg Take 2 mg Univers 2 mg tablet 2-21 12-21 by mouth ity of 13:37: 00:00 daily with [place] 01 :00 breakfast. Medical Branch glimepiride 2021-11 No 2mg Take 2 mg Univers 2 mg tablet 2-21 12-21 by mouth ity of 13:37: 00:00 daily with [place] 01 :00 breakfast. Medical Branch KCL 10 mEq 2021-11 Yes 10meq Take 10 Uni vers tablet 2-21 mEq by ity of 13:35: mouth [place] 06 daily. Medical Branch KCL 10 mEq 2021-11 Yes 10meq Take 10 Uni vers tablet 2-21 mEq by ity of 13:35: mouth [place] 06 daily. Medical Branch KCL 10 mEq 2021-11 Yes 10meq Take 10 Uni vers tablet 2-21 mEq by ity of 13:35: mouth [place] 06 daily. Medical Branch KCL 10 mEq 2021-11 Yes 10meq Take 10 Uni vers tablet 2-21 mEq by ity of 13:35: mouth [place] 06 daily. Medical Branch acetaZOLAMI 2021-11 Yes [id number] 250mg Take 1 Univers DE 250 mg 2-21 tablet ity of tablet 00:00: through [place] 00 enteral Medical tube in [place] the morning. acetaZOLAMI 2021-11 Yes [id number] 250mg Take 1 Univers DE 250 mg 2-21 tablet ity of tablet 00:00: through [place] 00 enteral Medical tube in [place] the morning. acetaZOLAMI 2021-11 Yes [id number] 250mg Take 1 Univers DE 250 mg 2-21 tablet ity of tablet 00:00: through [place] 00 enteral Medical tube in Branch the morning. aspirin 81 2021-11- Yes [id number] 81mg Take 1 Univers mg EC 2-09 02-22 tablet by ity of tablet 00:00: 04:59 mouth in [place] 00 :00 the Medical morning Branch for 90 days. aspirin 81 2021-11- Yes [id number] 81mg Take 1 Univers mg EC 2-09 02-22 tablet by ity of tablet 00:00: 04:59 mouth in [place] 00 :00 the Medical morning Branch for 90 days. aspirin 81 2021-11- Yes [id number] 81mg Take 1 Univers mg EC 2-09 02- tablet by ity of tablet 00:00: 04:59 mouth in [place] 00 :00 the Medical morning Branch for 90 days. FOLIC ACID 2021-11 Yes TAKE 1 Unive rs 1 mg tablet 2-06 TABLET BY ity of 00:00: MOUTH [place] EVERY DAY Medical Branch FOLIC ACID 2021-11 Yes TAKE 1 Unive rs 1 mg tablet 2-06 TABLET BY ity of 00:00: MOUTH [place] 00 EVERY DAY Medical Branch FOLIC ACID 2021-11 Yes TAKE 1 Unive rs 1 mg tablet 2-06 TABLET BY ity of 00:00: MOUTH [place] EVERY DAY Medical Branch FOLIC ACID 2021-11 Yes TAKE 1 Unive rs 1 mg tablet 2-06 TABLET BY ity of 00:00: MOUTH [place] 00 EVERY DAY Medical Branch FOLIC ACID 2021-11 Yes TAKE 1 Unive rs 1 mg tablet 2-06 TABLET BY ity of 00:00: MOUTH [place] EVERY DAY Medical Branch FOLIC ACID 2021-11 Yes TAKE 1 Unive rs 1 mg tablet 2-06 TABLET BY ity of 00:00: MOUTH [place] EVERY DAY Medical Branch FOLIC ACID 2021-11 Yes TAKE 1 Unive rs 1 mg tablet 2-06 TABLET BY ity of 00:00: MOUTH [place] EVERY DAY Medical Branch THIAMINE 2021-11 Yes TAKE 1 Univers 100 mg 2-05 TABLET BY ity of tablet 00:00: MOUTH [place] EVERY DAY Medical Branch THIAMINE 2021-11 Yes TAKE 1 Univers 100 mg 2-05 TABLET BY ity of tablet 00:00: MOUTH [place] EVERY DAY Medical Branch THIAMINE 2021-11 Yes TAKE 1 Univers 100 mg 2-05 TABLET BY ity of tablet 00:00: MOUTH [place] 00 EVERY DAY Medical Branch THIAMINE 2021- Yes TAKE 1 Univers 100 mg 2-05 TABLET BY ity of tablet 00:00: MOUTH [place] 00 EVERY DAY Medical Branch THIAMINE 2021- Yes TAKE 1 Univers 100 mg 2-05 TABLET BY ity of tablet 00:00: MOUTH [place] 00 EVERY DAY Medical Branch THIAMINE 2021- Yes TAKE 1 Univers 100 mg 2-05 TABLET BY ity of tablet 00:00: MOUTH [place] EVERY DAY Medical Branch THIAMINE 2021- Yes TAKE 1 Univers 100 mg 2-05 TABLET BY ity of tablet 00:00: MOUTH [place] EVERY DAY Medical Branch THIAMINE 2021- Yes TAKE 1 Univers 100 mg 2-05 TABLET BY ity of tablet 00:00: MOUTH [place] EVERY DAY Medical Branch glimepiride 2021-11 Yes 4mg Take 4 mg U nivers 4 mg tablet 1-24 by mouth ity of 00:00: in the [place] morning. Medical Branch glimepiride 2021-11 Yes 4mg Take 4 mg U nivers 4 mg tablet 1-24 by mouth ity of 00:00: in the [place] morning. Medical Branch glimepiride 2021-11 Yes 4mg Take 4 mg U nivers 4 mg tablet 1-24 by mouth ity of 00:00: in the [place] morning. Medical Branch glimepiride 2021-11 Yes 4mg Take 4 mg U nivers 4 mg tablet 1-24 by mouth ity of 00:00: in the [place] morning. Medical Branch glimepiride 2021-11 Yes 4mg Take 4 mg U nivers 4 mg tablet 1-24 by mouth ity of 00:00: in the [place] 00 morning. Medical Branch METOPROLOL 2021-0 Yes [id number] TAKE 1 U nivers TARTRATE 25 9-29 TABLET BY ity of mg tablet 00:00: MOUTH [place] 00 TWICE A Medical DAY Branch METOPROLOL 2021-0 Yes [id number] TAKE 1 U nivers TARTRATE 25 9-29 TABLET BY ity of mg tablet 00:00: MOUTH [place] 00 TWICE A Medical DAY Branch METOPROLOL 2021-0 Yes [id number] TAKE 1 U nivers TARTRATE 25 9-29 TABLET BY ity of mg tablet 00:00: MOUTH [place] 00 TWICE A Medical DAY Branch METOPROLOL 2022-0 Yes [id number] TAKE 1 U nivers TARTRATE 25 9-29 TABLET BY ity of mg tablet 00:00: MOUTH [place] 00 TWICE A Medical DAY Branch METOPROLOL 2-0 Yes [id number] TAKE 1 U nivers TARTRATE 25 9-29 TABLET BY ity of mg tablet 00:00: MOUTH [place] 00 TWICE A Medical DAY Branch METOPROLOL 2021-0 Yes [id number] TAKE 1 U nivers TARTRATE 25 9-29 TABLET BY ity of mg tablet 00:00: MOUTH [place] 00 TWICE A Medical DAY Branch METOPROLOL 2-0 Yes [id number] TAKE 1 U nivers TARTRATE 25 9-29 TABLET BY ity of mg tablet 00:00: MOUTH [place] 00 TWICE A Medical DAY Branch METOPROLOL 2021-0 Yes [id number] TAKE 1 U nivers TARTRATE 25 9-29 TABLET BY ity of mg tablet 00:00: MOUTH [place] 00 TWICE A Medical DAY Branch METOPROLOL 2021-0 Yes [id number] TAKE 1 U nivers TARTRATE 25 9-29 TABLET BY ity of mg tablet 00:00: MOUTH [place] 00 TWICE A Medical DAY Branch furosemide 2021-0 Yes [id number] 20mg Take 1 U nivers 20 mg 9-22 tablet by ity of tablet 00:00: mouth [place] 00 every Medical morning Branch and evening. furosemide 2021-0 Yes [id number] 20mg Take 1 U nivers 20 mg 9-22 tablet by ity of tablet 00:00: mouth [place] 00 every Medical morning Branch and evening. furosemide 2-0 Yes [id number] 20mg Take 1 U nivers 20 mg 9-22 tablet by ity of tablet 00:00: mouth [place] 00 every Medical morning Branch and evening. furosemide 2022-0 Yes [id number] 20mg Take 1 U nivers 20 mg 9-22 tablet by ity of tablet 00:00: mouth [place] 00 every Medical morning Branch and evening. furosemide 2022-0 Yes [id number] 20mg Take 1 U nivers 20 mg 9-22 tablet by ity of tablet 00:00: mouth [place] 00 every Medical morning Branch and evening. furosemide 2022-0 Yes [id number] 20mg Take 1 U nivers 20 mg 9-22 tablet by ity of tablet 00:00: mouth [place] 00 every Medical morning Branch and evening. furosemide 2022-0 Yes [id number] 20mg Take 1 U nivers 20 mg 9-22 tablet by ity of tablet 00:00: mouth [place] 00 every Medical morning Branch and evening. furosemide 0 Yes [id number] 20mg Take 1 U nivers 20 mg 9-22 tablet by ity of tablet 00:00: mouth [place] 00 every Medical morning Branch and evening. furosemide 0 Yes [id number] 20mg Take 1 U nivers 20 mg 9-22 tablet by ity of tablet 00:00: mouth [place] 00 every Medical morning Branch and evening. furosemide 0 Yes [id number] 20mg Take 1 U nivers 20 mg 9-22 tablet by ity of tablet 00:00: mouth [place] 00 every Medical morning Branch and evening. [facility] 10 Yes TAKE 1 Univ ers 10 mEq CR 6-01 TABLET BY ity o f tablet 00:00: MOUTH [place] 00 EVERY DAY Medical WITH FOOD Branch FOR [address] [facility] 10 Yes TAKE 1 Univ ers 10 mEq CR 6-01 TABLET BY ity o f tablet 00:00: MOUTH [place] 00 EVERY DAY Medical WITH FOOD Branch FOR [address] [facility] 10 Yes TAKE 1 Univ ers 10 mEq CR 6-01 TABLET BY ity o f tablet 00:00: MOUTH [place] 00 EVERY DAY Medical WITH FOOD Branch FOR [address] [facility] 10 Yes TAKE 1 Univ ers 10 mEq CR 6-01 TABLET BY ity o f tablet 00:00: MOUTH [place] 00 EVERY DAY Medical WITH FOOD Branch FOR [address] [facility] 10 Yes TAKE 1 Univ ers 10 mEq CR 6-01 TABLET BY ity o f tablet 00:00: MOUTH [place] 00 EVERY DAY Medical WITH FOOD Branch FOR [address] [facility] 10 Yes TAKE 1 Univ ers 10 mEq CR 6-01 TABLET BY ity o f tablet 00:00: MOUTH [place] 00 EVERY DAY Medical WITH FOOD Branch FOR [address] [facility] 10 Yes TAKE 1 Univ ers 10 mEq CR 6-01 TABLET BY ity o f tablet 00:00: MOUTH [place] 00 EVERY DAY Medical WITH FOOD Branch FOR [address] [facility] 10 Yes TAKE 1 Univ ers 10 mEq CR 6-01 TABLET BY ity o f tablet 00:00: MOUTH [place] 00 EVERY DAY Medical WITH FOOD Branch FOR 30 DAYS [facility] 10 Yes TAKE 1 Univ ers 10 mEq CR 6-01 TABLET BY ity o f tablet 00:00: MOUTH [place] 00 EVERY DAY Medical WITH FOOD Branch FOR 30 DAYS [facility] 10 Yes TAKE 1 Univ ers 10 mEq CR 6-01 TABLET BY ity o f tablet 00:00: MOUTH [place] 00 EVERY DAY Medical WITH FOOD Branch FOR 30 DAYS [facility] 10 Yes TAKE 1 Univ ers 10 mEq CR 6-01 TABLET BY ity o f tablet 00:00: MOUTH [place] 00 EVERY DAY Medical WITH FOOD Branch FOR 30 DAYS [facility] 10 Yes TAKE 1 Univ ers 10 mEq CR 6-01 TABLET BY ity o f tablet 00:00: MOUTH [place] 00 EVERY DAY Medical WITH FOOD Branch FOR 30 DAYS [facility] 10 Yes TAKE 1 Univ ers 10 mEq CR 6-01 TABLET BY ity o f tablet 00:00: MOUTH [place] 00 EVERY DAY Medical WITH FOOD Branch FOR 30 DAYS [facility] 10 Yes TAKE 1 Univ ers 10 mEq CR 6-01 TABLET BY ity o f tablet 00:00: MOUTH [place] 00 EVERY DAY Medical WITH FOOD Branch FOR 30 DAYS [facility] 10 Yes TAKE 1 Univ ers 10 mEq CR 6-01 TABLET BY ity o f tablet 00:00: MOUTH [place] 00 EVERY DAY Medical WITH FOOD Branch FOR 30 DAYS [facility] 10 Yes TAKE 1 Univ ers 10 mEq CR 6-01 TABLET BY ity o f tablet 00:00: MOUTH [place] 00 EVERY DAY Medical WITH FOOD Branch FOR 30 DAYS [facility] 10 Yes TAKE 1 Univ ers 10 mEq CR 6-01 TABLET BY ity o f tablet 00:00: MOUTH [place] 00 EVERY DAY Medical WITH FOOD Branch FOR 30 DAYS [facility] 10 Yes TAKE 1 Univ ers 10 mEq CR 6-01 TABLET BY ity o f tablet 00:00: MOUTH [place] 00 EVERY DAY Medical WITH FOOD Branch FOR 30 DAYS [facility] 10 Yes TAKE 1 Univ ers 10 mEq CR 6-01 TABLET BY ity o f tablet 00:00: MOUTH [place] 00 EVERY DAY Medical WITH FOOD Branch FOR 30 DAYS [facility] 10 Yes TAKE 1 Univ ers 10 mEq CR 6-01 TABLET BY ity o f tablet 00:00: MOUTH [place] 00 EVERY DAY Medical WITH FOOD Branch FOR 30 DAYS KLOR-CON 10 2021-2021- No TAKE 1 Uni vers 10 mEq CR 6- 12-22 TABLET BY ity of tablet 00:00: 00:00 MOUTH [place] 00 :00 EVERY DAY Medical WITH FOOD Branch FOR 30 DAYS acetaZOLAMI 2021-0 2021- No 250mg Take 250 Univers DE 250 mg 5-04 05-04 mg by ity of tablet 12:45: 00:00 mouth [place] 16 :00 daily. Medical Branch metoprolol 2021-0 2021- No 25mg Take 25 mg Univers tartrate 5-04 05-04 by mouth 2 ity of (LOPRESSOR 12:45: 00:00 (two) [place] ORAL) 09 :00 times Medical daily. Branch acetaZOLAMI 2021-0 Yes [id number] 250mg Take 1 Univers DE 250 mg 5-04 tablet ity of tablet 00:00: through [place] 00 enteral Medical tube Branch daily. spironolact 2021-0 Yes [id number] 25mg Take 1 Univers one 25 mg 5-04 tablet by ity o f tablet 00:00: mouth [place] 00 daily. Medical Branch furosemide 2021-0 Yes [id number] 20mg Take 1 U nivers 20 mg 5-04 tablet by ity of tablet 00:00: mouth [place] 00 daily. Medical Branch metoprolol 2021-0 Yes [id number] 25mg Take 1 U nivers tartrate 25 5-04 tablet by ity of mg tablet 00:00: mouth 2 [place] 00 (two) Medical times Branch daily. acetaZOLAMI 2021-0 Yes [id number] 250mg Take 1 Univers DE 250 mg 5-04 tablet ity of tablet 00:00: through [place] 00 enteral Medical tube Branch daily. spironolact 2021-0 Yes [id number] 25mg Take 1 Univers one 25 mg 5-04 tablet by ity o f tablet 00:00: mouth [place] 00 daily. Medical Branch furosemide 2021-0 Yes [id number] 20mg Take 1 U nivers 20 mg 5-04 tablet by ity of tablet 00:00: mouth [place] 00 daily. Medical Branch metoprolol 2021-0 Yes [id number] 25mg Take 1 U nivers tartrate 25 5-04 tablet by ity of mg tablet 00:00: mouth 2 [place] 00 (two) Medical times Branch daily. acetaZOLAMI 2021-0 Yes [id number] 250mg Take 1 Univers DE 250 mg 5-04 tablet ity of tablet 00:00: through enteral Medical tube Branch daily. spironolact 2021-0 Yes [id number] 25mg Take 1 Univers one 25 mg 5-04 tablet by ity o f tablet 00:00: mouth [place] 00 daily. Medical Branch furosemide 2021-0 Yes [id number] 20mg Take 1 U nivers 20 mg 5-04 tablet by ity of tablet 00:00: mouth [place] 00 daily. Medical Branch metoprolol 2021-0 Yes [id number] 25mg Take 1 U nivers tartrate 25 5-04 tablet by ity of mg tablet 00:00: mouth (two) Medical times Branch daily. acetaZOLAMI 2021-0 Yes [id number] 250mg Take 1 Univers DE 250 mg 5-04 tablet ity of tablet 00:00: through enteral Medical tube Branch daily. spironolact 2021-0 Yes [id number] 25mg Take 1 Univers one 25 mg 5-04 tablet by ity o f tablet 00:00: mouth 00 daily. Medical Branch furosemide 2021-0 Yes [id number] 20mg Take 1 U nivers 20 mg 5-04 tablet by ity of tablet 00:00: mouth 00 daily. Medical Branch metoprolol 2021-0 Yes [id number] 25mg Take 1 U nivers tartrate 25 5-04 tablet by ity of mg tablet 00:00: mouth (two) Medical times Branch daily. acetaZOLAMI 2021-0 Yes [id number] 250mg Take 1 Univers DE 250 mg 5-04 tablet ity of tablet 00:00: through enteral Medical tube Branch daily. spironolact 2021-0 Yes [id number] 25mg Take 1 Univers one 25 mg 5-04 tablet by ity o f tablet 00:00: mouth 00 daily. Medical Branch furosemide 2021-0 Yes [id number] 20mg Take 1 U nivers 20 mg 5-04 tablet by ity of tablet 00:00: mouth 00 daily. Medical Branch metoprolol 2021-0 Yes [id number] 25mg Take 1 U nivers tartrate 25 5-04 tablet by ity of mg tablet 00:00: mouth 2 [place] 00 (two) Medical times Branch daily. acetaZOLAMI 2021-0 Yes [id number] 250mg Take 1 Univers DE 250 mg 5-04 tablet ity of tablet 00:00: through enteral Medical tube Branch daily. spironolact 2021-0 Yes [id number] 25mg Take 1 Univers one 25 mg 5-04 tablet by ity o f tablet 00:00: mouth [place] 00 daily. Medical Branch furosemide 2021-0 Yes [id number] 20mg Take 1 U nivers 20 mg 5-04 tablet by ity of tablet 00:00: mouth 00 daily. Medical Branch metoprolol 2021-0 Yes [id number] 25mg Take 1 U nivers tartrate 25 5-04 tablet by ity of mg tablet 00:00: mouth (two) Medical times Branch daily. acetaZOLAMI 2021-0 Yes [id number] 250mg Take 1 Univers DE 250 mg 5-04 tablet ity of tablet 00:00: through enteral Medical tube Branch daily. spironolact 2021-0 Yes [id number] 25mg Take 1 Univers one 25 mg 5-04 tablet by ity o f tablet 00:00: mouth 00 daily. Medical Branch furosemide 2021-0 Yes [id number] 20mg Take 1 U nivers 20 mg 5-04 tablet by ity of tablet 00:00: mouth 00 daily. Medical Branch metoprolol 2021-0 Yes [id number] 25mg Take 1 U nivers tartrate 25 5-04 tablet by ity of mg tablet 00:00: mouth (two) Medical times Branch daily. acetaZOLAMI 2021-0 Yes [id number] 250mg Take 1 Univers DE 250 mg 5-04 tablet ity of tablet 00:00: through enteral Medical tube Branch daily. spironolact 2021-0 Yes [id number] 25mg Take 1 Univers one 25 mg 5-04 tablet by ity o f tablet 00:00: mouth 00 daily. Medical Branch furosemide 2021-0 Yes [id number] 20mg Take 1 U nivers 20 mg 5-04 tablet by ity of tablet 00:00: mouth 00 daily. Medical Branch metoprolol 2021-0 Yes [id number] 25mg Take 1 U nivers tartrate 25 5-04 tablet by ity of mg tablet 00:00: mouth (two) Medical times Branch daily. acetaZOLAMI 2021-0 Yes [id number] 250mg Take 1 Univers DE 250 mg 5-04 tablet ity of tablet 00:00: through enteral Medical tube Branch daily. spironolact 2021-0 Yes [id number] 25mg Take 1 Univers one 25 mg 5-04 tablet by ity o f tablet 00:00: mouth 00 daily. Medical Branch furosemide 2021-0 Yes [id number] 20mg Take 1 U nivers 20 mg 5-04 tablet by ity of tablet 00:00: mouth 00 daily. Medical Branch metoprolol 2021-0 Yes [id number] 25mg Take 1 U nivers tartrate 25 5-04 tablet by ity of mg tablet 00:00: mouth (two) Medical times Branch daily. acetaZOLAMI 2021-0 Yes [id number] 250mg Take 1 Univers DE 250 mg 5-04 tablet ity of tablet 00:00: through enteral Medical tube Branch daily. spironolact 2021-0 Yes [id number] 25mg Take 1 Univers one 25 mg 5-04 tablet by ity o f tablet 00:00: mouth 00 daily. Medical Branch furosemide 2021-0 Yes [id number] 20mg Take 1 U nivers 20 mg 5-04 tablet by ity of tablet 00:00: mouth 00 daily. Medical Branch metoprolol 2021-0 Yes [id number] 25mg Take 1 U nivers tartrate 25 5-04 tablet by ity of mg tablet 00:00: mouth (two) Medical times Branch daily. acetaZOLAMI 2021-0 Yes [id number] 250mg Take 1 Univers DE 250 mg 5-04 tablet ity of tablet 00:00: through enteral Medical tube Branch daily. spironolact 2021-0 Yes [id number] 25mg Take 1 Univers one 25 mg 5-04 tablet by ity o f tablet 00:00: mouth 00 daily. Medical Branch furosemide 2021-0 Yes [id number] 20mg Take 1 U nivers 20 mg 5-04 tablet by ity of tablet 00:00: mouth 00 daily. Medical Branch metoprolol 2021-0 Yes [id number] 25mg Take 1 U nivers tartrate 25 5-04 tablet by ity of mg tablet 00:00: mouth 2 (two) Medical times Branch daily. acetaZOLAMI 2021-0 Yes [id number] 250mg Take 1 Univers DE 250 mg 5-04 tablet ity of tablet 00:00: through [place] enteral Medical tube Branch daily. spironolact 2021-0 Yes [id number] 25mg Take 1 Univers one 25 mg 5-04 tablet by ity o f tablet 00:00: mouth [place] daily. Medical Branch metoprolol 2021-0 Yes [id number] 25mg Take 1 U nivers tartrate 25 5-04 tablet by ity of mg tablet 00:00: mouth 2 (two) Medical times Branch daily. acetaZOLAMI 2021-0 Yes [id number] 250mg Take 1 [facility] DE 250 mg 5-04 tablet ity of tablet 00:00: through [place] enteral Medical tube Branch daily. spironolact 2021-0 Yes [id number] 25mg Take 1 Univers one 25 mg 5-04 tablet by ity o f tablet 00:00: mouth [place] daily. Medical Branch metoprolol 2021-0 Yes [id number] 25mg Take 1 U nivers tartrate 25 5-04 tablet by ity of mg tablet 00:00: mouth 2 (two) Medical times Branch daily. acetaZOLAMI 2021-0 Yes [id number] 250mg Take 1 [facility] DE 250 mg 5-04 tablet ity of tablet 00:00: through [place] enteral Medical tube Branch daily. spironolact 2021-0 Yes [id number] 25mg Take 1 Univers one 25 mg 5-04 tablet by ity o f tablet 00:00: mouth [place] daily. Medical Branch acetaZOLAMI 2021-0 Yes [id number] 250mg Take 1 [facility] DE 250 mg 5-04 tablet ity of tablet 00:00: through [place] enteral Medical tube Branch daily. spironolact 2021-0 Yes [id number] 25mg Take 1 [facility] one 25 mg 5-04 tablet by ity o f tablet 00:00: mouth [place] daily. Medical Branch acetaZOLAMI 2021-0 Yes [id number] 250mg Take 1 [facility] DE 250 mg 5-04 tablet ity of tablet 00:00: through [place] enteral Medical tube Branch daily. spironolact 2021-0 Yes [id number] 25mg Take 1 [facility] one 25 mg 5-04 tablet by ity o f tablet 00:00: mouth [place] 00 daily. Medical Branch acetaZOLAMI 0 Yes [id number] 250mg Take 1 [facility] DE 250 mg 5-04 tablet ity of tablet 00:00: through 00 enteral Medical tube Branch daily. spironolact 0 Yes [id number] 25mg Take 1 [facility] one 25 mg 5-04 tablet by ity o f tablet 00:00: mouth [place] 00 daily. Medical Branch acetaZOLAMI 0 Yes [id number] 250mg Take 1 [facility] DE 250 mg 5-04 tablet ity of tablet 00:00: through 00 enteral Medical tube Branch daily. spironolact 0 Yes [id number] 25mg Take 1 [facility] one 25 mg 5-04 tablet by ity o f tablet 00:00: mouth 00 daily. Medical Branch acetaZOLAMI Yes [id number] 250mg Take 1 [facility] DE 250 mg 5-04 tablet ity of tablet 00:00: through 00 enteral Medical tube Branch daily. spironolact 0 Yes [id number] 25mg Take 1 Univers one 25 mg 5-04 tablet by ity o f tablet 00:00: mouth 00 daily. Medical Branch spironolact 0 Yes [id number] 25mg Take 1 [facility] one 25 mg 5-04 tablet by ity o f tablet 00:00: mouth 00 daily. Medical Branch spironolact 0 Yes [id number] 25mg Take 1 [facility] one 25 mg 5-04 tablet by ity o f tablet 00:00: mouth 00 daily. Medical Branch spironolact 0 Yes [id number] 25mg Take 1 [facility] one 25 mg 5-04 tablet by ity o f tablet 00:00: mouth [place] 00 daily. Medical Branch acetaZOLAMI 2021- No [id number] 250mg Take 1 [facility] DE 250 mg 5-04 12-21 tablet ity of tablet 00:00: 00:00 through [place] 00 :00 enteral Medical tube Branch daily. acetaZOLAMI 2021- No [id number] 250mg Take 1 [facility] DE 250 mg 5-04 12-21 tablet ity of tablet 00:00: 00:00 through 00 :00 enteral Medical tube Branch daily. metoprolol 2021- No [id number] 25mg Take 1 [facility] tartrate 25 03-25 tablet by it y of mg tablet 00:00: 00:[place] 00 :00 (two) Medical times Branch daily. furosemide 0 2021- No [id number] 20mg Take 1 [facility] 20 mg 03-25 tablet by ity of tablet 00:00: 00:00 mouth [place] 00 :00 daily. Medical Branch KCL 10 mEq 2021-0 Yes 10meq Take 10 Uni vers tablet 5-02 mEq by ity of 13:23: mouth [place] 48 daily. Medical Branch KCL 10 mEq 2021-0 Yes 10meq Take 10 Uni vers tablet 5-02 mEq by ity of 13:23: mouth [place] 48 daily. Medical Branch KCL 10 mEq 2021-0 Yes 10meq Take 10 Uni vers tablet 5-02 mEq by ity of 13:23: mouth [place] 48 daily. Medical Branch KCL 10 mEq 2021-0 Yes 10meq Take 10 Uni vers tablet 5-02 mEq by ity of 13:23: mouth [place] 48 daily. Medical Branch KCL 10 mEq 2021-0 Yes 10meq Take 10 Uni vers tablet 5-02 mEq by ity of 13:23: mouth [place] 48 daily. Medical Branch KCL 10 mEq 2021-0 Yes 10meq Take 10 Uni vers tablet 5-02 mEq by ity of 13:23: mouth [place] 48 daily. Medical Branch KCL 10 mEq 2021-0 Yes 10meq Take 10 Uni vers tablet 5-02 mEq by ity of 13:23: mouth [place] 48 daily. Medical Branch KCL 10 mEq 2021-0 Yes 10meq Take 10 Uni vers tablet 5-02 mEq by ity of 13:23: mouth [place] 48 daily. Medical Branch KCL 10 mEq 2021-0 Yes 10meq Take 10 Uni vers tablet 5-02 mEq by ity of 13:23: mouth [place] 48 daily. Medical Branch KCL 10 mEq 2021-0 Yes 10meq Take 10 Uni vers tablet 5-02 mEq by ity of 13:23: mouth [place] 48 daily. Medical Branch KCL 10 mEq 2021-0 Yes 10meq Take 10 Uni vers tablet 5-02 mEq by ity of 13:23: mouth [place] 48 daily. Medical Branch KCL 10 mEq 2021-0 Yes 10meq Take 10 Uni vers tablet 5-02 mEq by ity of 13:23: mouth [place] 48 daily. Medical Branch KCL 10 mEq 0 Yes 10meq Take 10 Uni vers tablet 5-02 mEq by ity of 13:23: mouth [place] 48 daily. Medical Branch KCL 10 mEq 2021-0 Yes 10meq Take 10 Uni vers tablet 5-02 mEq by ity of 13:23: mouth [place] 48 daily. Medical Branch KCL 10 mEq 2021-0 Yes 10meq Take 10 Uni vers tablet 5-02 mEq by ity of 13:23: mouth [place] 48 daily. Medical Branch KCL 10 mEq 2021-0 Yes 10meq Take 10 Uni vers tablet 5-02 mEq by ity of 13:23: mouth [place] 48 daily. Medical Branch KCL 10 mEq 2021-0 Yes 10meq Take 10 Uni vers tablet 5-02 mEq by ity of 13:23: mouth [place] 48 daily. Medical Branch KCL 10 mEq 0 Yes 10meq Take 10 Uni vers tablet 5-02 mEq by ity of 13:23: mouth [place] 48 daily. Medical Branch spironolact 0 2021- No [id number] 25mg Take 1 Univers one 25 mg 3-16 05-04 tablet by ity of tablet 00:00: 00:00 mouth [place] 00 :00 daily. Medical Branch aspirin 81 2021-0 Yes 81mg Take 1 Unive rs mg EC 3-03 tablet by ity of tablet 00:00: mouth [place] 00 daily. Medical Branch foLIC acid 0 Yes 1mg Take 1 Unive rs 1 mg tablet 3-03 tablet by ity of 00:00: mouth [place] 00 daily. Medical Branch thiamine 2021-0 Yes 100mg Take 1 Univer s 100 mg 3-03 tablet by ity of tablet 00:00: mouth [place] 00 daily. Medical Branch aspirin 81 2021-0 Yes 81mg Take 1 Unive rs mg EC 3-03 tablet by ity of tablet 00:00: mouth [place] 00 daily. Medical Branch foLIC acid 2021-0 Yes 1mg Take 1 Unive rs 1 mg tablet 3-03 tablet by ity of 00:00: mouth [place] 00 daily. Medical Branch thiamine 2021-0 Yes 100mg [...] [place] 00 daily. Medical Branch foLIC acid 2-0 Yes 1mg Take 1 Unive rs 1 [...] [place] 00 daily. Medical Branch aspirin 81 2-0 Yes 81mg Take 1 Unive rs mg EC 3-03 tablet by ity of tablet 00:00: mouth [place] 00 daily. Medical Branch aspirin 81 2021-0 2022- No 81mg Take 1 Univ ers mg EC 3-03 12-21 tablet by ity of tablet 00:00: 00:00 mouth [place] 00 :00 daily. Medical Branch aspirin 81 2021-0 2022- No 81mg Take 1 Univ ers mg EC 3-03 12-21 tablet by ity of tablet 00:00: 00:00 mouth [place] 00 :00 daily. Medical Branch foLIC acid 2021-0 2021- No 1mg Take 1 Univ ers 1 mg tablet - 12-06 tablet by it y of 00:00: 00:00 mouth [place] 00 :00 daily. Medical Branch thiamine 2021-0 2021- No 100mg Take 1 Unive rs 100 mg 3- 12-05 tablet by ity of tablet 00:00: 00:00 mouth [place] 00 :00 daily. Medical Branch furosemide 2-0 2- No [id number] 20mg Take 1 [facility] 20 mg 1-18 05-04 tablet by ity of tablet 00:00: 00:00 mouth [place] 00 :00 daily. [facility] predniSONE 2021-0 Yes 10mg Take 10 mg U nivers 10 mg 1-10 by mouth ity of tablet 13:16: daily. [address] Branch predniSONE 2-0 Yes 10mg Take 10 mg U nivers 10 mg 1-10 by mouth ity of tablet 13:16: daily. [address] predniSONE 2-0 Yes 10mg Take 10 mg U nivers 10 mg 1-10 by mouth ity of tablet 13:16: daily. [address] Branch predniSONE 2-0 Yes 10mg Take 10 mg U nivers 10 mg 1-10 by mouth ity of tablet 13:16: daily. [address] predniSONE 2-0 Yes 10mg Take 10 mg U nivers 10 mg 1-10 by mouth ity of tablet 13:16: daily. [address] predniSONE 2022-0 Yes 10mg Take 10 mg U nivers 10 mg 1-10 by mouth ity of tablet 13:16: daily. [address] Branch predniSONE 2022-0 Yes 10mg Take 10 mg U nivers 10 mg 1-10 by mouth ity of tablet 13:16: daily. [address] predniSONE 2022-0 Yes 10mg Take 10 mg U nivers 10 mg 1-10 by mouth ity of tablet 13:16: daily. [address] Branch predniSONE 2022-0 Yes 10mg Take 10 mg U nivers 10 mg 1-10 by mouth ity of tablet 13:16: daily. [address] Branch predniSONE 2022-0 Yes 10mg Take 10 mg U nivers 10 mg 1-10 by mouth ity of tablet 13:16: daily. [address] predniSONE 2022-0 Yes 10mg Take 10 mg U nivers 10 mg 1-10 by mouth ity of tablet 13:16: daily. [address] predniSONE 2022-0 Yes 10mg Take 10 mg U nivers 10 mg 1-10 by mouth ity of tablet 13:16: daily. [address] predniSONE 2022-0 Yes 10mg Take 10 mg U nivers 10 mg 1-10 by mouth ity of tablet 13:16: daily. [address] predniSONE 2022-0 Yes 10mg Take 10 mg U nivers 10 mg 1-10 by mouth ity of tablet 13:16: daily. [address] predniSONE 2022-0 Yes 10mg Take 10 mg U nivers 10 mg 1-10 by mouth ity of tablet 13:16: daily. [address] predniSONE 2022-0 Yes 10mg Take 10 mg U nivers 10 mg 1-10 by mouth ity of tablet 13:16: daily. [address] predniSONE 2022-0 Yes 10mg Take 10 mg U nivers 10 mg 1-10 by mouth ity of tablet 13:16: daily. [address] predniSONE 2022-0 Yes 10mg Take 10 mg U nivers 10 mg 1-10 by mouth ity of tablet 13:16: daily. [address] predniSONE 2022-0 Yes 10mg Take 10 mg U nivers 10 mg 1-10 by mouth ity of tablet 13:16: daily. [address] predniSONE 2022-0 Yes 10mg Take 10 mg U nivers 10 mg 1-10 by mouth ity of tablet 13:16: daily. [address] predniSONE 2021-0 Yes 10mg Take 10 mg U nivers 10 mg 1-10 by mouth ity of tablet 13:16: daily. [address] predniSONE 2021-0 Yes 10mg Take 10 mg U nivers 10 mg 1-10 by mouth ity of tablet 13:16: daily. [address] predniSONE 2021-0 Yes 10mg Take 10 mg U nivers 10 mg 1-10 by mouth ity of tablet 13:16: daily. [address] budesonide- 2020-11 Yes 2{puff} [facility] 2 [facility] s MG tablet 17:32: Medical 36 Center potassium 2020-11 Yes 10meq Take [address] [facility] chloride SA 2-08 mEq by [facility] (K-DUR,KLOR 17:32: mouth. Medi neal -CON-M) 10 36 Center MEQ tablet predniSONE 2020-11 Yes 10mg Take [address] (DELTASONE) 2-08 by mouth. Staci es 10 MG 17:32: Medical tablet 36 Center albuterol 2020-11 Yes 2{puff} Inhale 2 C [...] Luke s MG tablet 17:32: Medical 36 [place] glimepiride 2020-11 Yes 2mg Take [address] (AMARYL) 2 2-08 by mouth. Luke s MG tablet 17:32: Medical 36 [place] potassium 2020-11 Yes 10meq Take [address] [facility] [address] chloride SA 2-08 mEq by [facility] (K-DUR,KLOR 17:32: mouth. Medi neal -CON-M) 10 36 [place] MEQ tablet predniSONE 2020-11 Yes 10mg Take [address] (DELTASONE) 2-08 by mouth. Staci es 10 MG 17:32: Medical tablet 36 [place] albuterol 2020-11 Yes 2{puff} Inhale [address] HFA 2-08 puffs by Gurjit (VENTOLIN 17:32: mouth via Med ical HFA) 90 36 inhaler. [place] mcg/actuati on inhaler metoprolol 2020-11- No 12.5mg Q.5D Take 0.[address] [facility] [address] tartrate 2-08 12-08 tablets [facility] (LOPRESSOR) 00:00: 23:59 (12.5 mg M edical 25 MG 00 :00 total) by Center tablet mouth 2 (two) times daily. metoprolol 2020-11 No 12.5mg Q.5D Take 0.[address] [facility] [address] tartrate 2-08 12-08 tablets [facility] (LOPRESSOR) 00:00: 23:59 (12.5 mg M edical 25 MG 00 :00 total) by Center tablet mouth 2 (two) times daily. thiamine 2020-[address] [facility] 100 MG 1-24 [facility] tablet 00:00: Medical 00 [place] thiamine 2020-[address] 100 MG 1-24 [facility] tablet 00:00: Medical 00 [place] acetaZOLAMI 2020-[address] [facility] [address] DE (DIAMOX) 1-23 [facility] 250 MG 00:00: Medical tablet 00 [place] aspirin 81 2020-[address] MG EC 1-23 [facility] tablet 00:00: Medical 00 [place] folic acid 2020-[address] (FOLVITE) 1 1-23 [facility] MG tablet 00:00: Medical 00 [place] spironolact 2020-[address] [facility] one 1-23 [facility] (ALDACTONE) 00:00: Medica l 25 MG 00 [place] tablet acetaZOLAMI 2020-[address] [facility] [address] DE (DIAMOX) - [facility] 250 MG 00:00: Medical tablet 00 [place] aspirin 81 2020-[address] MG EC 12-14 [facility] tablet 00:00: Medical 00 [place] folic acid 2020-[address] (FOLVITE) 1 - [facility] MG tablet 00:00: Medical 00 [place] spironolact 2020-[address] [facility] [facility] one 12-14 [facility] (ALDACTONE) 00:00: Medica l 25 MG 00 Center tablet metoprolol 2020-[address] tartrate 12-14 12-08 [facility] (LOPRESSOR) 00:00: 00:00 Medic al [...] Medical mcg/actuati daily. Branch on inhaler glimepiride 2021-1 Yes 2mg Take 2 mg U nivers [...] by mouth ity of 15:38: daily with [place] [id number] breakfast. Medical Branch albuterol 2020-11 Yes 2.5mg [...] times Medical mcg/actuati daily. Branch on inhaler albuterol 2020-11 Yes 2.5mg Inhale 2.5 U [...] times Medical mcg/actuati daily. Branch on inhaler albuterol 2020-11 Yes 2.5mg Inhale 2.5 U [...] times Medical mcg/actuati daily. Branch on inhaler albuterol 2020-11 Yes 2.5mg Inhale 2.5 U [...] times Medical mcg/actuati daily. Branch on inhaler albuterol 2020-11 Yes 2.5mg Inhale 2.5 U [...] times Medical mcg/actuati daily. Branch on inhaler albuterol 2020-11 Yes 2.5mg Inhale 2.5 U [...] Center mg(2.5 mg base)/3 mL nebulizer solution ipratropium 2020-[address] -albuteroL 0-16 [facility] (DUO-NEB) 00:00: Medical 0.5 mg-3 00 Center mg(2.5 mg base)/3 mL nebulizer solution lisinopril- 2020-[address] [facility] hydroCHLORO 9-16 [facility] thiazide 00:00: Medical (PRINZIDE,Z 00 Center ESTORETIC) 20-12.5 mg per tablet lisinopril- 2020-[address] [facility] hydroCHLORO 9-16 [facility] thiazide 00:00: Medical (PRINZIDE,Z 00 Center ESTORETIC) 20-12.5 mg per tablet fosfomycin Yes [facility] (MONUROL) 3 8-24 [facility] gram Pack 00:00: Medical packet 00 Center fosfomycin [address] [facility] (MONUROL) 3 8-24 [facility] gram Pack 00:00: Medical packet 00 [place] Vital Signs Vital Name Observation Time Observation Value Comments Source Systolic blood 2022-11-11 19:08:00 121 mm[Hg] Univer sity of [facility] Diastolic blood 2022-11-11 19:08:00 69 mm[Hg] Unive rsity of [facility] Heart rate 2022-11-11 19:08:00 114 /min [facility] Body height 2022-11-11 19:08:00 154.9 cm [facility] Body weight 2022-11-11 19:08:00 59.421 kg [facility] BMI 2022-11-11 19:08:00 24.75 kg/m2 [facility] Oxygen saturation in 2022-11-11 19:08:00 94 /min [facility] Arterial blood by [facility] Pulse oximetry Branch Systolic blood 2022-08-12 16:03:00 129 mm[Hg] Univer sity of [facility] Diastolic blood 2022-08-12 16:03:00 69 mm[Hg] Unive rsity of [facility] Heart rate 2022-08-12 16:03:00 115 /min [facility] Body temperature 2022-08-12 16:03:00 36.06 [facility] 2022-08-12 16:03:00 154.9 cm [facility] Body weight 2022-08-12 16:03:00 60.918 kg Universi ty of [facility] BMI 2022-08-12 16:03:00 25.38 kg/m2 Universi [facility] Oxygen saturation in 2022-08-12 16:03:00 96 /min University of Arterial blood by [facility] Pulse oximetry Branch WEIGHT 2021-10-29 07:00:00 64.51 kg WEIGHT 2021-10-28 [...] kg Systolic blood 2021-10-29 15:50:00 105 mm[Hg] GABBY [facility] Diastolic blood 2021-10-29 15:50:00 63 mm[Hg] [facility] Center Heart rate 2021-10-29 15:50:00 87 /min [facility] Body temperature 2021-10-29 15:50:00 36.44 Francine [facility] Respiratory rate 2021-10-29 15:50:00 20 /min [facility] Oxygen saturation in 2021-10-29 15:50:00 93 /min [facility] Arterial blood by Medical Ce nter Pulse oximetry Body weight 2021-10-29 07:00:00 64.51 kg [facility] BMI 2021-10-29 07:00:00 22.97 kg/m2 [facility] Body height 2021-10-25 17:59:00 167.6 cm [facility] Procedures Procedure Date / Time Performing Clinician Source Performed CONSENT/REFUSAL FOR 2022-11-11 18:53:02 Doctor Unassigned, No [facility] [place] [facility] DI[facility]NOS[facility] AND TREATMENT [facility] COMP. METABOLIC PANEL 2022-08-12 16:31:00 [place] Yoon [facility] [place] [facility] ([id number]) [facility] LIPID PANEL ([id number])(TOTAL 2022-08-12 16:31:00 Villa Yoon [facility] CHOLESTEROL, [facility] TRIGLYCERIDES, HDL) CBC WITH DIFF 2022-08-12 16:31:00 Villa Yoon [facility] GLYCOSYLATED HEMOGLOBIN 2022-08-12 16:31:00 Villa Yoon [facility] (A1C) [facility] N-TERMINAL PRO-BNP 2022-08-12 16:31:[address] [facility] INSURANCE CORRESPONDENCE 2022 05:01:00 Doctor Unassigned, No [facility] Name [facility] BASIC METABOLIC PANEL 2022-03-23 19:09:00 Villa Yoon [facility] [place] [facility] (NA, K, CL, CO2, GLUCOSE, Medica l Branch BUN, CREATININE, CA) N-TERMINAL PRO-BNP 2022-03-23 19:09:[address] Juan [facility] POCT-GLUCOSE METER 2021-10-29 11:19:00 Giselle May [facility] POCT-GLUCOSE METER 2021-10-29 07:39:00 [facility] [place] [facility] 2021-10-29 05:41:00 [facility] & AUTO 2021-10-29 05:41:00 Eri White [facility] CBC W/PLT COUNT & AUTO 2021-10-29 05:41:00 Christopher Eri [facility] POCT-GLUCOSE METER 2021-10-28 22:38:00 [facility] [place] POCT-GLUCOSE METER 2021-10-28 16:38:00 [facility] [place] POCT-GLUCOSE METER 2021-10-28 13:13:00 [facility] 2021-10-28 08:15:00 [facility] [place] HEPATIC FUNCTION PANEL 2021-10-28 05:16:00 Eri White [facility] CBC W/PLT COUNT & AUTO 2021-10-28 05:16:00 White, [facility] [place] CALCIUM, IONIZED 2021-10-28 05:16:00 Clotilde German [facility] LIPID PANEL 2021-10-28 05:16:00 Kodak Pedroza [facility] CBC W/PLT COUNT & AUTO 2021-10-28 05:16:00 Eri White [facility] POCT-GLUCOSE METER 2021-10-27 22:54:00 Torrie [facility] POCT-GLUCOSE METER 2021-10-27 21:50:00 Torrie [facility] POCT-GLUCOSE METER 2021-10-27 18:42:00 Torrie [facility] R & L CATH / CORONARY 2021-10-27 16:55:00 Siddharth Biswas [facility] ANGIOS / PCI Center POCT-GLUCOSE METER 2021-10-27 12:56:00 Torrie [facility] POCT-GLUCOSE METER 2021-10-27 08:17:00 Torrie [facility] HEPATIC FUNCTION PANEL 2021-10-27 07:47:00 Eri White [facility] CBC W/PLT COUNT & AUTO 2021-10-27 07:47:00 [facility] CALCIUM, IONIZED 2021-10-27 07:47:00 Clotilde German [facility] Khyzar [place] BASIC METABOLIC PANEL (7) 2021-10-27 07:47:00 Alejandro Knapp [facility] MAGNESIUM 2021-10-27 07:47:00 Alejandro Knapp [facility] CBC W/PLT COUNT & AUTO 2021-10-27 07:47:00 Sky Carr [facility] DIFFERENTIAL [facility] POCT-GLUCOSE METER 2021-10-26 21:25:00 Torrie [facility] POCT-GLUCOSE METER 2021-10-26 17:57:00 Torrie [facility] POCT-GLUCOSE METER 2021-10-26 13:32:00 Torrie [facility] POCT-GLUCOSE METER 2021-10-26 08:28:00 Torrie [facility] POCT-GLUCOSE METER 2021-10-26 05:52:00 Torrie [facility] HEPATIC FUNCTION PANEL 2021-10-26 05:47:00 Eri White [facility] BASIC METABOLIC PANEL (7) 2021-10-26 05:47:00 David Zepeda [facility] MAGNESIUM 2021-10-26 05:47:00 David Zepeda [facility] PHOSPHORUS 2021-10-26 05:47:00 David Zepeda Jennifer [facility] CBC W/PLT COUNT & AUTO 2021-10-26 04:50:00 Eri White [facility] CALCIUM, IONIZED 2021-10-26 04:50:00 Clotilde German [facility] K[facility]zar [place] CBC W/PLT COUNT & AUTO 2021-10-26 04:50:[address] [facility] POCT-GLUCOSE METER 2021-10-26 00:54:00 [facility] POCT-GLUCOSE METER 2021-10-25 16:58:00 [facility] POCT-GLUCOSE METER 2021-10-25 11:29:00 [facility] 2D ECHO W/ DOPPLER 2021-10-25 09:25:26 Eri White [facility] (CW/PW/COLOR) [place] POCT-GLUCOSE METER 2021-10-25 06:54:00 [facility] POCT-GLUCOSE METER 2021-10-25 06:03:00 [facility] BLOOD GAS, VENOUS 2021-10-25 05:15:00 Butch Partida [facility] HEPATIC FUNCTION PANEL 2021-10-25 05:15:00 Eri White Faby [facility] BASIC METABOLIC PANEL (7) 2021-10-25 05:15:00 Sky Carr Harsh [facility] CALCIUM, IONIZED 2021-10-25 05:15:00 Sertom Sky [facility] CBC W/PLT COUNT & AUTO 2021-10-25 05:15:00 Eri White [facility] DIFFERENTIAL Center MAGNESIUM 2021-10-25 05:15:00 [facility] [place] PHOS[facility]US 2021-10-25 05:15:00 Sky Carr [facility] CBC W/PLT COUNT & AUTO 2021-10-25 05:15:[address] [facility] ECG 12-LEAD 2021-10-25 03:12:26 Unknown, Hl7 [facility] ECG 12-LEAD 2021-10-25 03:11:17 Unknown, Hl7 [facility] ECG 12-LEAD 2021-10-25 03:11:17 Unknown, Hl7 [facility] POCT-GLUCOSE METER 2021-10-24 23:37:00 Jefferson Walkerjennifer [facility] ECG 12-LEAD 2021-10-24 22:09:38 Unknown, Hl7 [facility] ECG 12-LEAD 2021-10-24 22:09:05 Unknown, Hl7 [facility] ECG 12-LEAD 2021-10-24 22:09:05 Unknown, Hl7 [facility] ECG 12-LEAD 2021-10-24 21:45:37 Unknown, 7 [facility] ECG 12-LEAD 2021-10-24 21:44:59 Unknown, 7 [facility] ECG 12-LEAD 2021-10-24 21:44:14 Unknown, Hl7 [facility] ECG 12-LEAD 2021-10-24 21:43:43 Sakina [facility]AD 2021-10-24 21:43:43 Unknown, Hl7 [facility] BASIC METABOLIC PANEL (7) 2021-10-24 21:03:00 Sky Carr I [facility] CALCIUM, IONIZED 2021-10-24 21:03:00 Sky Carr [facility] MAGNESIUM 2021-10-24 21:03:00 kSy Carr [facility] PHOSPHORUS 2021-10-24 21:03:00 Serenirobert [facility] POCT-GLUCOSE METER 2021-10-24 17:57:00 Jory Walker [facility] VANCOMYCIN LEVEL, TROUGH 2021-10-24 11:31:00 Kriss Carrillo [facility] BASIC METABOLIC PANEL (7) 2021-10-24 11:31:00 Caroline [facility] CALCIUM, IONIZED 2021-10-24 11:31:00 [facility] 2021-10-24 11:31:00 [facility] 2021-10-24 11:31:00 [facility] POCT-GLUCOSE METER 2021-10-24 11:28:00 [facility] POCT-GLUCOSE METER 2021-10-24 05:50:00 [facility] BASIC METABOLIC PANEL (7) 2021-10-24 04:15:00 Bruno [facility] MAGNESIUM 2021-10-24 04:15:00 [facility] PHOSPHORUS 2021-10-24 04:15:00 [facility] HEPATIC FUNCTION PANEL 2021-10-24 04:15:00 Eri White [facility] CALCIUM, IONIZED 2021-10-24 04:15:00 [facility] CALCIUM, IONIZED 2021-10-24 04:06:00 [facility] BLOOD GAS, VENOUS 2021-10-24 04:06:00 Butch Partida [facility] B-TYPE NATRIURETIC FACTOR 2021-10-24 04:06:00 [facility] (BNP) [facility] CBC W/PLT COUNT & AUTO 2021-10-24 04:06:00 Eri White [facility] CBC W/PLT COUNT & AUTO 2021-10-24 04:06:00 Bruno [facility] DIFFERENTIAL [facility] XR CHEST 1 VIEW PORTABLE 2021-10-24 00:44:00 Ariana Ward [facility] / BEDSIDE Center POCT-GLUCOSE METER 2021-10-23 23:15:00 Kannanat Edmond, Mabry [facility] POCT-GLUCOSE METER 2021-10-23 18:18:00 Hayat Edmond, [facility] POCT-GLUCOSE METER 2021-10-23 11:57:00 Elías Aleman [facility] BASIC METABOLIC PANEL (7) 2021-10-23 11:48:00 Bruno Sky I [facility] CALCIUM, IONIZED 2021-10-23 11:48:00 Bruno [facility] MAGNESIUM 2021-10-23 11:48:00 Bruno [facility] PHOSPHORUS 2021-10-23 11:48:00 Caroline [facility] ECG 12-LEAD 2021-10-23 11:21:26 Jory Walker [facility] ECG 12-LEAD 2021-10-23 11:21:26 Unknown, Hl7 [facility] ECG 12-LEAD 2021-10-23 11:20:58 Unknown, Hl7 [facility] POCT-GLUCOSE METER 2021-10-23 05:50:00 Elías Aleman [facility] BLOOD GAS, VENOUS 2021-10-23 03:41:00 Butch Partida [facility] HEPATIC FUNCTION PANEL 2021-10-23 03:41:00 Eri White [facility] B-TYPE NATRIURETIC FACTOR 2021-10-23 03:41:00 Serenio, [facility] ([facility]) [facility] BASIC METABOLIC PANEL (7) 2021-10-23 03:41:00 [facility] CALCIUM, IONIZED 2021-10-23 03:41:00 Sertom [facility] CBC W/PLT COUNT & AUTO 2021-10-23 03:41:00 Dayanara Whitea [facility] DIFFERENTIAL Center MAGNESIUM 2021-10-23 03:41:00 Serroberthrobert [facility] PHOSPHORUS 2021-10-23 03:41:00 [facility] HEPATITIS PANEL, ACUTE 2021-10-23 03:41:00 Eri White [facility] CBC W/PLT COUNT & AUTO 2021-10-23 03:41:00 [facility] XR CHEST 1 VIEW PORTABLE 2021-10-23 02:50:00 Ariana Ward [facility] / BEDSIDE Center POCT-GLUCOSE METER 2021-10-22 23:32:00 Adhharsh [facility] BASIC METABOLIC PANEL (7) 2021-10-22 20:20:00 Serroberth [facility] CALCIUM, IONIZED 2021-10-22 20:20:00 Sertom [facility] MAGNESIUM 2021-10-22 20:20:00 Serenirobert [facility] PHOSPHORUS 2021-10-22 20:20:00 [facility] POCT-GLUCOSE METER 2021-10-22 17:49:00 Adhharsh [facility] POCT-GLUCOSE METER 2021-10-22 13:18:00 Adhharsh [facility] BASIC METABOLIC PANEL (7) 2021-10-22 12:50:00 Serenirobert [facility] CALCIUM, IONIZED 2021-10-22 12:50:00 [facility] [facility] MAGNESIUM 2021-10-22 12:50:00 Serenirobert [facility] PHOSPHORUS 2021-10-22 12:50:00 Serroberth [facility] 2D ECHO W/ DOPPLER 2021-10-22 11:22:23 Butch Partida [facility] (CW/PW/COLOR) Center VANCOMYCIN LEVEL, TROUGH 2021-10-22 09:50:00 SidebotthowardKriss [facility] POCT-GLUCOSE METER 2021-10-22 05:33:00 Elías Aleman [facility] XR CHEST 1 VIEW PORTABLE 2021-10-22 02:31:00 Ariana Ward [facility] / BEDSIDE Center BLOOD GAS, VENOUS 2021-10-22 02:24:00 Butch Partida [facility] HEPATIC FUNCTION PANEL 2021-10-22 02:24:00 Eri White [facility] B-TYPE NATRIURETIC FACTOR 2021-10-22 02:24:00 [facility] (BNP) [facility] BASIC METABOLIC PANEL (7) 2021-10-22 02:24:00 [facility] CALCIUM, IONIZED 2021-10-22 02:24:00 [facility] CBC W/PLT COUNT & AUTO 2021-10-22 02:24:00 [facility] MAGNESIUM 2021-10-22 02:24:00 Sertom [facility] PHOSPHORUS 2021-10-22 02:24:00 [facility] CBC W/PLT COUNT & AUTO 2021-10-22 02:24:00 [facility] DIFFERENTIAL [facility] POCT-GLUCOSE METER 2021-10-22 00:02:00 Adhi, [facility] BASIC METABOLIC PANEL (7) 2021-10-21 20:43:00 [facility] CALCIUM, IONIZED 2021-10-21 20:43:00 [facility] 2021-10-21 20:43:00 [facility] PHOSPHORUS 2021-10-21 20:43:00 [facility] ECG 12-LEAD 2021-10-21 20:08:27 Unknown, Hl7 [facility] ECG 12-LEAD 2021-10-21 20:08:27 Unknown, Hl7 [facility] POCT-GLUCOSE METER 2021-10-21 17:13:00 Adhharsh, [facility] POCT-GLUCOSE METER 2021-10-21 13:34:00 Adhharsh, [facility] BASIC METABOLIC PANEL (7) 2021-10-21 12:27:00 [facility] CALCIUM, IONIZED 2021-10-21 12:27:00 [facility] MAGNESIUM 2021-10-21 12:27:00 [facility] PHOSPHORUS 2021-10-21 12:27:00 [facility] POCT-GLUCOSE METER 2021-10-21 11:51:00 Adhharsh [facility] XR ABDOMEN / KUB 1 VIEW 2021-10-21 10:30:00 WhiteEri khan Faby [facility] SARS-COV2/RT-PCR ([facility] & 2021-10-21 09:01:[address] [facility] LABS) [place] POCT-GLUCOSE METER 2021-10-21 05:13:00 Adhharsh [facility] BLOOD GAS, VENOUS 2021-10-21 04:24:00 Butch Partida [facility] CBC W/PLT COUNT & AUTO 2021-10-21 04:24:00 Bruno [facility] DIFFERENTIAL [facility] CALCIUM, IONIZED 2021-10-21 04:24:00 Sertom [facility] HIGH SENSITIVITY TROPONIN 2021-10-21 04:24:00 [facility] B-TYPE NATRIURETIC FACTOR 2021-10-21 04:24:00 [facility] ([facility] CBC W/PLT COUNT & AUTO 2021-10-21 04:24:00 Bruno [facility] DIFFERENTIAL [facility] BASIC METABOLIC PANEL (7) 2021-10-21 04:23:00 Caroline [facility] HEPATIC FUNCTION PANEL 2021-10-21 04:23:00 Eri White [facility] MAGNESIUM 2021-10-21 04:23:00 Sertom [facility] PHOSPHORUS 2021-10-21 04:23:00 Bruno [facility] XR CHEST 1 VIEW PORTABLE 2021-10-21 00:52:00 Ariana Ward [facility] BEDSIDE Center POCT-GLUCOSE METER 2021-10-21 00:33:00 AdhiElías [facility] POCT-GLUCOSE METER 2021-10-20 23:48:00 AdhiElías [facility] HIGH SENSITIVITY TROPONIN 2021-10-20 23:23:00 Butch Partida [facility] ECG 12-LEAD 2021-10-20 20:40:33 Butch Partida [facility] ECG 12-LEAD 2021-10-20 20:40:33 Unknown, Hl7 [facility] CBC W/PLT COUNT & AUTO 2021-10-20 20:07:00 Sertom [facility] DIFFERENTIAL [facility] BASIC METABOLIC PANEL (7) 2021-10-20 20:07:00 BrunoSky [facility] BLOOD GAS, VENOUS 2021-10-20 20:07:00 [facility] [place] MAGNESIUM 2021-10-20 20:07:00 [facility] [place] PHOSPHORUS 2021-10-20 20:07:00 [facility] CBC W/PLT COUNT & AUTO 2021-10-20 20:07:00 [facility] DIFFERENTIAL [facility] US ABDOMEN LIMITED 2021-10-20 18:03:00 Demario [facility] POCT-GLUCOSE METER 2021-10-20 17:19:00 Elías Aleman [facility] 2D ECHO MODE W/O DOPPLER 2021-10-20 17:08:30 Demario Gemma [facility] MRSA SCREEN 2021-10-20 16:58:00 Butch Partida [facility] SPUTUM CULTURE + GRAM 2021-10-20 16:42:00 Ed [facility] BLOOD GAS, ARTERIAL 2021-10-20 16:40:00 Ed, [facility] BLOOD CULTURE 2021-10-20 16:38:00 Ed, [facility] URINE CULTURE 2021-10-20 16:37:[address] [facility] PROTHROMBIN TIME/INR 2021-10-20 16:37:[address] [facility] BASIC METABOLIC PANEL (7) 2021-10-20 16:37:00 Ed, [facility] MAGNESIUM 2021-10-20 16:37:[address] [facility] HEPATIC FUNCTION PANEL 2021-10-20 16:37:00 Ed [facility] B-TYPE NATRIURETIC FACTOR 2021-10-20 16:37:00 Ed [facility] (BNP) [place] HIGH SENSITIVITY TROPONIN 2021-10-20 16:37:00 Ariana Ward I [facility] I [place] CREATINE KINASE (CK) 2021-10-20 16:37:[address] [facility] TSH/FREE T4 IF INDICATED 2021-10-20 16:37:[address] [facility] VITAMIN B12 AND FOLATE 2021-10-20 16:37:00 Ed [facility] S t [facility] URINALYSIS W/ REFLEX 2021-10-20 16:37:[address] [facility] URINE CULTURE Center HEMOGLOBIN A1C 2021-10-20 16:37:[address] [facility] PHOSPHORUS 2021-10-20 16:37:00 Sky Carr [facility] Verterra [place] XR CHEST 1 VIEW PORTABLE 2021-10-20 16:02:[address] [facility] / BEDSIDE Center VASCULAR DIAGRAM -SCAN 2021-10-20 00:00:00 Provider, [facility] Scanning [place] CARDIAC CATH REPORT - 2021-10-20 00:00:00 Provider, [facility] Scanning Center EKG-SCANNED 2021-10-20 00:00:00 Provider, [facility] Medical Scanning [place] Plan of Care Planned Activity Planned Date Details Comments Source Future Scheduled 2024-10-28 Lipid panel (procedure) [facility] 00:00:00 [code = 32633153] Medical Ce nter Future Scheduled 2024-10-28 Lipid panel (procedure) [facility] 00:00:00 [code = 59190595] Medical Ce nter Future Scheduled 2022-10-[address] [facility] 00:00:00 Counseling and Medical Cente r Screening (12+) [code = Tobacco Cessation Counseling and Screening (12+)] Future Scheduled 2022-07-23 INFLUENZA VACCINE (#1) [facility]00 [code = INFLUENZA Medical Ce nter VACCINE (#1)] Future Scheduled 2022-07-23 INFLUENZA VACCINE (#1) [facility] 00:00:00 [code = INFLUENZA Medical Ce nter VACCINE (#1)] Future Scheduled 2021-11-[address] [facility] 00:00:00 (12+) [code = [facility] Center DEPRESSION SCREENING (12+)] Future Scheduled 2021-11-[address] [facility] 00:00:00 (12+) [code = [facility] Center DEPRESSION SCREENING (12+)] Future Scheduled 2008 SHINGLES VACCINES ([address] [facility] 00:00:00 2) [code = SHINGLES [facility] VACCINES (1 of 2)] Future Scheduled 2008 SHINGLES VACCINES ([address] [facility] 00:00:00 2) [code = SHINGLES [facility] VACCINES (1 of 2)] Future Scheduled 1979 Screening for malignant [facility] 00:00:00 neoplasm of cervix Medical C enter (procedure) [code = 227004672] Future Scheduled 1979 Screening for malignant [facility] 00:00:00 neoplasm of cervix Medical C enter (procedure) [code = 596923054] Future Scheduled 1977 DTAP/TDAP/TD VACCINES [facility] 00:[facility]:00 (1 - Tdap) [code = Medical C enter DTAP/TDAP/TD VACCINES (1 - Tdap)] Future Scheduled 1977 DTAP/TDAP/TD VACCINES [facility] 00:00:00 (1 - Tdap) [code = Medical C enter DTAP/TDAP/TD VACCINES (1 - Tdap)] Future Scheduled [address] [facility] 00:00:00 0-64 YRS (1 - PCV) Medical C enter [code = PNEUMOCOCCAL VACCINE 0-64 YRS (1 - PCV)] Future Scheduled [address] [facility] 00:00:00 0-64 YRS (1 - PCV) Medical C enter [code = PNEUMOCOCCAL VACCINE 0-64 YRS (1 - PCV)] Future Scheduled 1958 COVID-19 VACCINE (#1) [facility] 00:00:00 [code = COVID-[address] VACCINE (#1)] Future Scheduled 1958 COVID-19 VACCINE (#1) [facility] 00:00:00 [code = COVID-[address] VACCINE (#1)] Future Scheduled 1958 Screening for malignant [facility] 00:00:00 neoplasm of breast Medical C enter (procedure) [code = 309161800] Future Scheduled 1958 CT Colonography (combo) [facility] 00:00:00 [code = CT Colonography [facility] (combo)] Future Scheduled 1958 Screening for malignant [facility] 00:00:00 neoplasm of colon Medical Ce nter (procedure) [code = 879625549] Future Scheduled 1958 Screening for malignant [facility] 00:00:00 neoplasm of colon Medical Ce nter (procedure) [code = 065185699] Future Scheduled 1958 Screening for malignant [facility] 00:00:00 neoplasm of colon Medical Ce nter (procedure) [code = 377960845] Future Scheduled 1958 Screening for malignant [facility] 00:00:00 neoplasm of colon Medical Ce nter (procedure) [code = 732604711] Future Scheduled 1958 Sigmoidoscopy [code = [facility] S[facility]oidoscopy] Medical Cente r Future Scheduled 1958 Screening for malignant [facility] 00:00:00 neoplasm of breast Medical C enter (procedure) [code = 965002250] Future Scheduled 1958 CT Colonography (combo) [facility] 00:00:00 [code = CT Colonography [facility] (combo)] Future Scheduled 1958 Screening for malignant [facility] 00:00:00 neoplasm of colon Medical Ce nter (procedure) [code = 446790929] Future Scheduled 1958 Screening for malignant [facility] 00:00:00 neoplasm of colon Medical Ce nter (procedure) [code = 439680223] Future Scheduled 1958 Screening for malignant [facility] 00:00:00 neoplasm of colon Medical Ce nter (procedure) [code = 251668864] Future Scheduled 1958 Screening for malignant [facility] 00:00:00 neoplasm of colon Medical Ce nter (procedure) [code = 552109154] Future Scheduled 1958 Sigmoidoscopy [code = [facility] S[facility]oidoscopy] Medical Cente r Encounters Start End Encounter Admission Attending Care Care Encounter Source Date/Time Date/Time Type Type Clinicians Facility Department ID 2022-11-12 2022-11-12 Telephone Karrie [facility] [id number] Univers 00:00:00 00:00:00 Villa DELAROSA 350.1.13.10 ity of [facility] [place].2[place] [phone] Il dical MELYSSA 059 [facility] 2022-11-11 2022-11-11 Film Archivist 2, Adc Lab [facility] [id number] Univers 13:45:00 14:31:11 Visit Villa Yoon 350.1.13. 10 ity [facility] [id number] [phone] Il heidi RAG[place]ALE 353 [facility] 2022-11-11 2022-11-11 Outpatient R KARRIE [facility] [id number] Univers 13:00:00 13:42:48 SENDDANIELLA banks [facility] 2022-11-11 2022-11-11 Office Karrie [facility] [id number] Univers 13:00:00 13:42:48 Visit Villa DELAROSA 350.1.13.10 ity of [facility] [id number] [phone] Il dicma MELYSSA [address] [place] [address] 2022-11-11 2022-11-11 Orders Doctor YADI [id number] [id number] Univers 00:00:00 00:00:00 Only Unassigned, BRANDON 350.1.13.10 ity of [place] [facility] 4.2.7.2.686 Thanh as [phone] [address] 2022-10-27 2022-10-27 Refill Karrie [facility] 1.2.840.114 [id number] Univers 00:00:00 00:00:00 Villa DELAROSA 350.1.13.10 ity of [place] [phone] [facility] NAL [address] [place] [address] 2022-10-24 2022-10-24 [facility] [id number] Univers 00:00:00 00:00:00 Villa DELAROSA 350.1.13.10 ity of [place] 4[place].7.[place] [phone] [address] 2022-09-09 2022-09-09 [facility] [id number] Univers 08:00:00 08:00:00 SENDIL ity [facility] 2022-08-24 2022-08-24 [facility] [id number] Univers 13:30:00 13:30:00 SENDIL ity [facility] 2022-08-20 2022-08-20 [facility] [id number] Univers 00:00:00 00:00:00 Villa DLEAROSA 350.1.13.10 ity of [place].2.[place] [phone] [address] 2022-08-13 2022-08-13 Telephone [facility] [id number] Univers 00:00:00 00:00:00 Villa DELAROSA 350.1.13.10 ity of [place] 4[place].7.2.[place] [phone] [facility] NAL [address] [place] [address] 2022-08-12 2022-08-12 Outpatient [facility] [id number] Univers 11:30:00 11:59:20 SENDIL ity [facility] 2022-08-12 2022-08-12 Film Archivist 2, Adc Lab [facility] 1.2.840.114 [id number] Univers 11:30:00 11:59:20 Visit [place] Yoon 350.1.13. 10 ity of [facility] 4.2.7.2.[place] [phone] Il dical [facility] 353 [facility] 2022-08-12 2022-08-12 Office [facility] [id number] Univers 10:30:00 11:21:01 Visit Sendil Antonino DELAROSA 350.1.13.10 ity of [facility] 4.2.7.2.[place] [phone] [facility] 059 [facility] 2022-08-07 2022-08-07 [facility] [id number] Univers 00:00:00 00:00:00 Sendil Antonino DELAROSA 350.1.13.10 ity of [place] 4[place]2.7.2.[place] [phone] [facility] NAL 9 [facility] 2022-07-22 2022-07-22 [facility]phone [facility] [id number] Univers 00:00:00 00:00:00 Sendil Antonino DELAROSA 350.1.13.10 ity of [facility] 4.2.7.2.[place] [phone] [address] 2022-07-15 2022-07-15 Outpatient R KARRIE [facility] [id number] Univers 08:00:00 23:59:00 SENDIL ity [facility] 2022-07-09 2022-07-09 Outpatient R KARRIE [facility] [id number] Univers 14:00:00 14:00:00 SENDIL ity [facility] 2022-07-09 2022-07-09 [facility] [id number] Univers 14:00:00 14:00:00 SENDIL ity [facility] 2022-06-30 2022-06-30 LUC Law 1.2.840.114 [id number] Univers 00:00:00 00:00:00 Management Maral CAPUTO 350.1.13.10 [place] of [place]2.7.2.[place] [phone] [facility] [address] 2022 2022 Orders Doctor YADI 1.2.840.114 [id number] Univers 00:00:00 00:00:00 Only Unassigned, BRANDON 350.1.13.10 ity of [place] [facility] 4.2.7.2.686 Thanh as [phone] [facility] [address] 2022-04-17 2022-04-17 [facility] 1.2.840.114 [id number] Univers 00:00:00 00:00:00 Villa DELAROSA 350.1.13.10 ity of [place] 4[place] [phone] [facility] 059 [facility] 2022-04-07 2022-04-07 Telephone Karrie [facility] [id number] Univers 00:00:00 00:00:00 Villa DELAROSA 350.1.13.10 ity of [place] 4[place]2.7.2.[place] [phone] Il dical NAL 059 [facility] 2022-03-23 2022-03-23 Film Archivist 2, Adc Lab [facility] 1.2.840.114 [id number] Univers 14:15:00 14:30:00 Visit Villa Yoon 350.1.13. 10 ity of [place] 4[place].7.2.[place] [phone] Il dical NAL 353 [facility] 2022-03-23 2022-03-23 Film Archivist 2, Adc Lab [facility] 1.2.840.114 [id number] Univers 14:15:00 14:30:00 Visit Villa Yoon 350.1.13. 10 ity of [place] 4[place].2.[place] [phone] [facility] NAL 353 [facility] 2022-03-23 2022-03-23 Outpatient R KARRIE [facility] [id number] Univers 14:15:00 14:15:00 [facility]22-[facility]-23 2022-03-23 Outpatient R KARRIE [facility] [id number] Univers 13:00:00 13:50:[address] [facility] 2022-03-23 2022-03-23 Office [facility] 1.2.840.114 [id number] Univers 13:00:00 13:50:11 Visit Senddaniella DELAROSA 350.1.13.10 ity of [place] 4[place]2.7.2.[place] [phone] [address] 2022-03-23 2022-03-23 Outpatient R KARRIE [facility] [id number] Univers 13:00:00 13:50:[address] [facility] 2022-03-23 2022-03-23 Outpatient R KARRIE [facility] [id number] Univers 13:00:00 13:00:[address] [facility] 2022-02-04 2022-02-04 [facility]ill [facility] 1.2.840.114 [id number] Univers 00:00:00 00:00:00 Villa DELAROSA 350.1.13.10 ity of [place] 4[place] [phone] [address] 2022-01-22 2022-01-22 Telephone Karrie [facility] [id number] Univers 00:00:00 00:00:00 Villa DELAROSA 350.1.13.10 ity of [place] 4[place]2.7.2.[place] [phone] Il dic[address] 2021-12-29 2021-12-29 Film Archivist Wen, Adc Lab Main [facility] [id number] [id number] Univers 14:15:00 14:30:00 Visit Villa Yoon 350.1.13. 10 ity of [place] 4.2.7.2.[place] [phone] Il dical NAL 353 [facility] 2021-12-29 2021-12-29 Outpatient R KARRIE [facility] [id number] Univers 11:00:00 11:48:24 SENDIL ity [facility] 2021-12-29 2021-12-29 Office Karrie [facility] 1.2.840.114 [id number] Univers 11:00:00 11:48:24 Visit Senddaniella DELAROSA 350.1.13.10 ity of [place] 4.2.7.2.[place] [phone] [facility] 059 [facility] 2021-12-29 2021-12-29 [facility] [id number] Univers 11:00:00 11:00:00 [facility] 2021-12-26 2021-12-26 Telephone [facility] [id number] Univers 00:00:00 00:00:00 Sendil Antonino DELAROSA 350.1.13.10 ity of [place] 4.[place] [phone] [facility] 059 [facility] 2021-12-02 2021-12-02 Orders Doctor YADI 1.2.840.114 [id number] Univers 00:00:00 00:00:00 Only Unassigned, BRANDON 350.1.13.10 ity of [place] [facility] 4.2.7.2.686 Thanh as [phone] [address] 2021-12-01 2021-12-01 Outpatient R KARRIE [facility] [id number] Univers 14:00:00 14:00:00 SENDIL ity [facility] 2021-12-01 2021-12-01 Film Archivist 2, Adc Lab [facility] 1.2.840.114 [id number] Univers 14:00:00 14:00:00 Visit Villa Yoon 350.1.13. 10 ity of [place] 4[place] [phone] Me dical NAL 353 [facility] 2021-12-01 2021-12-01 Office [facility] 1.2.840.114 [id number] Univers 13:00:00 13:53:28 Visit Senddaniella DELAROSA 350.1.13.10 ity of [facility] 4.2.7.2.[place] [phone] Il dicma NAL 059 [facility] 2021-12-01 2021-12-01 [facility] [id number] Univers 13:00:00 13:53:28 SENDIL ity [facility] 2021-12-01 2021-12-01 Outpatient [facility] [id number] Univers 13:00:00 13:00:00 SENDIL ity [facility] 2021-11-26 2021-11-26 [facility] [id number] Univers 00:00:00 00:00:00 Sendil Antonino DELAROSA 350.1.13.10 ity of [facility] 4.2.7.2.[place] [phone] Il dicma NAL [address] [place] [address] 2021-11-25 2021-11-25 [facility]phone [facility] [id number] Univers 00:00:00 00:00:00 Sendil Antonino DELAROSA 350.1.13.10 ity of [place] 4[place] [phone] Il dicma NAL [address] [place] [address] 2021-11-24 2021-11-24 [facility]phone [facility] [id number] Univers 00:00:00 00:00:00 Sendil Antonino DELAROSA 350.1.13.10 ity of [facility] 4.2.7.2.[place] [phone] Il dical NAL [address] [place] [address] 2021-11-03 2021-11-03 [facility] [id number] Univers 11:30:00 11:30:00 SENDIL ity [facility] 2021-10-20 2021-10-29 Inpatient ER BETSYSINA [facility] Medical ICU [id number] [facility] 15:17:00 17:15:00 GISELLE 2021-10-20 2021-10-29 Hospital ER Elías Aleman [facility] [id number] [facility] 15:17:00 17:15:00 Encounter Clotilde German [facility], [facility] 2021-10-27 2021-10-27 Surgery Ala, [facility] [id number] 18:00:00 19:34:00 [facility] 2021-10-22 2021-10-22 Travel [facility] [id number] [facility] 00:[facility] 00:00:00 [facility] 2021-10-20 2021-10-20 Outpatient [facility] [id number] [facility] 00:00:00 23:59:00 [facility] 2021-10-20 2021-10-20 Orders [facility] [id number] 00:00:00 00:00:00 Only [facility] 2021-10-20 2021-10-[address] [facility], [facility] [id number] 00:00:00 00:00:00 [facility] 2021-10-20 2021-10-20 Telephone Demario, [facility] [id number] 00:00:00 00:00:00 [facility][Note 3] 2021-10-10 2021-10-10 [facility]phone [facility] [id number] Univers 00:00:00 00:00:00 [facility].686 Merlene BURR [phone] [address] 2021-10-03 2021-10-03 Telephone Karrie [facility] [id number] Univers 00:00:00 00:00:00 Sendil Antonino DELAROSA [id number] ity of [facility] [id number] [phone] [place] dicma NAL 9 [facility] 2021-09-29 2021-09-29 [facility] [id number] Univers 15:30:00 16:11:54 SENDIL ity [facility] 2021-09-29 2021-09-29 [facility] [id number] Univers 15:30:00 16:11:54 SENDIL ity [facility] 2021-09-29 2021-09-29 Office [facility] [id number] Univers 15:21:22 16:11:54 Visit Senddaniella DELAROSA [id number] ity [id number] [phone] [facility] NAL 9 [facility] 2021-09-29 2021-09-29 Orders Doctor YADI [id number] Univers 00:00:00 00:00:00 Only Unassigned, BRANDON 350.1.13.10 ity of [facility] 4.2.7.2.686 Thanh as [phone] [address] 2021-09-09 2021-09-09 Orders Doctor YADI 1.2.840.114 [id number] Univers 00:00:00 00:00:00 Only Unassigned, BRANDON 350.1.13.10 ity of [facility] 4.2.7.2.686 Thanh as [phone] [address] 2020-07-02 2020-07-02 Nathanael [place] [facility] 1.2.840.114 [id number] Univers 00:00:00 00:00:00 Mukesh Delarosa 350.1.13.10 it[place] of [place] [phone] Il dical nal [address] [place] [address] 2020-03-04 2020-03-04 [facility] 1.2.840.114 [id number] Univers 00:00:00 00:00:00 Arturodesiree L[place] 350.1.13.10 ity of [place] [phone] [address] 2020-02-05 2020-02-05 Orders Doctor YADI 1.2.840.114 [id number] Univers 00:00:00 00:00:00 Only Unassigned, BRANDON 350.1.13.10 [facility] 4.2.7.2.686 Thanh as [phone] [address] 2020-01-01 2020-01-01 [facility] 1.2.840.114 [id number] Univers 00:00:00 00:00:00 Arturodesiree [place] 350.1.13.10 ity of [place] [phone] [address] 2019-08-10 2019-08-10 [facility] 1.2.840.114 [id number] Univers 00:00:00 00:00:00 Arturodesiree [place]inton 350.1.13.10 ity of [place] [phone] [address] 2019-07-03 2019-07-03 [facility] 1.2.840.114 [id number] Univers 00:00:00 00:00:00 Arturodesiree [place] 350.1.13.10 ity of [place].2.[place] [phone] [address] 2006-06-15 2006-06-15 Outpatient [facility] [id number] Univers 00:00:00 10:38:53 9 ity of [facility] Results Test Description Test Time Test Comments Results Result Comments Source POC-Glucose meter 2021-10-29 11:36:18 Test Item Value Reference Range Interpretation Comme nts POC-Glucose Meter (test code = 173 mg/dL 70-110 H : TESTED AT [facility] [address]) [place], [address]: Emd Special Education Teacher/Techni mariama ID = [id number] for Noor, Siddiqua Lab Interpretation (test code = Abnormal 57766-7) [facility] [id number] 11:36:18 Test Item Value Reference Range Interpretation Comments POC-GLUCOSE METER 173 mg/dL 70-110 H : TESTED A T [facility] [address] (BEAKER) (test code = [facility], 1538) [address]: Emd Special Education Teacher/Techni mariama ID = [id number] for No or, Siddiqua POCT-GLUCOSE [id number] 07:55:38 Test Item Value Reference Range Interpretation Comments POC-GLUCOSE METER 100 mg/dL 70-110 : TESTED A T [facility] 6720 (BEAKER) (test code = [facility], 1538) [address]: Emd Special Education Teacher/Techni mariama ID = [id number] for No or, Siddiqua Hepatic function [id number] 07:01:41 Test Item Value Reference Range Interpretation [...] 3.0 g/dL 3.5-5.0 L Specime n slightly 07320-4) hemolyzed Total Bilirubin (test 1.8 mg/dL 0.2-1.2 H Specim en slightly code = 1974-2) hemolyzed Bilirubin, Direct 1.1 mg/dL 0.1-0.5 H Specimen s lightly (test code = 1967-7) hemolyz ed Alkaline Phosphatase 115 U/L 40-150 (test code = 6768-6) AST (test code = 80 U/L 5-34 H Specimen sl ightly 1920-8) hemolyzed ALT (test code = 238 U/L 6-55 H Specimen sl ightly 1742-6) hemolyzed HERMAN (test code = HERMAN) Emd Special Education Teacher ID - LISA F Lab Interpretation Abnormal (test code = 57202-9) [facility] [id number] 07:01:41 Test Item Value Reference Range Interpretation [...] Specimen slightly (test code = 347) hemolyzed Emd Special Education Teacher PRESTON Whitley LISA FCBC with platelet count + automated [id number] 06:59:20 Test Item Value Reference Range Interpretation Comments WBC (test code = 6690-2) 6.7 See_Comment [A utomated message] The system CMGE generated this result transmitted ref erence range: 3.5 - 10 .5 K/L. The refe rence range was not u sed to interpret this result as normal/abnor mal. RBC (test code = 789-8) 4.84 See_Comment [Au tomated message] The system CMGE generated this result transmitted ref erence range: 3.93 - 5 .22 M/L. The refe rence range was not u sed to interpret this result as normal/abnor mal. MCHC (test code = 786-4) 29.4 See_Comment L [A utomated message] The system CMGE generated this result transmitted ref erence range: [...] See_Comment [Aut omated message] 777-3) The system CMGE generated this result transmitted ref erence range: 150 - 45 0 K/CU MM. The referen ce range was not u sed to interpret this result as normal/abnor mal. MPV (test code = 11.4 fL 9.4-12.3 07320-4) nRBC (test code = 413) 0 See_Comment [Aut omated message] The system CMGE generated this result transmitted ref erence range: [...] See_Comment [Aut omated message] 670) The system CMGE generated this result transmitted ref erence range: 1.56 - 6 .13 K/L. The refe rence range was not u sed to interpret this result as normal/abnor mal. # Lymphs (test code = 1.28 See_Comment [Auto mated message] 414) The system CMGE generated this result transmitted ref erence range: 1.18 - 3 .74 K/L. The refe rence range was not u sed to interpret this result as normal/abnor mal. # Monos (test code = 0.62 See_Comment H [Autom ated message] 415) The system CMGE generated this result transmitted ref erence range: 0.24 - 0 .36 K/L. The refe rence range was not u sed to interpret this result as normal/abnor mal. # Eos (test code = 416) 0.33 See_Comment [Au tomated message] The system CMGE generated this result transmitted ref erence range: 0.04 - 0 .36 K/L. The refe rence range was not u sed to interpret this result as normal/abnor mal. # Baso (test code = 417) 0.10 See_Comment H [A utomated message] The system CMGE generated this result transmitted ref erence range: 0.01 - 0 .08 K/L. The refe rence range was not u sed to interpret this result as normal/abnor mal. Immature 1 % 0-1 Granulocytes-Relative (test code = 2801) Lab Interpretation (test Abnormal code = 77168-1) [facility] W/PLT COUNT & AUTO [id number] 06:59:20 Test Item Value Reference Range Interpretation [...] PERCENT (BEAKER) (test code = 2801) POCT-GLUCOSE [id number] 22:49:55 Test Item Value Reference Range Interpretation Comments POC-GLUCOSE METER 119 mg/dL 70-110 H : TESTED A T [place] [address] ([facility]) (test code = [facility], [facility]) [address]: Emd Special Education Teacher/Techni mariama ID = [id number] for SABINA RIDER POCT-GLUCOSE [id number] 16:50:39 Test Item Value Reference Range Interpretation Comments POC-GLUCOSE METER 171 mg/dL 70-110 H : Notified RN/MD: ([facility]) (test code = TESTED AT [place] [address] 153) [facility], [address]: Emd Special Education Teacher/Techni mariama ID = [id number] for Sarah Lockwood POCT-GLUCOSE [id number] 13:25:12 Test Item Value Reference Range Interpretation Comments POC-GLUCOSE METER 177 mg/dL 70-110 H : TESTED A T [facility] 6720 ([facility]) (test code = [facility], 153) [address]: Emd Special Education Teacher/Techni mariama ID = [id number] for Julio maddox (pca2)Faiza POCT-GLUCOSE [id number] 08:36:19 Test Item Value Reference Range Interpretation Comments POC-GLUCOSE METER 88 mg/dL 70-110 : TESTED A T [facility] 6720 ([facility]) (test code = [facility], 153) [address]: Emd Special Education Teacher/Techni mariama ID = [id number] for Sarah Blakely Lipid [id number] 06:46:47 Test Item Value Reference Range Interpretation Comments Triglycerides (test 140 mg/dL code = 2571-8) Cholesterol (test code 193 mg/dL = 2093-3) HDL (test code = 41 mg/dL 2085-9) LDL Calculated (test 124 mg/dL code = 72220-3) EHRMAN (test code = HERMAN) Triglyceride Reference Range: Low Risk <150 Borderline 150-199 High Risk 200-499 Very High Risk >=500 Cholesterol Reference Range: Low Risk <200 Borderline 200-239 High Risk >240 HDL Cholesterol Reference Range: Low Risk >=60 High Risk <40 LDL Cholesterol Reference Range: Optimal <100 Near Optimal 100-129 Borderline 130-159 High 160-189 Very High >=190 Emd Special Education Teacher ID Gutierrez LISA GRIGGSpecimen slightly icteric [facility] Hospital[facility]IP[facility] [id number] 06:46:47 Test Item Value Reference Range Interpretation [...] Borderline 130-159 High 160-189 Very High >=190 Emd Special Education Teacher ID Gutierrez GRIGGSpecimen slightly ictericHEPATIC FUNCTION [id number] 06:46:47 Test Item Value Reference Range Interpretation [...] code = 323 U/L 6-55 H 347) Emd Special Education Teacher ID - LISA FSpecimen slightly ictericCBC W/PLT COUNT & AUTO [id number] 06:32:02 Test Item Value Reference Range Interpretation [...] PERCENT (BEAKER) (test code = 2801) Calcium, [id number] 06:31:26 Test Item Value Reference Range Interpretation Comments Calcium, Ion (test code = 1993-) 1.16 mmol/L 1.12-1.27 pH, Blood (test code = 48479-8) 7.33 [facility] CenterCALCIUM, [id number] 06:31:26 Test Item Value Reference Range Interpretation Comments CALCIUM IONIZED (BEAKER) (test 1.16 mmol/L 1.12-1.27 code = 698) PH, BLOOD (BEAKER) (test code = 7.33 1810) POCT-GLUCOSE [id number] 23:06:17 Test Item Value Reference Range Interpretation Comments POC-GLUCOSE METER 116 mg/dL 70-110 H : TESTED A T [facility] 6720 (BEAKER) (test code = [facility], 153) [address]: Emd Special Education Teacher/Techni mariama ID = [id number] for Wi roman, Otelia POCT-GLUCOSE [id number] 22:48:11 Test Item Value Reference Range Interpretation Comments POC-GLUCOSE METER 132 mg/dL 70-110 H : TESTED A T [facility] 6720 (BEAKER) (test code = [facility], 1538) [address]: Emd Special Education Teacher/Techni mariama ID = [id number] for Co Kayla fall POCT-GLUCOSE [id number] 18:53:30 Test Item Value Reference Range Interpretation Comments POC-GLUCOSE METER 82 mg/dL 70-110 : TESTED A T [facility] 6720 (BEAKER) (test code = [facility], 1538) [address]: Emd Special Education Teacher/Techni mariama ID = [id number] for SKYE HOWARD POCT-GLUCOSE [id number] 13:07:43 Test Item Value Reference Range Interpretation Comments POC-GLUCOSE METER 109 mg/dL 70-110 : TESTED A T [facility] 6720 (BEAKER) (test code = [facility], 1538) [address]: Emd Special Education Teacher/Techni mariama ID = [id number] for SKYE LZOANO POCT-GLUCOSE [id number] 08:29:45 Test Item Value Reference Range Interpretation Comments POC-GLUCOSE METER 105 mg/dL 70-110 : TESTED A T [facility] 6720 (BEAKER) (test code = [facility], 1538) [address]: Emd Special Education Teacher/Techni mariama ID = [id number] for SKYE LOZANO HEPATIC FUNCTION [id number] 08:15:14 Test Item Value Reference Range Interpretation [...] Specimen slightly (test code = 347) hemolyzed Emd Special Education Teacher ID - JC MSpecimen slightly ictericBasic Metabolic [id number] 08:15:13 Test Item Value Reference Range Interpretation Comments Sodium (test code = 134 meq/L 136-145 L 2951-2) Potassium (test code 4.0 meq/L 3.5-5.1 Specime n slightly = 2823-3) hemolyzed Chloride (test code = 96 meq/L 98-107 L 5-0) CO2 (test code = 29 meq/L 22-29 8-9) BUN (test code = 28 mg/dL 7-21 H 3094-0) Creatinine (test code 0.70 mg/dL 0.57-1.25 Specim en slightly = 2160-0) hemolyzed Glucose (test code = 91 mg/dL 70-105 2345-7) Calcium (test code = 9.2 mg/dL 8.4-10.2 03258-7) EGFR (test code = 85 mL/min/1.73 [place] [address]-1) NOT ACCURATE CREATININE CLEARANCE IN PREDICTING GLOMERULAR FILTRATION RATE . ESTIMATED GFR I S NOT APPLICABLE FOR DIALYSIS PATIENTS. HERMAN (test code = HERMAN) Emd Special Education Teacher ID - JC MSpecimen slightly icteric Lab Interpretation Abnormal (test code = 93011-1) [facility]2021-12-06 08:15:13 Test Item Value Reference Range Interpretation Comments Magnesium (test code = 2.5 mg/dL 1.6-2.6 Speci men 32207-3) slightly hemolyzed HERMAN (test code = HERMAN) Emd Special Education Teacher ID - JC M Lab Interpretation Normal (test code = 37169-4) [facility]2021-12-06 08:15:13 Test Item Value Reference Range Interpretation Comments MAGNESIUM (BEAKER) 2.5 mg/dL 1.6-2.6 Specimen slightly (test code = 627) hemolyzed Emd Special Education Teacher ID - JC MBASIC METABOLIC [id number] 08:15:13 Test Item Value Reference Range Interpretation Comments SODIUM (BEAKER) 134 meq/L 136-145 L (test code = 381) POTASSIUM (BEAKER) 4.0 meq/L 3.5-5.1 Specimen slightly (test code = 379) hemolyzed CHLORIDE (BEAKER) 96 meq/L 98-107 L (test code = 382) CO2 (BEAKER) (test 29 meq/L -29 code = 355) BLOOD UREA NITROGEN 28 [...] S NOT APPLICABLE FOR DIALYSIS PATIEN TS. Emd Special Education Teacher ID - JC MSpecimen slightly ictericCALCIUM, [id number] 08:00:49 Test Item Value Reference Range Interpretation Comments CALCIUM IONIZED (BEAKER) (test 1.14 mmol/L 1.12-1.27 code = 698) PH, BLOOD (BEAKER) (test code = 7.38 1810) CBC W/PLT COUNT & AUTO [id number] 07:59:40 Test Item Value Reference Range Interpretation [...] PERCENT (BEAKER) (test code = 2801) POCT-GLUCOSE [id number] 21:36:56 Test Item Value Reference Range Interpretation Comments POC-GLUCOSE METER 147 mg/dL 70-110 H : TESTED A T [facility] 6720 (BEAKER) (test code = [facility], 153) [address]: Emd Special Education Teacher/Techni mariama ID = [id number] for Laney Irby POCT-GLUCOSE [id number] 18:17:55 Test Item Value Reference Range Interpretation Comments POC-GLUCOSE METER 212 mg/dL 70-110 H : TESTED A T [facility] 6720 (BEAKER) (test code = [facility], 153) [address]: Emd Special Education Teacher/Techni mariama ID = [id number] for JAYDA KC POCT-GLUCOSE [id number] 13:44:16 Test Item Value Reference Range Interpretation Comments POC-GLUCOSE METER 148 mg/dL 70-110 H : TESTED A T [facility] 6720 (BEAKER) (test code = [facility], 153) [address]: Emd Special Education Teacher/Techni mariama ID = [id number] for DOTTY COLÓN, JAYDA POCT-GLUCOSE [id number] 08:47:01 Test Item Value Reference Range Interpretation Comments POC-GLUCOSE METER 70 mg/dL 70-110 : TESTED A T [facility] 6720 (BEAKER) (test code = [facility] [place], 1538) [address]: Emd Special Education Teacher/Techni mariama ID = [id number] for JAYDA SALVADOR [id number] 07:21:57 Test Item Value Reference Range Interpretation Comments Phosphorus (test code 3.0 mg/dL 2.3-4.7 Specim en = 2777-1) slightly hemolyzed HERMAN (test code = HERMAN) Emd Special Education Teacher ID - DB Lab Interpretation Normal (test code = 98446-1) [facility]2021[facility] 07:21:57 Test Item Value Reference Range Interpretation Comments PHOSPHORUS (BEAKER) 3.0 mg/dL 2.3-4.7 Specimen slightly (test code = 604) hemolyzed Emd Special Education Teacher ID - DBHEPATIC FUNCTION [id number] 06:38:49 Test Item Value Reference Range Interpretation [...] Specimen slightly (test code = 347) hemolyzed Emd Special Education Teacher ID - DBSpecimen slightly ictericBASIC METABOLIC [id number] 06:38:48 Test Item Value Reference Range Interpretation [...] S NOT APPLICABLE FOR DIALYSIS PATIEN TS. Emd Special Education Teacher ID - DBSpecimen slightly [id number] 06:38:47 Test Item Value Reference Range Interpretation Comments MAGNESIUM (BEAKER) 2.8 mg/dL 1.6-2.6 H Specimen slightly (test code = 627) hemolyzed Emd Special Education Teacher ID - DBPOCT-GLUCOSE [id number] 06:05:14 Test Item Value Reference Range Interpretation Comments POC-GLUCOSE METER 82 mg/dL 70-110 : TESTED A T [facility] 6720 (BEAKER) (test code = [place], 1538) [address]: Emd Special Education Teacher/Techni mariama ID = [id number] for Laney Pro CBC W/PLT COUNT & AUTO [id number] 05:14:56 Test Item Value Reference Range Interpretation [...] PERCENT (BEAKER) (test code = 2801) CALCIUM, [id number] 05:00:57 Test Item Value Reference Range Interpretation Comments CALCIUM IONIZED (BEAKER) (test 1.19 mmol/L 1.12-1.27 code = 698) PH, BLOOD (BEAKER) (test code = 7.36 1810) POCT-GLUCOSE [id number] 01:05:59 Test Item Value Reference Range Interpretation Comments POC-GLUCOSE METER 134 mg/dL 70-110 H : TESTED A T [facility] [address]20 (BEAKER) (test code = [place], 1538) [address]: Emd Special Education Teacher/Techni mariama ID = [id number] for Dotty anaisryan Komalcriss BLOOD [id number] 18:00:55 Test Item Value Reference Range Interpretation [...] and/or detection times of some organisms. [facility] HospitalBLO[facility] [id number] 18:00:54 Test Item Value Reference Range Interpretation Comments CULTURE (BEAKER) (test No growth in 5 days code = 1095) The specimen volume collected for this blood culture was below the optimum (10 mL per bottle or 20 mL total). Use of lower volumes may adversely affect recovery and/or detection times of some organisms.POCT-GLUCOSE [id number] 17:10:36 Test Item Value Reference Range Interpretation Comments POC-GLUCOSE METER 224 mg/dL 70-110 H : TESTED A T [facility] 6720 (BEAKER) (test code = [facility], 1538) [address]: Emd Special Education Teacher/Techni mariama ID = [id number] for Rika garcia (contract)Ludy 2D Echo W/Doppler(CW/PW/Color)2021-10-25 15:43:26Ejection FractionSLE ECHO HEARTLAB MKCKESSON [facility]PO[facility] [id number] 11:41:24 Test Item Value Reference Range Interpretation Comments POC-GLUCOSE METER 79 mg/dL 70-110 : TESTED A T [facility] 6720 (BEAKER) (test code = [facility], 1538) [address]: Emd Special Education Teacher/Techni mariama ID = [id number] for [place] (contract)Ludy xis POCT-GLUCOSE [id number] 07:09:33 Test Item Value Reference Range Interpretation Comments POC-GLUCOSE METER 106 mg/dL 70-110 : TESTED A T [facility] 6720 (BEAKER) (test code [facility], = 1538) [address]: Emd Special Education Teacher/Techni mariama ID = [id number] for SUGU , SHEENAMOL POCT-GLUCOSE [id number] 06:17:59 Test Item Value Reference Range Interpretation Comments POC-GLUCOSE METER 70 mg/dL 70-110 : Notified RN/MD: TESTED (BEAKER) (test code = [facility] [address] [facility] 9578) [place], [address]: Emd Special Education Teacher/Techni mariama ID = [id number] for TERESE LUCERO HEPATIC FUNCTION [id number] 05:52:49 Test Item Value Reference Range Interpretation [...] Specimen slightly (test code = 347) hemolyzed Emd Special Education Teacher ID - ADMINSpecimen slightly ictericBASIC METABOLIC [id number] 05:52:45 Test Item Value Reference Range Interpretation [...] S NOT APPLICABLE FOR DIALYSIS PATIEN TS. Emd Special Education Teacher ID - ADMINSpecimen slightly [id number] 05:52:44 Test Item Value Reference Range Interpretation Comments PHOSPHORUS (BEAKER) 3.3 mg/dL 2.3-4.7 Specimen slightly (test code = 604) hemolyzed Emd Special Education Teacher ID - [id number] 05:52:43 Test Item Value Reference Range Interpretation Comments MAGNESIUM (BEAKER) 2.4 mg/dL 1.6-2.6 Specimen slightly (test code = 627) hemolyzed Emd Special Education Teacher ID - ADMINCBC W/PLT COUNT & AUTO [id number] 05:39:37 Test Item Value Reference Range Interpretation [...] PERCENT (BEAKER) (test code = 2801) CALCIUM, [id number] 05:31:20 Test Item Value Reference Range Interpretation Comments CALCIUM IONIZED (BEAKER) (test 1.10 mmol/L 1.12-1.27 L code = 698) PH, BLOOD (BEAKER) (test code = 7.43 1810) Blood gas, [id number] 05:31:19 Test Item Value Reference Range Interpretation Comments pH, Matias (test code = 7.43 7.32-7.42 H 2746-6) pCO2, Matias (test code = 56 See_Comment H [Aut omated message] 305) The system [employer] h generated this result transmit crissy reference range : 41 - 51 mm Hg. The reference range was not used to interpret this result as normal/abnormal . pO2, Matias (test code = 95 See_Comment H [Auto mated message] 9695-2) The system ic h generated this result transmit crissy reference range : 25 - 40 mm Hg. The reference range was not used to interpret this result as normal/abnormal . O2 Sat, Matias (test code 97.3 % 40.0-70.0 H = 2711-0) HCO3, Matias (test code = 36 mmol/L 21-29 H 09445-9) Base Excess, Matias (test 9.6 mmol/L -2.0-3.0 H code = 1927-3) Patient Temperature 37.0 (test code = 8310-5) FIO2 (test code = 1819) 21 Lab Interpretation Abnormal (test code = 06587-3) [facility], [id number] 05:31:19 Test Item Value Reference Range Interpretation [...] (BEAKER) (test code = 1819) 21.0 POCT-GLUCOSE [id number] 23:48:54 Test Item Value Reference Range Interpretation Comments POC-GLUCOSE METER 181 mg/dL 70-110 H : [facility] (BEAKER[facility] (test code [facility], = 1538) [address]: Emd Special Education Teacher/Techni mariama ID = [id number] for SUGU , SHEENAMOL [id number] 21:55:36 Test Item Value Reference Range Interpretation Comments PHOSPHORUS (BEAKER) (test code = 3.7 mg/dL 2.3-4.7 604) Emd Special Education Teacher ID - DBBASIC METABOLIC [id number] 21:55:36 Test Item Value Reference Range Interpretation [...] S NOT APPLICABLE FOR DIALYSIS PATIEN TS. Emd Special Education Teacher ID - DBSpecimen slightly [id number] 21:55:35 Test Item Value Reference Range Interpretation Comments MAGNESIUM (BEAKER) (test code = 2.4 mg/dL 1.6-2.6 627) Emd Special Education Teacher ID - DBCALCIUM, [id number] 21:09:35 Test Item Value Reference Range Interpretation Comments CALCIUM IONIZED (BEAKER) (test 1.06 mmol/L 1.12-1.27 L code = 698) PH, BLOOD (BEAKER) (test code = 7.44 1810) POCT-GLUCOSE [id number] 18:08:52 Test Item Value Reference Range Interpretation Comments POC-GLUCOSE METER 182 mg/dL 70-110 H : TESTED A T [facility] 6720 (BEAKER) (test code = [facility], 1538) [address]: Emd Special Education Teacher/Techni mariama ID = [id number] for Sheila Zafar BASIC METABOLIC [id number] 12:33:16 Test Item Value Reference Range Interpretation [...] S NOT APPLICABLE FOR DIALYSIS PATIEN TS. Emd Special Education Teacher ID - DBSpecimen slightly [id number] 12:33:15 Test Item Value Reference Range Interpretation Comments PHOSPHORUS (BEAKER) (test code = 3.3 mg/dL 2.3-4.7 604) Emd Special Education Teacher ID - [id number] 12:33:14 Test Item Value Reference Range Interpretation Comments MAGNESIUM (BEAKER) (test code = 2.2 mg/dL 1.6-2.6 627) Emd Special Education Teacher ID - DBVancomycin level, [id number] 12:29:17 Test Item Value Reference Range Interpretation Comments Vancomycin Tr (test code = 14.6 ug/mL 10.0-20.0 4092-3) HERMAN (test code = HERMAN) Emd Special Education Teacher ID - DB Lab Interpretation (test Normal code = 08163-4) [facility] CenterVANCOMYCIN LEVEL, [id number] 12:29:17 Test Item Value Reference Range Interpretation Comments VANCOMYCIN TROUGH (BEAKER) (test 14.6 ug/mL 10.0-20.0 code = 522) Emd Special Education Teacher ID - DBCALCIUM, [id number] 11:47:26 Test Item Value Reference Range Interpretation Comments CALCIUM IONIZED (BEAKER) (test 1.10 mmol/L 1.12-1.27 L code = 698) PH, BLOOD (BEAKER) (test code = 7.45 1810) POCT-GLUCOSE [id number] 11:41:54 Test Item Value Reference Range Interpretation Comments POC-GLUCOSE METER 73 mg/dL 70-110 : TESTED A T [facility] 6720 (BEAKER) (test code = [place], 1538) [address]: Emd Special Education Teacher/Techni mariama ID = [id number] for Harrison Hernandez SPUTUM CULTURE + GRAM [id number] 08:09:55 Test Item Value Reference Interpretation Comments [...] 0-5 epithelial (BEAKER) (test code cells = 088705) GRAM STAIN RESULT 1+ gram negative (BEAKER) (test code rods = 054139) GRAM STAIN RESULT <1+ gram positive (BEAKER) (test code cocci in clusters = 903579) No Normal respiratory jaz presentC W/PLT COUNT [...] PERCENT (BEAKER) (test code = 2801) POCT-GLUCOSE [id number] 06:02:55 Test Item Value Reference Range Interpretation Comments POC-GLUCOSE METER 61 mg/dL 70-110 L : TESTED A T [facility] 67[facility] (BEAKER) (test code = [place], 1538) [address]: Emd Special Education Teacher/Techni mariama ID = [id number] for ARTEMJazmín COURTNEYVICKY BASIC METABOLIC [id number] 05:02:32 Test Item Value Reference Range Interpretation [...] S NOT APPLICABLE FOR DIALYSIS PATIEN TS. Emd Special Education Teacher ID - DBSpecimen slightly ictericHEPATIC FUNCTION [id number] 05:01:15 Test Item Value Reference Range Interpretation [...] Specimen slightly (test code = 347) hemolyzed Emd Special Education Teacher ID - DBSpecimen slightly [id number] 05:01:14 Test Item Value Reference Range Interpretation Comments PHOSPHORUS (BEAKER) 3.9 mg/dL 2.3-4.7 Specimen slightly (test code = 604) hemolyzed Emd Special Education Teacher ID - [id number] 05:01:13 Test Item Value Reference Range Interpretation Comments MAGNESIUM (BEAKER) 2.3 mg/dL 1.6-2.6 Specimen slightly (test code = 627) hemolyzed Emd Special Education Teacher ID - DBB-type Natriuretic Factor (BNP)2021-10-24 04:59:13 Test Item Value Reference Range Interpretation Comments BNP (test code = 82248-2) 2021 pg/mL 0-100 H HERMAN (test code = HERMAN) Emd Special Education Teacher ID - FIDELINA G Lab Interpretation (test Abnormal code = 24100-8) [facility] (BNP)2021-10-24 04:59:13 Test Item Value Reference Range Interpretation Comments B-TYPE NATRIURETIC PEPTIDE 2021 pg/mL 0-100 H (BEAKER) (test code = 700) Emd Special Education Teacher ID - FIDELINA GCALCIUM, [id number] 04:42:04 Test Item Value Reference Range Interpretation Comments CALCIUM IONIZED (BEAKER) (test 1.01 mmol/L 1.12-1.27 L code = 698) PH, BLOOD (BEAKER) (test code = 7.45 1810) BLOOD GAS, [id number] 04:42:04 Test Item Value Reference Range Interpretation [...] (BEAKER) (test code = 1819) 21.0 CALCIUM, [id number] 04:42:03 Test Item Value Reference Range Interpretation Comments CALCIUM IONIZED (BEAKER) (test 1.03 mmol/L 1.12-1.27 L code = 698) PH, BLOOD (BEAKER) (test code = 7.45 1810) RAD, CHEST, 1 VIEW, NON [id number] 02:44:00Reason for exam:- >intubationShould this be performed at the bedside?->Yes [facility] 1960 Sex: FFINAL REPORT EXAM/TECHNIQUE: Single view frontal radiograph of the chest. INDICATION: Intubation COMPARISON: None. FINDINGS: Devices/Objects: None. Lungs: Similar bilateral pleural effusions. No visible pneumothorax. Heart/Mediastinum: Similar cardiomegaly. Osseous: No acute osseous process. No suspicious osseous lesion. Upper abdomen: Unremarkable. Impression: Similar pleural effusions.Signed: Arie Topete MDReport Verified Date/Time: 10/24/2021 02:44:45 POCT-GLUCOSE [id number] 23:45:16 Test Item Value Reference Range Interpretation Comments POC-GLUCOSE METER 164 mg/dL 70-110 H : TESTED A T [facility] 6720 (BEAKER) (test code [facility], = 1538) [address]284: Emd Special Education Teacher/Techni mariama ID = [id number] for SUGU , SHEENAMOL POCT-GLUCOSE [id number] 18:34:33 Test Item Value Reference Range Interpretation Comments POC-GLUCOSE METER 195 mg/dL 70-110 H : TESTED A T [facility] 6720 (BEAKER) (test code = [facility], 1538) 8[address]: Emd Special Education Teacher/Techni mariama ID = [id number] for Ava Nesbitt [id number] 13:33:06 Test Item Value Reference Range Interpretation Comments PHOSPHORUS (BEAKER) 3.8 mg/dL 2.3-4.7 Specimen moderately (test code = 604) hemolyzed Emd Special Education Teacher ID - JC MBASIC METABOLIC [id number] 13:33:06 Test Item Value Reference Range Interpretation [...] S NOT APPLICABLE FOR DIALYSIS PATIEN TS. Emd Special Education Teacher ID - JC [id number] 13:33:05 Test Item Value Reference Range Interpretation Comments MAGNESIUM (BEAKER) 2.4 mg/dL 1.6-2.6 Specimen moderately (test code = 627) hemolyzed Emd Special Education Teacher ID - JC MPOCT-GLUCOSE [id number] 12:09:22 Test Item Value Reference Range Interpretation Comments POC-GLUCOSE METER 138 mg/dL 70-110 H : TESTED A T [facility] 6720 ([place] [place]) (test code = [facility] [employer]mit [facility], 1538) [address]: Emd Special Education Teacher/Techni mariama ID = [id number] for Harrison Gar CALCIUM, [id number] 12:09:04 Test Item Value Reference Range Interpretation Comments CALCIUM IONIZED (BEAKER) (test 1.10 mmol/L 1.12-1.27 L code = 698) PH, BLOOD (BEAKER) (test code = 7.44 1810) MRSA [id number] 09:04:37 Test Item Value Reference Range Interpretation Comments Result (test code = 6463-4) No MRSA isolated [facility] CenterMRSA [id number] 09:04:37 Test Item Value Reference Range Interpretation Comments CULTURE (BEAKER) (test code No MRSA isolated = 1095) Urine [id number] 08:34:33 Test Item Value Reference Range Interpretation Comments Result (test code = 6463-4) No growth [facility] CenterPOCT[facility] [id number] 06:09:18 Test Item Value Reference Range Interpretation Comments POC-GLUCOSE METER 179 mg/dL 70-110 H : TESTED A T [facility] 6720 (BEAKER) (test code = [facility] [employer] [facility], 1538) 18[address]: Emd Special Education Teacher/Techni mariama ID = [id number] for BORA LOZANO Hepatitis panel, [id number] 04:27:50 Test Item Value Reference Range Interpretation Comments Hep A IgM (test code = Nonreactive Nonreactive 63235-6) Hep B C IgM (test code = Nonreactive Nonreactive 85764-3) Hepatitis C Ab (test Nonreactive Nonreactive code = 89914-2) Hepatitis B surface Nonreactive Nonreactive antigen (test code = 5195-3) HERMAN (test code = HERMAN) Emd Special Education Teacher ID - JC M Lab Interpretation (test Normal code = 45788-9) [facility] CenterHEPATITIS PANEL, [id number] 04:27:50 Test Item Value Reference Range Interpretation Comments HEPATITIS A IGM ANTIBODY (BEAKER) Nonreactive Nonreactive (test code = 498) HEPATITIS B CORE IGM ANTIBODY Nonreactive Nonreactive (BEAKER) (test code = 645) HEPATITIS C ANTIBODY (BEAKER) Nonreactive Nonreactive (test code = 367) HEPATITIS B SURFACE ANTIGEN (2) Nonreactive Nonreactive (BEAKER) (test code = 2585) Emd Special Education Teacher ID - JC MB-TYPE NATRIURETIC FACTOR (BNP)2021-10-23 04:14:46 Test Item Value Reference Range Interpretation Comments B-TYPE NATRIURETIC PEPTIDE 1780 pg/mL 0-100 H (BEAKER) (test code = 700) Emd Special Education Teacher ID - JC MBASIC METABOLIC [id number] 04:08:04 Test Item Value Reference Range Interpretation [...] S NOT APPLICABLE FOR DIALYSIS PATIEN TS. Emd Special Education Teacher ID - JC MHEPATIC FUNCTION [id number] 04:08:04 Test Item Value Reference Range Interpretation [...] Specimen slightly (test code = 347) hemolyzed Emd Special Education Teacher ID - JC [id number] 04:08:03 Test Item Value Reference Range Interpretation Comments PHOSPHORUS (BEAKER) 3.0 mg/dL 2.3-4.7 Specimen slightly (test code = 604) hemolyzed Emd Special Education Teacher ID - JC [id number] 04:08:02 Test Item Value Reference Range Interpretation Comments MAGNESIUM (BEAKER) 2.4 mg/dL 1.6-2.6 Specimen slightly (test code = 627) hemolyzed Emd Special Education Teacher ID - JC MCBC W/PLT COUNT & AUTO [id number] 03:56:20 Test Item Value Reference Range Interpretation [...] (BEAKER) (test code = 2801) BLOOD GAS, [id number] 03:54:42 Test Item Value Reference Range Interpretation [...] (BEAKER) (test code = 1819) 21.0 CALCIUM, [id number] 03:54:42 Test Item Value Reference Range Interpretation Comments CALCIUM IONIZED (BEAKER) (test 1.11 mmol/L 1.12-1.27 L code = 698) PH, BLOOD (BEAKER) (test code = 7.53 1810) RAD, CHEST, 1 VIEW, NON [id number] 03:47:00Reason for exam:- >intubationShould this be performed at the bedside?->Yes [facility] 1960 Sex: FFINAL REPORT EXAM/TECHNIQUE: Single view frontal radiograph of the chest. INDICATION: Intubation. COMPARISON: 10/22/2021 FINDINGS: Devices/Objects: Stable. Lungs: Similar left pleural effusion. Heart/Mediastinum: Similar cardiomegaly. Osseous: No acute osseous process. No suspicious osseous lesion. Upper abdomen: Unremarkable. Impression: Similar left pleural effusion. Signed: Arie Topete [facility]ITALeport Verified Date/Time: 10/23/2021 03:47:07 Electronically signed by: ARIE TOPETE MD on10/23/2021 03:47 AMPOCT-GLUCOSE [id number] 23:45:35 Test Item Value Reference Range Interpretation Comments POC-GLUCOSE METER 255 mg/dL 70-110 H : TESTED A T [facility] 6720 (BEAKER) (test code MORIAH CHOW [place], = 1538) [address]: Emd Special Education Teacher/Techni mariama ID = [id number] for SUGU , SHEENAMOL [id number] 20:48:21 Test Item Value Reference Range Interpretation Comments PHOSPHORUS (BEAKER) (test code = 2.6 mg/dL 2.3-4.7 604) Emd Special Education Teacher ID - [id number] 20:48:20 Test Item Value Reference Range Interpretation Comments MAGNESIUM (BEAKER) (test code = 2.3 mg/dL 1.6-2.6 627) Emd Special Education Teacher ID - BSBASIC METABOLIC [id number] 20:48:19 Test Item Value Reference Range Interpretation [...] S NOT APPLICABLE FOR DIALYSIS PATIEN TS. Emd Special Education Teacher ID - BSCALCIUM, [id number] 20:27:03 Test Item Value Reference Range Interpretation Comments CALCIUM IONIZED (BEAKER) (test 1.05 mmol/L 1.12-1.27 L code = 698) PH, BLOOD (BEAKER) (test code = 7.51 1810) POCT-GLUCOSE [id number] 18:00:09 Test Item Value Reference Range Interpretation Comments POC-GLUCOSE METER 285 mg/dL 70-110 H : TESTED A T [facility] 6720 (BEAKER) (test code = WILFRIDO Braun [facility], 1538) 902[address]: Emd Special Education Teacher/Techni mariama ID = [id number] for Al i, Al[place] 2D Echo W/Doppler(CW/PW/Color)2021-10-22 17:11:02Ejection FractionSLEH ECHO HEARTLAB MKCKESSON [facility]PO[facility] [id number] 13:29:30 Test Item Value Reference Range Interpretation Comments POC-GLUCOSE METER 258 mg/dL 70-110 H : TESTED A T [facility] 6720 (BEAKER) (test code = WILFRIDO Braun [facility], 1538) 44951: Emd Special Education Teacher/Techni mariama ID = [id number] for Al i, Alma [id number] 13:23:40 Test Item Value Reference Range Interpretation Comments PHOSPHORUS (BEAKER) (test code = 2.5 mg/dL 2.3-4.7 604) Emd Special Education Teacher ID - JC MBASIC METABOLIC [id number] 13:23:39 Test Item Value Reference Range Interpretation [...] S NOT APPLICABLE FOR DIALYSIS PATIEN TS. Emd Special Education Teacher ID - JC [id number] 13:23:39 Test Item Value Reference Range Interpretation Comments MAGNESIUM (BEAKER) (test code = 2.3 mg/dL 1.6-2.6 627) Emd Special Education Teacher ID - JC MCALCIUM, [id number] 12:58:29 Test Item Value Reference Range Interpretation Comments CALCIUM IONIZED (BEAKER) (test 1.14 mmol/L 1.12-1.27 code = 698) PH, BLOOD (BEAKER) (test code = 7.45 1810) VANCOMYCIN LEVEL, [id number] 10:25:18 Test Item Value Reference Range Interpretation Comments VANCOMYCIN TROUGH (BEAKER) (test 12.0 ug/mL 10.0-20.0 code = 522) Emd Special Education Teacher ID - JC MRAD, CHEST, 1 VIEW, NON [id number] 07:28:00Reason for exam:->intubationShould this be performed at the bedside?->Yes [facility] : 1960 Sex: FFINAL REPORT RAD, CHEST, 1 VIEW, NON DEPT INDICATION: intubation COMPARISON: Prior day's exam FINDINGS: Portable frontal view of the chest. IMPRESSION: Support Lines: Stable. Lungs and pleura: Unchanged interstitial edema. Small bilateral effusions. No pneumothorax.Heart and mediastinum:Stable contours. Additional findings: None. Signed: JR Herman Robert MDReport Verified Date/Time: 10/22/2021 07:28:35 Reading Location: [facility] Radiology Reading Room POCT-GLUCOSE [id number] 05:47:22 Test Item Value Reference Range Interpretation Comments POC-GLUCOSE METER 165 mg/dL 70-110 H : TESTED A T [facility] (BEAKER) (test code = [place]ID[place] CHOW [place], 1538) 96[address]: Emd Special Education Teacher/Techni mariama ID = [id number] for BORA LOZANO [id number] 03:16:54 Test Item Value Reference Range Interpretation Comments PHOSPHORUS (BEAKER) (test code = 2.6 mg/dL 2.3-4.7 604) Emd Special Education Teacher ID - JC MHEPATIC FUNCTION [id number] 03:16:54 Test Item Value Reference Range Interpretation [...] code = 1264 U/L 6-55 H 347) Emd Special Education Teacher ID - JC [id number] 03:16:53 Test Item Value Reference Range Interpretation Comments MAGNESIUM (BEAKER) (test code = 2.2 mg/dL 1.6-2.6 627) Emd Special Education Teacher ID - JC MBASIC METABOLIC [id number] 03:16:52 Test Item Value Reference Range Interpretation [...] S NOT APPLICABLE FOR DIALYSIS PATIEN TS. Emd Special Education Teacher ID - CJ MB-TYPE NATRIURETIC FACTOR (BNP)2021-10-22 02:55:50 Test Item Value Reference Range Interpretation Comments B-TYPE NATRIURETIC PEPTIDE (BEAKER) 701 pg/mL 0-100 H (test code = 700) Emd Special Education Teacher ID - JC MBLOOD GAS, [id number] 02:53:42 Test Item Value Reference Range Interpretation [...] (BEAKER) (test code = 1819) 100.0 CALCIUM, [id number] 02:50:28 Test Item Value Reference Range Interpretation Comments CALCIUM IONIZED (BEAKER) (test 1.12 mmol/L 1.12-1.27 code = 698) PH, BLOOD (BEAKER) (test code = 7.52 1810) CBC W/PLT COUNT & AUTO [id number] 02:43:44 Test Item Value Reference Range Interpretation [...] PERCENT (BEAKER) (test code = 2801) POCT-GLUCOSE [id number] 00:15:31 Test Item Value Reference Range Interpretation Comments POC-GLUCOSE METER 149 mg/dL 70-110 H : TESTED A T [facility] (BEAKER) (test code = [place], 1538) [address]: Emd Special Education Teacher/Techni mariama ID = [id number] for NINA SHORE BASIC METABOLIC [id number] 21:11:41 Test Item Value Reference Range Interpretation [...] S NOT APPLICABLE FOR DIALYSIS PATIEN TS. Emd Special Education Teacher ID - BSSpecimen slightly [id number] 21:11:40 Test Item Value Reference Range Interpretation Comments PHOSPHORUS (BEAKER) 3.1 mg/dL 2.3-4.7 Specimen markedly (test code = 604) hemolyzed Emd Special Education Teacher ID - [id number] 21:11:39 Test Item Value Reference Range Interpretation Comments MAGNESIUM (BEAKER) 2.3 mg/dL 1.6-2.6 Specimen markedly (test code = 627) hemolyzed Emd Special Education Teacher ID - BSCALCIUM, [id number] 21:03:29 Test Item Value Reference Range Interpretation Comments CALCIUM IONIZED (BEAKER) (test 1.06 mmol/L 1.12-1.27 L code = 698) PH, BLOOD (BEAKER) (test code = 7.50 1810) SARS-CoV2/RT-PCR (Asymptomatic ONLY)2021-10-21 20:05:48 Test Item Value Reference Range Interpretation Comments SARS-COV2/RT-PCR (test Negative Negative code = 42052-2) HERMAN (test code = HERMAN) Negative result [...] the Act. Testing was performed using the Zipcar SARS-CoV-2 assay. Fact Sheet for Healthcare Providers:https://www.nia dupont/wilian/RT SARS-CoV-2 HCP Fact Sheet 51-576556.pdf Fact Sheet for Healthcare Patients:https://www.charline lang/wilian/RT SARS-CoV-2 Patient Fact Sheet EN 51-856115Z7.pdf Lab Interpretation Normal (test code = 16053-1) [facility])2021-10-21 20:05:48 Test Item Value Reference Range Interpretation Comments SARS-COV2/RT-PCR (test code = Negative Negative 2051194) Negative result for this test determines that [...] the Act.Testing was performed using t geraldine Zipcar SARS-CoV-2 assay.Fact Sheet for Healthcare Providers:https://www.Freedom2.pierce/wilian/RT SARS-CoV-2 HCP Fact Sheet 51- 904907.pdfFact Sheet for Healthcare Patients:https://www.Freedom2.pierce/wilian/RT SARS-CoV-2 Patient Fact Sheet EN 51-954450I4.pdfPOCT-GLUCOSE [id number] 17:25:17 Test Item Value Reference Range Interpretation Comments POC-GLUCOSE METER 141 mg/dL 70-110 H : TESTED A T [facility] 6720 (BEAKER) (test code = [facility] Aparna [facility], 1538) 06[address]: Emd Special Education Teacher/Techni mariama ID = [id number] for Amalia Carrasquillo POCT-GLUCOSE [id number] 13:45:52 Test Item Value Reference Range Interpretation Comments POC-GLUCOSE METER 158 mg/dL 70-110 H : TESTED A T [facility] 6720 (BEAKER) (test code = [facility], 1538) 38158: Emd Special Education Teacher/Techni mariama ID = [id number] for Sonya Braun BASIC METABOLIC [id number] 13:08:16 Test Item Value Reference Range Interpretation [...] S NOT APPLICABLE FOR DIALYSIS PATIEN TS. Emd Special Education Teacher ID - LISA FSpecimen slightly [id number] 13:08:15 Test Item Value Reference Range Interpretation Comments PHOSPHORUS (BEAKER) (test code = 3.8 mg/dL 2.3-4.7 604) Emd Special Education Teacher ID - LISA [id number] 13:08:14 Test Item Value Reference Range Interpretation Comments MAGNESIUM (BEAKER) (test code = 2.3 mg/dL 1.6-2.6 627) Emd Special Education Teacher ID - LISA FCALCIUM, [id number] 12:36:08 Test Item Value Reference Range Interpretation Comments CALCIUM IONIZED (BEAKER) (test 1.03 mmol/L 1.12-1.27 L code = 698) PH, BLOOD (BEAKER) (test code = 7.48 1810) RAD, ABDOMEN/KUB, 1 VIEW [id number] 12:28:00Reason for exam:->ng positioningCH[facility] : 1960 Sex: FFINAL REPORT [...] MDReport Verified Date/Time: 10/21/2021 12:28:29 Reading Location: [facility] Radiology Reading Room RAD, ABDOMEN/KUB, 1 VIEW [id number] 12:28:00Reason for exam:->ng positioning [facility] 1960 Sex: [...] MDReport Verified Date/Time: 10/21/2021 12:28:29 Reading Location: [facility] Radiology Reading Room POCT-GLUCOSE [id number] 12:02:59 Test Item Value Reference Range Interpretation Comments POC-GLUCOSE METER 70 mg/dL 70-110 : TESTED A T [facility] 6720 (ANDREWZA) (test code = [place]O [place], 1538) [address]: Emd Special Education Teacher/Techni mariama ID = [id number] for Villa on (contract)Ludys RAD, ABDOMEN/KUB, 1 VIEW [id number] 11:33:00Reason for exam:->ng tube placement[facility] : 1960 Sex: FFINAL REPORT TECHNIQUE: One view of the abdomen. INDICATION: 61-year-old woman with nasogastric tube placement. COMPARISON: None. IMPRESSION:Nasogastric tube tip terminates over the expected region of the second duodenal segment. Nonobstructive bowel gas pattern. No acute osseous abnormality. Right femoral catheter in place. Signed: Estrellita Whaleyort Verified Date/Time: 10/21/2021 11:33:21 2D Echo W/O Doppler(No Doppler)2021-10-21 07:16:53Ejection FractionSLEH ECHO HEARTLAB MKCKESSON [facility]RAD[facility], 1 VIEW, NON [id number] 07:05:00Reason for exam:->intubationShould this be performed at the bedside?->Yes [facility] : 1960 Sex: FFINAL REPORT RAD, CHEST, 1 VIEW, NON DEPT INDICATION: intubation COMPARISON: 8 hours prior FINDINGS: Portable frontal view of the chest. IMPRESSION: Limited by patient rotation.Support Lines: Stable. Lungs and pleura: Unchanged interstitial edema. Left retrocardiac opacity is stable. No pn eumothorax.Heart and mediastinum: Stable contours. Additional findings: None. Signed: JR Herman Robert MDReport Verified Date/Time: 10/21/2021 07:05:33 Reading Location[facility] RadiologyReading [facility] [id number] 05:25:23 Test Item Value Reference Range Interpretation Comments PHOSPHORUS (HUMPHREY) 1.5 mg/dL 2.3-4.7 LL Specimen slightly (test code = 604) hemolyzed Emd Special Education Teacher ID Gutierrez BULL WPOCT-GLUCOSE [id number] 05:24:58 Test Item Value Reference Range Interpretation Comments POC-GLUCOSE METER 98 mg/dL 70-110 : TESTED A T [facility] 6720 (HUMPHREY) (test code = WILFRIDO Aparna CHOW [place], 1538) 84[address]: Emd Special Education Teacher/Techni mariama ID = [id number] for Kevin Bashir High Sensitivity Troponin I ([facility]/Masha Only)2021-10-21 05:10:02 Test Item Value Reference Range Interpretation Comments Troponin I HS (test 44 pg/ml See_Comment H [Automa crissy code = 72000-8) message] The system which generated this result transmitted reference range : <=17. The reference range was not used to interpret this result as normal/abnormal . HERMAN (test code = Emd Special Education Teacher ID - JC HERMAN) MThe VENDING ENTERPRISES SUPERVISOR STAT High Sensitivity Troponin-I results should be used in conjunction with other diagnostic information such as ECG, clinical observations and information, and patient symptoms to aid in the diagnosis of NC. Lab Interpretation Abnormal (test code = 72366-0) [facility] CenterH[facility]ITIV[facility] TROPONIN [id number] 05:10:02 Test Item Value Reference Range Interpretation Comments HIGH SENSITIVITY 44 pg/ml See_Comment H [Automated message] TROPONIN I (test code = The system which 8322645) generated this result transmitted ref erence range: <=17. Th e reference range was not used to int erpret this result as normal/abnormal . Emd Special Education Teacher ID - JC Awareness Carde VENDING ENTERPRISES SUPERVISOR STAT High Sensitivity Troponin-I results should be used in conjunction with other diagnostic information such as ECG, clinical observations and information, and patient symptoms to aid in the diagnosis of NC.B-TYPE NATRIURETIC FACTOR (BNP)2021-10-21 05:09:45 Test Item Value Reference Range Interpretation Comments B-TYPE NATRIURETIC PEPTIDE 1457 pg/mL 0-100 H (BEAKER) (test code = 700) Emd Special Education Teacher ID Gutierrez GREENE MHEPATIC FUNCTION [id number] 05:08:02 Test Item Value Reference Range Interpretation [...] Specimen slightly (test code = 347) hemolyzed Emd Special Education Teacher PRESTON BULL WSpecimen slightly [id number] 05:08:01 Test Item Value Reference Range Interpretation Comments MAGNESIUM (BEAKER) 2.3 mg/dL 1.6-2.6 Specimen slightly (test code = 627) hemolyzed Emd Special Education Teacher PRESTON BULL WBASIC METABOLIC [id number] 05:08:01 Test Item Value Reference Range Interpretation [...] S NOT APPLICABLE FOR DIALYSIS PATIEN TS. Emd Special Education Teacher ID - ML WSpecimejennifer slightly ictericCALCIUM, [id number] 04:53:23 Test Item Value Reference Range Interpretation Comments CALCIUM IONIZED (BEAKER) (test 1.03 mmol/L 1.12-1.27 L code = 698) PH, BLOOD (BEAKER) (test code = 7.42 1810) BLOOD GAS, [id number] 04:53:22 Test Item Value Reference Range Interpretation [...] 1819) 21.0 CBC W/PLT COUNT & AUTO [id number] 04:50:30 Test Item Value Reference Range Interpretation [...] PERCENT (BEAKER) (test code = 2801) POCT-GLUCOSE [id number] 00:44:49 Test Item Value Reference Range Interpretation Comments POC-GLUCOSE METER 125 mg/dL 70-110 H : TESTED Mani Arguello [facility] 6720 (BEAKER) (test code = WILFRIDO SÁNC[place], 1538) [address]: Emd Special Education Teacher/Techni mariama ID = [id number] for Kevin Eisenberg POCT-GLUCOSE [id number] 00:00:31 Test Item Value Reference Range Interpretation Comments POC-GLUCOSE METER 70 mg/dL 70-110 : Notified RN/MD: TESTED (Josey Ellis Commercial Real Estate InvestmentsAKER) (test code = [facility] 67[address]ORIAH 1538) [place], [address]: Emd Special Education Teacher/Techni mariama ID = [id number] for MOLLY DALEY HIGH SENSITIVITY TROPONIN [id number] 23:53:48 Test Item Value Reference Range Interpretation Comments HIGH SENSITIVITY 79 pg/ml See_Comment H [Automated message] TROPONIN I (test code = The system which [id number]) generated this result transmitted ref erence range: <=17. Th e reference range was not used to int erpret this result as normal/abnormal . Emd Special Education Teacher ID - DBThe VENDING ENTERPRISES SUPERVISOR STAT High Sensitivity Troponin-I results should be used in conjunctionwith other diagnostic information such as ECG, clinical observations and information, and patient symptoms to aid in the diagnosis of NC.[id number] 21:26:48 Test Item Value Reference Range Interpretation Comments MAGNESIUM (BEAKER) (test code = 2.1 mg/dL 1.6-2.6 627) [employer] Teacher ID - [id number] 21:26:48 Test Item Value Reference Range Interpretation Comments PHOSPHORUS (BEAKER) (test code = 2.4 mg/dL 2.3-4.7 604) [employer] Special Education Teacher ID - DBBASIC METABOLIC [id number] 20:38:43 Test Item Value Reference Range Interpretation [...] S NOT APPLICABLE FOR DIALYSIS PATIEN TS. [employer] Special Education Teacher ID - DBCBC W/PLT COUNT & AUTO [id number] 20:33:55 Test Item Value Reference Range Interpretation [...] (BEAKER) (test code = 2801) BLOOD GAS, [id number] 20:23:57 Test Item Value Reference Range Interpretation [...] FIO2 (BEAKER) (test code = 1819) 21.0 [id number] 19:58:30 Test Item Value Reference Range Interpretation Comments PHOSPHORUS (BEAKER) (test code = 3.6 mg/dL 2.3-4.7 604) [employer] Special Education Teacher ID - DBHemoglobin [id number] 19:04:22 Test Item Value Reference Range Interpretation Comments Hemoglobin A1C (test code = 4548-4) 7.4 % 4.3-6.1 H Lab Interpretation (test code = Abnormal 23760-7) [facility] [id number] 19:04:22 Test Item Value Reference Range Interpretation Comments HEMOGLOBIN A1C (BEAKER) (test code = 7.4 % 4.3-6.1 H 368) Vitamin B12 and [id number] 18:35:52 Test Item Value Reference Range Interpretation Comments Vitamin B12 (test 1872 pg/mL 213-816 H code = 2132-9) Folate (test code = 35.50 ng/mL See_Comment [Automa crissy 2284-8) message] The system which generated this result transmitted reference range : >=7.00. The reference range was not used to interpret this result as normal/abnormal . HERMAN (test code = HERMAN) [employer] Special Education Teacher ID - DBOperator ID - DB Lab Interpretation Abnormal (test code = 88056-1) [facility] B12 AND [id number] 18:35:52 Test Item Value Reference Range Interpretation Comments VITAMIN B12 1872 pg/mL 213-816 H (BEAKER) (test code = 774) FOLATE (BEAKER) 35.50 ng/mL See_Comment [Automated message] (test code = 362) The system which generated this result transmitted ref erence range: >=7.00. The reference range was not used to interpr et this result as normal/abnormal . Em[employer] Special Education Teacher ID - DBOperator ID - DBTSH/Free T4 If [id number] 18:35:21 Test Item Value Reference Range Interpretation Comments TSH (test code = 1.887 See_Comment [Automated 23882-7) message] The system which generated this result transmit crissy reference range : 0.350 - 4.940 uIU/mL. The reference range was not used to interpret this result as normal/abnormal . HERMAN (test code = HERMAN) Em[employer] Special Education Teacher ID - DB Lab Interpretation Normal (test code = 98713-2) [facility] T4 IF [id number] 18:35:21 Test Item Value Reference Range Interpretation Comments THYROID STIMULATING HORMONE 1.887 uIU/mL 0.350-4.940 (BEAKER) (test code = 772) Em[employer] Special Education Teacher ID - DBU/S, ABDOMINAL, [id number] 18:16:00Abdomen limited area? Add comment if clarification is needed.->LiverReason for exam:->AST/ALT 1 000s, concern for hepatitis vs. ischemic hepatopathy vs. cirrhosisShould this be performed at the bedside?->Yes [facility] 1960 Sex: [...] MDReport Verified Date/Time: 10/20/2021 18:16:16 Reading Location: [address] Reading Room POCT-GLUCOSE [id number] 17:31:01 Test Item Value Reference Range Interpretation Comments POC-GLUCOSE METER 115 mg/dL 70-110 H : TESTED A T [facility] [address] ([employer]) (test code = [place], 1538) [address]: Emd Special Education Teacher/Techni mariama ID = [id number] for Sheila Zafar B-TYPE NATRIURETIC FACTOR (BNP)2021-10-20 17:21:46 Test Item Value Reference Range Interpretation Comments B-TYPE NATRIURETIC PEPTIDE 2735 pg/mL 0-100 H ([employer]) (test code = 700) [employer] Special Education Teacher ID - DBHIGH SENSITIVITY TROPONIN [id number] 17:21:08 Test Item Value Reference Range Interpretation Comments HIGH SENSITIVITY 79 pg/ml See_Comment H [Automated message] TROPONIN I (test code = The system which 2490703) generated this result transmitted ref erence range: <=17. Th e reference range was not used to int erpret this result as normal/abnormal . Emd Special Education Teacher ID - DBThe [employer]ENDING ENTERPRISES SUPERVISOR STAT High Sensitivity Troponin-I results should be used in conjunctionwith other diagnostic information such as ECG, clinical observations and information, and patient symptoms to aid in the diagnosis of NC.Creatine Kinase (CK)2021-10-20 17:18:53 Test Item Value Reference Range Interpretation Comments Total CK (test code = 39 U/L 29-200 2157-6) HERMAN (test code = HERMAN) Emd Special Education Teacher ID - DB Lab Interpretation (test Normal code = 08958-2) [facility] CenterHEPAT[facility] FUNCTION [id number] 17:18:53 Test Item Value Reference Range Interpretation [...] code = 1564 U/L 6-55 H 347) Emd Special Education Teacher ID - DBCREATINE KINASE (CK)2021-10-20 17:18:53 Test Item Value Reference Range Interpretation Comments CREATINE KINASE TOTAL (BEAKER) (test 39 U/L 29-200 code = 380) Emd Special Education Teacher ID - DBBASIC METABOLIC [id number] 17:18:52 Test Item Value Reference Range Interpretation Comments SODIUM (BEAKER) 139 meq/L 136-145 (test code = 381) POTASSIUM (BEAKER) 3.1 meq/L 3.5-5.1 L (test code = 379) CHLORIDE (BEAKER) 99 meq/L 98-107 (test code = 382) CO2 (BEAKER) (test 29 meq/L 22-29 code = 355) BLOOD UREA NITROGEN 39 [...] S NOT APPLICABLE FOR DIALYSIS PATIEN TS. Emd Special Education Teacher ID - [id number] 17:18:52 Test Item Value Reference Range Interpretation Comments MAGNESIUM (BEAKER) (test code = 2.2 mg/dL 1.6-2.6 627) Emd Special Education Teacher ID - DBProthrombin time/[id number] 17:11:22 Test Item Value Reference Interpretation Comments Range Protime (test code = 19.2 See_Comment H [Autom ated 1972-2) message] The system which generated this result transmitted reference range : 11.9 - 14.2 seconds. The reference range was not used to interpret this result as normal/abnormal . INR (test code = 1.64 See_Comment [Automated 4361-6) message] The system which generated this result [...] valves. Lab Interpretation Abnormal (test code = 59477-4) [facility] CenterPROTHROMBIN TIME/[id number] 17:11:22 Test Item Value Reference Range Interpretation Comments PROTIME (BEAKER) 19.2 seconds 11.9-14.2 H (test code = 759) INR (BEAKER) (test 1.64 See_Comment [Automat ed message] code = 370) The system [facility] [employer] generated this result transmitted ref erence range: <=5.90. The reference range was not used to int erpret this result as normal/abnormal . RECOMMENDED COUMADIN/WARFARIN INR THERAPY RANGESSTANDARD DOSE: 2.0 - 3.0 Includes: PROPHYLAXIS for venous thrombosis, systemic embolization; TREATMENT for venous thrombosis and/or pulmonary embolus.HIGH RISK: Target INR is 2.5-3.5 for patients with mechanical heart valves.Urinalysis w/Microscopic + Reflex to [id number] 17:02:07 Test Item Value Reference Range Interpretation Comments Color, UA (test code Yellow = 5778-6) Clarity, UA (test Hazy code = 5767-9) Specific [place], UA 1.010 1.001-1.035 (test code = 5811-5) pH, UA (test code = 6.0 5.0-8.0 5803-2) Protein, UA (test Negative Negative code = 13175-2) Glucose, UA (test Negative Negative code = 365) Ketones, UA (test 20 mg/dL Negative A code = 2514-8) Bilirubin, UA (test Negative Negative code = 96645-7) Blood, UA (test code Moderate Negative A = 45877-7) Nitrite, UA (test Negative Negative code = 5802-4) Leukocytes, UA (test Large Negative A code = 5799-2) Urobilinogen, UA 0.2 mg/dL 0.2-1.0 (test code = 19374-3) RBC, UA (test code = 14 See_Comment [Autom ated 11678-9) message] The system which generated this result [...] . Bacteria, UA (test Occasional code = 96077-5) Mucus (test code = Rare 8247-9) Squam Epithel, UA <1 See_Comment [Automate d (test code = 77271-7) messag e] The system which generated this result transmitted reference range : /HPF. The reference range was not used to interpret this result as normal/abnormal . Hyaline Casts, UA 7 See_Comment [Automate d (test code = 86512-0) messag e] The system which generated this [...] Crystals, Urine (test None Seen code = 03092-1) Specimen Source (test code = 2795) HERMAN (test code = HERMAN) Emd Special Education Teacher ID - [auto]Emd Special Education Teacher ID - tech Lab Interpretation Abnormal (test code = 16015-1) [facility]/ REFLEX URINE [id number] 17:02:07 Test Item Value Reference Range Interpretation [...] = 1521) SOURCE(BEAKER) (test code = 2795) Emd Special Education Teacher ID - [auto]Emd Special Education Teacher ID - techBlood gas, [id number] 16:51:02 Test Item Value Reference Range Interpretation Comments pH, Arterial (test code 7.40 7.35-7.45 = 2744-1) pCO2, Arterial (test 47 See_Comment H [Autom ated message] code = 2019-8) The system [facility] generated this result transmit crissy reference range : 35 - 45 mm Hg. The reference range was not used to interpret this result as normal/abnormal . pO2, Arterial (test 93 See_Comment H [Automa crissy message] code = 2703-7) The system [employer] generated this result transmit crissy reference range : 80 - 90 mm Hg. The reference range was not used to interpret this result as normal/abnormal . O2 Sat, Arterial (test 97.0 % 96.0-97.0 code = 2708-6) HCO3, Arterial (test 28 mmol/L 21-29 code = 1960-4) Base Excess, Arterial 2.4 mmol/L -2.0-3.0 (test code = 1925-7) Patient Temperature 37.1 (test code = 8310-5) FIO2 (test code = 1819) 70 Lab Interpretation Abnormal (test code = 86062-9) [facility] CenterBLOOD GAS, [id number] 16:51:02 Test Item Value Reference Range Interpretation Comments PH ARTERIAL (BEAKER) (test code = 7.40 7.35-7.45 383) PCO2 ARTERIAL (BEAKER) (test code 47 mm Hg 35-45 H = 384) PO2 ARTERIAL (BEAKER) (test code = 93 mm Hg 80-90 H 385) O2 SATURATION ARTERIAL (BEAKER) 97.0 % 96.0-97.0 (test code = 386) HCO3 ARTERIAL (BEAKER) (test code 28 mmol/L 21-29 = 388) BASE EXCESS ARTERIAL (BEAKER) 2.4 mmol/L -2.0-3.0 (test code = 387) PATIENT TEMPERATURE (BEAKER) (test 37.1 code = 1818) FIO2 (BEAKER) (test code = 1819) 70.0 RAD, CHEST, 1 VIEW, NON [id number] 16:32:00Reason for exam:- >intubationShould this be performed at the bedside?->Yes [facility] 1960 Sex: FFINAL REPORT Exam: RAD, CHEST, 1 VIEW, NON DEPTDate: 10/20/2021 4:30 PM Indication: Intubation Comparison: None FINDINGS: Lines/Tubes:Endotracheal tube terminates 3.9 cm above the vinicius. Enteric tube projects below the diaphragm and out of view. EKG leads overlie the chest. Lungs:The right lung is hyperinflated. Left lung volume is relatively low. There is perihilar fullness and indistinctness of the pulmonary vasculature. There is left basilar opacity silhouetting the left aracely diaphragm. Pleura: Moderate left pleural effusion. No pneumothorax. Heart/Mediastinum:The cardiomediastinalsilhouette is normal in size and contour. Bones/Soft Tissues: No acute osseous injury. Abdomen: No free air below the diaphragm. IMPRESSION:Lines and tubes as above. Pulmonary interstitial edema and moderate left pleural effusion. Left basilar airspace opacities may represent associated atelectasis versus superimposed aspiration or pneumonia. Signed: Nabil Virgen Verified Date/Time: 10/20/2021 16:32:37 Reading Location: [address] Reading Room
[2022-11-18 16:29] LABS: Absolute Lymphocytes (CBC) 0.6 K/uL (0.7-4.9); Hematocrit 50.1 % (36.0-45.0); Lymphocytes % 3.8 % (15.3-44.8); MCV 91.9 fL (80-100); MPV 8.9 fL (7.6-11.3); RBC Red Blood Cell Count 5.45 M/uL (3.86-4.86)
[2022-11-18 16:42] LABS: Albumin 3.3 g/dL (3.4-5.0); Bilirubin Total 0.6 mg/dL (0.2-1.0); Potassium 3.4 mmol/L (3.5-5.1); Protein, Total 8.9 g/dL (6.4-8.2)
[2022-11-18 17:00] LABS: SARS-COV-2 RT PCR NEGATIVE (NEGATIVE)
[2022-11-18] MEDS ORDERED: ONDANSETRON 4 MG/2 ML VIAL ONE (17:03)
[2022-11-18] MEDS ORDERED: NA CHLORIDE 0.9% 500 ML ONE ×2 (17:03→18:54)
--- NOTE | 2022-11-18 18:13 | RAD REPORT ---
EXAM DESCRIPTION: CT - Abdomen Pelvis W Contrast - 11/18/2022 6:01 pm CLINICAL HISTORY: Epigastric pain COMPARISON: Chest Single View dated 07/29/2022 TECHNIQUE: Biphasic, helical CT imaging of the abdomen and pelvis was performed following 100 ml non -ionic IV contrast. Oral contrast: No. All CT scans are performed using dose optimization technique as appropriate and may include automated exposure control or mA/KV adjustment according to patient size. FINDINGS: Trace left-sided minimal right-sided pleural effusions. Posterior gutter atelectasis is pr esent. Interstitial opacification is present. No pericardial thickening or effusion. The liver, spleen, and pancreas show no suspicious findings. Moderate-sized gallstone is present with no acute gallbladder or biliary tree finding. Symmetric renal function is seen with no hydronephrosis or suspicious renal mass. No pyelonephritis o r acute parenchymal process. Partially filled urinary bladder shows no suspicious finding. No adrenal abnormalities. Uterus and ovaries show no suspicious findings. Fluid is present in the stomach. No gastric wall thickening, mass or edema. Small bowel is unremarkab le. No appendicitis. No acute colon finding identifiable. No pelvic floor abnormality seen. Evaluatio n of the perineum is inherently limited on CT imaging. No free air, free fluid or inflammatory stranding. No hernia, mass or bulky lymphadenopathy. No suspicious bony findings. IMPRESSION: Cholelithiasis without evidence for cholecystitis. No biliary tree abnormality. Minimal atelectasis and pleural fluid in each posterior gutter. Interstitial markings are prominent. Chronic lung pattern could mask lung base interstitial edema or infiltrate.
[2022-11-18] MEDS ORDERED: MAGNESIUM SULFATE 1 gm IVPB 1 GM/100 ML BAG IV ONE (18:54)
[2022-11-18] MEDS ORDERED: dexAMETHasone 10 MG/ML VIAL ONE (18:54)
[2022-11-18] MEDS ORDERED: LEVALBUTEROL 1.25 MG/3 ML NEB ONE (18:54)
[2022-11-18 19:03] LABS: Protime INR 1.42
[2022-11-18 19:29] LABS: Arterial Blood Carboxyhemoglob 1.4 % (0-1.5); Blood Gas Oxyhemoglobin 85.8 % (94-97); Blood O2 Saturation 88.3 % (92-98.5)
[2022-11-18 19:32] LABS: Magnesium 2.7 mg/dL (1.6-2.4)
[2022-11-18 19:35] LABS: Troponin High Sensitivity 119.8 pg/mL (<58.9)
[2022-11-18] MEDS ORDERED: KCL 20 MEQ/100 mL IVPB 100 ML IV ONE (19:57)
[2022-11-18] MEDS ORDERED: FUROSEMIDE 40 MG/4 ML VIAL ONE (19:57)
[2022-11-18] MEDS ORDERED: NA CHLORIDE 0.9% 100 ML IV ONE (19:58)
[2022-11-18] MEDS ORDERED: ENOXAPARIN 60 MG/0.6 ML SQ ONE (19:58)
--- NOTE | 2022-11-18 20:05 | RAD REPORT ---
EXAM DESCRIPTION: RAD - Chest Single View - 11/18/2022 7:10 pm CLINICAL HISTORY: SOB COMPARISON: Single-view chest 07/29/2022 TECHNIQUE: AP portable chest image was obtained 11/18/2022 7:10 pm . FINDINGS: No focal mass consolidation. Interstitial markings are prominent. Interstitial pattern is increased over the prior study in part due to under penetrated AP technique versus comparison PA tech nique. Interstitial edema and infiltrate could be masked in this setting. Heart size is upper normal, not significantly different from comparison. No hilar mass or lymphadeno mallorie. No measurable pleural effusion and no pneumothorax. No acute bony abnormality seen. No acute a ortic findings suspected. IMPRESSION: Prominent baseline interstitial pattern potentially masking interstitial edema or infilt rate.
--- NOTE | 2022-11-18 21:04 | ER ---
Nurse's Notes [facility] Name: Ruth Drake Age: 62 yrs Sex: Female : 1960 Arrival Date: 11/18/2022 Time: 14:07 Bed 2 Private MD: Diagnosis: Acute respiratory failure;Heart failure, unspecified Presentation: 11/18 15:31 Chief complaint: Patient states: nausea and diarrhea that began 3 days ago. Denies ss fever. Coronavirus screen: Client denies travel out of the [place] in the last 14 days. Ebola Screen: Patient denies exposure to infectious person. Patient denies travel to an Ebola-affected area in the 21 days before illness onset. Initial Sepsis Screen: Does the patient meet any 2 criteria? No. Patient's initial sepsis screen is negative. Does the patient have a suspected source of infection? No. Patient's initial sepsis screen is negative. Risk Assessment: Do you want to hurt yourself or someone else? Patient reports no desire to harm self or others. Onset of symptoms was November 15, 2022. 15:31 Method Of Arrival: Wheelchair ss 15:31 Acuity: PADMINI 2 ss Historical: - Allergies: 15:37 Bactrim; ss 15:37 Codeine; ss 15:37 sulfamethoxazole; ss - PMHx: 15:37 COPD; Diabetes - NIDDM; Hypertension; ss - Immunization history:: Adult Immunizations up to date. - Social history:: Smoking status: Patient reports the use of cigarette tobacco products, smokes one-half pack cigarettes per day. Screenin:50 Abuse screen: Denies threats or abuse. Denies injuries from another. Nutritional ha1 screening: No deficits noted. Tuberculosis screening: No symptoms or risk factors identified. 11/19 00:04 [facility] ED Fall Risk Assessment (Adult) Score/Fall Risk Level 0 - 2 = Low Risk. as6 Assessment: 11/18 16:30 Reassessment: Pt brought back to ER 18. mb9 16:43 General: Appears uncomfortable, unkempt, Behavior is calm, cooperative, appropriate for mb9 age. General: Appears. Pain: Denies pain. Neuro: Level of Consciousness is awake, alert, obeys commands, Oriented to person, place, time, situation, Appropriate for age. Cardiovascular: Heart tones S1 S2 present Rhythm is regular. Respiratory: Reports cough that is non-productive, Airway is patent Respiratory effort is even, labored, Respiratory pattern is tachypnea Breath sounds with wheezes bilaterally. GI: Abdomen is round non-distended, Bowel sounds present X 4 quads. Abd is soft and non tender X 4 quads. Reports diarrhea, nausea. : No signs and/or symptoms were reported regarding the genitourinary system. EENT: No signs and/or symptoms were reported regarding the EENT system. Derm: Skin is fragile, is thin, Skin is dry, Skin temperature is warm. Musculoskeletal: Range of motion: intact in all extremities. 17:51 Reassessment: pt taken to CT via wheelchair. mb9 18:10 Reassessment: pt became lethargic and tachycardia. HOROLOGIST APPRENTICE, Valdez, notified. mb9 18:35 Pain: Denies pain. Neuro: Level of Consciousness is lethargic, Oriented to person, mb9 place. Cardiovascular: Rhythm is sinus tachycardia. Respiratory: Airway is patent Respiratory effort is even, labored, Respiratory pattern is tachypnea. 19:00 Reassessment: RT at bedside placing BiPAP. mb9 19:05 Reassessment: Gave report to oncoming nurse DARIUS Tristan. mb9 19:37 General: Appears ill, Behavior is anxious. Pain: Denies pain. Neuro: Level of ha1 Consciousness is awake, lethargic, Oriented to person, place, time, situation. Cardiovascular: Heart tones S1 S2 present Rhythm is sinus tachycardia. Respiratory: Airway is patent Respiratory effort is even, labored, Respiratory pattern is tachypnea Patient placed on BiPAP: Inspiratory Pressure: 20 Expiratory (EPAP) Pressure: 7 Breath sounds are coarse bilaterally. the patient has moderate shortness of breath. GI: Abdomen is round non-distended, Bowel sounds present X 4 quads. Reports diarrhea, nausea. : No signs and/or symptoms were reported regarding the genitourinary system. EENT: No signs and/or symptoms were reported regarding the EENT system. Derm: Skin is fragile, is thin, Skin is dry. Musculoskeletal: Circulation, motion, and sensation intact. 20:35 Reassessment: Patient and/or family updated on plan of care and expected duration. Pain ha1 level reassessed. Neuro: Level of Consciousness is awake. Respiratory: Respiratory effort is labored, Respiratory pattern is tachypnea. 20:35 Reassessment: notified care provider of low oxygen saturation. called RT. ha1 23:28 Neuro: Flores Agitation-Sedation Scale (RASS): -2 Light sedation. as6 11/19 00:02 Respiratory: Ventilator assessment: ET Tube: 7.5 21cm. at gum line. Ventilator Mode: as6 Assist Control (AC) Tidal Volume: 470 Respiratory Rate: 18 FiO2: 60 PEEP: 5 HOB > 30 degrees. 02:12 General: PT is clean and dry. Output in Castellanos is 420 ML. Output from OG is 400 ML. PT kd3 is well sedated. Vitals are stable. . Vital Signs: 11/18 15:31 BP 105 / 64; Pulse 114; Resp 22; Temp 97.7(O); Pulse Ox 82% on 3 lpm NC; Weight 59.42 ss kg; Height 5 ft. 1 in. (154.94 cm); 16:44 BP 119 / 70; Pulse 72; Resp 24; Pulse Ox 92% on 3 lpm NC; mb9 17:40 BP 120 / 80; Pulse 70; Resp 20; Pulse Ox 93% on 3 lpm NC; mb9 18:10 BP 81 / 55; Pulse 150; Resp 38; Pulse Ox 94% 3 lpm ; Pain 0/10; mb9 18:35 BP 112 / 91; Pulse 147; Resp 32; Pulse Ox 92% on 3 lpm NC; mb9 18:55 BP 110 / 89; Pulse 146; Resp 23; Pulse Ox 95% 3 lpm ; mb9 19:37 BP 112 / 70; Pulse 146; Resp 24; Pulse Ox 90% on 20% BiPAP; ha1 20:30 BP 111 / 59; Pulse 132; Resp 24 S; Pulse Ox 89% on 20% BiPAP; ha1 21:26 BP 107 / 63; Pulse 138; Resp 24 S; Pulse Ox 87% on 20% BiPAP; ha1 22:57 BP 74 / 50; Pulse 127; Resp 18 A; Pulse Ox 100% on 80% FiO2 ETT vent; as6 23:05 BP 89 / 74; Pulse 128; Resp 12 A; Temp 98.3(A); Pulse Ox 98% on 80% FiO2 ETT vent; kd3 11/19 00:02 BP 102 / 71; Pulse 117; Resp 18 A; Pulse Ox 99% on 80% FiO2 ETT vent; as6 00:36 BP 98 / 75; Pulse 123; Resp 20; Pulse Ox 100% on ETT vent; kd3 00:45 BP 103 / 78; Pulse 136; Resp 20; Pulse Ox 100% on ETT vent; kd3 00:57 BP 112 / 78; Pulse 125; Resp 20; kd3 01:36 BP 114 / 78; Pulse 128; Resp 18; Pulse Ox 100% on ETT vent; kd3 01:51 BP 110 / 79; Pulse 132; Resp 20; Temp 97.9; Pulse Ox 100% ; rv1 02:13 Temp 97.9(TE); kd3 11/18 15:31 Body Mass Index 24.75 (59.42 kg, 154.94 cm) ss 11/18 15:31 Pt states her O2 on 3L home O2 is 85% baseline ss ED Course: 14:07 Patient arrived in ED. as 15:36 Triage completed. ss 15:37 Arm band placed on right wrist. ss 15:38 Valdez Donahue NP is PHCP. pm1 15:38 Dave Ojeda MD is Attending Physician. pm1 16:41 Stephany Winston RN is Primary Nurse. mb9 16:44 Patient has correct armband on for positive identification. Placed in gown. Bed in low mm9 position. Call light in reach. Side rails up X2. Adult w/ patient. Warm blanket given. Pillow given. wild life manager on. Pulse ox on. NIBP on. 16:44 Initial lab(s) drawn, by me, sent to lab. COVID swab sent to lab. Flu and/or RSV swab mm9 sent to lab. Inserted saline lock: 22 gauge in right antecubital area, using aseptic technique. Blood collected. 16:53 COVID-19/FLU A+B Sent. mb9 17:13 IV discontinued, intact, bleeding controlled, No redness/swelling at site. Pressure mb9 dressing applied. 17:14 Inserted saline lock: 20 gauge in left antecubital area, using aseptic technique. mb9 18:03 CT Abd/Pelvis - IV Contrast Only In Process Unspecified. EDMS 18:34 EKG done, by ED staff, reviewed by Valdez Donahue NP. mb9 18:50 PT-INR Sent. mb9 18:50 BNP Sent. mb9 18:50 Magnesium Sent. mb9 18:50 Troponin HS Sent. mb9 19:12 XRAY Chest (1 view) In Process Unspecified. EDMS 21:03 Dorcas Banerjee PA-C is Hospitalizing Provider. pm1 21:04 US Abdomen Limited In Process Unspecified. EDMS 21:12 Attending Physician role handed off by Dave Ojeda MD sp3 21:12 Brooks Hunter MD is Attending Physician. sp3 22:01 Assisted provider with intubation using 7.5 mm ETT via oral route. ET tube secured at as6 21cm at the teeth. Set up intubation tray. Intubated by Brooks Hunter MD Placement verified by CO2 detector w/ + color change, auscultating bilateral breath sounds, CXR, Patient tolerated well. 22:11 Castellanos cath inserted, using sterile technique, 16 Fr., by ED staff, balloon inflated, to as6 gravity drainage. 22:13 NGT: inserted 16 Fr. other oral verified placement of air over stomach, verified return as6 of gastric contents, Placement verified by X-ray, Patient tolerated well. 22:34 Assisted provider with central line placement. Set up central line tray. Triple lumen as6 line placed in right internal jugular. Line placed by Dorcas Banerjee PA-C Placement verified by CXR, blood return, Dressed with Tegaderm, Patient tolerated well. 22:57 Initiated transfer to [facility]...have called 3 times with no answer. 23:00 CXR XRAY In Process Unspecified. EDMS 23:14 Initiated transfer again to [facility] spoke with Romina. 11/19 00:26 Pt accepted for transfer by Ana Paula Lopez. Administered Medications: 11/18 19:43 Discontinued: NS 0.9% 500 ml IV at bolus once pm1 17:13 Drug: Zofran (Ondansetron) 4 mg Route: IVP; Site: left antecubital; mb9 18:38 Follow up: Response: No adverse reaction mb9 17:13 Drug: NS 0.9% 500 ml Route: IV; Rate: bolus; Site: left antecubital; mb9 18:35 Drug: Xopenex (levalbuterol) (3) 1.25 mg Route: Inhalation; mb9 18:50 Drug: Decadron - Dexamethasone 10 mg Route: IVP; Site: left antecubital; mb9 19:28 Follow up: Response: No adverse reaction mb9 18:55 Drug: Magnesium Sulfate 1 grams Route: IVPB; Infused Over: 1 hrs; Site: left mb9 antecubital; 18:55 Drug: NS 0.9% 500 ml Route: IV; Rate: bolus; Site: left antecubital; mb9 20:03 Drug: Lovenox (enoxaparin) 1 mg/kg Route: Sub-Q; Site: right lower abdomen; ha1 20:05 Drug: Lasix (furosemide) 40 mg Route: IVP; Site: left antecubital; ha1 20:10 Drug: Potassium Chloride 20 mEq Route: IV; Rate: calculated rate; Site: left ha1 antecubital; 11/19 02:14 Follow up: Response: No adverse reaction; IV Status: Completed infusion kd3 11/18 22:00 Drug: Etomidate 20 mg Route: IVP; Site: left antecubital; 11/19 02:14 Follow up: Response: No adverse reaction kd3 11/18 22:04 Drug: Propofol 20 mg Route: IVP; Site: left antecubital; 11/19 02:13 Follow up: Response: No adverse reaction kd3 11/18 22:26 Drug: Propofol 5 mcg/kg/min Route: IV; Rate: calculated rate; Site: left antecubital; 11/19 02:14 Follow up: IV Status: Infusion continued kd3 11/18 22:58 Drug: DOPamine 10 mcg/kg/min Route: IV; Rate: calculated rate; Site: right subclavian; 11/19 02:14 Follow up: IV Status: Infusion continued kd3 11/18 23:03 Drug: Succinylcholine 120 mg Route: IVP; Site: left antecubital; 11/19 02:13 Follow up: Response: No adverse reaction kd3 Medication: 00:37 VIS not applicable for this client. kd3 Outcome: 11/18 21:03 Decision to Hospitalize by Provider. pm1 11/19 00:29 ER care complete, transfer ordered by sp3 02:14 Patient left the ED. kd3 Signatures: Dispatcher [employer] Alaina Abdalla Shelby, RN RN ss Valdez Donahue, TITO HOROLOGIST APPRENTICE pm1 [place] Brooks Hunter MD MD sp3 Cody Vick RN RN as6 Tiffanie Gutierrez RN RN kd3 Aissatou Agudelo RN RN ha1 Fariba Merritt mm9 Tish, Stephany Penn RN RN mb9 Doreen Heard 1 Corrections: (The following items were deleted from the chart) 11/18 19:26 18:10 Reassessment: pt became lethargic and tachycardia. Valdez FRANCIS, notified mb9 mb9 19:50 19:35 BP 112 / 70; Pulse 146bpm; Resp 24bpm; Pulse Ox 90% BiPAP; ha1 ha1 21:31 21:26 BP 107 / 63; Pulse 138bpm; Resp 24bpm; Spontaneous; Pulse Ox 87%; ha1 ha1 23:30 23:14 Initiated transfer again to [facility]
--- NOTE | 2022-11-18 21:04 | EDPHYS ---
Physician Documentation [facility] Name: Ruth Drake Age: 62 yrs Sex: Female : 1960 Arrival Date: 11/18/2022 Time: 14:07 Bed 2 Private MD: ED Physician Brooks Hunter HPI: 11/18 15:55 This 62 yrs old Female presents to ER via Wheelchair with complaints of Nausea and pm1 Diarrhea. 15:55 The patient presents to the emergency department with nausea, diarrhea, 2 times over pm1 the past three days. Onset: The symptoms/episode began/occurred 3 day(s) ago. Possible causes: unknown. The symptoms are aggravated by nothing. The symptoms are alleviated by nothing. Associated signs and symptoms: Pertinent negatives: abdominal pain, dysuria, fever, Chest pain. Patient at baseline shortness of breath. Severity of symptoms: in the emergency department the symptoms are unchanged. The patient has not recently seen a physician, the patient's primary care provider is Dr. Yessica Munson. Historical: - Allergies: 15:37 Bactrim; ss 15:37 Codeine; ss 15:37 sulfamethoxazole; ss - PMHx: 15:37 COPD; Diabetes - NIDDM; Hypertension; ss - Immunization history:: Adult Immunizations up to date. - Social history:: Smoking status: Patient reports the use of cigarette tobacco products, smokes one-half pack cigarettes per day. ROS: 15:55 Constitutional: Negative for fever, chills, and weight loss, Cardiovascular: Negative pm1 for chest pain, palpitations, and edema, Respiratory: Negative for shortness of breath, cough, wheezing, and pleuritic chest pain. 15:55 Back: Negative for injury and pain, : Negative for injury, bleeding, discharge, and swelling, MS/Extremity: Negative for injury and deformity, Skin: Negative for injury, rash, and discoloration, Neuro: Negative for headache, weakness, numbness, tingling, and seizure. 15:55 Abdomen/GI: Positive for nausea, diarrhea, Negative for abdominal pain, vomiting. 15:55 All other systems are negative. Exam: 15:55 Head/Face: Normocephalic, atraumatic. pm1 15:55 Back: No spinal tenderness. No costovertebral tenderness. Full range of motion. Skin: Warm, dry with normal turgor. Normal color with no rashes, no lesions, and no evidence of cellulitis. MS/ Extremity: Pulses equal, no cyanosis. Neurovascular intact. Full, normal range of motion. 15:55 Constitutional: The patient appears in no acute distress, alert, awake, comfortable, non-diaphoretic, non-toxic, well developed, well hydrated, well nourished, unkempt. 15:55 Eyes: Exam is negative for acute changes, Extraocular movements: no acute changes, Conjunctiva: no acute changes, no injection. 15:55 ENT: Exam is negative for acute changes, Mouth: Lips: normal, moist, Oral mucosa: normal, pink and intact, moist. 15:55 Cardiovascular: Rate: normal, Rhythm: regular, Pulses: no pulse deficits are appreciated, Edema: is not appreciated. 15:55 Respiratory: Exam negative for acute changes, respiratory distress, shortness of breath, Breath sounds: bronchial sounds, that are mild, are heard diffusely, patient on 3L NC. 15:55 Abdomen/GI: Inspection: abdomen appears normal, Palpation: abdomen is soft and non-tender, in all quadrants. 15:55 Neuro: Exam negative for acute changes, Orientation: is normal, Mentation: is normal. 18:48 ECG was reviewed by the Attending Physician. pm1 Vital Signs: 15:31 BP 105 / 64; Pulse 114; Resp 22; Temp 97.7(O); Pulse Ox 82% on 3 lpm NC; Weight 59.42 ss kg; Height 5 ft. 1 in. (154.94 cm); 16:44 BP 119 / 70; Pulse 72; Resp 24; Pulse Ox 92% on 3 lpm NC; mb9 17:40 BP 120 / 80; Pulse 70; Resp 20; Pulse Ox 93% on 3 lpm NC; mb9 18:10 BP 81 / 55; Pulse 150; Resp 38; Pulse Ox 94% 3 lpm ; Pain 0/10; mb9 18:35 BP 112 / 91; Pulse 147; Resp 32; Pulse Ox 92% on 3 lpm NC; mb9 18:55 BP 110 / 89; Pulse 146; Resp 23; Pulse Ox 95% 3 lpm ; mb9 19:37 BP 112 / 70; Pulse 146; Resp 24; Pulse Ox 90% on 20% BiPAP; ha1 20:30 BP 111 / 59; Pulse 132; Resp 24 S; Pulse Ox 89% on 20% BiPAP; ha1 21:26 BP 107 / 63; Pulse 138; Resp 24 S; Pulse Ox 87% on 20% BiPAP; ha1 22:57 BP 74 / 50; Pulse 127; Resp 18 A; Pulse Ox 100% on 80% FiO2 ETT vent; as6 23:05 BP 89 / 74; Pulse 128; Resp 12 A; Temp 98.3(A); Pulse Ox 98% on 80% FiO2 ETT vent; kd3 11/19 00:02 BP 102 / 71; Pulse 117; Resp 18 A; Pulse Ox 99% on 80% FiO2 ETT vent; as6 00:36 BP 98 / 75; Pulse 123; Resp 20; Pulse Ox 100% on ETT vent; kd3 00:45 BP 103 / 78; Pulse 136; Resp 20; Pulse Ox 100% on ETT vent; kd3 00:57 BP 112 / 78; Pulse 125; Resp 20; kd3 01:36 BP 114 / 78; Pulse 128; Resp 18; Pulse Ox 100% on ETT vent; kd3 01:51 BP 110 / 79; Pulse 132; Resp 20; Temp 97.9; Pulse Ox 100% ; rv1 02:13 Temp 97.9(TE); kd3 11/18 15:31 Body Mass Index 24.75 (59.42 kg, 154.94 cm) ss 11/18 15:31 Pt states her O2 on 3L home O2 is 85% baseline ss MDM: 15:42 Patient medically screened. pm1 17:03 Data interpreted: Pulse oximetry: on 3L(s) per nasal canula, is 92 %. Interpretation: pm1 normal. 18:47 ED course: Discussed with Dr Ojeda and reviewed EKG. His impression Multifocal pm1 Atrial Tachycardia and to treat COPD. 18:50 ED course: Multifocal atrial tachycardia on EKG will treat patient's COPD exacerbation. pm1 19:02 Counseling: I had a detailed discussion with the patient and/or guardian regarding: the pm1 historical points, exam findings, and any diagnostic results supporting the discharge/admit diagnosis, lab results, radiology results, the need for further work-up and treatment in the hospital. 19:02 ED course: Patient with change in vital signs after returning from imaging. Patient pm1 with tachycardia and reported shortness of breath increased from baseline COPD. 19:50 ED course: impression CHF exacerbation, will treat with potassium and lasix. Based on pm1 ABG will continue patient on BIPAP. 20:16 Data reviewed: vital signs. pm1 20:31 Physician consultation: Dorcas Banerjee PA-C regarding admission, patient's condition, and pm1 will see patient in ED, would like further tests performed, ultrasound. 22:16 ED course: To signed out to me by daytime MD and midlevel provider. Patient was sp3 initially placed on BiPAP for respiratory acidosis and CHF exacerbation. Repeat VBG demonstrates pH of 7.03, PCO2 of 109, PO2 of 197 demonstrates a worsening PCO2 despite being on BiPAP with adequate minute ventilation. No DNR order or paperwork has been identified and therefore patient has been intubated using 7.5 ET tube and rapid sequence intubation without incident. 4.0 Mac blade using succinylcholine and etomidate with color change equal breath sounds bilaterally. ET tube was initially placed at 21 cm at the lip. Repeat chest x-ray is pending. Right internal jugular central line is also being placed. Patient will be transferred to proper ICU facility with continued positive pressure ventilation and Lasix as needed. Propofol will be utilized for sedation. Dopamine drip as needed for cardiovascular support.. 11/19 00:27 ED course: Discussed with [facility] -- Dr. Deltaorre (pulm/cc) and Dr. Ana Paula lewis (hospitalist) who have graciously accepted this patient. Repeat VBG on vent shows 7./ which is improving her respiratory acidosis. . 11/18 15:55 Order name: COVID-19/FLU A+B; Complete Time: 17:03 pm1 11/18 15:55 Order name: CBC with Diff; Complete Time: 16:50 pm1 11/18 15:55 Order name: CMP; Complete Time: 16:50 pm1 11/18 15:55 Order name: Lipase; Complete Time: 16:50 pm1 11/18 18:30 Order name: Troponin HS; Complete Time: 19:37 pm1 11/18 18:30 Order name: Magnesium; Complete Time: 19:37 pm1 11/18 16:51 Order name: CT Abd/Pelvis - IV Contrast Only; Complete Time: 18:17 pm1 11/18 18:30 Order name: XRAY Chest (1 view); Complete Time: 20:10 pm1 11/18 18:30 Order name: BNP; Complete Time: 19:37 pm1 11/18 18:30 Order name: PT-INR; Complete Time: 19:07 pm1 11/18 19:07 Order name: BIPAP pm1 11/18 19:13 Order name: ABG: VBG; Complete Time: 20:34 pm1 11/18 21:13 Order name: ABG: VBG!!; Complete Time: 21:45 sp3 11/19 00:02 Order name: ABG: VBG!! 3 11/18 20:30 Order name: US Abdomen Limited; Complete Time: 21:45 pm1 11/18 22:47 Order name: CXR XRAY 3 11/18 15:55 Order name: IV Saline Lock; Complete Time: 16:42 pm1 11/18 15:55 Order name: Labs collected and sent; Complete Time: 16:42 pm1 11/18 18:30 Order name: EKG; Complete Time: 18:31 pm1 11/18 18:30 Order name: Cardiac monitoring; Complete Time: 18:34 pm1 11/18 18:30 Order name: EKG - Nurse/Tech; Complete Time: 18:34 pm1 11/18 18:30 Order name: Labs collected and sent; Complete Time: 18:50 pm1 11/18 18:30 Order name: O2 Per Protocol; Complete Time: 18:34 pm1 11/18 18:30 Order name: O2 Sat Monitoring; Complete Time: 18:34 pm1 11/18 19:41 Order name: EKG; Complete Time: 19:42 pm1 11/18 19:41 Order name: EKG - Nurse/Tech; Complete Time: 20:54 pm1 11/18 19:43 Order name: Castellanos; Complete Time: 22:55 pm1 EC/28 18:48 Rate is 150 beats/min. Rhythm is regular, Sinus tachycardia. No Q waves. T waves are pm1 Normal. No ST changes noted. Clinical impression: Multifocal atrial tachycardia. Administered Medications: 19:43 Discontinued: NS 0.9% 500 ml IV at bolus once pm1 17:13 Drug: Zofran (Ondansetron) 4 mg Route: IVP; Site: left antecubital; mb9 18:38 Follow up: Response: No adverse reaction mb9 17:13 Drug: NS 0.9% 500 ml Route: IV; Rate: bolus; Site: left antecubital; mb9 18:35 Drug: Xopenex (levalbuterol) (3) 1.25 mg Route: Inhalation; mb9 18:50 Drug: Decadron - Dexamethasone 10 mg Route: IVP; Site: left antecubital; mb9 19:28 Follow up: Response: No adverse reaction mb9 18:55 Drug: Magnesium Sulfate 1 grams Route: IVPB; Infused Over: 1 hrs; Site: left mb9 antecubital; 18:55 Drug: NS 0.9% 500 ml Route: IV; Rate: bolus; Site: left antecubital; mb9 20:03 Drug: Lovenox (enoxaparin) 1 mg/kg Route: Sub-Q; Site: right lower abdomen; ha1 20:05 Drug: Lasix (furosemide) 40 mg Route: IVP; Site: left antecubital; ha1 20:10 Drug: Potassium Chloride 20 mEq Route: IV; Rate: calculated rate; Site: left ha1 antecubital; 11/19 02:14 Follow up: Response: No adverse reaction; IV Status: Completed infusion 11/18 22:00 Drug: Etomidate 20 mg Route: IVP; Site: left antecubital; 11/19 02:14 Follow up: Response: No adverse reaction 11/18 22:04 Drug: Propofol 20 mg Route: IVP; Site: left antecubital; 11/19 02:13 Follow up: Response: No adverse reaction 11/18 22:26 Drug: Propofol 5 mcg/kg/min Route: IV; Rate: calculated rate; Site: left antecubital; 11/19 02:14 Follow up: IV Status: Infusion continued 11/18 22:58 Drug: DOPamine 10 mcg/kg/min Route: IV; Rate: calculated rate; Site: right subclavian; 11/19 02:14 Follow up: IV Status: Infusion continued 11/18 23:03 Drug: Succinylcholine 120 mg Route: IVP; Site: left antecubital; 11/19 02:13 Follow up: Response: No adverse reaction kd3 Disposition: 11/18 22:16 I agree with the assessment and plan of care. Attestation: The patient's history, exam sp3 findings, diagnostics, and a summary of any interventions or procedures was reviewed in detail with Valdez Donahue NATIONAL FLATBED TRUCK DRIVER. Disposition Summary: 11/19/22 00:29 Transfer Ordered Transfer Location: Other Acute Care Facility sp3 Reason: Higher level of care sp3 Condition: Critical(11/19/22 00:29) sp3 Problem: an acute exacerbation(11/19/22 00:29) sp3 Symptoms: have worsened(11/19/22 00:29) sp3 Accepting Physician: Dr. Goss(11/19/22 02:14) kd3 Diagnosis - Acute respiratory failure sp3 - Heart failure, unspecified sp3 Forms: - Medication Reconciliation Form sp3 - SBAR form sp3 Signatures: Dispatcher [employer] EDMS Lela Bird RN RN ss Marinas, Patrick, NP NATIONAL FL[employer]ED TRUCK DRIVER pm1 Brooks Hunter MD MD sp3 Cody Vick RN RN as6 Tiffanie Gutierrez RN RN kd3 Aissatou Agudelo RN RN ha1 Stephany Winston RN RN mb9 Corrections: (The following items were deleted from the chart) 21:01 18:50 ED course: Multifocal atrial tachycardia on EKG will treat patient's COPD pm1 exacerbation. 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 Goss sp3 kd3
--- NOTE | 2022-11-18 21:22 | RAD REPORT ---
EXAM DESCRIPTION: US - Abdomen Exam Limited - 11/18/2022 9:05 pm CLINICAL HISTORY: EPIGASTRIC PAIN COMPARISON: Abdomen Pelvis W Contrast dated 11/18/2022 FINDINGS: Single 15 millimeter sized mobile gallstones seen. No other stones or sludge. There is no wall thickening or pericholecystic fluid. No common duct stone or biliary tree dilatation identified. IMPRESSION: Single mobile gallstone with no other gallbladder or biliary tree abnormality.
[2022-11-18 21:41] LABS: Blood Gas Oxyhemoglobin 95.2 % (94-97); Blood O2 Saturation 97.7 % (92-98.5)
[2022-11-18] MEDS ORDERED: RSI MEDICATION KIT IV ONE (21:50)
[2022-11-18] MEDS ORDERED: DOPAMINE/D5W 400 MG/250 ML BAG IV ONE (21:54)
[2022-11-18] MEDS ORDERED: propofoL 1,000 MG/100 ML VIAL IV ONE (21:54)
[2022-11-19 00:18] LABS: Arterial Blood Carboxyhemoglob 1.2 % (0-1.5); Blood Gas Oxyhemoglobin 90.1 % (94-97); Blood O2 Saturation 92.7 % (92-98.5)
[2022-11-19] MEDS ORDERED: propofoL 1,000 MG/100 ML VIAL IV ONE (02:12)
[2022-11-19 03:00] VITALS: O2SAT 100
[2022-11-19 03:05] VITALS: BP 110/79; TEMP 97.9
--- NOTE | 2022-11-19 11:37 | RAD REPORT ---
EXAM DESCRIPTION: RAD - Chest Single View - 11/18/2022 10:58 pm CLINICAL HISTORY: 62-year-old female status post intubation. TECHNIQUE: Single view, AP portable chest was obtained. COMPARISON: None. FINDINGS: Unremarkable cardiac and mediastinal silhouette. Heart size is normal. There is diffuse interstitial prominence raising the possibility of pulmonary vascular congestion emil vianney viral/atypical infection. Endotracheal tube terminates 4.5 cm above the level of the vinicius. Righ t internal jugular approach central venous catheter tip terminates at the SVC right atrial junction. Enteric tube overlies the projection of the left upper quadrant, terminating off the [id number] ex amination. Lungs are otherwise grossly clear without focal opacity, pneumothorax or pleural effusions. Evaluatio n for pneumothorax is limited by the semierect technique. The visualized bones are within normal limi ts. IMPRESSION: 1. Diffuse interstitial prominence raising the possibility of pulmonary vascular conge stion versus viral/atypical infection. 2. Endotracheal tube terminates 4.5 cm above the level of the vinicius. 3. Right internal jugular approach central venous catheter tip terminates at the SVC right atrial j unction. Electronically signed by: Dolores Hughes MD 11/18/2022 11:35 PM RANCH HELPER Due to temporary technical issues with the PACS/Fluency reporting system, reports are being signed by the in house radiologists without review as a courtesy to insure prompt reporting. The interpreting radiologist is fully responsible for the content of the report.
--- NOTE | 2022-11-19 17:44 | EKG ---
Test Date: 2022-11-18 Test Time: 20:49:17 Production Aide: HAZEL MEASUREMENT RESULTS: Intervals: Rate: 140 VT: 104 QRSD: 80 QT: 362 QTc: 552 [place]: P: VT: 104 QRS: 85 T: 33 INTERPRETIVE STATEMENTS: Sinus tachycardia with short VT with occasional premature ventricular complexes T wave abnormality, consider anterior ischemia Abnormal ECG Compared to ECG 11/18/2022 20:48:39 Ventricular premature complex(es) now present Short VT interval now present Atrial premature complex(es) no longer present T-wave abnormality still present Possible ischemia still present Electronically Signed On 11-19-22 17:42:33 ENTRY LEVEL MARKETING REPRESENTATIVE by Rafa Vang
--- NOTE | 2022-11-19 17:44 | EKG ---
Test Date: 2022-11-18 Test Time: 20:48:39 [employer] Reading Teacher: HAZEL MEASUREMENT RESULTS: Intervals: Rate: 141 MI: 112 QRSD: 82 QT: 364 QTc: 557 [place]: P: MI: 112 QRS: 85 T: 43 INTERPRETIVE STATEMENTS: Sinus tachycardia with premature atrial complexes T wave abnormality, consider anterior ischemia Abnormal ECG Compared to ECG 11/18/2022 18:32:07 Atrial premature complex(es) now present Right-axis deviation no longer present T-wave abnormality still present Possible ischemia still present Electronically Signed On 11-19-22 17:42:36 QUALITY ASSURANCE LAB TECHNICIAN by Rafa Vang
--- NOTE | 2022-11-19 17:45 | EKG ---
Test Date: 2022-11-18 Test Time: 18:32:07 Clicker Operator: MB MEASUREMENT RESULTS: Intervals: Rate: 150 W[place]: 136 QRSD: 82 QT: 316 QTc: 499 [place]: P: 70 W[place]: 136 QRS: 97 T: -20 INTERPRETIVE STATEMENTS: Sinus tachycardia Rightward axis T wave abnormality, consider inferior ischemia T wave abnormality, consider anterolateral ischemia Abnormal ECG Compared to ECG 10/20/2021 11:28:58 T-wave abnormality now present Possible ischemia now present Sinus rhythm no longer present Fusion complex(es) no longer present Ventricular premature complex(es) no longer present Electronically Signed On 11-19-22 17:43:23 MAMMOGRAPHY TECH by Rafa Vang
== END 2022-11-19 02:14 ==
LOC: ER 14:00
DX: J96.00 Acute respiratory failure, unspecified whether with hypoxia or hypercapnia (principal); I50.9 Heart failure, unspecified; R11.0 Nausea; R19.7 Diarrhea, unspecified; I10 Essential (primary) hypertension; J44.9 Chronic obstructive pulmonary disease, unspecified; F17.210 Nicotine dependence, cigarettes, uncomplicated; Z20.822 Contact with and (suspected) exposure to COVID-19; Z88.1 Allergy status to other antibiotic agents; Z88.2 Allergy status to sulfonamides; Z88.5 Allergy status to narcotic agent
CPT/HCPCS: 93005 ×3; 85025; 36415; 83735; 85610; 84484; 83690; 80053; 83880; 0240U; 74177; 71045 ×2; 76705; 94002; 82805 ×3; 94660; 31500; 51702; 96372; 99291; 99292; Q9967; J0330; J7614; J1940; J2704 ×2; J3480; J3475; J1100; J1650; J1265; J7040 ×2; J2405